=== PATIENT | male | born 1940 | race Caucasian/White ===

== ENCOUNTER 2020-05-15 09:30 | Outpatient (RCR) | payer SELFPAY | END 2020-05-15 23:59 | disposition home or self-care (01) | LOC: ANHAUDIO 09:30 | PROVIDERS: PCP Internal Medicine; Visit Provider Internal Medicine | DX: Z46.1 Encounter for fitting and adjustment of hearing aid (principal) | CPT/HCPCS: V5014 ==

== ENCOUNTER 2021-01-15 08:30 | Outpatient (RCR) | payer SELFPAY | END 2021-01-15 23:59 | disposition home or self-care (01) | LOC: ANHAUDIO 08:30 | PROVIDERS: Family Provider Internal Medicine; PCP Internal Medicine; Visit Provider Internal Medicine | DX: Z46.1 Encounter for fitting and adjustment of hearing aid (principal) | CPT/HCPCS: 99199 ==

== ENCOUNTER 2021-01-24 15:35 | Outpatient (CLI) | payer MEDICARE, OTHER, SELFPAY | END 2021-01-24 15:36 | disposition home or self-care (01) | LOC: ANHCOVIDVC 15:35 | PROVIDERS: PCP Internal Medicine | DX: Z23 Encounter for immunization (principal) | CPT/HCPCS: 0001A; 91300 ==

== ENCOUNTER 2021-02-14 15:44 | Outpatient (CLI) | payer MEDICARE, OTHER, SELFPAY | END 2021-02-14 15:45 | disposition home or self-care (01) | LOC: ANHCOVIDVC 15:44 | PROVIDERS: PCP Internal Medicine | DX: Z23 Encounter for immunization (principal) | CPT/HCPCS: 0002A; 91300 ==

== ENCOUNTER 2021-11-15 13:20 | Emergency (ER) | payer MEDICARE, OTHER, SELFPAY ==
--- NOTE | ~2021-11-15 | XR_ITS ---
EXAMINATION: XR knee LT min 4V DATE: 11/15/2021 13:53 INDICATION: Left knee pain and swelling. TECHNIQUE: 4 views of left knee were obtained. COMPARISON: Left knee radiographs 09/16/2010 FINDINGS: There is a total left knee arthroplasty with patellar resurfacing in near-anatomic alignmen t. No fracture. No periprosthetic lucency to suggest loosening or infection. No knee joint effusion. IMPRESSION: 1. Total left knee arthroplasty in near-anatomic alignment. Reviewed, dictated and finalized at location A. ER BLENDER
[2021-11-15 13:31] VITALS: BP 105/50; PULSE 68; RESP 16; TEMP 36.2; O2SAT 100
--- NOTE | 2021-11-15 14:15 | ED.LOWEXIN ---
HPI - Extremity Injury (Lower) General Chief Complaint: Extremity Injury, Lower Stated Complaint: LEFT KNEE PAIN Source: patient and RN notes reviewed Mode of arrival: ambulatory History of Present Illness HPI Narrative: This is a 80-year-old male that presented to urgent care with left knee swelling. According to patient he took his last hyperbaric treatment today for a left toe infection. Patient is currently on doxycycline for that infection and taking gabapentin for the pain. Patient able to move knee with pain. The patient denies SOB, CP, palpitation, extremity numbness, lightheadedness, dizziness, constipation, diarrhea, chills, or fever. Related Data Home Medications Medication Instructions Recorded Confirmed atorvastatin 40 mg PO DAILY 11/15/21 11/15/21 carvedilol 25 mg PO DAILY 11/15/21 11/15/21 clopidogrel 75 mg PO DAILY 11/15/21 11/15/21 dorzolamide 2 drp EACH EYE DAILY 11/15/21 11/15/21 doxycycline hyclate 100 mg PO DAILY 11/15/21 11/15/21 furosemide 20 mg PO DAILY 11/15/21 11/15/21 gabapentin 300 mg PO DAILY 11/15/21 11/15/21 isosorbide mononitrate 30 mg PO DAILY 11/15/21 11/15/21 latanoprost 0.005 drp EACH EYE DAILY 11/15/21 11/15/21 levocetirizine 5 mg PO DAILY 11/15/21 11/15/21 levothyroxine 175 mcg PO DAILY 11/15/21 11/15/21 lisinopril 10 mg PO DAILY 11/15/21 11/15/21 metformin 500 mg PO DAILY 11/15/21 11/15/21 Allergies Allergy/AdvReac Type Severity Reaction Status Date / Time pentazocine Allergy Mild Unknown Verified 11/15/21 14:04 iodine Allergy Unknown Unknown Verified 11/15/21 14:04 Contrast Media Allergy Unknown Unknown Uncoded 11/15/21 14:04 Review of Systems Review of Systems: A 14 organ system Review of Systems was performed and pertinent positives included in the HPI, otherwise remaining ROS is negative. PMFSH Family History Family History (Updated 11/15/21 @ 14:16 by PETR Alvarado) Other Family history non-contributory Exam Narrative: GENERAL: This is a well-nourished, well-developed patient, in no apparent distress. HEAD: normocephalic, atraumatic. EYES: PERRL. Sclera clear/white. Vision is grossly intact. EARS: External ears normal, auditory canals clear and without drainage, TMs normal without perforation. Hearing grossly intact. NOSE: External nose normal with no obvious nasal discharge, nares without redness, no rhinorrhea. THROAT: Mucous membranes moist, posterior pharynx clear. NECK: Neck supple, non-tender without lymphadenopathy, masses or thyromegaly. CARDIOVASCULAR: Regular rate and rhythm without murmurs, gallops, or rubs. RESPIRATORY: Clear to auscultation. Breath sounds equal bilaterally. No wheezes, rales, or rhonchi. GASTROINTESTINAL: Abdomen soft, non-tender, nondistended. Bowel sounds are active. No hepato-splenomegaly, or palpable masses. No guarding. SKIN: warm, intact with no suspicious lesions or rash, good texture and turgor. NEURO: awake, alert, and oriented to person, place and time. There were no obvious focal neurologic abnormalities. Steady gait EXTREMITIES: Limited range of motion to the left knee. Left knee with edema. No open area to the site. No calf tenderness. Negative Homans sign bilaterally. BACK: Nontender without deformity or crepitance. No flank tenderness. Course Course Emergency Course: Patient will discharge with prednisone. Currently taking doxycycline and gabapentin ibuprofen contraindicated with the use of Plavix Vital Signs Vital signs: Vital Signs Temperature 97.1 F L 11/15/21 13:31 Pulse Rate 68 11/15/21 13:31 Respiratory Rate 16 11/15/21 13:31 Blood Pressure 105/50 L 11/15/21 13:31 Pulse Oximetry 100 11/15/21 13:31 Temperature 97.1 F L 11/15/21 13:31 Pulse Rate 68 11/15/21 13:31 Respiratory Rate 16 11/15/21 13:31 Blood Pressure 105/50 L 11/15/21 13:31 Pulse Oximetry 100 11/15/21 13:31 MDM - Extremity Injury (Lower) Differential Diagnosis Differential diagnosis: Likely ankle sprain
== END 2021-11-15 14:15 | disposition home or self-care (01) ==
PROVIDERS: Emergency Provider Nurse Practitioner; PCP Internal Medicine
DX: R22.42 Localized swelling, mass and lump, left lower limb (principal)
CPT/HCPCS: 73564; 99213; G0463

== ENCOUNTER 2022-01-07 10:27 | Outpatient (RCR) | payer MEDICARE, OTHER, SELFPAY ==
[2021-12-31 11:28] LABS: Alanine Aminotransferase 47 U/L (4-50); Albumin Level 3.4 g/dL (3.5-5.1); Alkaline Phosphatase 111 U/L (38-126); Anion Gap 5 mmol/L (8-16); Aspartate Amino Transferase 42 U/L (17-59); Bilirubin,Total 0.6 mg/dL (0.2-1.3); Blood Urea Nitrogen 33 mg/dL (9-20); Calcium 9.5 mg/dL (8.4-10.2); Carbon Dioxide 25 mmol/L (22-30); Chloride 104 mmol/L (98-107); Estimated Glomerular Filt Rate 49; Glucose 165 mg/dL (65-110); Potassium 4.1 mmol/L (3.4-5.0); Sodium 134 mmol/L (137-145)
[2021-12-31 11:46] LABS: Vancomycin Trough 20.3 ug/mL (10.0-20.0)
[2021-12-31 12:22] LABS: Basophils Percent Auto 0.3 % (0.2-1.2); Eosinophils Absolute Auto 0.1 K/mm3 (0-0.3); Eosinophils Percent Auto 0.7 % (0-4.4); Hematocrit 33.2 % (42.0-52.0); Hemoglobin 10.5 g/dL (14.0-18.0); Immature Granulocyte Absolute 0.04 K/mm3 (0.00-0.031); Immature Granulocyte Percent A 0.6 % (0-0.5); Lymphocytes Absolute Auto 1.19 K/mm3 (0.9-3.2); Lymphocytes Percent Auto 17.4 % (18.3-44.2); Mean Corpuscular HGB Conc 31.6 g/dl (32-36); Mean Corpuscular Volume 101.2 fl (80-100); Mean Platelet Volume 10.5 fl (7.4-10.4); Monocytes Absolute Auto 0.7 K/mm3 (0.1-0.6); Neutrophils Absolute Auto 4.9 K/mm3 (1.3-6.7); Platelet Count Result 256 k/mm3 (150-375); Red Blood Count 3.28 M/mm3 (4.6-6.20); Red Cell Distribution Width 14.5 % (11.5-14.5); White Blood Count 6.8 K/mm3 (4.5-10.0)
[2022-01-03 12:34] LABS: Basophils Percent Auto 0.4 % (0.2-1.2); Eosinophils Absolute Auto 0.1 K/mm3 (0-0.3); Eosinophils Percent Auto 0.9 % (0-4.4); Hematocrit 34.2 % (42.0-52.0); Hemoglobin 10.6 g/dL (14.0-18.0); Immature Granulocyte Absolute 0.02 K/mm3 (0.00-0.031); Immature Granulocyte Percent A 0.4 % (0-0.5); Lymphocytes Absolute Auto 1.04 K/mm3 (0.9-3.2); Lymphocytes Percent Auto 18.9 % (18.3-44.2); Mean Corpuscular Hemoglobin 31.6 pg (26-34); Mean Corpuscular Volume 102.1 fl (80-100); Mean Platelet Volume 10.9 fl (7.4-10.4); Monocytes Absolute Auto 0.6 K/mm3 (0.1-0.6); Neutrophils Absolute Auto 3.8 K/mm3 (1.3-6.7); Neutrophils Percent Auto 69.4 % (45.5-73.1); Platelet Count Result 207 k/mm3 (150-375); Red Blood Count 3.35 M/mm3 (4.6-6.20); Red Cell Distribution Width 14.8 % (11.5-14.5); White Blood Count 5.5 K/mm3 (4.5-10.0)
[2022-01-03 12:40] LABS: Alanine Aminotransferase 28 U/L (4-50); Albumin Level 3.5 g/dL (3.5-5.1); Alkaline Phosphatase 122 U/L (38-126); Anion Gap 8 mmol/L (8-16); Aspartate Amino Transferase 33 U/L (17-59); Bilirubin,Total 0.4 mg/dL (0.2-1.3); Blood Urea Nitrogen 33 mg/dL (9-20); CRP < 0.5 mg/dL (<1.0); Calcium 9.5 mg/dL (8.4-10.2); Carbon Dioxide 24 mmol/L (22-30); Chloride 102 mmol/L (98-107); Estimated Glomerular Filt Rate 42; Glucose 155 mg/dL (65-110); Potassium 4.1 mmol/L (3.4-5.0); Sodium 134 mmol/L (137-145)
[2022-01-03 12:55] LABS: Vancomycin Trough 18.3 ug/mL (10.0-20.0)
[2022-01-03 13:07] LABS: Erythrocyte Sedimentation Rate 38 mm/hr (0-20)
[2022-01-07 11:12] LABS: Basophils Percent Auto 0.2 % (0.2-1.2); Eosinophils Absolute Auto 0.1 K/mm3 (0-0.3); Eosinophils Percent Auto 1.7 % (0-4.4); Hematocrit 32.9 % (42.0-52.0); Hemoglobin 10.4 g/dL (14.0-18.0); Immature Granulocyte Absolute 0.03 K/mm3 (0.00-0.031); Immature Granulocyte Percent A 0.6 % (0-0.5); Lymphocytes Absolute Auto 0.89 K/mm3 (0.9-3.2); Lymphocytes Percent Auto 18.7 % (18.3-44.2); Mean Corpuscular HGB Conc 31.6 g/dl (32-36); Mean Corpuscular Hemoglobin 32.4 pg (26-34); Mean Corpuscular Volume 102.5 fl (80-100); Mean Platelet Volume 11.1 fl (7.4-10.4); Monocytes Absolute Auto 0.5 K/mm3 (0.1-0.6); Monocytes Percent Auto 11.1 % (2.6-8.5); Neutrophils Absolute Auto 3.2 K/mm3 (1.3-6.7); Neutrophils Percent Auto 67.7 % (45.5-73.1); Platelet Count Result 157 k/mm3 (150-375); Red Blood Count 3.21 M/mm3 (4.6-6.20); Red Cell Distribution Width 15.1 % (11.5-14.5); White Blood Count 4.8 K/mm3 (4.5-10.0)
[2022-01-07 11:28] LABS: Alanine Aminotransferase 25 U/L (4-50); Albumin Level 3.3 g/dL (3.5-5.1); Alkaline Phosphatase 148 U/L (38-126); Anion Gap 7 mmol/L (8-16); Aspartate Amino Transferase 28 U/L (17-59); Bilirubin,Total 0.3 mg/dL (0.2-1.3); Blood Urea Nitrogen 35 mg/dL (9-20); Calcium 8.8 mg/dL (8.4-10.2); Carbon Dioxide 23 mmol/L (22-30); Chloride 106 mmol/L (98-107); Estimated Glomerular Filt Rate 42; Glucose 213 mg/dL (65-110); Potassium 4.3 mmol/L (3.4-5.0); Sodium 136 mmol/L (137-145)
[2022-01-07 11:38] LABS: Vancomycin Trough 21.7 ug/mL (10.0-20.0)
== END 2022-03-31 23:59 | disposition home or self-care (01) ==
LOC: HOME HLTH 10:27
PROVIDERS: PCP Internal Medicine; Visit Provider Internal Medicine
DX: T84.54XA Infection and inflammatory reaction due to internal left knee prosthesis, initial encounter (principal)
CPT/HCPCS: 80053; 80202; 85025; 85652; 86140

== ENCOUNTER 2022-01-12 12:25 | Outpatient (NON) | payer MEDICARE, OTHER, SELFPAY ==
[2022-01-12 12:39] LABS: Anion Gap 6 mmol/L (8-16); Blood Urea Nitrogen 41 mg/dL (9-20); Calcium 9.2 mg/dL (8.4-10.2); Carbon Dioxide 26 mmol/L (22-30); Chloride 104 mmol/L (98-107); Creatine Kinase 48 U/L (55-170); Estimated Glomerular Filt Rate 42; Glucose 178 mg/dL (65-110); Potassium 4.8 mmol/L (3.4-5.0); Sodium 136 mmol/L (137-145)
== END 2022-01-12 12:26 | disposition home or self-care (01) ==
PROVIDERS: PCP Internal Medicine
DX: T84.53XA Infection and inflammatory reaction due to internal right knee prosthesis, initial encounter (principal)
CPT/HCPCS: 80048; 82550

== ENCOUNTER 2022-01-17 11:22 | Outpatient (NON) | payer MEDICARE, OTHER, SELFPAY ==
[2022-01-17 12:11] LABS: Anion Gap 8 mmol/L (8-16); Blood Urea Nitrogen 42 mg/dL (9-20); Calcium 8.4 mg/dL (8.4-10.2); Carbon Dioxide 25 mmol/L (22-30); Chloride 105 mmol/L (98-107); Creatine Kinase 54 U/L (55-170); Estimated Glomerular Filt Rate 49; Glucose 154 mg/dL (65-110); Potassium 4.4 mmol/L (3.4-5.0); Sodium 138 mmol/L (137-145)
[2022-01-17 12:34] LABS: Vancomycin Trough 11.1 ug/mL (10.0-20.0)
== END 2022-01-17 11:23 | disposition home or self-care (01) ==
LOC: HOME HLTH 11:32
PROVIDERS: PCP Internal Medicine; Visit Provider Internal Medicine
DX: T84.54XA Infection and inflammatory reaction due to internal left knee prosthesis, initial encounter (principal); Z45.2 Encounter for adjustment and management of vascular access device; Z51.81 Encounter for therapeutic drug level monitoring; Z79.899 Other long term (current) drug therapy; Y83.8 Other surgical procedures as the cause of abnormal reaction of the patient, or of later complication, without mention of misadventure at the time of the procedure
CPT/HCPCS: 80048; 80202; 82550

== ENCOUNTER 2022-01-24 10:37 | Outpatient (RCR) | payer MEDICARE, OTHER, SELFPAY ==
[2022-01-09 17:43] LABS: Anion Gap 6 mmol/L (8-16); Blood Urea Nitrogen 40 mg/dL (9-20); Calcium 9.1 mg/dL (8.4-10.2); Carbon Dioxide 25 mmol/L (22-30); Chloride 107 mmol/L (98-107); Estimated Glomerular Filt Rate 39; Glucose 99 mg/dL (65-110); Potassium 4.6 mmol/L (3.4-5.0); Sodium 138 mmol/L (137-145)
[2022-01-09 17:48] LABS: Vancomycin Trough 18.8 ug/mL (10.0-20.0)
[2022-01-10 12:04] LABS: Anion Gap 7 mmol/L (8-16); Blood Urea Nitrogen 43 mg/dL (9-20); Carbon Dioxide 25 mmol/L (22-30); Chloride 106 mmol/L (98-107); Estimated Glomerular Filt Rate 39; Glucose 239 mg/dL (65-110); Sodium 138 mmol/L (137-145)
[2022-01-10 12:11] LABS: Vancomycin Random 15.3 ug/mL (10-20)
[2022-01-24 10:53] LABS: Basophils Percent Auto 0.4 % (0.2-1.2); Eosinophils Absolute Auto 0.1 K/mm3 (0-0.3); Eosinophils Percent Auto 1.5 % (0-4.4); Hemoglobin 10.5 g/dL (14.0-18.0); Immature Granulocyte Absolute 0.01 K/mm3 (0.00-0.031); Immature Granulocyte Percent A 0.2 % (0-0.5); Lymphocytes Absolute Auto 1.39 K/mm3 (0.9-3.2); Lymphocytes Percent Auto 25.5 % (18.3-44.2); Mean Corpuscular HGB Conc 31.8 g/dl (32-36); Mean Corpuscular Hemoglobin 31.8 pg (26-34); Mean Platelet Volume 10.2 fl (7.4-10.4); Monocytes Absolute Auto 0.6 K/mm3 (0.1-0.6); Monocytes Percent Auto 10.6 % (2.6-8.5); Neutrophils Absolute Auto 3.4 K/mm3 (1.3-6.7); Neutrophils Percent Auto 61.8 % (45.5-73.1); Platelet Count Result 194 k/mm3 (150-375); Red Cell Distribution Width 14.6 % (11.5-14.5); White Blood Count 5.5 K/mm3 (4.5-10.0)
[2022-01-24 11:06] LABS: Alanine Aminotransferase 17 U/L (4-50); Albumin Level 3.8 g/dL (3.5-5.1); Alkaline Phosphatase 135 U/L (38-126); Anion Gap 6 mmol/L (8-16); Aspartate Amino Transferase 26 U/L (17-59); Bilirubin,Total 0.4 mg/dL (0.2-1.3); Blood Urea Nitrogen 50 mg/dL (9-20); Calcium 8.7 mg/dL (8.4-10.2); Carbon Dioxide 27 mmol/L (22-30); Chloride 103 mmol/L (98-107); Creatine Kinase 57 U/L (55-170); Estimated Glomerular Filt Rate 34; Glucose 194 mg/dL (65-110); Potassium 4.8 mmol/L (3.4-5.0); Sodium 136 mmol/L (137-145)
== END 2022-04-09 23:59 | disposition home or self-care (01) ==
LOC: HOME HLTH 10:37
PROVIDERS: PCP Internal Medicine
DX: T84.53XD Infection and inflammatory reaction due to internal right knee prosthesis, subsequent encounter (principal)
CPT/HCPCS: 80048; 80053; 80202; 82550; 85025

== ENCOUNTER 2023-04-02 07:46 | Outpatient (CLI) | payer MEDICARE, OTHER, SELFPAY ==
[2023-04-02 09:30] LABS: LDL Cholesterol Direct 37 mg/dL
[2023-04-02 09:45] LABS: Basophils Percent Auto 0.4 % (0.2-1.2); Eosinophils Percent Auto 0.7 % (0-4.4); Hematocrit 43.6 % (42.0-52.0); Hemoglobin 13.3 g/dL (14.0-18.0); Immature Granulocyte Absolute 0.03 K/mm3 (0.00-0.031); Immature Granulocyte Percent A 0.5 % (0-0.5); Lymphocytes Absolute Auto 1.27 K/mm3 (0.9-3.2); Mean Corpuscular HGB Conc 30.5 g/dl (32-36); Mean Corpuscular Hemoglobin 30.2 pg (26-34); Mean Corpuscular Volume 99.1 fl (80-100); Mean Platelet Volume 11.1 fl (7.4-10.4); Monocytes Absolute Auto 0.7 K/mm3 (0.1-0.6); Monocytes Percent Auto 12.3 % (2.6-8.5); Neutrophils Absolute Auto 3.5 K/mm3 (1.3-6.7); Neutrophils Percent Auto 63.1 % (45.5-73.1); Platelet Count Result 167 k/mm3 (150-375); Red Cell Distribution Width 14.3 % (11.5-14.5); White Blood Count 5.5 K/mm3 (4.5-10.0)
[2023-04-02 09:49] LABS: Thyroid Stimulating Hormone 0.389 uIU/mL (0.465-4.680)
[2023-04-02 10:08] LABS: Alanine Aminotransferase 28 U/L (6-50); Albumin Level 4.1 g/dL (3.5-5.1); Alkaline Phosphatase 136 U/L (38-126); Anion Gap 4 mmol/L (8-16); Aspartate Amino Transferase 35 U/L (17-59); Bilirubin,Total 0.5 mg/dL (0.2-1.3); Blood Urea Nitrogen 39 mg/dL (9-20); Calcium 8.9 mg/dL (8.4-10.2); Carbon Dioxide 31 mmol/L (22-30); Chloride 104 mmol/L (98-107); Cholesterol 103 mg/dL (0-200); Estimated Glomerular Filt Rate 53; Glucose 108 mg/dL (65-110); HDL Direct 34 mg/dL; Potassium 5.2 mmol/L (3.4-5.0); Sodium 139 mmol/L (137-145); Triglycerides 120 mg/dL (<150)
[2023-04-02 10:52] LABS: Free T4 Free Thyroxine 1.63 ng/mL (0.78-2.19)
== END 2023-04-02 07:47 | disposition home or self-care (01) ==
LOC: ANHLAB 07:51
PROVIDERS: PCP Internal Medicine; Visit Provider Internal Medicine Interventional Cardiology
DX: E03.9 Hypothyroidism, unspecified (principal); E78.2 Mixed hyperlipidemia; R79.89 Other specified abnormal findings of blood chemistry
CPT/HCPCS: 36415; 80053; 80061; 82607; 84439; 84443; 85025

== ENCOUNTER 2023-05-15 11:30 | Outpatient (RCR) | payer MEDICARE, OTHER, SELFPAY | END 2023-05-15 23:59 | disposition home or self-care (01) | LOC: ANHAUDIO 11:30 | PROVIDERS: PCP Internal Medicine; Visit Provider Internal Medicine | DX: Z46.1 Encounter for fitting and adjustment of hearing aid (principal) | CPT/HCPCS: 99199; V5014 ==

== ENCOUNTER 2023-07-11 08:05 | Outpatient (CLI) | payer MEDICARE, OTHER, SELFPAY ==
[2023-07-11 10:23] LABS: Basophils Percent Auto 0.3 % (0.2-1.2); Eosinophils Absolute Auto 0.1 K/mm3 (0-0.3); Eosinophils Percent Auto 1.2 % (0-4.4); Hematocrit 46.7 % (42.0-52.0); Hemoglobin 14.5 g/dL (14.0-18.0); Immature Granulocyte Absolute 0.03 K/mm3 (0.00-0.031); Immature Granulocyte Percent A 0.5 % (0-0.5); Lymphocytes Absolute Auto 1.24 K/mm3 (0.9-3.2); Lymphocytes Percent Auto 21.4 % (18.3-44.2); Mean Corpuscular Hemoglobin 30.8 pg (26-34); Mean Corpuscular Volume 99.2 fl (80-100); Mean Platelet Volume 10.4 fl (7.4-10.4); Monocytes Absolute Auto 0.6 K/mm3 (0.1-0.6); Monocytes Percent Auto 9.8 % (2.6-8.5); Neutrophils Absolute Auto 3.9 K/mm3 (1.3-6.7); Neutrophils Percent Auto 66.8 % (45.5-73.1); Platelet Count Result 150 k/mm3 (150-375); Red Blood Count 4.71 M/mm3 (4.6-6.20); Red Cell Distribution Width 13.3 % (11.5-14.5); White Blood Count 5.8 K/mm3 (4.5-10.0)
[2023-07-11 10:30] LABS: Alanine Aminotransferase 27 U/L (6-50); Albumin Level 4.2 g/dL (3.5-5.1); Alkaline Phosphatase 90 U/L (38-126); Anion Gap 6 mmol/L (8-16); Aspartate Amino Transferase 35 U/L (17-59); Bilirubin,Total 0.8 mg/dL (0.2-1.3); Blood Urea Nitrogen 30 mg/dL (9-20); Calcium 9.2 mg/dL (8.4-10.2); Carbon Dioxide 29 mmol/L (22-30); Chloride 103 mmol/L (98-107); Cholesterol 101 mg/dL (0-200); Estimated Glomerular Filt Rate > 60; Glucose 95 mg/dL (65-110); HDL Direct 36 mg/dL; Phosphorus 3.7 mg/dL (2.5-4.5); Potassium 4.8 mmol/L (3.4-5.0); Sodium 138 mmol/L (137-145); Triglycerides 79 mg/dL (<150)
[2023-07-11 10:36] LABS: Hemoglobin A1C 6.4 % (<5.7)
[2023-07-11 10:54] LABS: Add Urine Microscopic? NO; Appearance Urine Clear (Clear); Bilirubin Urine Negative (Negative); Blood Urine Negative (Negative); Color Urine Yellow (Yellow); Glucose Urine UA 2+ mg/dL (Negative); Ketones Urine Negative (Negative); Leukocyte Esterase Ur Negative LEU/UL (NEGATIVE); Nitrate Urine Negative (Negative); Protein Urine Negative (Negative); Specific Grav Ur 1.012 (1.001-1.035); Urobilinogen Urine 0.2 mg/dL (<2.0)
[2023-07-11 10:54] LABS: LDL Cholesterol Direct 44 mg/dL; Vitamin D 25 Hydroxy 42.1 ng/mL
[2023-07-11 11:02] LABS: Total Protein Urine Random 10 mg/dL; Ur Ttl Prot Creatinine Ratio 0.24 mg/mg (0-0.20)
[2023-07-15 13:42] LABS: C-Peptide 0.88 ng/mL (0.80-3.85)
== END 2023-07-11 08:06 | disposition home or self-care (01) ==
PROVIDERS: PCP Internal Medicine; Referring Provider Internal Medicine Interventional Cardiology; Visit Provider Hospitalist
DX: E78.00 Pure hypercholesterolemia, unspecified (principal); Z79.01 Long term (current) use of anticoagulants; E11.69 Type 2 diabetes mellitus with other specified complication; E78.5 Hyperlipidemia, unspecified; E03.9 Hypothyroidism, unspecified; I12.9 Hypertensive chronic kidney disease with stage 1 through stage 4 chronic kidney disease, or unspecified chronic kidney disease; N18.2 Chronic kidney disease, stage 2 (mild); E55.9 Vitamin D deficiency, unspecified
CPT/HCPCS: 36415; 80053; 80061; 81003; 82306; 82570; 83036; 84100; 84156; 84443; 84681; 85025

== ENCOUNTER 2023-12-17 07:57 | Outpatient (CLI) | payer MEDICARE, OTHER, SELFPAY ==
[2023-12-17 08:51] LABS: Basophils Percent Auto 0.3 % (0.2-1.2); Eosinophils Absolute Auto 0.1 K/mm3 (0-0.3); Eosinophils Percent Auto 0.7 % (0-4.4); Hemoglobin 13.6 g/dL (14.0-18.0); Immature Granulocyte Absolute 0.04 K/mm3 (0.00-0.031); Immature Granulocyte Percent A 0.5 % (0-0.5); Lymphocytes Absolute Auto 1.35 K/mm3 (0.9-3.2); Lymphocytes Percent Auto 15.6 % (18.3-44.2); Mean Corpuscular HGB Conc 30.9 g/dl (32-36); Mean Corpuscular Hemoglobin 30.4 pg (26-34); Mean Corpuscular Volume 98.2 fl (80-100); Mean Platelet Volume 10.1 fl (7.4-10.4); Monocytes Absolute Auto 0.6 K/mm3 (0.1-0.6); Monocytes Percent Auto 7.3 % (2.6-8.5); Neutrophils Absolute Auto 6.6 K/mm3 (1.3-6.7); Neutrophils Percent Auto 75.6 % (45.5-73.1); Platelet Count Result 196 k/mm3 (150-375); Red Blood Count 4.48 M/mm3 (4.6-6.20); Red Cell Distribution Width 13.2 % (11.5-14.5); White Blood Count 8.7 K/mm3 (4.5-10.0)
[2023-12-17 08:54] LABS: Appearance Urine Clear (Clear); Bilirubin Urine Negative (Negative); Blood Urine Negative (Negative); Color Urine Yellow (Yellow); Glucose Urine UA 3+ mg/dL (Negative); Ketones Urine Negative (Negative); Leukocyte Esterase Ur Negative LEU/UL (NEGATIVE); Nitrate Urine Negative (Negative); Protein Urine Negative (Negative); Specific Grav Ur 1.021 (1.001-1.035); Urobilinogen Urine 0.2 mg/dL (<2.0)
[2023-12-17 08:56] LABS: Add Urine Microscopic? NO
[2023-12-17 09:04] LABS: Anion Gap 8 mmol/L (8-16); Blood Urea Nitrogen 41 mg/dL (9-20); Calcium 9.4 mg/dL (8.4-10.2); Carbon Dioxide 29 mmol/L (22-30); Chloride 101 mmol/L (98-107); Estimated Glomerular Filt Rate 53; Glucose 143 mg/dL (65-110); Phosphorus 4.3 mg/dL (2.5-4.5); Potassium 5.2 mmol/L (3.4-5.0); Sodium 138 mmol/L (137-145)
[2023-12-17 09:05] LABS: Total Protein Urine Random 8 mg/dL; Ur Ttl Prot Creatinine Ratio 0.08 mg/mg (0-0.20)
== END 2023-12-17 07:58 | disposition home or self-care (01) ==
PROVIDERS: PCP Internal Medicine; Visit Provider Hospitalist
DX: N18.2 Chronic kidney disease, stage 2 (mild) (principal); R80.9 Proteinuria, unspecified; I10 Essential (primary) hypertension
CPT/HCPCS: 36415; 80069; 81003; 82570; 84156; 85025

== ENCOUNTER 2024-03-03 08:26 | Outpatient (CLI) | payer MEDICARE, OTHER, SELFPAY ==
[2024-03-03 09:09] LABS: Basophils Percent Auto 0.2 % (0.2-1.2); Eosinophils Percent Auto 0.8 % (0-4.4); Hematocrit 43.4 % (42.0-52.0); Hemoglobin 13.5 g/dL (14.0-18.0); Immature Granulocyte Absolute 0.03 K/mm3 (0.00-0.031); Immature Granulocyte Percent A 0.6 % (0-0.5); Lymphocytes Absolute Auto 1.02 K/mm3 (0.9-3.2); Lymphocytes Percent Auto 20.6 % (18.3-44.2); Mean Corpuscular HGB Conc 31.1 g/dl (32-36); Mean Corpuscular Hemoglobin 30.5 pg (26-34); Mean Corpuscular Volume 98.2 fl (80-100); Mean Platelet Volume 10.5 fl (7.4-10.4); Monocytes Absolute Auto 0.5 K/mm3 (0.1-0.6); Monocytes Percent Auto 9.7 % (2.6-8.5); Neutrophils Absolute Auto 3.4 K/mm3 (1.3-6.7); Neutrophils Percent Auto 68.1 % (45.5-73.1); Platelet Count Result 167 k/mm3 (150-375); Red Blood Count 4.42 M/mm3 (4.6-6.20); Red Cell Distribution Width 13.6 % (11.5-14.5)
[2024-03-03 09:26] LABS: Alanine Aminotransferase 21 U/L (6-50); Alkaline Phosphatase 113 U/L (38-126); Anion Gap 5 mmol/L (4-12); Aspartate Amino Transferase 28 U/L (17-59); Bilirubin,Total 0.6 mg/dL (0.2-1.3); Blood Urea Nitrogen 29 mg/dL (9-20); Calcium 9.3 mg/dL (8.4-10.2); Carbon Dioxide 30 mmol/L (22-30); Chloride 106 mmol/L (98-107); Cholesterol 85 mg/dL (0-200); Estimated Glomerular Filt Rate > 60; Glucose 140 mg/dL (65-110); HDL Direct 32 mg/dL; Potassium 4.2 mmol/L (3.4-5.0); Sodium 141 mmol/L (137-145); Triglycerides 72 mg/dL (<150)
[2024-03-03 09:38] LABS: LDL Cholesterol Direct 43 mg/dL
== END 2024-03-03 08:27 | disposition home or self-care (01) ==
LOC: ANHLAB 08:29
PROVIDERS: PCP Internal Medicine; Visit Provider Internal Medicine
DX: I10 Essential (primary) hypertension (principal); E78.5 Hyperlipidemia, unspecified; R79.89 Other specified abnormal findings of blood chemistry
CPT/HCPCS: 36415; 80053; 80061; 82607; 85025

== ENCOUNTER 2024-03-13 14:16 | Outpatient (CLI) | payer MEDICARE, OTHER, SELFPAY ==
--- NOTE | ~2024-03-13 | MR_ITS ---
EXAMINATION: MR foot RT wo con DATE: 03/13/2024 15:20 INDICATION: Right second toe ulcer. TECHNIQUE: Magnetic resonance imaging (MRI) of the right foot was performed without intravenous contr ast. COMPARISON: None FINDINGS: There is a complete tear of the Lisfranc ligament with lateral subluxation of second metata rsal with respect to intermediate cuneiform. No fracture. There is an ulcer of the distal second toe. There is edema-like marrow signal intensity involving second distal phalanx, consistent with osteomy elitis. There is severe osteoarthritis of first-fifth tarsometatarsal joints and the naviculocuneifor m joints. There is moderate osteoarthritis of first metatarsophalangeal joint and mild to moderate os teoarthritis of the interphalangeal joints. IMPRESSION: 1. Osteomyelitis involving second distal phalanx. 2. Severe midfoot neuropathic osteoarthropathy. Reviewed, dictated and finalized at location E.
== END 2024-03-13 14:17 | disposition home or self-care (01) ==
LOC: ANHIMG 14:17
PROVIDERS: PCP Internal Medicine; Visit Provider Podiatrist Foot & Ankle Surgery
DX: M86.271 Subacute osteomyelitis, right ankle and foot (principal); L97.512 Non-pressure chronic ulcer of other part of right foot with fat layer exposed; M19.071 Primary osteoarthritis, right ankle and foot
CPT/HCPCS: 73718

== ENCOUNTER 2024-03-16 11:58 | Outpatient (CLI) | payer MEDICARE, OTHER, SELFPAY ==
[2024-03-16 13:16] LABS: Free T4 Free Thyroxine 1.79 ng/mL (0.78-2.19)
[2024-03-16 13:17] LABS: Thyroid Stimulating Hormone 0.598 uIU/mL (0.465-4.680)
[2024-03-16 19:37] LABS: Hemoglobin A1C 6.7 % (<5.7)
== END 2024-03-16 11:59 | disposition home or self-care (01) ==
LOC: ANHLAB 12:00
PROVIDERS: PCP Internal Medicine; Visit Provider Internal Medicine
DX: E03.9 Hypothyroidism, unspecified (principal); E11.69 Type 2 diabetes mellitus with other specified complication
CPT/HCPCS: 36415; 83036; 84439; 84443

== ENCOUNTER 2024-04-14 07:26 | Outpatient (CLI) | payer MEDICARE, OTHER, SELFPAY ==
[2024-04-14 08:48] LABS: Hemoglobin A1C 6.7 % (<5.7)
[2024-04-14 09:16] LABS: Free T4 Free Thyroxine 1.54 ng/mL (0.78-2.19)
== END 2024-04-14 07:27 | disposition home or self-care (01) ==
LOC: ANHLAB 07:31
PROVIDERS: PCP Internal Medicine; Visit Provider Internal Medicine
DX: E03.9 Hypothyroidism, unspecified (principal); E11.69 Type 2 diabetes mellitus with other specified complication
CPT/HCPCS: 36415; 83036; 84439; 84443

== ENCOUNTER 2024-06-11 08:17 | Outpatient (CLI) | payer MEDICARE, OTHER, SELFPAY ==
[2024-06-11 09:14] LABS: Basophils Percent Auto 0.2 % (0.2-1.2); Eosinophils Percent Auto 0.9 % (0-4.4); Hematocrit 42.6 % (42.0-52.0); Hemoglobin 13.5 g/dL (14.0-18.0); Immature Granulocyte Absolute 0.01 K/mm3 (0.00-0.031); Immature Granulocyte Percent A 0.2 % (0-0.5); Lymphocytes Absolute Auto 1.03 K/mm3 (0.9-3.2); Lymphocytes Percent Auto 22.2 % (18.3-44.2); Mean Corpuscular HGB Conc 31.7 g/dl (32-36); Mean Corpuscular Hemoglobin 30.6 pg (26-34); Mean Corpuscular Volume 96.6 fl (80-100); Mean Platelet Volume 10.9 fl (7.4-10.4); Monocytes Absolute Auto 0.5 K/mm3 (0.1-0.6); Monocytes Percent Auto 10.8 % (2.6-8.5); Neutrophils Absolute Auto 3.1 K/mm3 (1.3-6.7); Neutrophils Percent Auto 65.7 % (45.5-73.1); Platelet Count Result 141 k/mm3 (150-375); Red Blood Count 4.41 M/mm3 (4.6-6.20); Red Cell Distribution Width 13.6 % (11.5-14.5); White Blood Count 4.6 K/mm3 (4.5-10.0)
[2024-06-11 09:22] LABS: Alanine Aminotransferase 19 U/L (6-50); Albumin Level 3.9 g/dL (3.5-5.1); Alkaline Phosphatase 113 U/L (38-126); Anion Gap 11 mmol/L (4-12); Aspartate Amino Transferase 26 U/L (17-59); Bilirubin,Total 0.5 mg/dL (0.2-1.3); Blood Urea Nitrogen 36 mg/dL (9-20); Calcium 8.7 mg/dL (8.4-10.2); Carbon Dioxide 24 mmol/L (22-30); Chloride 102 mmol/L (98-107); Estimated Glomerular Filt Rate 58; Glucose 193 mg/dL (65-110); Potassium 4.3 mmol/L (3.4-5.0); Sodium 137 mmol/L (137-145)
[2024-06-11 10:12] LABS: Creatinine Urine 40.5 mg/dL
[2024-06-11 10:17] LABS: Microalbumin Urine Random < 6.0 mg/L (0-16.7)
[2024-06-11 10:18] LABS: MALB Creatinine Ratio < 14.8 mg/g (0-30)
[2024-06-11 10:26] LABS: Folic Acid 13.7 ng/mL (2.76->20)
== END 2024-06-11 08:18 | disposition home or self-care (01) ==
LOC: ANHLAB 08:20
PROVIDERS: PCP Internal Medicine; Visit Provider Internal Medicine
DX: I10 Essential (primary) hypertension (principal); E11.40 Type 2 diabetes mellitus with diabetic neuropathy, unspecified; E11.69 Type 2 diabetes mellitus with other specified complication
CPT/HCPCS: 36415; 80053; 82043; 82607; 82746; 85025

== ENCOUNTER 2024-09-03 07:46 | Outpatient (CLI) | payer MEDICARE, OTHER, SELFPAY ==
[2024-09-03 08:25] LABS: Add Urine Microscopic? NO; Appearance Urine Clear (Clear); Bilirubin Urine Negative (Negative); Blood Urine Negative (Negative); Color Urine Yellow (Yellow); Glucose Urine UA 3+ mg/dL (Negative); Ketones Urine Negative (Negative); Leukocyte Esterase Ur Negative LEU/UL (Negative); Nitrate Urine Negative (Negative); Protein Urine Negative (Negative); Specific Grav Ur 1.025 (1.001-1.035); Urobilinogen Urine 0.2 mg/dL (<2.0); pH Urine 5.5 (5.0-9.0)
[2024-09-03 08:26] LABS: Basophils Percent Auto 0.4 % (0.2-1.2); Eosinophils Absolute Auto 0.1 K/mm3 (0-0.3); Eosinophils Percent Auto 1.2 % (0-4.4); Hematocrit 45.8 % (42.0-52.0); Hemoglobin 14.4 g/dL (14.0-18.0); Immature Granulocyte Absolute 0.02 K/mm3 (0.00-0.031); Immature Granulocyte Percent A 0.4 % (0-0.5); Immature Platelet Fraction Pct 2.7 % (0.9-11.2); Lymphocytes Absolute Auto 1.13 K/mm3 (0.9-3.2); Lymphocytes Percent Auto 23.1 % (18.3-44.2); Mean Corpuscular HGB Conc 31.4 g/dl (32-36); Mean Corpuscular Hemoglobin 30.5 pg (26-34); Mean Platelet Volume 10.2 fl (7.4-10.4); Monocytes Absolute Auto 0.8 K/mm3 (0.1-0.6); Neutrophils Absolute Auto 2.9 K/mm3 (1.3-6.7); Neutrophils Percent Auto 58.9 % (45.5-73.1); Platelet Count Result 137 k/mm3 (150-375); Red Blood Count 4.72 M/mm3 (4.6-6.20); White Blood Count 4.9 K/mm3 (4.5-10.0)
[2024-09-03 08:34] LABS: Alanine Aminotransferase 22 U/L (6-50); Alkaline Phosphatase 135 U/L (38-126); Anion Gap 7 mmol/L (4-12); Aspartate Amino Transferase 32 U/L (17-59); Bilirubin,Total 0.4 mg/dL (0.2-1.3); Blood Urea Nitrogen 39 mg/dL (9-20); Carbon Dioxide 29 mmol/L (22-30); Chloride 103 mmol/L (98-107); Estimated Glomerular Filt Rate 49; Glucose 145 mg/dL (65-110); Phosphorus 3.9 mg/dL (2.5-4.5); Potassium 4.7 mmol/L (3.4-5.0); Sodium 139 mmol/L (137-145)
[2024-09-03 11:09] LABS: Creatinine Urine 85.8 mg/dL
[2024-09-03 11:44] LABS: Microalbumin Urine Random < 6.0 mg/L (0-16.7)
[2024-09-03 11:45] LABS: MALB Creatinine Ratio < 7.0 mg/g (0-30)
[2024-09-06 11:21] LABS: Cholesterol 103 mg/dL (0-200); HDL Direct 25 mg/dL; Triglycerides 122 mg/dL (<150)
[2024-09-06 11:31] LABS: LDL Cholesterol Direct 36 mg/dL
== END 2024-09-03 07:47 | disposition home or self-care (01) ==
LOC: ANHLAB 07:51
PROVIDERS: PCP Internal Medicine; Referring Provider Hospitalist; Visit Provider Internal Medicine Interventional Cardiology
DX: I12.9 Hypertensive chronic kidney disease with stage 1 through stage 4 chronic kidney disease, or unspecified chronic kidney disease (principal); N18.2 Chronic kidney disease, stage 2 (mild); E78.00 Pure hypercholesterolemia, unspecified; Z79.02 Long term (current) use of antithrombotics/antiplatelets
CPT/HCPCS: 36415; 80053; 80061; 80069; 81003; 82043; 85025; 85055

== ENCOUNTER 2024-12-15 11:32 | Outpatient (CLI) | payer MEDICARE, OTHER, SELFPAY ==
[2024-12-15 12:58] LABS: Basophils Percent Auto 0.4 % (0.2-1.2); Eosinophils Percent Auto 0.6 % (0-4.4); Hematocrit 44.1 % (42.0-52.0); Hemoglobin 14.1 g/dL (14.0-18.0); Immature Granulocyte Absolute 0.02 K/mm3 (0.00-0.031); Immature Granulocyte Percent A 0.4 % (0-0.5); Lymphocytes Absolute Auto 1.25 K/mm3 (0.9-3.2); Mean Corpuscular Volume 96.9 fl (80-100); Monocytes Absolute Auto 0.5 K/mm3 (0.1-0.6); Monocytes Percent Auto 10.8 % (2.6-8.5); Neutrophils Absolute Auto 3.1 K/mm3 (1.3-6.7); Neutrophils Percent Auto 62.8 % (45.5-73.1); Platelet Count Result 157 k/mm3 (150-375); Red Blood Count 4.55 M/mm3 (4.6-6.20); Red Cell Distribution Width 13.5 % (11.5-14.5)
[2024-12-15 12:59] LABS: Add Urine Microscopic? NO; Appearance Urine Clear (Clear); Bilirubin Urine Negative (Negative); Blood Urine Negative (Negative); Color Urine Yellow (Yellow); Glucose Urine UA 3+ mg/dL (Negative); Ketones Urine Negative (Negative); Leukocyte Esterase Ur Negative LEU/UL (Negative); Nitrate Urine Negative (Negative); Protein Urine Negative (Negative); Specific Grav Ur 1.009 (1.001-1.035); Urobilinogen Urine 0.2 mg/dL (<2.0)
[2024-12-15 13:05] LABS: Creatinine Urine 15.6 mg/dL; Total Protein Urine Random 11 mg/dL; Ur Ttl Prot Creatinine Ratio 0.71 mg/mg (0-0.20)
[2024-12-15 13:07] LABS: Albumin Level 4.1 g/dL (3.5-5.1); Anion Gap 7 mmol/L (4-12); Blood Urea Nitrogen 29 mg/dL (9-20); Calcium 9.3 mg/dL (8.4-10.2); Carbon Dioxide 30 mmol/L (22-30); Chloride 101 mmol/L (98-107); Cholesterol 85 mg/dL (0-200); Estimated Glomerular Filt Rate 58; Glucose 145 mg/dL (65-110); HDL Direct 32 mg/dL; Phosphorus 3.4 mg/dL (2.5-4.5); Potassium 4.9 mmol/L (3.4-5.0); Sodium 138 mmol/L (137-145); Triglycerides 89 mg/dL (<150)
[2024-12-15 13:09] LABS: Hemoglobin A1C 7.4 % (<5.7)
[2024-12-15 13:18] LABS: LDL Cholesterol Direct 32 mg/dL
[2024-12-15 13:37] LABS: Thyroid Stimulating Hormone 0.971 uIU/mL (0.465-4.680)
[2024-12-15 13:44] LABS: Free T4 Free Thyroxine 1.78 ng/dL (0.78-2.19); Vitamin D 25 Hydroxy 42.1 ng/mL
[2024-12-15 14:13] LABS: Folic Acid 15.2 ng/mL (2.76->20)
--- OUTSIDE RECORDS SUMMARY | 2024-12-16 23:58 | XMS_ITS | Data Portability ---
Author Organization [facility] MAYEGisele ValdezNew Braunfels H Address [address] [place] [address] Care Team Providers Care Hospital Administrative Assistant Name Role Phone JOSELYN, MOCHRISTINARIK Primary Care Provider Assessment Encounter Date Assessment Date Assessment LastModified by Organization Details LastModified Time 03/23/2024 03/23/2024 Labs completed o n 03/16/2024 TSH 0.598, HA1C 6.7, Sodium 141, Potassium 4.2, Chloride 106, Co2 30, BUN 29, Creatinine 1.00, Glucose 140, Calcium 9.3, Bilirubin 0.6, AST 28, ALT 21,Alk phos 113, Protein 7.0, Albumin 4.0, Trig 72, Cholesterol 85, LDL 43, HDL 32, WBC 5.0, Hgb 13.5, Platelets 167 EKG done on 03/23/2024 shows normal sinus rhythm with a rate of 69 bpm, an early repolarization pattern which is a normal variant is years he is going to be here 7, compared to the previous EKG which was last done on 10/20/2023, there is no significant change 10/20/2023 shows sinus rhythm with a rate of 60 beats minute, early repolarization pattern, compared to the previous EKG done on 10/03/2022, there is no significant change. ASSESSMENT Preoperative cardiac evaluation prior to amputation of his second toe on his right foot due to osteomyelitis. CAD (coronary artery disease) - I25.10 (Primary), Status post PCI with 2 Cypher stents to the are CVA in 11/28/2004 with repeat catheterization in December 302005 with Patent stents and high-grade disease in a small obtuse marginal which treated with PTCA as the stent was not deliverable with residual 50-70% and mild nonobstructive disease in other arteries on catheterization on 07/14/2012, repeat cardiac catheterization done on 01/25/2020 with PTCA and stent of a high-grade stenosis in the proximal to mid right coronary artery with a 3.5 x 18 mm quantum drug-eluting stent post dilated to 3.75 mm with patent stents in the mid and distal right coronary artery, 30% mid LAD stenosis and moderate 50% stenosis in the ostium of the left circumflex artery and ostium of the distal obtuse marginal branch with 40-50% stenosis in the proximal and ostial portion of the 1st diagonal branch and occlusion of the 1st obtuse marginal branch with mild disease elsewhere, now asymptomatic, stable. For future catheterizations only use the left femoral artery approach as right common iliac artery is occluded. Peripheral vascular disease with stent placement in the right common iliac artery and [employer] in the left lower extremity by [facility] July of 2021 status post amputation of the left toes, now following with Dr. Richardson of the vascular surgery service Pure hypercholesterolem ia- E78.0, LDL at goal on atorvastatin Hypertension - I10, Controlled. Left atrial enlargement - I51.7, Secondary to hypertension Tricuspid regurgitation - I07.1, Mild with moderate pulmonary hypertension. 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 Postural dizziness - R42, Likely due to lower blood pressure and/or Lasix causing volume depletion, and improved with reducing Lasix dose, now resolved Diabetes mellitus - E11.9, Management by [facility] endocrinology Hyperkalemia - E87.5, borderline on lisinopril tolerating the lisinopril at a dose of 10 mg daily along with Lokelma with a Lokelma being given by his primary care physician and Dr. 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 I asked him to try to stay active and exercise regularly and to continue to lose weight. His potassium is adequately controlled on Lokelma on low-dose lisinopril and Lokelma as managed by his medical office technology instructor, Dr. Arroyo. I asked him to continue his aspirin n 81 mg daily, atorvastatin 40 mg daily, carvedilol 25 mg p.o. b.i.d., Plavix 75 mg daily, furosemide 20 mg daily, Imdur 30 mg daily lisinopril 10 mg daily. I recommend a lexiscan myoview stress test to evaluate for myocardial ischemia. If without ischemia I will have him hold his Plavix for 5 days prior to his surgery and continue with aspirin uninterrupted. Long-term I would like him to remain on lifelong dual antiplatelet therapy in light of his multiple stents peripheral vascular disease and diabetes mellitus as well as his residual CAD. I recommend lifelong dual antiplatelet therapy in light of his multiple multiple stents and residual CAD which is being treated medically as well as PVD. If his stress is negative for ischemia then he can proceed with surgery without contraindication from cardiac standpoint. If his stress test is negative I will have him return in 6 months time will obtain a fasting lipid profile, complete metabolic profile and a CBC. I asked him to return sooner if he has any cardiac issues or problems. Cardiology Tests: ECHOCARDIOGRAM 01/26/2020 shows mildly dilated left atrium, mild LVH, normal left ventricular systolic function with an ejection fraction of 60-65%. His aortic valve is sclerotic but not stenotic with estimated right atrial pressure of 10-15 mm of mercury. Report: 06/28/2008. Concentric left ventricular hypertrophy. Normal left ventricular systolic function. Mild tricuspid valve regurgitation and mild mitral valve regurgitation. Relaxation abnormality of the left ventricle noted with early diastolic dysfunction. ECHOCARDIOGRAM Report: 02/26/2011. Normal LV systolic function. Diastolic dysfunction, grade 3. Mild tricuspid regurgitation with moderate pulmonary hypertension. ECHOCARDIOGRAM Report: 07/27/2013. Left ventricle systolic function is normal, AV sclerotic but not stenotic, grade 1 diastolic dysfunction STRESS TEST Report: LEXISCAN 10/11/2016 no Lexiscan induced ischemic EKG changes study well-tolerated no evidence of ischemia or infarction of left ventricle normal left ventricular cavity size wall motion and calculated LVEF of 62% STRESS TEST Report: Myoview 02/01/2013. Small area of mild ischemia in the apical portion of the inferior lateral wall. No evidence of infarction of the left ventricle. Normal left ventricular wall motion and normal left ventricular ejection fraction of 56%. STRESS TEST Report: Myoview 06/16/2012. Positive stress for inferior lateral ischemia, compared to previous study in feral lateral ischemia now seen, LVEF 55% CARDIAC CATHETERIZATION 01/25/2020 which showed a severe lesion in the proximal to mid right coronary artery which is treated successfully with a 3.5 x 16 mm synergy drug-eluting stent post dilated with a 3.75 x 12 mm synergy NC Quantum balloon at 20 atmospheres with minimal 10% residual stenosis but that area where there is 10% stenosis is as large as the proximal vessel as the area is a bit ectatic. Occlusion of a small 2nd diagonal branch, widely patent mid and distal right coronary artery stents, 30% proximal to mid LAD stenosis, moderate 40-50% diagonal 1 stenosis with 50% ostial left circumflex artery and 50% ostial distal OM stenosis . The remaining lesions are mild. Right coronary dominance , normal systemic arterial blood pressure aortic pressure 120/52 mm of mercury. A 3 mm being gradient upon pullback us aortic valve not of any clinical significance. Upper limits of normal left ventricular end-diastolic pressure 11 mm of mercury. Occlusion of the right common iliac artery noted on retrograde angiogram of the right common iliac artery. CARDIAC CATHETERIZATION 12/30/2005. Patent stents in RCA with 25% restenosis in the midportion. Non-obstructive coronary artery disease in the major epicardial vessels. High-grade disease in the 2 small branches. Normal left ventricular wall motion. 1+ mitral regurgitation. No aortic stenosis. Diastolic dysfunction of left ventricle. Normal blood pressure. CARDIAC CATHETERIZATION Report: 07/14/2012. High-grade disease in a small obtuse marginal branch, measuring 2.25 mm in luminal diameter. The 99% stenosis was reduced down to 50-70% stenosis with PTCA. I was unable to deliver a stent despite multiple attempts using extra S port wires, good guide support and multiple stents. There was a MITA-3 flow in the artery. Patent stents in the right coronary artery, with mild disease in the remaining coronary arteries. Right coronary dominance. Normal systemic arterial blood pressure, with the aortic pressure of 118/62 mmHg. 8 mm gradient upon pullback across the aortic valve. Left ventricle cineangiogram was not performed so left ventricular systolic function is well as mitral regurgitation and left ventricle systolic size could not be assessed. Diastolic dysfunction as evidenced by an elevated left ventricle end-diastolic pressure of 13 mmHg. [email or web address] Not available 03/23/2024 17:37:41 04/08/2024 04/08/2024 Labs completed o n 03/16/2024 TSH 0.598, HA1C 6.7, Sodium 141, Potassium 4.2, Chloride 106, Co2 30, BUN 29, Creatinine 1.00, Glucose 140, Calcium 9.3, Bilirubin 0.6, AST 28, ALT 21,Alk phos 113, Protein 7.0, Albumin 4.0, Trig 72, Cholesterol 85, LDL 43, HDL 32, WBC 5.0, Hgb 13.5, Platelets 167 EKG done on 03/23/2024 shows normal sinus rhythm with a rate of 69 bpm, an early repolarization pattern which is a normal variant is years he is going to be here 7, compared to the previous EKG which was last done on 10/20/2023, there is no significant change 10/20/2023 shows sinus rhythm with a rate of 60 beats minute, early repolarization pattern, compared to the previous EKG done on 10/03/2022, there is no significant change. ASSESSMENT Preoperative cardiac evaluation prior to amputation of his second toe on his right foot due to osteomyelitis. See plan for recommendations CAD (coronary artery disease) - I25.10 (Primary), Status post PCI with 2 Cypher stents to the Right coronary artery in 11/28/2004 with repeat catheterization in December 302005 with Patent stents and high-grade disease in a small obtuse marginal which treated with PTCA as the stent was not deliverable with residual 50-70% and mild nonobstructive disease in other arteries on catheterization on 07/14/2012, repeat cardiac catheterization done on 01/25/2020 with PTCA and stent of a high-grade stenosis in the proximal to mid right coronary artery with a 3.5 x 18 mm quantum drug-eluting stent post dilated to 3.75 mm with patent stents in the mid and distal right coronary artery, 30% mid LAD stenosis and moderate 50% stenosis in the ostium of the left circumflex artery and ostium of the distal obtuse marginal branch with 40-50% stenosis in the proximal and ostial portion of the 1st diagonal branch and occlusion of the 1st obtuse marginal branch with mild disease elsewhere, with a Lexiscan Myoview stress test performed on 04/06/2024 showing significant transient ischemic dilation at 1.46 which could represent multivessel CAD. For future catheterizations only use the left femoral artery approach as right common iliac artery is occluded. Peripheral vascular disease with stent placement in the right common iliac artery and [employer] in the left lower extremity by [facility] July of 2021 status post amputation of the left toes, now following with Dr. Richardson of the vascular surgery service Pure hypercholesterolem ia- E78.0, LDL at goal on atorvastatin Hypertension - I10, Controlled. Left atrial enlargement - I51.7, Secondary to hypertension Tricuspid regurgitation - I07.1, Mild with moderate pulmonary hypertension. 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 Postural dizziness - R42, Likely due to lower blood pressure and/or Lasix causing volume depletion, and improved with reducing Lasix dose, now resolved Diabetes mellitus - E11.9, Management by [facility] endocrinology Hyperkalemia - E87.5, borderline on lisinopril tolerating the lisinopril at a dose of 10 mg daily along with Lokelma with a Lokelma being given by his primary care physician and Dr. 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 since he has osteomyelitis delaying his surgery could be prohibitively high risk for progression or extension of the osteomyelitis. So I would recommend he proceed with surgery but avoid general anesthesia and do it with a block with some mildly increased risk and then once he has had that done then we will set him up for a cardiac catheterization and possible PCI. . If we do the catheterization first and he were to need PCI then we would have to delay his surgery which he could not delay with osteomyelitis so I think the best option would be to proceed with surgery first. If he has cardiac catheterization and will need to be either through the radial approach are through the left groin as his right iliac arteries occluded as he has known peripheral vascular disease. He will hold his Plavix 5 days prior to surgery but will continue on aspirin uninterrupted. He will resume his Plavix postop when okay with the surgeon. I asked him to continue his aspirin n 81 mg daily, atorvastatin 40 mg daily, carvedilol 25 mg p.o. b.i.d., Plavix 75 mg daily, furosemide 20 mg daily, Imdur 30 mg daily lisinopril 10 mg daily. I would like him to return once he is recovered from his toe amputation to set him up for a cardiac catheterization. I asked him to return sooner if he has any cardiac issues or problems. CARDIOLOGY TESTING ECHOCARDIOGRAM 01/26/2020 shows mildly dilated left atrium, mild LVH, normal left ventricular systolic function with an ejection fraction of 60-65%. His aortic valve is sclerotic but not stenotic with estimated right atrial pressure of 10-15 mm of mercury. ECHOCARDIOGRAM 06/28/2008. Concentric left ventricular hypertrophy. Normal left ventricular systolic function. Mild tricuspid valve regurgitation and mild mitral valve regurgitation. Relaxation abnormality of the left ventricle noted with early diastolic dysfunction. ECHOCARDIOGRAM 02/26/2011. Normal LV systolic function. Diastolic dysfunction, grade 3. Mild tricuspid regurgitation with moderate pulmonary hypertension. ECHOCARDIOGRAM 07/27/2013. Left ventricle systolic function is normal, AV sclerotic but not stenotic, grade 1 diastolic dysfunction LEXISCAN MYOVIEW STRESS TEST 04/06/2024 which showed no reversible or fixed perfusion defect indicate myocardial ischemia or infarct, diaphragmatic attenuation artifact noted. Elevated TID index of 1.46 which is nonspecific but also seen in multivessel coronary artery disease, further clinical correlation recommended. No EKG changes diagnostic for ischemia post Lexiscan infusion. STRESS TEST LEXISCAN 10/11/2016 no Lexiscan induced ischemic EKG changes study well-tolerated no evidence of ischemia or infarction of left ventricle normal left ventricular cavity size wall motion and calculated LVEF of 62% STRESS TEST Myoview 02/01/2013. Small area of mild ischemia in the apical portion of the inferior lateral wall. No evidence of infarction of the left ventricle. Normal left ventricular wall motion and normal left ventricular ejection fraction of 56%. STRESS TEST Myoview 06/16/2012. Positive stress for inferior lateral ischemia, compared to previous study in feral lateral ischemia now seen, LVEF 55% CARDIAC CATHETERIZATION 01/25/2020 which showed a severe lesion in the proximal to mid right coronary artery which is treated successfully with a 3.5 x 16 mm synergy drug-eluting stent post dilated with a 3.75 x 12 mm synergy NC Quantum balloon at 20 atmospheres with minimal 10% residual stenosis but that area where there is 10% stenosis is as large as the proximal vessel as the area is a bit ectatic. Occlusion of a small 2nd diagonal branch, widely patent mid and distal right coronary artery stents, 30% proximal to mid LAD stenosis, moderate 40-50% diagonal 1 stenosis with 50% ostial left circumflex artery and 50% ostial distal OM stenosis . The remaining lesions are mild. Right coronary dominance , normal systemic arterial blood pressure aortic pressure 120/52 mm of mercury. A 3 mm being gradient upon pullback us aortic valve not of any clinical significance. Upper limits of normal left ventricular end-diastolic pressure 11 mm of mercury. Occlusion of the right common iliac artery noted on retrograde angiogram of the right common iliac artery. CARDIAC CATHETERIZATION 12/30/2005. Patent stents in RCA with 25% restenosis in the midportion. Non-obstructive coronary artery disease in the major epicardial vessels. High-grade disease in the 2 small branches. Normal left ventricular wall motion. 1+ mitral regurgitation. No aortic stenosis. Diastolic dysfunction of left ventricle. Normal blood pressure. CARDIAC CATHETERIZATION 07/14/2012. High-grade disease in a small obtuse marginal branch, measuring 2.25 mm in luminal diameter. The 99% stenosis was reduced down to 50-70% stenosis with PTCA. I was unable to deliver a stent despite multiple attempts using extra S port wires, good guide support and multiple stents. There was a MITA-3 flow in the artery. Patent stents in the right coronary artery, with mild disease in the remaining coronary arteries. Right coronary dominance. Normal systemic arterial blood pressure, with the aortic pressure of 118/62 mmHg. 8 mm gradient upon pullback across the aortic valve. Left ventricle cineangiogram was not performed so left ventricular systolic function is well as mitral regurgitation and left ventricle systolic size could not be assessed. Diastolic dysfunction as evidenced by an elevated left ventricle end-diastolic pressure of 13 mmHg. Not available 04/08/2024 16:32:35 09/22/2024 09/22/2024 Labs completed o n 03/16/2024 TSH 0.598, HA1C 6.7, Sodium 141, Potassium 4.2, Chloride 106, Co2 30, BUN 29, Creatinine 1.00, Glucose 140, Calcium 9.3, Bilirubin 0.6, AST 28, ALT 21,Alk phos 113, Protein 7.0, Albumin 4.0, Trig 72, Cholesterol 85, LDL 43, HDL 32, WBC 5.0, Hgb 13.5, Platelets 167 EKG done on 03/23/2024 shows normal sinus rhythm with a rate of 69 bpm, an early repolarization pattern which is a normal variant is years he is going to be here 7, compared to the previous EKG which was last done on 10/20/2023, there is no significant change 10/20/2023 shows sinus rhythm with a rate of 60 beats minute, early repolarization pattern, compared to the previous EKG done on 10/03/2022, there is no significant change. ASSESSMENT CAD (coronary artery disease) - I25.10 (Primary), Status post PCI with 2 Cypher stents to the Right coronary artery in 11/28/2004 with repeat catheterization in December 302005 with Patent stents and high-grade disease in a small obtuse marginal which treated with PTCA as the stent was not deliverable with residual 50-70% and mild nonobstructive disease in other arteries on catheterization on 07/14/2012, repeat cardiac catheterization done on 01/25/2020 with PTCA and stent of a high-grade stenosis in the proximal to mid right coronary artery with a 3.5 x 18 mm quantum drug-eluting stent post dilated to 3.75 mm with patent stents in the mid and distal right coronary artery, 30% mid LAD stenosis and moderate 50% stenosis in the ostium of the left circumflex artery and ostium of the distal obtuse marginal branch with 40-50% stenosis in the proximal and ostial portion of the 1st diagonal branch and occlusion of the 1st obtuse marginal branch with mild disease elsewhere, with a Lexiscan Myoview stress test performed on 04/06/2024 showing significant transient ischemic dilation at 1.46 which could represent multivessel CAD. For future catheterizations only use the left femoral artery approach as right common iliac artery is occluded. Peripheral vascular disease with stent placement in the right common iliac artery and [employer] in the left lower extremity by [facility] July of 2021 status post amputation of the left toes, now following with Dr. Richardson of the vascular surgery service Pure hypercholesterolem ia- E78.0, LDL at goal on atorvastatin Hypertension - I10, Controlled. Left atrial enlargement - I51.7, Secondary to hypertension Tricuspid regurgitation - I07.1, Mild with moderate pulmonary hypertension. 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 Postural dizziness - R42, Likely due to lower blood pressure and/or Lasix causing volume depletion, and improved with reducing Lasix dose, now resolved Diabetes mellitus - E11.9, Management by [facility] endocrinology Hyperkalemia - E87.5, borderline on lisinopril tolerating the lisinopril at a dose of 10 mg daily along with Lokelma with a Lokelma being given by his primary care physician and Dr. 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 Since his osteomyelitis is now been treated he had the amputation of the second toe on the right and his incision is healed now we can address his positive stress test where he had significant transient ischemic dilation which may represent multivessel CAD I will set him up for a cardiac catheterization which will either have to be done through the left femoral approach or the right radial approach. I asked him to continue his aspirin 81 mg daily, atorvastatin 40 mg daily, carvedilol 25 mg p.o. b.i.d., Plavix 75 mg daily, furosemide 20 mg daily, Imdur 30 mg daily and lisinopril 10 mg daily. I would like him to return in 2 weeks' time I had at time of cardiac catheterization and possible PCI should have been performed. I asked him to hold his metformin 48 hours prior to the cardiac catheterization and ask him to take half his normal dose of Lantus the night before his cardiac catheterization. I will have him get a fasting lipid profile in addition to a complete metabolic profile with a CBC that he is going to get from pre testing for his cardiac catheterization. I asked him to return sooner if he has any cardiac issues or problems. CARDIOLOGY TESTING ECHOCARDIOGRAM 01/26/2020 shows mildly dilated left atrium, mild LVH, normal left ventricular systolic function with an ejection fraction of 60-65%. His aortic valve is sclerotic but not stenotic with estimated right atrial pressure of 10-15 mm of mercury. ECHOCARDIOGRAM 06/28/2008. Concentric left ventricular hypertrophy. Normal left ventricular systolic function. Mild tricuspid valve regurgitation and mild mitral valve regurgitation. Relaxation abnormality of the left ventricle noted with early diastolic dysfunction. ECHOCARDIOGRAM 02/26/2011. Normal LV systolic function. Diastolic dysfunction, grade 3. Mild tricuspid regurgitation with moderate pulmonary hypertension. LEXISCAN MYOVIEW STRESS TEST 04/06/2024 which showed no reversible or fixed perfusion defect indicate myocardial ischemia or infarct, diaphragmatic attenuation artifact noted. Elevated TID index of 1.46 which is nonspecific but also seen in multivessel coronary artery disease, further clinical correlation recommended. No EKG changes diagnostic for ischemia post Lexiscan infusion. STRESS TEST LEXISCAN 10/11/2016 no Lexiscan induced ischemic EKG changes study well-tolerated no evidence of ischemia or infarction of left ventricle normal left ventricular cavity size wall motion and calculated LVEF of 62% STRESS TEST Myoview 02/01/2013. Small area of mild ischemia in the apical portion of the inferior lateral wall. No evidence of infarction of the left ventricle. Normal left ventricular wall motion and normal left ventricular ejection fraction of 56%. CARDIAC CATHETERIZATION 01/25/2020 which showed a severe lesion in the proximal to mid right coronary artery which is treated successfully with a 3.5 x 16 mm synergy drug-eluting stent post dilated with a 3.75 x 12 mm synergy NC Quantum balloon at 20 atmospheres with minimal 10% residual stenosis but that area where there is 10% stenosis is as large as the proximal vessel as the area is a bit ectatic. Occlusion of a small 2nd diagonal branch, widely patent mid and distal right coronary artery stents, 30% proximal to mid LAD stenosis, moderate 40-50% diagonal 1 stenosis with 50% ostial left circumflex artery and 50% ostial distal OM stenosis . The remaining lesions are mild. Right coronary dominance , normal systemic arterial blood pressure aortic pressure 120/52 mm of mercury. A 3 mm being gradient upon pullback us aortic valve not of any clinical significance. Upper limits of normal left ventricular end-diastolic pressure 11 mm of mercury. Occlusion of the right common iliac artery noted on retrograde angiogram of the right common iliac artery. CARDIAC CATHETERIZATION 12/30/2005. Patent stents in RCA with 25% restenosis in the midportion. Non-obstructive coronary artery disease in the major epicardial vessels. High-grade disease in the 2 small branches. Normal left ventricular wall motion. 1+ mitral regurgitation. No aortic stenosis. Diastolic dysfunction of left ventricle. Normal blood pressure. CARDIAC CATHETERIZATION 07/14/2012. High-grade disease in a small obtuse marginal branch, measuring 2.25 mm in luminal diameter. The 99% stenosis was reduced down to 50-70% stenosis with PTCA. I was unable to deliver a stent despite multiple attempts using extra S port wires, good guide support and multiple stents. There was a MITA-3 flow in the artery. Patent stents in the right coronary artery, with mild disease in the remaining coronary arteries. Right coronary dominance. Normal systemic arterial blood pressure, with the aortic pressure of 118/62 mmHg. 8 mm gradient upon pullback across the aortic valve. Left ventricle cineangiogram was not performed so left ventricular systolic function is well as mitral regurgitation and left ventricle systolic size could not be assessed. Diastolic dysfunction as evidenced by an elevated left ventricle end-diastolic pressure of 13 mmHg. Not available 09/22/2024 16:30:56 10/19/2024 10/19/2024 Labs completed 09/03/24 Triglycerides 122, Cholesterol 103, LDL 36, HDL 25, Sodium 139, Potassium 4.7, Chloride 103, Co2 29, BUN 39, Creatinine 1.40, eGFR 49, Glucose 145, Calcium 9.0, Bilirubin 0.4, AST 32, ALT 22, Protein 7.0, Albumin 4.0, Alkaline phosphatase 135, WBC 4.9, Hgb 14.4, Hct 45.8, Plt 137 Labs completed on 03/16/2024 TSH 0.598, HA1C 6.7, Sodium 141, Potassium 4.2, Chloride 106, Co2 30, BUN 29, Creatinine 1.00, Glucose 140, Calcium 9.3, Bilirubin 0.6, AST 28, ALT 21,Alk phos 113, Protein 7.0, Albumin 4.0, Trig 72, Cholesterol 85, LDL 43, HDL 32, WBC 5.0, Hgb 13.5, Platelets 167 EKG done on 03/23/2024 shows normal sinus rhythm with a rate of 69 bpm, an early repolarization pattern which is a normal variant is years he is going to be here 7, compared to the previous EKG which was last done on 10/20/2023, there is no significant change 10/20/2023 shows sinus rhythm with a rate of 60 beats minute, early repolarization pattern, compared to the previous EKG done on 10/03/2022, there is no significant change. ASSESSMENT CAD (coronary artery disease) - I25.10 (Primary), Status post PCI with 2 Cypher stents to the Right coronary artery in 11/28/2004 with repeat catheterization in December 302005 with Patent stents and high-grade disease in a small obtuse marginal which treated with PTCA as the stent was not deliverable with residual 50-70% and mild nonobstructive disease in other arteries on catheterization on 07/14/2012, repeat cardiac catheterization done on 01/25/2020 with PTCA and stent of a high-grade stenosis in the proximal to mid right coronary artery with a 3.5 x 18 mm quantum drug-eluting stent post dilated to 3.75 mm with patent stents in the mid and distal right coronary artery, cardiac catheterization performed 09/30/2024 shows mild 30% plaque in the left main coronary artery, lad has mild diffuse disease, first diagonal branch has mild stenosis in the ostium in the second diagonal branch is small and has an 80% ostial stenosis left circumflex artery has 50% proximal stenosis otherwise mild luminal irregularities, right coronary artery is occluded at the level of the stent in the midvessel with [id number] collateral filling of the right coronary artery, for future catheterization avoid right femoral access as he has a known occluded right common, currently asymptomatic. Peripheral vascular disease with stent placement in the right common iliac artery and [employer] in the left lower extremity by [facility] July of 2021 status post amputation of the left toes, now following with Dr. Richardson of the vascular surgery service Pure hypercholesterolem ia- E78.0, LDL at goal on atorvastatin Hypertension - I10, Controlled. Left atrial enlargement - I51.7, Secondary to hypertension Tricuspid regurgitation - I07.1, Mild with moderate pulmonary hypertension. 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 Postural dizziness - R42, Likely due to lower blood pressure and/or Lasix causing volume depletion, and improved with reducing Lasix dose, now resolved Diabetes mellitus - E11.9, Management by [facility] endocrinology Hyperkalemia - E87.5, borderline on lisinopril tolerating the lisinopril at a dose of 10 mg daily along with Lokelma with a Lokelma being given by his primary care physician and Dr. 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 I asked her to try to stay as active as possible. I asked her to try to keep his hemoglobin A1c under 7. I asked him to continue his aspirin 81 mg daily, atorvastatin 40 mg daily, carvedilol 25 mg p.o. b.i.d., Plavix 75 mg daily, furosemide 20 mg daily, Imdur 30 mg daily and lisinopril 10 mg daily. I asked him to avoid all NSAIDs and use acetaminophen as necessary for pain or fever. I will do a BMP to recheck his renal function after the cardiac catheterization. If this is stable then I will have him return in 6 months' time and get a fasting lipid profile, complete metabolic profile and a CBC prior to his follow-up visit. I asked him to return sooner if he has any cardiac issues or problems. CARDIOLOGY TESTING ECHOCARDIOGRAM 01/26/2020 shows mildly dilated left atrium, mild LVH, normal left ventricular systolic function with an ejection fraction of 60-65%. His aortic valve is sclerotic but not stenotic with estimated right atrial pressure of 10-15 mm of mercury. ECHOCARDIOGRAM 06/28/2008. Concentric left ventricular hypertrophy. Normal left ventricular systolic function. Mild tricuspid valve regurgitation and mild mitral valve regurgitation. Relaxation abnormality of the left ventricle noted with early diastolic dysfunction. ECHOCARDIOGRAM 02/26/2011. Normal LV systolic function. Diastolic dysfunction, grade 3. Mild tricuspid regurgitation with moderate pulmonary hypertension. LEXISCAN MYOVIEW STRESS TEST 04/06/2024 which showed no reversible or fixed perfusion defect indicate myocardial ischemia or infarct, diaphragmatic attenuation artifact noted. Elevated TID index of 1.46 which is nonspecific but also seen in multivessel coronary artery disease, further clinical correlation recommended. No EKG changes diagnostic for ischemia post Lexiscan infusion. STRESS TEST LEXISCAN 10/11/2016 no Lexiscan induced ischemic EKG changes study well-tolerated no evidence of ischemia or infarction of left ventricle normal left ventricular cavity size wall motion and calculated LVEF of 62% STRESS TEST Myoview 02/01/2013. Small area of mild ischemia in the apical portion of the inferior lateral wall. No evidence of infarction of the left ventricle. Normal left ventricular wall motion and normal left ventricular ejection fraction of 56%. CARDIAC CATHETERIZATION 09/30/2024 showed 30% mid left main coronary artery stenosis the LAD has mild diffuse disease the first diagonal branch has mild narrowing at the ostium. The second diagonal branch is small and has an 80% ostial narrowing, left circumflex artery has a 50% proximal narrowing and otherwise mild luminal irregularities. The right coronary arteries is dominant it is occluded within the previously stented segment in the midvessel vessel is supplied by [id number] collaterals. The LVEDP was 16 and aortic pressure was 120/80. CARDIAC CATHETERIZATION 01/25/2020 which showed a severe lesion in the proximal to mid right coronary artery which is treated successfully with a 3.5 x 16 mm synergy drug-eluting stent post dilated with a 3.75 x 12 mm synergy NC Quantum balloon at 20 atmospheres with minimal 10% residual stenosis but that area where there is 10% stenosis is as large as the proximal vessel as the area is a bit ectatic. Occlusion of a small 2nd diagonal branch, widely patent mid and distal right coronary artery stents, 30% proximal to mid LAD stenosis, moderate 40-50% diagonal 1 stenosis with 50% ostial left circumflex artery and 50% ostial distal OM stenosis . The remaining lesions are mild. Right coronary dominance , normal systemic arterial blood pressure aortic pressure 120/52 mm of mercury. A 3 mm being gradient upon pullback us aortic valve not of any clinical significance. Upper limits of normal left ventricular end-diastolic pressure 11 mm of mercury. Occlusion of the right common iliac artery noted on retrograde angiogram of the right common iliac artery. CARDIAC CATHETERIZATION 12/30/2005. Patent stents in RCA with 25% restenosis in the midportion. Non-obstructive coronary artery disease in the major epicardial vessels. High-grade disease in the 2 small branches. Normal left ventricular wall motion. 1+ mitral regurgitation. No aortic stenosis. Diastolic dysfunction of left ventricle. Normal blood pressure. CARDIAC CATHETERIZATION 07/14/2012. High-grade disease in a small obtuse marginal branch, measuring 2.25 mm in luminal diameter. The 99% stenosis was reduced down to 50-70% stenosis with PTCA. I was unable to deliver a stent despite multiple attempts using extra S port wires, good guide support and multiple stents. There was a MITA-3 flow in the artery. Patent stents in the right coronary artery, with mild disease in the remaining coronary arteries. Right coronary dominance. Normal systemic arterial blood pressure, with the aortic pressure of 118/62 mmHg. 8 mm gradient upon pullback across the aortic valve. Left ventricle cineangiogram was not performed so left ventricular systolic function is well as mitral regurgitation and left ventricle systolic size could not be assessed. Diastolic dysfunction as evidenced by an elevated left ventricle end-diastolic pressure of 13 mmHg. Not available 10/19/2024 16:16:30 Plan of Treatment Reminders Order Date Submit Date Provider Last Modified By Organization Details Last Modified Time Details Appointments ANY 15 2024 01:00P Krupa Osborne MD Not available Not available Not available Lab lipid panel, serum 2023 [facility], [address] [place] [address], [id number], 09/27/2024 16:49:10 CMP, serum or plasma 2023 024 [facility], [address] [place] [address], [id number], 09/27/2024 16:49:11 CBC 2023 024 [facility], [address] [place] [address], [id number], 09/27/2024 16:49:11 lipid panel, serum 2023 [facility], [address] [place] [address], [id number], 09/29/2024 07:32:29 CMP, serum or plasma 2023 024 [facility], [address] [place], [address], 10/13/2024 07:40:34 CBC 2023 [facility], [address] [place], [address], 10/13/2024 07:40:34 lipid panel, serum [address], [address] [place] [address], [id number], 10/19/2024 16:14:47 BMP, serum or plasma 2023 [facility], [address] [place] [address], [id number], 10/19/2024 16:30:40 CBC [address], [address] [place] [address], [id number], 10/19/2024 16:14:47 CMP, serum or plasma [address], [address] [place] [address], [address], 10/19/2024 16:14:47 Referral None record ed. Procedures lexisc an cardio lite stress test (PROC) 2023 [facility], [address] , [place], [address], 04/07/2024 12:24:58 Surgeries cardia c cathet erizat ion (SURG) [facility], [address], [place], [address], 09/23/2024 09:46:50 Imaging electr ocardi ogram, routin e ECG, 12 leads min 2023 024 [email or web address] Not available 03/24/2024 12:13:07 Medication Orders nitrog lyceri n 0.4 mg sublin gual tablet 2023 024 [id number], [address], [place], [place], [id number], 10/19/2024 16:16:23 Patient TargetsNo targets recorded. Patient InstructionsNo instructions recorded. Reason for Referral None Reported. Results Created Date Observation Date Name Description Value Unit Range Abnormal Flag Note LastModifiedBy Organization Detail LastModifiedTime 04/07/20 24 04/06/2024 abbi can cardi olite stres s test (PROC ) No observ ation record ed. [facility] [address] [place], [address], 04/08/2024 08:16:40 Result Notes None recorded. Problems Name Problem SNOMED Code Status Onset Date Resolution Date Notes Provider Name and Address Organization Details Recorded Time Atheroscler osis of coronary artery without angina pectoris [id number] 03 Active 2023 Isidra Osborne MD Attn: Courtney melendez,[address] [place], [address], [place] - [facility] 4 17:10:03 Pure hypercholes terolemia 925149234 Active 2023 Isidra Osborne MD Attn: Courtney melendez,[address] [place], [address], [place] [facility] 4 17:10:05 Tricuspid valve regurgitati on 508303079 Active 2023 Isidra Osborne MD Attn: Courtney melendez,[address] [place], [address], [place] [facility] 4 17:10:06 Essential hypertensio n 35357103 Active 2023 Isidra Osborne MD Attn: Courtney melendez,[address] [place], [address], [place] [facility] 4 17:10:07 Long-term current use of anticoagula nt 017177556 Active 2023 Isidra Osborne MD Attn: Ciroin g,[address], [place], [address], [place] [facility] 4 17:10:08 Pulmonary hypertensio n 74240017 Active 2023 Isidra Osborne MD Attn: Accountlakisha g,[address] [facility], [place], [address], [place] [facility] 4 17:10:11 Diastolic dysfunction 4685093 Active 2023 Isidra Osborne MD Attn: Accountin g,[address] [facility] [facility], [place], [address], [place] [facility] 4 17:10:12 Preoperativ e cardiovascu lar examination Active 2023 Isidra Osborne MD Attn: Accountin g,[address] [facility], [place], [address], [place] [facility] 4 17:10:13 Coronary arterioscle rosis in kashia artery 9266410007827 Active 2023 Isidra Osborne MD Attn: Accountin g,[address] [facility], [place], [address], [place] [facility] 4 13:54:47 Peripheral vascular disease 371773880 Active 2023 Isidra Osborne MD Attn: Accountin g,[address] [facility], [place], [address], [place] [facility] 4 13:54:57 Bilateral lower limb edema 150544502 Active 2023 Isidra Osborne MD Attn: Accountin g,[address] [facility], [place], [address], [place] [facility] 4 13:55:05 Cardiovascu lar stress test abnormal 203266930 Active 2023 Isidra Osborne MD Attn: Accountin g,[address] [facility] [facility], [place], [address], [place] [facility] 4 16:25:34 Long-term current use of antiplatele t drug 8526425887964 01 Active 2023 Isidra Osborne MD Attn: Courtney melendez,[address] , [place], [address], [facility] - [facility] 16:28:58 Problem Notes None recorded. Procedures Surgical History None recorded. Imaging Results Imaging Date Name Status LastModified by Organiz ation Details LastModified Time 04/06/2024 lexiscan cardiolite stress test (PROC) completed [facility] [address] , [place], [address], 04/08/2024 08:16:40 Procedure Notes None recorded. Medical Equipment None Reported. Allergies Allergen ID Allergen Name Allergen Category Reaction Reaction Severity Criticality Documentation Date Start Date Code Code System Note Provider Name and Address Organization Details Recorded Time [id number] Iodinated contrast media (substanc e) medicatio n anaphylax is Not available Not available 03/23/2024 45049 2004 SNOMED Not Available Not Available Not Available Medications Name Sig Start Date Stop Date Status Note LastModified by Organization Details LastModified Time latanoprost 0.005 % eye drops INSTILL 1 DROP INTO BOTH EYES EVERY NIGHT AT BEDTIME active Not Available Not Available No t Available atorvastati n 40 mg tablet TAKE 1 TABLET BY MOUTH EVERY DAY active Not Available Not Available No t Available metformin 500 mg tablet TAKE 1 TABLET BY MOUTH TWICE DAILY active Not Available Not Available No t Available carvedilol 25 mg tablet TAKE 1 TABLET BY MOUTH TWICE DAILY active Not Available Not Available No t Available hydrocodone 5 mg-acetamin ophen 325 mg tablet TAKE 1 TO 2 TABLETS BY MOUTH EVERY 6 HOURS NEEDED FOR PAIN 09/22 completed Not Available Not Available Not Available isosorbide mononitrate ER 30 mg tablet,exte nded release 24 hr TAKE 1 TABLET BY MOUTH EVERY DAY active Not Available Not Available No t Available clopidogrel 75 mg tablet TAKE 1 TABLET BY MOUTH EVERY DAY active Not Available Not Available No t Available famotidine 20 mg tablet TAKE 1 TABLET BY MOUTH AT 6 PM THE NIGHT BEFORE AND AT 6 AM THE MORNING OF SURGERY WITH A SIP OF WATER active Not Available Not Available No t Available diphenhydra mine 25 mg capsule TAKE 2 CAPSULES BY MOUTH AT 6AM THE MORNING OF SURGERY WITH A SIP OF WATER active Not Available Not Available No t Available lisinopril 10 mg tablet TAKE 1 TABLET BY MOUTH EVERY DAY active Not Available Not Available No t Available prednisone 50 mg tablet 10/19 completed Not Available Not Available Not Available levothyroxi ne 150 mcg tablet TAKE 1 TABLET BY MOUTH EVERY MORNING active Not Available Not Available No t Available nitroglycer in 0.4 mg sublingual tablet One tablet sublingua lly q.5 minutes x3 p.r.n. chest pain 2023 active Not Available Not Available Not Avai lable furosemide 20 mg tablet TAKE 1 TABLET BY MOUTH EVERY DAY active Not Available Not Available No t Available ergocalcife rol (vitamin D2) 1,250 mcg (50,000 unit) capsule TAKE 1 CAPSULE BY MOUTH EVERY 4 WEEKS active Not Available Not Available No t Available amoxicillin 875 mg-potassiu m clavulanate 125 mg tablet TAKE 1 TABLET BY MOUTH EVERY 12 HOURS FOR 7 DAYS 09/22 completed Not Available Not Available Not Available dorzolamide 2 % eye drops INSTILL 1 DROP INTO AFFECTED EYE(S) BY OPHTHALMI C ROUTE 3 TIMES PER DAY active Not Available Not Available No t Available Adult Low Dose Aspirin 81 mg tablet,kunal yed release Take 1 tablet every day by oral route. active Not Available Not Available No t Available Lantus Solostar U-100 Insulin 100 unit/mL (3 mL) subcutaneou s pen INJECT 12 UNITS UNDER THE SKIN EVERY NIGHT AT BEDTIME active Not Available Not Available No t Available B12 1 tablet daily active Not Available Not Available No t Available Tradjenta 5 mg tablet TAKE 1 TABLET BY MOUTH DAILY active Not Available Not Available No t Available Jardiance 25 mg tablet Take 1 tablet every day by oral route. active Not Available Not Available No t Available Xiidra 5 % eye drops in a dropperette INSTILL 1 DROP INTO BOTH EYES TWICE DAILY active Not Available Not Available No t Available Fish Oil 1,000 mg (120 mg-180 mg) capsule Take 1 capsule twice a day by oral route. active Not Available Not Available No t Available Lokelma 5 gram oral powder packet MIX AND DRINK 1 PACKET BY MOUTH EVERY DAY active Not Available Not Available No t Available ICaps AREDS2 twice a day active Not Available Not Available No t Available Vitals Date Recorded Body weight Provider Name an d Address Organization Details Last Updated DateTime 03/23/2024 67883.78 g Sofy TISH Garcia [facility] 024 15:57:52 Date Recorded Body mass index (BMI) Body height Provider Name and Address Organization Details Last Updated DateTime 03/23/2024 29.8 kg/m2 177.8 cm Sofy Gracia [facility] 03/23/2024 15:59:07 Date Recorded Heart rate Provider Name an d Address Organization Details Last Updated DateTime 03/23/2024 72 /min Sofy Garcia [facility] 024 15:59:08 Date Recorded Oxygen saturation Oxygen saturation in Arterial blood by Pulse oximetry Provider Name and Address Organization Details Last Updated DateTime 03/23/2024 94 % 94 % Sofy Garcia [facility] 03/23/2024 15:59:10 Date Recorded Body height Provider Name an d Address Organization Details Last Updated DateTime 04/08/2024 177.8 cm Sofy Garcia [facility] 024 16:04:40 Date Recorded Body mass index (BMI) Body weight Provider Name and Address Organization Details Last Updated DateTime 04/08/2024 29.9 kg/m2 40560.65 g Sofy Garcia [facility] 04/08/2024 16:04:49 Date Recorded Heart rate Provider Name an d Address Organization Details Last Updated DateTime 04/08/2024 74 /min Sofy Garcia [facility] 024 16:06:06 Date Recorded Oxygen saturation Oxygen saturation in Arterial blood by Pulse oximetry Provider Name and Address Organization Details Last Updated DateTime 04/08/2024 94 % 94 % Sofy Garcia [facility] 04/08/2024 16:06:08 Date Recorded Body height Provider Name an d Address Organization Details Last Updated DateTime 09/22/2024 177.8 cm Radha Cochran [facility] 09/22 15:27:31 Date Recorded Body mass index (BMI) Body weight Provider Name and Address Organization Details Last Updated DateTime 09/22/2024 30.3 kg/m2 81902.63 g Sigridjames TISH Cochran [facility] 09/22/2024 15:51:23 Date Recorded Heart rate Provider Name an d Address Organization Details Last Updated DateTime 09/22/2024 68 /min Angelzacharyjames TISH Cochran [place] Curt [facility] 09/22 15:51:35 Date Recorded Oxygen saturation Oxygen saturation in Arterial blood by Pulse oximetry Provider Name and Address Organization Details Last Updated DateTime 09/22/2024 97 % 97 % Sigridjames TISH Cochran [facility] 09/22/2024 15:51:37 Date Recorded Body height Provider Name an d Address Organization Details Last Updated DateTime 10/19/2024 177.8 cm Trinity Lopez [place] [facility] 2023 15:16:38 Date Recorded Body mass index (BMI) Body weight Provider Name and Address Organization Details Last Updated DateTime 10/19/2024 30.7 kg/m2 74686.84 g Sofy Garcia [facility] 10/19/2024 15:23:33 Date Recorded Heart rate Provider Name an d Address Organization Details Last Updated DateTime 10/19/2024 70 /min Sofy Garcia MA [facility] 024 15:26:18 Date Recorded Oxygen saturation Oxygen saturation in Arterial blood by Pulse oximetry Provider Name and Address Organization Details Last Updated DateTime 10/19/2024 98 % 98 % Sofy Garcia MA [facility] 10/19/2024 15:26:21 Date Recorded Systolic blood pressure Diastolic blood pressure Provider Name and Address Organization Details Last Updated DateTime 03/23/2024 138 mm[Hg] 72 mm[Hg] Sofy Garcia MA [facility] 03/23/2024 15:59:14 Date Recorded Systolic blood pressure Diastolic blood pressure Provider Name and Address Organization Details Last Updated DateTime 04/08/2024 130 mm[Hg] 66 mm[Hg] Sofy Garcia MA [facility] 04/08/2024 16:06:04 Date Recorded Systolic blood pressure Diastolic blood pressure Provider Name and Address Organization Details Last Updated DateTime 09/22/2024 128 mm[Hg] 64 mm[Hg] Radha CochranTISH [facility] 09/22/2024 15:52:41 Date Recorded Systolic blood pressure Diastolic blood pressure Provider Name and Address Organization Details Last Updated DateTime 10/19/2024 118 mm[Hg] 64 mm[Hg] Sofy Garcia MA [facility] 10/19/2024 15:26:11 Social History Question Answer Notes LastModified by Organizat ion Details LastModified Time Tobacco Smoking Status Never Smoker Sofy GarciaTISH null, [facility] 03/23/2024 15:55:56 What Is Your Level Of Alcohol Consumption? None Information not available 03/23/2024 What Is Your Level Of Caffeine Consumption? None Information not available 03/23/2024 What Was The Date Of Your Most Recent Tobacco Screening? 10/19/2024 Information not available 10/19/2024 Do You Use Any Illicit Or Recreational Drugs? No Information not available 03/23/2024 Has Tobacco Cessation Counseling Been Provided? No Information not available 03/23/2024 Do You Or Have You Ever Used Any Other Forms Of Tobacco Or Nicotine? No Information not available 03/23/2024 Sex: Unknown Functional Status None recorded. Mental Status None recorded. Family History Nothing Reported. Medical History No medical history recorded. Past Encounters Encounter ID Performer Location Encounter Start Date Encounter Closed Date Diagnosis/Indication Diagnosis SNOMED-CT Code Diagnosis ICD10 Code Diagnosis Note [id number] Isidra Osborne MD [facility] [place] [facility] [address] [facility] [address] [place] [address] 03/23/2024 15:31:02 03/24/2024 12:13:07 Atherosclerosis of coronary artery without angina pectoris 9324339709 70442 I25.10 Pure hypercholesterolemia 561509231 E78.00 Tricuspid valve regurgitation 803685800 I07.1 Essential hypertension 77815086 I10 Diastolic dysfunction 35 67771 I51.9 Pulmonary hypertension 52904753 I27.20 Preoperati ve cardiovascular examination 254393769 Z01.810 Long-term current use of antiplatelet drug 2713619840 22421 Z79.02 [id number] Isidra Osborne MD [facility] [place] [facility] [facility] [address] [place] [address] 04/08/2024 15:52:06 04/09/2024 12:12:52 [id number] Isidra Osborne MD [facility] [place] [facility] [facility] [address] [place] [address] 09/22/2024 15:21:51 09/23/2024 08:53:35 Coronary arteriosclerosis in kashia artery 6506837484 107 I25.10 Atheroscle rosis of coronary artery without angina pectoris 3197519575 22935 I25.10 Peripheral vascular disease 721434516 I73.9 Essential hypertension 79383095 I10 Diastolic dysfunction 35 06517 I51.9 Pure hypercholesterolemia 259835553 E78.00 Tricuspid valve regurgitation 421816085 I07.1 Pulmonary hypertension 11788080 I27.20 Bilateral lower limb edema 260436593 R60.0 Cardiovasc ular stress test abnormal 214439584 R94.39 Long-term current use of antiplatelet drug 5211971680 78146 Z79.02 [id number] Isidra Osborne MD [facility] [place] [facility] [facility] [address] [place] [address] 10/19/2024 15:11:54 10/22/2024 10:22:46 Atherosclerosis of coronary artery without angina pectoris 0253434126 67278 I25.10 Cardiovasc ular stress test abnormal 490629169 R94.39 Diastolic dysfunction 35 47469 I51.9 Essential hypertension 13003359 I10 Long-term current use of antiplatelet drug 3275040400 29155 Z79.02 Long-term current use of anticoagulant 949935939 Z79.01 Tricuspid valve regurgitation 640940294 I07.1 Pure hypercholesterolemia 323686337 E78.00 Health Concerns Section Related Observation LastModified by Organization Detai ls LastModified Time None Recorded Concern Status LastModified by Organization Details LastModified Time None Recorded Advance Directives Directive None Recorded Payers Encounter Date Sequence Insurance Name Policy Number Policy Godfrey Covered Member ID Godfrey Member ID Guarantor Name 03/23/2024 1 MEDICARE B: [facility] MEDIC[facility] C W Hattan [id number] Steve Hattan 03/23/[address] [facility] [id number] Steve W Hattan [id number] Steve Hattan 04/08/2024 1 MEDICARE B: [facility] MEDICARE C W Hattan [id number] Steve Hattan 04/08/[address] [facility] [id number] Steve W Hattan [id number] Steve Hattan 09/22/2024 1 MEDICARE B: [facility] MEDICARE C W Hattan [id number] Steve Hattan 09/22/[address] [facility] [id number] Steve W Hattan [id number] Steve Hattan 10/19/2024 1 MEDICARE B: [facility] MEDIC[facility] C W Hattan [id number] Steve Hattan 10/19/[address] [facility] [id number] Steve W Hattan [id number] [facility] Notes Date Note Type Note Provider Name and Address Organization Details Recorded Time 03/23/2024 text/html Steve is a 82-year-old male here who returns for preop evaluation. Evidently has osteomyelitis in the second digit of his right foot and is going to need an amputation. He has previously lost to 5 toes on his left foot to similar issues. He walks for about 30 minutes each day without any chest pain or shortness of breath. He does walk with a cane and has not had any falls. He follows with an political researcher for his diabetes mellitus in his last hemoglobin A1c on 03/16/2024 was 6.7. He does follow a diabetic diet and tries to avoid carbs and bread tries to limit his portions his weight is down about 6 pounds since he last saw me about 6 months ago and he is down a total of 45 pounds over the past 36 months. He is compliant with his medications including his dual anti-platelet therapy without any significant bleeding on Plavix and aspirin but he does bruise easily. He still has some mild swelling in the left leg where he had his knee surgery this is fairly chronic and without significant change. He is compliant with medications. He denies any side effects from his medications. He denies any chest pain or pressure, dyspnea, paroxysmal nocturnal dyspnea, orthopnea, presyncope, syncope, or palpitation. Isidra Osborne MD Attn: Accounting,[address] [facility], [place], [address], [facility] 03/23/2024 17:38:10 04/08/2024 text/html Steve is a 82-year-old male here who returns for preop evaluation. he underwent a Lexiscan Myoview stress test performed on 04/06/2024 which showed no reversible or fixed perfusion defect indicate myocardial ischemia or infarct, diaphragmatic attenuation artifact noted. Elevated TID index of 1.46 which is nonspecific but also seen in multivessel coronary artery disease, further clinical correlation recommended. No EKG changes diagnostic for ischemia post Lexiscan infusion. He is not doing any exercise at this time and is currently wearing a boot on the right foot. he admits he has not been too strict with his diabetic diet but his glucose levels have been fairly good. His weight has not significantly changed since he was last here about 2 weeks ago. He remains down about 45 pounds over the last 36 months. His last hemoglobin A1c on 03/16/2024 was 6.7. He is compliant with his medications including his dual anti-platelet therapy without any significant bleeding on Plavix and aspirin but he does bruise easily. He still has some mild swelling in the left leg where he had his knee surgery this is fairly chronic and without significant change. He is compliant with medications. He denies any side effects from his medications. He denies any chest pain or pressure, dyspnea, paroxysmal nocturnal dyspnea, orthopnea, presyncope, syncope, or palpitation. Isidra Osborne MD Attn: Accounting,[address] [facility], [place], [address], [facility] 04/08/2024 16:33:28 09/22/2024 text/html Steve is a 83-year-old male here whoReturns for follow-up visit. he did have the amputation of the second toe on the right without any complications. He tells me his ulceration in the right foot is now healed. He has been much better with his diabetic diet and he tells me his glucose levels are improved. We will he admits he has not been too strict with his diabetic diet but his glucose levels have been fairly good. his hemoglobin A1c though is up from 6.7 on 03/16/2020 4 to 7.1 on 08/16/2024. his weight is up 2 lb since he was last here about 5 months ago however his weight remains down 43 lb over the past 41 months. He is compliant with his medications including his dual anti-platelet therapy without any significant bleeding on Plavix and aspirin but he does bruise easily. He still has some mild swelling Throughout the day which was unchanged in pattern. He is compliant with medications. He denies any side effects from his medications. He denies any chest pain or pressure, dyspnea, paroxysmal nocturnal dyspnea, orthopnea, presyncope, syncope, or palpitation. Isidra Osborne MD Attn: Accounting[address] [place], [address], [place] [facility] 09/22/2024 16:31:46 10/19/2024 text/html Steve is a 83-year-old male here who returns for follow-up visit. He underwent cardiac catheterization via radial approach 09/30/2024 showed 30% mid left main coronary artery stenosis the LAD has mild diffuse disease the first diagonal branch has mild narrowing at the ostium. The second diagonal branch is small and has an 80% ostial narrowing, left circumflex artery has a 50% proximal narrowing and otherwise mild luminal irregularities. The right coronary arteries is dominant it is occluded within the previously stented segment in the midvessel vessel is supplied by [id number]-op-[id number] collaterals. The LVEDP was 16 and aortic pressure was 120/80. He denies any right hand pain or right wrist pain returns for follow-up visit. all of his lower extremity ulcerations are healed. his last hemoglobin A1c was 7.1 on 08/16/2024. his weight is up 3 lb since he was last here about a month ago. However he still remains down 40 lb over the past 42 months. He is compliant with his medications including his dual anti-platelet therapy without any significant bleeding on Plavix and aspirin but he does bruise easily. He still has some mild swelling in his lower extremities which was unchanged in pattern. He is compliant with medications. He denies any side effects from his medications. He denies any chest pain or pressure, dyspnea, paroxysmal nocturnal dyspnea, orthopnea, presyncope, syncope, or palpitation. Isidra Osborne MD Attn: Accounting[address] [facility], [place], [address], [facility] 10/19/2024 16:16:53
== END 2024-12-15 11:33 | disposition home or self-care (01) ==
PROVIDERS: PCP Internal Medicine; Referring Provider Internal Medicine; Visit Provider Hospitalist
DX: E03.9 Hypothyroidism, unspecified (principal); E11.40 Type 2 diabetes mellitus with diabetic neuropathy, unspecified; E78.5 Hyperlipidemia, unspecified; E55.9 Vitamin D deficiency, unspecified
CPT/HCPCS: 36415; 80061; 80069; 81003; 82306; 82570; 82607; 82746; 83036; 84156; 84439; 84443; 85025

== ENCOUNTER 2025-02-01 13:11 | Outpatient (CLI) | payer MEDICARE, OTHER, SELFPAY ==
[2025-02-01 14:46] LABS: Basophils Percent Auto 0.4 % (0.2-1.2); Eosinophils Absolute Auto 0.1 K/mm3 (0-0.3); Eosinophils Percent Auto 1.1 % (0-4.4); Hematocrit 42.8 % (42.0-52.0); Hemoglobin 13.4 g/dL (14.0-18.0); Immature Granulocyte Absolute 0.02 K/mm3 (0.00-0.031); Immature Granulocyte Percent A 0.4 % (0-0.5); Lymphocytes Absolute Auto 1.66 K/mm3 (0.9-3.2); Lymphocytes Percent Auto 29.3 % (18.3-44.2); Mean Corpuscular HGB Conc 31.3 g/dl (32-36); Mean Corpuscular Hemoglobin 30.2 pg (26-34); Mean Corpuscular Volume 96.6 fl (80-100); Mean Platelet Volume 10.6 fl (7.4-10.4); Monocytes Absolute Auto 0.6 K/mm3 (0.1-0.6); Monocytes Percent Auto 11.1 % (2.6-8.5); Neutrophils Absolute Auto 3.3 K/mm3 (1.3-6.7); Neutrophils Percent Auto 57.7 % (45.5-73.1); Platelet Count Result 145 k/mm3 (150-375); Red Blood Count 4.43 M/mm3 (4.6-6.20); Red Cell Distribution Width 13.9 % (11.5-14.5); White Blood Count 5.7 K/mm3 (4.5-10.0)
[2025-02-01 14:57] LABS: Alanine Aminotransferase 29 U/L (6-50); Alkaline Phosphatase 121 U/L (38-126); Anion Gap 8 mmol/L (4-12); Aspartate Amino Transferase 29 U/L (17-59); Bilirubin,Total 0.7 mg/dL (0.2-1.3); Blood Urea Nitrogen 33 mg/dL (9-20); Calcium 9.1 mg/dL (8.4-10.2); Carbon Dioxide 27 mmol/L (22-30); Chloride 102 mmol/L (98-107); Cholesterol 86 mg/dL (0-200); Estimated Glomerular Filt Rate > 60; Glucose 155 mg/dL (65-110); HDL Direct 34 mg/dL; Phosphorus 3.5 mg/dL (2.5-4.5); Potassium 4.5 mmol/L (3.4-5.0); Sodium 137 mmol/L (137-145); Triglycerides 71 mg/dL (<150); Uric Acid 5.7 mg/dL (3.5-8.5)
[2025-02-01 14:59] LABS: Creatinine Urine 21.8 mg/dL
[2025-02-01 15:08] LABS: Parathyroid Intact 55.5 pg/mL (14.5-75.2)
[2025-02-01 15:26] LABS: Microalbumin Urine Random < 6.0 mg/L (0-16.7)
[2025-02-01 15:27] LABS: MALB Creatinine Ratio < 27.5 mg/g (0-30)
[2025-02-01 15:28] LABS: LDL Cholesterol Direct < 30 mg/dL; Thyroid Stimulating Hormone 0.109 uIU/mL (0.465-4.680)
[2025-02-01 15:38] LABS: Vitamin D 25 Hydroxy 39.1 ng/mL
[2025-02-01 16:04] LABS: Folic Acid 10.8 ng/mL (2.76->20)
[2025-02-02 14:54] LABS: C-Peptide 2.71 ng/mL (0.80-3.85)
== END 2025-02-01 13:12 | disposition home or self-care (01) ==
PROVIDERS: PCP Internal Medicine; Visit Provider Internal Medicine
DX: I12.9 Hypertensive chronic kidney disease with stage 1 through stage 4 chronic kidney disease, or unspecified chronic kidney disease (principal); E11.22 Type 2 diabetes mellitus with diabetic chronic kidney disease; N18.9 Chronic kidney disease, unspecified; E11.69 Type 2 diabetes mellitus with other specified complication; E11.40 Type 2 diabetes mellitus with diabetic neuropathy, unspecified; E78.5 Hyperlipidemia, unspecified; E55.9 Vitamin D deficiency, unspecified
CPT/HCPCS: 36415; 80053; 80061; 82043; 82306; 82607; 82746; 83036; 83970; 84100; 84443; 84550; 84681; 85025

== ENCOUNTER 2025-04-22 07:35 | Outpatient (CLI) | payer MEDICARE, OTHER, SELFPAY ==
--- OUTSIDE RECORDS SUMMARY | 2025-04-22 07:39 | XMS_ITS | Encounter Summary ---
Author Organization [facility] Facility Care Team Providers Care Lead Enterprise Architect Name Role Phone Faviola Pringle MD Primary Care Provider + [phone] Darren Alfredo MD Unavailable + [phone] Robin Liu DPM Unavailable [phone] Rickie Elizondo DPM Unavailable [phone] Encounter Details Date Type Department Care Team (Latest Contact Info) Description 11/27/2015 Orders Only [facility] Provider, MD Mary [address] [place], [place] [id number] Social History Tobacco Use Types Packs/Day Years Used Date Smoking Tobacco: Former Sex and Gender Information Value Date Recorded Sex Assigned at Not on file Legal Sex Male 3:12 AM LEARNING OFFICER Gender Identity Not on file Sexual Orientation Not on file documented as of this encounter Plan of Treatment Not on file documented as of this encounter Procedures Procedure Name Priority Date/Time Associated Diagnosis Comments PROCEDURE - RESULT 11/29/2015 12 :00 AM LEARNING OFFICER SCAN - LABS 11/28/2015 12:00 AM LEARNING OFFICER SCAN - LABS 11/28/2015 12:00 AM LEARNING OFFICER SCAN - LABS 11/28/2015 12:00 AM LEARNING OFFICER documented in this encounter Results * PROCEDURE - RESULT (11/29/2015 12:00 AM LEARNING OFFICER) Narrative 11/29/2015 12:00 AM LEARNING OFFICER Ordered by an unspecified provider. Historical Provider MD Final Res ult * SCAN - LABS (11/28/2015 12:00 AM LEARNING OFFICER) Narrative 11/28/2015 12:00 AM LEARNING OFFICER Ordered by an unspecified provider. [facility] Provider MD Final Res ult * SCAN - LABS (11/28/2015 12:00 AM LEARNING OFFICER) Narrative 11/28/2015 12:00 AM LEARNING OFFICER Ordered by an unspecified provider. [facility] Provider MD Final Res ult * SCAN - LABS (11/28/2015 12:00 AM LEARNING OFFICER) Narrative 11/28/2015 12:00 AM LEARNING OFFICER Ordered by an unspecified provider. [facility] Provider Final Res ult documented in this encounter Visit Diagnoses Not on filedocumented in this encounter Additional Health Concerns Infection Onset Date Last Indicated Resolved Time MRSA Comment:Hx 6yrs ago 11/28/2015 11/27/2015 07/11/2021 5:00 AM C DT COVID: Suspected 12/14/2021 12/14/2021 12/14/2021 7:17 PM LEARNING OFFICER documented as of this encounter Care Teams Lead Enterprise Architect Relationship Specialty Start Date End Date Faviola Pringle MD [address] [place] [address] PCP - General 03/06/17 Darren Alfredo MD [address] [place] [address] Consulting Physician Infectious Diseases 03/23/21 Robin Liu DPM [address] [place] [address] Consulting Physician Foot and Ankle Surg 08/31/22 Rickie Elizondo DPM [address] [address] Consulting Physician Orthopedic Surgery 12/27/22 documented as of this encounter
--- OUTSIDE RECORDS SUMMARY | 2025-04-22 07:39 | XMS_ITS | Encounter Summary ---
Author Organization [facility] Facility Care Team Providers Care Travel Registered Nurse Oncology Name Role Phone Faviola Pringle MD Primary Care Provider + [phone] Darren Alfredo MD Unavailable + [phone] Robin Liu DPM Unavailable [phone] Rickie Elizondo DPM Unavailable [phone] Encounter Details Date Type Department Care Team (Latest Contact Info) Description 01/26/2017 Orders Only [facility] CLINCONV Provider, MD Mary [address] [place] [address] Social History Tobacco Use Types Packs/Day Years Used Date Smoking Tobacco: Former Sex and Gender Information Value Date Recorded Sex Assigned at Not on file Legal Sex Male 3:12 AM MANAGER GOVERNMENT Gender Identity Not on file Sexual Orientation Not on file documented as of this encounter Plan of Treatment Not on file documented as of this encounter Procedures Procedure Name Priority Date/Time Associated Diagnosis Comments CARDIOLOGY REPORT 04/09/2017 12: 00 AM CDT documented in this encounter Results * CARDIOLOGY REPORT (04/09/2017 12:00 AM CDT) Anatomical Region Laterality Modality Other Narrative 04/09/2017 12:00 AM CDT Ordered by an unspecified provider. Historical Provider [facility] Final Result documented in this encounter Visit Diagnoses Not on filedocumented in this encounter Additional Health Concerns Infection Onset Date Last Indicated Resolved Time MRSA Comment:Hx 6yrs ago 11/28/2015 11/27/2015 07/11/2021 5:00 AM C DT COVID: Suspected 12/14/2021 12/14/2021 12/14/2021 7:17 PM MANAGER GOVERNMENT documented as of this encounter Care Teams Travel Registered Nurse Oncology Relationship Specialty Start Date End Date Faviola Pringle MD [address] [place] [address] PCP - General 03/06/17 Darren Alfredo MD [address] [place] [address] Consulting Physician Infectious Diseases 03/23/21 Robin Liu DPM [address] [place] [address] Consulting Physician Foot and Ankle Surg 08/31/22 Rickie Elizondo DPM [address] [address] Consulting Physician Orthopedic Surgery 12/27/22 documented as of this encounter
--- OUTSIDE RECORDS SUMMARY | 2025-04-22 07:39 | XMS_ITS | Encounter Summary ---
Author Organization [facility] Address [address] [place] [address] Phone Care Team Providers Care Fuel Cell Technician Name Role Phone Faviola Pringle MD Primary Care Provider +- [phone] Darren Alfredo MD Unavailable [phone] Robin Liu DPM Unavailable [phone] Rickie Elizondo DPM Unavailable [phone] Encounter Details Date Type Department Care Team (Latest Contact Info) Description 12/22/2018 Orders Only [facility] Scanning, Provider Social History Tobacco Use Types Packs/Day Years Used Date Smoking Tobacco: Former Sex and Gender Information Value Date Recorded Sex Assigned at Not on file Legal Sex Male 3:12 AM FINANCIAL REPORTING DIRECTOR Gender Identity Not on file Sexual Orientation Not on file documented as of this encounter Plan of Treatment Not on file documented as of this encounter Procedures Procedure Name Priority Date/Time Associated Diagnosis Comments SCAN - LABS 12/21/2018 documented in this encounter Results * SCAN - LABS (12/21/2018) us Provider Scanning Edited Result - Final documented in this encounter Visit Diagnoses Not on filedocumented in this encounter Additional Health Concerns Infection Onset Date Last Indicated Resolved Time MRSA Comment:Hx 6yrs ago 11/28/2015 11/27/2015 07/11/2021 5:00 AM C DT COVID: Suspected 12/14/2021 12/14/202112/1412/14/2021 7:17 PM FINANCIAL REPORTING DIRECTOR documented as of this encounter Care Teams Fuel Cell Technician Relationship Specialty Start Date End Date Faviola Pringle MD [address] [place] [address] PCP - General 03/06/17 Darren Alfredo MD [address] [place] [address] Consulting Physician Infectious Diseases 03/23/21 Robin Liu DPM [address] [place] [address] Consulting Physician Foot and Ankle Surg 08/31/22 Rickie Elizondo DPM [address] [address] Consulting Physician Orthopedic Surgery 12/27/22 documented as of this encounter
--- OUTSIDE RECORDS SUMMARY | 2025-04-22 07:39 | XMS_ITS | Encounter Summary ---
Author Organization [facility] Facility Care Team Providers Care Bit Tripoler Name Role Phone Faviola Pringle MD Primary Care Provider + [phone] Darren Alfredo MD Unavailable + [phone] Robin Liu DPM Unavailable [phone] Rickie Elizondo DPM Unavailable [phone] Encounter Details Date Type Department Care Team (Latest Contact Info) Description 11/29/2015 Orders Only [facility] CLINCONV Provider, MD Mary [address] [place], [place] [id number] Social History Tobacco Use Types Packs/Day Years Used Date Smoking Tobacco: Former Sex and Gender Information Value Date Recorded Sex Assigned at Not on file Legal Sex Male 3:12 AM EMERGENCY MANAGEMENT DIRECTOR Gender Identity Not on file Sexual Orientation Not on file documented as of this encounter Plan of Treatment Not on file documented as of this encounter Procedures Procedure Name Priority Date/Time Associated Diagnosis Comments SCAN - PATHOLOGY 11/30/2015 12:0 0 AM EMERGENCY MANAGEMENT DIRECTOR documented in this encounter Results * SCAN - PATHOLOGY (11/30/2015 12:00 AM EMERGENCY MANAGEMENT DIRECTOR) Narrative 11/30/2015 12:00 AM EMERGENCY MANAGEMENT DIRECTOR Ordered by an unspecified provider. us Historical Provider Final Res ult documented in this encounter Visit Diagnoses Not on filedocumented in this encounter Additional Health Concerns Infection Onset Date Last Indicated Resolved Time MRSA Comment:Hx 6yrs ago 11/28/2015 11/27/2015 07/11/2021 5:00 AM C DT COVID: Suspected 12/14/2021 12/14/2021 12/14/2021 7:17 PM EMERGENCY MANAGEMENT DIRECTOR documented as of this encounter Care Teams Bit Tripoler Relationship Specialty Start Date End Date Faviola Pringle MD [address] [place] [address] PCP - General 03/06/17 Darren Alfredo MD [address] [place] [address] Consulting Physician Infectious Diseases 03/23/21 Robin Liu DPM [address] [place] [address] Consulting Physician Foot and Ankle Surg 08/31/22 Rickie Elizondo DPM [address] [address] Consulting Physician Orthopedic Surgery 12/27/22 documented as of this encounter
--- OUTSIDE RECORDS SUMMARY | 2025-04-22 07:39 | XMS_ITS | Encounter Summary ---
Author Organization [facility] Facility Care Team Providers Care Transportation Services Representative Name Role Phone Faviola Pringle MD Primary Care Provider + [phone] Darren Alfredo MD Unavailable + [phone] Robin Liu DPM Unavailable [phone] Rickie Elizondo DPM Unavailable [phone] Encounter Details Date Type Department Care Team (Latest Contact Info) Description 10/11/2016 Orders Only [facility] CLINCONV Provider, MD Mary [address] [place] [address] Social History Tobacco Use Types Packs/Day Years Used Date Smoking Tobacco: Former Sex and Gender Information Value Date Recorded Sex Assigned at Not on file Legal Sex Male 3:12 AM PROVIDER CONTRACTING CONSULTANT Gender Identity Not on file Sexual Orientation Not on file documented as of this encounter Plan of Treatment Not on file documented as of this encounter Procedures Procedure Name Priority Date/Time Associated Diagnosis Comments CARDIOLOGY REPORT 10/14/2016 12: 00 AM PROVIDER CONTRACTING CONSULTANT documented in this encounter Results * CARDIOLOGY REPORT (10/14/2016 12:00 AM PROVIDER CONTRACTING CONSULTANT) Anatomical Region Laterality Modality Other Narrative 10/14/2016 12:00 AM PROVIDER CONTRACTING CONSULTANT Ordered by an unspecified provider. us Historical Provider [facility] Final Result documented in this encounter Visit Diagnoses Not on filedocumented in this encounter Additional Health Concerns Infection Onset Date Last Indicated Resolved Time MRSA Comment:Hx 6yrs ago 11/28/2015 11/27/2015 07/11/2021 5:00 AM C DT COVID: Suspected 12/14/2021 12/14/2021 12/14/2021 7:17 PM PROVIDER CONTRACTING CONSULTANT documented as of this encounter Care Teams Transportation Services Representative Relationship Specialty Start Date End Date Faviola Pringle MD [address] [place] [address] PCP - General 03/06/17 Darren Alfredo MD [address] [place] [address] Consulting Physician Infectious Diseases 03/23/21 Robin Liu DPM [address] [place] [address] Consulting Physician Foot and Ankle Surg 08/31/22 Rickie Elizondo DPM [address] [address] Consulting Physician Orthopedic Surgery 12/27/22 documented as of this encounter
--- OUTSIDE RECORDS SUMMARY | 2025-04-22 07:39 | XMS_ITS | Continuity of Care Document ---
Author Organization [facility] Address [address] [place] [address] [place] [address] Phone Care Team Providers Care Associate Relations Specialist Name Role Phone Cl Deleon MD Unavailable Unavailable Advance Directives Directive Yes / No Effective Date File Name No Information Encounters Encounter Description Practice Location Reason(s) For Visit Diagnoses Date Provider Providers Copied on Encounter [facility], [address], [place], [place], [id number], [place] tel:[phone] [facility] (formerly [facility])[3] No Information Pancho Smallwood. [address] [place] [address], [facility] [address], [place], [address], [place]. tel:[phone] Referring Provider: Navneet Luevano, [address] [place] [address], [place], [address]. tel:[phone] Family History Family Member Type Diagnosis Age At Onset No Information Payers Payer name Insurance type Covered green party ID Authoriza tion(s) No Information Social History [...]
--- OUTSIDE RECORDS SUMMARY | 2025-04-22 07:39 | XMS_ITS | Encounter Summary ---
Author Organization [facility] Care Team Providers Care Online Health And Fitness Coach Name Role Phone Faviola Pringle MD Primary Care Provider + [phone] Darren Alfredo MD Unavailable + [phone] Robin Liu DPM Unavailable [phone] Rickie Elizondo DPM Unavailable [phone] Encounter Details Date Type Department Care Team (Latest Contact Info) Description 07/22/2018 Orders Only [facility] Provider, MD Mary [address] [place] [address] Social History Tobacco Use Types Packs/Day Years Used Date Smoking Tobacco: Former Sex and Gender Information Value Date Recorded Sex Assigned at Not on file Legal Sex Male 3:12 AM ADMINISTRATIVE OFFICE MANAGER Gender Identity Not on file Sexual Orientation Not on file documented as of this encounter Plan of Treatment Not on file documented as of this encounter Procedures Procedure Name Priority Date/Time Associated Diagnosis Comments SCAN - LABS 07/22/2018 12:00 AM CDT CARDIOLOGY REPORT 07/22/2018 12: 00 AM CDT documented in this encounter Results * SCAN - LABS (07/22/2018 12:00 AM CDT) Narrative 07/22/2018 12:00 AM CDT Ordered by an unspecified provider. Historical Provider Final Res ult * CARDIOLOGY REPORT (07/22/2018 12:00 AM CDT) Anatomical Region Laterality Modality Other Narrative 07/22/2018 12:00 AM CDT Ordered by an unspecified provider. us Historical Provider [facility] [place] Final Result documented in this encounter Visit Diagnoses Not on filedocumented in this encounter Additional Health Concerns Infection Onset Date Last Indicated Resolved Time MRSA Comment:Hx 6yrs ago 11/28/2015 11/27/2015 07/11/2021 5:00 AM C DT COVID: Suspected 12/14/2021 12/14/2021 12/14/2021 7:17 PM ADMINISTRATIVE OFFICE MANAGER documented as of this encounter Care Teams Online Health And Fitness Coach Relationship Specialty Start Date End Date Faviola Pringle MD [address] [place] [address] PCP - General 03/06/17 Darren Alfredo MD [address] [place] [address] Consulting Physician Infectious Diseases 03/23/21 Robin Liu DPM [address] [place] [address] Consulting Physician Foot and Ankle Surg 08/31/22 Rickie Elizondo DPM [address] [facility] [address] [place] [address] Consulting Physician Orthopedic Surgery 12/27/22 documented as of this encounter
--- OUTSIDE RECORDS SUMMARY | 2025-04-22 07:39 | XMS_ITS | Encounter Summary ---
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 Gender Identity Not on file Sexual Orientation Not on file documented as of this encounter Plan of Treatment Not on file documented as of this encounter Procedures Procedure Name Priority Date/Time Associated Diagnosis Comments DERMATOPATHOLOGY Routine 02/12/2019 12:0 0 AM CDT documented in this encounter Results * DERMATOPATHOLOGY (02/12/2019 12:00 AM CDT) Case Report Dermatopathology Report Case: [id number] Authorizing Provider: Isac Ramires MD Collected: 02/12/2019 12:00 AM Pathologist: Danna Irby MD Received: 02/15/2019 01:00 PM Specimen: Skin, right yazdanism 9 2:06 PM CDT DERMATOPATHOLOGY LABORATORY Final Diagnosis Specimen A. 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 2:06 PM CDT DERMATOPATHOLOGY LABORATORY Gross Description Specimen A: Received is one formalin filled container labeled with the patient's name and designated right yazdanism. The specimen consists of a shave biopsy measuring [id number]. Jar 0. 2:06 PM CDT DERMATOPATHOLOGY LABORATORY Microscopic Description Specimen A. SKIN, right yazdanism: The epidermis is acanthotic and shows full thickness disorderly maturation of keratinocytes, mitoses at different levels, and dyskeratotic cells. There is overlying parakeratosis and hyperkeratosis. 2:06 PM CDT DERMATOPATHOLOGY LABORATORY Disclaimer An external and internal positive and negative controls are appropriate for the histochemical, immunohistochemical and immunofluorescence stain(s) in this case (if any), except where stated explicitly. The performance characteristics of the stain(s) cited in this report were developed and its performance characteristic determined by the Dermatopathology Laboratory at [facility], directed by Dr. Mo Santiago. These tests need not be, and therefore are not, approved by the [place] Food and Drug Administration. The tests are used for clinical purposes. Billing Codes Specimen Charges Stain Charges 51812 1 2:06 PM CDT DERMATOPATHOLOGY LABORATORY Embedded Images 2:06 PM CDT DERMATOPATHOLOGY LABORATORY Pathology/Cytolog y TISSUE SPECIMEN FROM SKIN / Unknown 02/12/2019 02/15/2019 1:00 PM CDT us Isac Ramires MD LAB - PATHOLOGY/CYTOLOGY ORD ERABLES Final Result DERMATOPATHOLOGY LABORATORY [facility] - Department of Dermatology [address] [facility], 5th [place] [address], [facility] [phone] documented in this encounter Visit Diagnoses Not on filedocumented in this encounter
--- OUTSIDE RECORDS SUMMARY | 2025-04-22 07:39 | XMS_ITS | Encounter Summary ---
Author Organization [facility] Address [address] [facility] [address] [place] [address] Care Team Providers Care Clinical Veterinarian Name Role Phone Faviola Pringle MD Primary Care Provider + [phone] Darren Alfredo MD Unavailable + [phone] Robin Liu DPM Unavailable [phone] Rickie Elizondo DPM Unavailable [phone] Encounter Details Date Type Department Care Team (Late st Contact Info) Description 07/27/2013 Orders Only [facility] Health Information Management [address] [place] [address] Scanning, Provider Social History Tobacco Use Types Packs/Day Years Used Date Smoking Tobacco: Never Assessed Sex and Gender Information Value Date Recorded Sex Assigned at Not on file 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 Gender Identity Not on file Sexual Orientation Not on file documented as of this encounter Plan of Treatment Not on file documented as of this encounter Procedures Procedure Name Priority Date/Time Associated Diagnosis Comments CARDIOLOGY DOCUMENT SCAN 07/27/2013 documented in this encounter Results * SCAN - CARDIOLOGY (07/27/2013) Anatomical Region Laterality Modality Other us Provider Scanning CV CARDIAC SERVICES PROCEDURES Final Result documented in this encounter Visit Diagnoses Not on filedocumented in this encounter Additional Health Concerns Infection Onset Date Last Indicated Resolved Time MRSA Comment:Hx 6yrs ago 11/28/2015 11/27/2015 07/11/2021 5:00 AM C DT COVID: Suspected 12/14/2021 12/14/2021 12/14/2021 7:17 PM ETIQUETTE COACH documented as of this encounter Care Teams Clinical Veterinarian Relationship Specialty Start Date End Date Faviola Pringle MD [address] [facility] [address] [place] [address] PCP - General 03/06/17 Darren Alfredo MD [address] [facility] [address] [place] [address] Consulting Physician Infectious Diseases 03/23/21 Robin Liu DPM [address] [place] [address] Consulting Physician Foot and Ankle Surg 08/31/22 Rickie Elizondo DPM [address] [address] Consulting Physician Orthopedic Surgery 12/27/22 documented as of this encounter
--- OUTSIDE RECORDS SUMMARY | 2025-04-22 07:39 | XMS_ITS | Encounter Summary ---
Author Organization [facility] Address [address] [facility] 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 Gender Identity Not on file Sexual Orientation Not on file documented as of this encounter Plan of Treatment Not on file documented as of this encounter Procedures Procedure Name Priority Date/Time Associated Diagnosis Comments DERMATOPATHOLOGY Routine 02/24/2019 12:0 0 AM CDT documented in this encounter Results * DERMATOPATHOLOGY (02/24/2019 12:00 AM CDT) Case Report Dermatopathology Report Case: [id number] Authorizing Provider: Isac Ramires MD Collected: 02/24/2019 12:00 AM Pathologist: Danna Irby MD Received: 02/25/2019 11:50 AM Specimen: Skin, right mu-ism 9 2:43 PM CDT DERMATOPATHOLOGY LABORATORY Final Diagnosis Specimen A. SKIN, right mu-ism: DERMAL SCAR; PRESENT AT MARGIN (L90.5) RESIDUAL SQUAMOUS CELL CARCINOMA NOT IDENTIFIED ACTINIC KERATOSIS; PRESENT AT MARGIN (L57.0) VERRUCA VULGARIS; PRESENT AT MARGIN (B07.8) 2:43 PM CDT DERMATOPATHOLOGY LABORATORY at 1443 CDT Clinical History R/O bx proven SCCIS, verrucous hypertrophic type. Previous Bx: [id number]. 2:43 PM CDT DERMATOPATHOLOGY LABORATORY Gross Description Specimen A: Received is one formalin filled container labeled with the patient's name and designated right mu-ism. The specimen consists of a curettage and desiccation biopsy (2 pieces) measuring [id number] & [id number]. Jar 0. 2:43 PM CDT DERMATOPATHOLOGY LABORATORY Microscopic Description Specimen A. SKIN, right mu-ism: There are fibroblasts and collagen bundles oriented parallel to the skin surface with elongated blood vessels, some of which are oriented perpendicular to the skin surface. The dermal scar extends to the base of the specimen and is also present at one lateral margin of the specimen. No residual squamous cell carcinoma is identified. There is focal parakeratosis. The lower half of the epidermis shows disorderly maturation of keratinocytes with nuclear pleomorphism. This lesion is present at the margin of the specimen. There is focal digitated epidermal hyperplasia, hypergranulosis, vacuolated granular layer cells, and compact hyperorthokeratosis . This lesion is present at the margin of the specimen. 2:43 PM CDT DERMATOPATHOLOGY LABORATORY Disclaimer An external and internal positive and negative controls are appropriate for the histochemical, immunohistochemical and immunofluorescence stain(s) in this case (if any), except where stated explicitly. The performance characteristics of the stain(s) cited in this report were developed and its performance characteristic determined by the Dermatopathology Laboratory at [facility], directed by Dr. Mo Santiago. These tests need not be, and therefore are not, approved by the [place] Food and Drug Administration. The tests are used for clinical purposes. Billing Codes Specimen Charges Stain Charges 63509 1 2:43 PM CDT DERMATOPATHOLOGY LABORATORY Embedded Images 2:43 PM CDT DERMATOPATHOLOGY LABORATORY Pathology/Cytolog y TISSUE SPECIMEN FROM SKIN / Unknown 02/24/2019 02/25/2019 11:50 AM CDT Isac Ramires MD LAB - PATHOLOGY/CYTOLOGY ORD ERABLES Final Result DERMATOPATHOLOGY LABORATORY [facility] - Department of Dermatology [address] [place] [address] 5th Floor Lab [address] [phone] documented in this encounter Visit Diagnoses Not on filedocumented in this encounter
--- OUTSIDE RECORDS SUMMARY | 2025-04-22 07:39 | XMS_ITS | Encounter Summary ---
Author Organization [facility] Address [address] [facility] [address] [place] [address] Care Team Providers Care Automatic Shirring Machine Operator Name Role Phone Faviola Pringle MD Primary Care Provider + [phone] Darren Alfredo MD Unavailable + [phone] Robin Liu DPM Unavailable [phone] Rickie Elizondo DPM Unavailable [phone] Encounter Details Date Type Department Care Team (Late st Contact Info) Description 07/14/2012 Orders Only [facility] Health Information Management [address] [place] [address] Scanning, Provider Social History Tobacco Use Types Packs/Day Years Used Date Smoking Tobacco: Never Assessed Sex and Gender Information Value Date Recorded Sex Assigned at Not on file 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 Gender Identity Not on file Sexual Orientation Not on file documented as of this encounter Plan of Treatment Not on file documented as of this encounter Procedures Procedure Name Priority Date/Time Associated Diagnosis Comments CARDIOLOGY DOCUMENT SCAN 07/14/2012 documented in this encounter Results * SCAN - CARDIOLOGY (07/14/2012) Anatomical Region Laterality Modality Other us Provider Scanning CV CARDIAC SERVICES PROCEDURES Final Result documented in this encounter Visit Diagnoses Not on filedocumented in this encounter Additional Health Concerns Infection Onset Date Last Indicated Resolved Time MRSA Comment:Hx 6yrs ago 11/28/2015 11/27/2015 07/11/2021 5:00 AM C DT COVID: Suspected 12/14/2021 12/14/2021 12/14/2021 7:17 PM REHABILITATION CASEWORKER documented as of this encounter Care Teams Automatic Shirring Machine Operator Relationship Specialty Start Date End Date Faviola Pringle MD [address] [place] [address] PCP - General 03/06/17 Darren Alfredo MD [address] [place] [address] Consulting Physician Infectious Diseases 03/23/21 Robin Liu DPM [address] [place] [address] Consulting Physician Foot and Ankle Surg 08/31/22 Rickie Elizondo DPM [address] [address] Consulting Physician Orthopedic Surgery 12/27/22 documented as of this encounter
--- OUTSIDE RECORDS SUMMARY | 2025-04-22 07:40 | XMS_ITS | Encounter Summary ---
Author Organization [facility] Address [address] [place] [address] Phone Care Team Providers Care Licensed Final Expense Agents Name Role Phone Faviola Pringle MD Primary Care Provider [phone] Darren Alfredo MD Unavailable [phone] Robin Liu DPM Unavailable [phone] Rickie Elizondo DPM Unavailable [phone] Encounter Details Date Type Department Care Team (Latest Contact Info) Description 06/09/2020 Orders Only [facility] Scanning, Provider Social History Tobacco Use Types Packs/Day Years Used Date Smoking Tobacco: Former Alcohol Use Standard Drinks/Week Comments Never 0 (1 standard drink = 0.6 oz pur e alcohol) AUDIT-C Answer Date Recorded Frequency of Alcohol Consumption Never 10/05/2019 Average Number of Drinks Not on file 019 Frequency of Binge Drinking Not on file 09/24 Sex and Gender Information Value Date Recorded Sex Assigned at Not on file 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 Gender Identity Not on file Sexual Orientation Not on file documented as of this encounter Plan of Treatment Not on file documented as of this encounter Procedures Procedure Name Priority Date/Time Associated Diagnosis Comments SCAN - LABS 06/09/2020 documented in this encounter Results * SCAN - LABS (06/09/2020) us Provider Scanning Final Result documented in this encounter Visit Diagnoses Not on filedocumented in this encounter Additional Health Concerns Infection Onset Date Last Indicated Resolved Time MRSA Comment:Hx 6yrs ago 11/28/2015 11/27/2015 07/11/2021 5:00 AM C DT COVID: Suspected 12/14/2021 12/14/2021 12/14/2021 7:17 PM BUDGET COORDINATOR documented as of this encounter Care Teams Licensed Final Expense Agents Relationship Specialty Start Date End Date Faviola Pringle MD [address] [facility] [address] [place] [address] PCP - General 03/06/17 Darren Alfredo MD [address] [facility] [address] [place] [address] Consulting Physician Infectious Diseases 03/23/21 Robin Liu DPM [address] [place] [address] Consulting Physician Foot and Ankle Surg 08/31/22 Rickie Elizondo DPM [address] [address] Consulting Physician Orthopedic Surgery 12/27/22 documented as of this encounter
--- OUTSIDE RECORDS SUMMARY | 2025-04-22 07:40 | XMS_ITS | Encounter Summary ---
Author Organization [facility] Address [address] [place] [address] Phone Care Team Providers Care Special Trackwork Blacksmith Name Role Phone Faviola Pringle MD Primary Care Provider +- [phone] Darren Alfredo MD Unavailable [phone] Robin Liu. DPM Unavailable [phone] Rickie Elizondo DPM Unavailable [phone] Encounter Details Date Type Department Care Team (Latest Contact Info) Description 02/01/2025 Orders Only [facility] Scanning, Provider Social History Tobacco Use Types Packs/Day Years Used Date Smoking Tobacco: Former Cigarettes Q uit: 12/15/1968 Smokeless Tobacco: Never Alcohol Use Standard Drinks/Week Comments Never 0 (1 standard drink = 0.6 oz pur e alcohol) AUDIT-C Answer Date Recorded Q1: How often do you have a drink containing alcohol? Never 09/30/2024 Q2: How many drinks containi ng alcohol do you have on a typical day when you are drinking? Patient does not drink Q3: How often do you have si x or more drinks on one occasion? Never 09/30/2024 PHQ-2 Answer Date Recorded PHQ-2 Total Score (If total score is 3 or more points, staff should administer the PHQ-9) 0 03/22/2021 Personal Safety Answer Date Recorded Have you ever been in or are you currently in a harmful physical or emotional relationship or is someone making you feel afraid or unsafe? 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 Gender Identity Not on file Sexual Orientation Not on file Occupation Industry Job Start Date Job End Date Retired Not on file Not on file Not on file documented as of this encounter Plan of Treatment Not on file documented as of this encounter Procedures Procedure Name Priority Date/Time Associated Diagnosis Comments SCAN - LABS 02/01/2025 documented in this encounter Results * SCAN - LABS (02/01/2025) us Provider Scanning Final Result documented in this encounter Visit Diagnoses Not on filedocumented in this encounter Care Teams Special Trackwork Blacksmith Relationship Specialty Start Date End Date Faviola Pringle MD [address] [facility] [address] [place] [address] PCP - General 03/06/17 Darren Alfredo MD [address] [facility] [address] [place] [address] Consulting Physician Infectious Diseases 03/23/21 Robin Liu DPM [address] [place] [address] Consulting Physician Foot and Ankle Surg 08/31/22 Rickie Elizondo DPM [address] [facility] [address] [place] [address] Consulting Physician Orthopedic Surgery 12/27/22 documented as of this encounter
--- OUTSIDE RECORDS SUMMARY | 2025-04-22 07:40 | XMS_ITS | Referral Summary ---
Author Organization [facility] Address [address] [place] [address] Care Team Providers Care Well Service Floorperson Name Role Phone Faviola Pringle MD Primary Care Provider + [phone] Darren Alfredo MD Unavailable + [phone] Robin Liu DPM Unavailable [phone] Rickie Elizondo DPM Unavailable [phone] Encounters Date Type Department Care Team Description 02/14/2025 1:00 PM CDT Office Visit [facility] Endocrinology Metabolism and Lipid [address] [facility] Advanced Medicine 5th [place] [address] [place] [address] Kristin Emery MD Type 2 diabetes mellitus with diabetic neuropathy, with long-term current use of insulin ([facility]) (Primary Dx); Diabetic ulcer of toe of left foot associated with type 2 diabetes mellitus, unspecified ulcer stage ([facility]); Stage 3a chronic kidney disease (HCC) 02/01/2025 Orders Only [facility] EML Scanning, Provider from Last 3 Months Allergies Active Allergy Reactions Criticality Noted Date Comments Iodinated Contrast Media Anaphylaxis High Reaction: kidneys shut down, had to go on dialysis Iodine Anaphylaxis High 02/18/2022 Just iv dye Pentazocine Unknown Low Talwin Medications aspirin 81 mg tablet daily. Active atorvastatin (LIPITOR) 40 mg tablet TAKE 1 TABLET BY MOUTH EVERY DAY 6 Active carvediloL (COREG) 25 mg tablet 2 times daily. Activ e lancets 28 gauge misc three times a day icd-9 code 250 4 Active blood glucose diagnostic strip by in vitro route. 4 Active clopidogreL (PLAVIX) 75 mg tablet daily. Active isosorbide mononitrate ER (IMDUR) 30 mg 24 hr tablet Take 1 tablet (30 mg total) by mouth daily Active latanoprost (XALATAN) 0.005 % ophthalmic solution Administer 1 drop into both eyes nightly. 2.5 mL 9 Active furosemide (LASIX) 20 mg tablet Take 1 tablet (20 mg total) by mouth daily Active nitroglycerin (NITROSTAT) 0.[address] 1 tablet (0.4 mg total) under the tongue every 5 (five) minutes as needed for chest pain May repeat dose q 5 min, up to 3 doses total 25 tablet 3 9 Active Additional Information Patient not taking.Reported on 02/14/2025 BD Ultra-Fine Short Pen Needle 31 gauge x 5/16 needle 4 (four) times a day 0 Active dorzolamide (TRUSOPT) 2 % ophthalmic solution INSTILL 1 DROP INTO BOTH EYES 3 TIMES A DAY DIRECTED 0 Active metFORMIN (GLUCOPHAGE) 500 mg tablet Take 1 tablet (500 mg total) by mouth 2 (two) times a day with meals for 7 days 14 tablet 1 Active lisinopriL (PRINIVIL,ZESTR IL) 10 mg tablet Take 1 tablet (10 mg total) by mouth daily 2 Active prednisoLONE acetate (PRED FORTE) 1 % ophthalmic suspension 2 Active ergocalciferol (VITAMIN D) 50,000 unit capsule Take 1 capsule (50,000 Units total) by mouth once a week 2 Active omega-3 fatty acids-fish oil 300-1,000 mg capsule Take 2 capsules (2 g total) by mouth daily Active vit C/E/Zn/coppr/duke tein/zeaxan (PRESERVISION AREDS-2 ORAL) Take by mouth Ac tive insulin glargine (LANTUS) 100 unit/mL (3 mL) pen for injection Inject 11 Units under the skin daily Active lifitegrast (Xiidra) 5 % dropperette Administer into affected eye(s) Active cyanocobalamin (Vitamin B-12) 1,000 mcg sublingual tablet daily Active Lokelma 5 gram packet 3 Active glucagon 1 mg injection as directed 3 Active predniSONE (DELTASONE) 50 mg tablet Take 1 tablet by mouth at 6:00 PM and 12:00 AM (midnight) the night before and 6:00 AM the morning of surgery with a sip of water. 3 tablet 4 Active Additional Information Patient not taking.Reported on 02/14/2025 famotidine (PEPCID) 20 mg tablet Take 1 tablet by mouth at 6:00 PM the night before and 6:00 AM the morning of surgery with a sip of water. 2 tablet 4 09/24/20 25 Active diphenhydrAMINE 25 mg capsule Take 2 capsules at 6:00 AM the morning of surgery with a sip of water. 2 capsule 4 Active linaGLIPtin (Tradjenta) 5 mg tablet TAKE 1 TABLET BY MOUTH DAILY 90 tablet 3 4 Active efinaconazole 10 % solution with applicatorIndic ations:Onychomy cosis of nail of digit of hand Apply to affected nail once daily for 48 weeks, ensure complete coverage of the nail, the nail folds, the nail bed and surrounding skin, and undersurface of the nail plate 4 mL 1 5 Active empagliflozin (Jardiance) 25 mg tablet TAKE 1 TABLET(25 MG) BY MOUTH DAILY 90 tablet 1 5 Active levothyroxine (SYNTHROID) 137 mcg tablet Take 1 tablet (137 mcg total) by mouth daily 90 tablet 3 5 02/15/20 26 Active insulin lispro (HumaLOG, ADMELOG) 100 unit/mL pen for injectionIndica tions:Type 2 diabetes mellitus with diabetic neuropathy, with long-term current use of insulin (HCC) Inject 2 units with lunch and 2 units with dinner 15 mL 3 5 Active Active Problems Problem Noted Date Diagnosed Date Abnormal cardiovascular stress test 09/24/2024 Stage 3a chronic kidney disease 08/16/2024 Acute osteomyelitis of left ankle or foot 2022 Overview (12/20/2022): Added automatically from request for surgery [id number] Carotid artery stenosis 11/20/2022 Lower extremity edema 10/03/2022 Pure hypercholesterolemia 10/03/2022 Assessment & Plan (12/13/2022 10:37 AM TECHNOLOGY EDUCATION INSTRUCTOR): Stable. Continue Lipitor 40 mg. Assessment & Plan (10/03/2022 12:53 PM TECHNOLOGY EDUCATION INSTRUCTOR): Lipitor On chronic clopidogrel therapy 10/03/2022 Cellulitis of left lower extremity 08/27/2022 Abnormal C-reactive protein 02/07/2022 Abrasion of forearm, infected 01/14/2022 Acute pneumonia 01/14/2022 Heart failure, NYHA class 2 01/14/2022 History of coronary angioplasty with insertion o f stent 01/14/2022 Periodic fever 01/14/2022 Puncture wound 01/14/2022 Soft tissue infection of foot 01/14/2022 Type II diabetes mellitus wi th neurological manifestations, uncontrolled 01/14/2022 Anemia 01/01/2022 Serum creatinine raised 01/01/2022 Infection of prosthetic knee joint 12/15/2021 Assessment & Plan (01/03/2022 9:11 AM TECHNOLOGY EDUCATION INSTRUCTOR): - Currently receiving Vancomycin 1.25 mg every 24 hours and Cefepime 1 gram every 12 hours x 6 weeks for 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 Culture on 12/14 from synovial fluid grew Staphylococcus pasteuri. Operative cultures from 12/15 remain NGTD. - Recommend empiric treatment with vanc and cefepime. Anticipate will need 6 weeks of IV antibiotics for 2 stage exchange. - Will reach out to Dr. Cohen regarding plans for surgery. - If patient is to undergo 2 stage exchange will plan for a firm stop on 01/26/22. - If no 2 stage exchange is planned for the future, then will plan to follow-up with patient in 3 weeks to switch to oral suppression. - Labs from 12/31/21 reviewed, planned for labs again with tomorrow. - Continue CBC twice a week, CMP twice a week, and Vancomycin trough twice a week with goal of 15- 20 , ESR/CRP 3 weeks after starting antibiotics (will have HH obtain tomorrow) and ESR/CRP 6 weeks after starting antibiotics. - Discussed with patient the rational for treatment, culture results, risk of recurrent infection, signs/symptoms of recurrent infection, and to contact ID clinic with any questions or concerns. Assessment & Plan (12/17/2021 1:57 PM TECHNOLOGY EDUCATION INSTRUCTOR): 81-year-old male with diabetes and multiple medical problems, including prior total knee arthroplasty prosthetic joint infection in the past, who presented with 6 weeks of pain and swelling of a prosthetic knee with purulent aspirate. Cell count unable to be performed. Intraoperative cultures remain NGTD. Interval History: his cx still NGTD (one cx with 1 colony on 1 piece of media- Likely contaminant). He is on vanc/cefe, VT due this afternoon prior to 3rd dose. Pt states he would like to follow up with Dr Murray after discharge. Recommendations: - continue vanc/cefe at current doses - vt ordered for 1500 today prior to 3rd dose - daily cbc, bmp for now - planning 6 weeks of broad spectrum IV abx for presumed cx neg PJI. Okay for picc line today. - we will communicate with Omid and help arrange OP fup with him - ID will formally sign off but continue to follow the pt peripherally while in house. - Please call with any questions , concerns, changes in the patients' cultures or clinical status. - See the most recent ID plan of care note for detailed recommendations. Thank you for allowing the ortho ID team to assist in the care of your patient. Please call with questions, concerns, changes in the patients cultures or clinical status. Pyogenic arthritis of left knee joint 12/14/2021 Overview (12/14/2021): Added automatically from request for surgery [id number] Dysfunction of right eustachian tube 10/01/2021 Retinal ischemia 10/01/2021 Chronic osteomyelitis of foot 03/25/2021 Left leg cellulitis 03/19/2021 Complex renal cyst 01/03/2021 Chronic renal failure 12/10/2020 Right iliac artery stenosis 04/27/2020 Assessment & Plan (05/20/2023 9:08 AM CDT): Right iliac artery stent [place] [address] Gilbert. Duplex today shows the stent is patent. Follow-up in 6 months for routine surveillance with a lower extremity arterial duplex. Pulmonary hypertension 10/05/2019 Severe nonproliferative diabetic retinopathy 10/2019 Charcot's arthropathy 01/18/2019 Coronary artery disease 01/18/2019 Diabetic peripheral neuropathy 01/18/2019 Family history of coronary arteriosclerosis 12/26 Family history of diabetes mellitus 01/18/2019 Family history of stroke 01/18/2019 Obesity 01/18/2019 Rosacea 01/18/2019 Chest pain 07/28/2018 Overview (02/07/2020): more than a month ago for a few days straight but no symptoms since with no change in his ecg with negative stress in September of 2016. Hyperkalemia 10/15/2016 Overview (02/07/2020): On lisinopril with potassium level now normalized Ulcer of foot due to diabetes mellitus 6 Assessment & Plan (12/13/2022 10:36 AM TECHNOLOGY EDUCATION INSTRUCTOR): Ulceration to the left 3rd toe, discussed at length with the patient and his spouse, given his palpable pulses and normal ABIs I suspect this is all inframalleolar occlusive disease and digit disease. Further management of the ulceration of the toe per his k 12 principal. We will plan for follow-up in 6 months. Nonrheumatic tricuspid valve regurgitation 04/08 Overview (05/06/2019): Mild with moderate pulmonary hypertension. 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 Continue ASA statin therapy. Follow up in 1 year with repeat noninvasives testing. Assessment & Plan (11/27/2023 1:36 PM TECHNOLOGY EDUCATION INSTRUCTOR): Stable PVD, no evidence of life-limiting claudication rest pain or wounds. Continue surveillance with repeat noninvasives in 1 year. Continue ASA Plavix and statin therapy. Assessment & Plan (10/30/2022 3:47 PM TECHNOLOGY EDUCATION INSTRUCTOR): Patient with a history of a right iliac stent placed by Dr. Gilbert in 2019. Currently has a superficial ulceration seeing Podiatry. Most recent lower extremity arterial Doppler reveals sufficient blood supply for wound healing. No surgical procedure intervention indicated this time. Plan follow-up in the office in 6 months with arterial duplex Assessment & Plan (10/03/2022 12:52 PM TECHNOLOGY EDUCATION INSTRUCTOR): ABIs from outside hospital with mild occlusive disease however clinically he has no palpable pulses and monophasic PT signals with wounds on both feet. With his history of stents and interventions, CTA aortoiliac with runoff ordered as well as repeat Dopplers. Continue risk factor modification with ASA, Plavix, statin therapy in good blood sugar control. Pending his CTA he is likely going to need an angiogram. Osteoarthritis 03/19/2016 Type 2 diabetes mellitus 12/28/2015 Wrist injury 11/27/2015 Wrist wound, open, with tend on injury, left, initial encounter 11/27/2015 Diabetic hypoglycemia 11/23/2014 Hypothyroidism 02/01/2014 Primary hypertension 02/01/2014 Assessment & Plan (12/03/2024 2:04 PM TECHNOLOGY EDUCATION INSTRUCTOR): Stable continue Coreg Assessment & Plan (11/27/2023 1:36 PM TECHNOLOGY EDUCATION INSTRUCTOR): Stable continue lisinopril 10 mg. Assessment & Plan (12/13/2022 10:37 AM TECHNOLOGY EDUCATION INSTRUCTOR): Stable continue Lasix 20 mg. Assessment & Plan (10/30/2022 3:46 PM TECHNOLOGY EDUCATION INSTRUCTOR): Carvedilol Assessment & Plan (10/03/2022 12:52 PM TECHNOLOGY EDUCATION INSTRUCTOR): Coreg Mixed hyperlipidemia 02/01/2014 Assessment & Plan (12/03/2024 2:03 PM TECHNOLOGY EDUCATION INSTRUCTOR): Stable continue Lipitor Assessment & Plan (11/27/2023 1:36 PM TECHNOLOGY EDUCATION INSTRUCTOR): Stable continue Lipitor 40 mg. Assessment & Plan (10/30/2022 3:46 PM TECHNOLOGY EDUCATION INSTRUCTOR): Lipitor Diabetic retinopathy of both eyes associated with type 2 diabetes mellitus 02/01/2014 Diabetes mellitus 02/01/2014 Assessment & Plan (01/18/2019 9:13 PM TECHNOLOGY EDUCATION INSTRUCTOR): Continue same reginen Cardiac disease 02/01/2014 History of myocardial infarction 02/01/2014 Actinic keratosis 11/12/2013 Pyogenic inflammation of bone Immunizations Immunization Administration Dates Next Due DTaP 10/18/2015 Influenza, Quadrivalent, Laureen l Culture-based MDCK, Preservative Free, Antibiotic Free, Intramuscular 09/02/2019 Influenza, Quadrivalent, Hig h Dose, Preservative Free, Intrr 08/31/2022,09/06/2020 Influenza, Quadrivalent, Spl it, Intramuscular 08/27/2022,10/07/2021,09/02/2019,10/24,08/22/2015 Influenza, Trivalent, High D ose, Split, Preservative Free, Intramuscular 09/29/2018,09/28/2018,09/01/2018,12/01 Influenza, Trivalent, Preser vative Free, Intramuscular 11/12/2016,09/25/2016 Influenza, Unspecified 10/07/2021 Pfizer SARS-CoV-2 Monovalent Vaccination (12+ Yrs) PURPLE 10/07/2021,02/14/2021,01/24/2021 Pneumococcal Conjugate PCV 13 06/04/2019 ,03/05/2019,12/02/2018,06/01,03/02/2018,06/13/2017,02/10/2017 ,11/12/2016 Pneumococcal Polysaccharide PPV23 08/26/2018,12/2017,08/13/2004 Td, Unspecified 12/25/2017 Tdap 10/18/2015,12/28/2007 ZOSTER LIVE 10/08/2015,07/27/2013 ZOSTER Recombinant 09/02/2019, 9,06/04/2019,03/05 Social History Tobacco Use Types Packs/Day Years Used Date Smoking Tobacco: Former Cigarettes Q uit: 12/15/1968 Smokeless Tobacco: Never Tobacco Cessation:Counseling Given: Not Answered Alcohol Use Standard Drinks/Week Comments Never 0 [...] on file Legal Sex Male 3:12 AM TECHNOLOGY EDUCATION INSTRUCTOR Gender Identity Not on file Sexual Orientation Not on file Occupation Industry Job Start Date Job End Date Retired Not on file Not on file Not on file Last Filed Vital Signs Vital Sign Reading Time Taken Comments Blood Pressure 98/60 02/14/2025 12:53 PM CDT Pulse 65 02/14/2025 12:53 PM CDT Temperature 36.6 C (97.8 F) 12/15/2024 1:57 PM TECHNOLOGY EDUCATION INSTRUCTOR Respiratory Rate 16 12/15/2024 1:57 PM TECHNOLOGY EDUCATION INSTRUCTOR Oxygen Saturation 97% 12/15/2024 1:57 PM TECHNOLOGY EDUCATION INSTRUCTOR Inhaled Oxygen Concentration - - Weight 93.3 kg (205 lb 9.6 oz) 02/14/2025 12:53 PM CDT Height 177.8 cm (5' 10) 02/14/2025 12:53 PM CDT Body Mass Index 29.5 02/14/2025 12:53 PM CDT Plan of Treatment Not on file Medical Devices Implanted Type Area Load Dispatcher Device Identifier Shelf Expiration Date Model / Serial / Lot [employer] [id number] [place] R High Viscosity Cement 40gm Bone Green - [id number] Implanted:Qty: 4 on 12/15/2021 by Rodolfo Nunez MD at [facility] Left: Knee [employer] 09/23/2024 [id number] / / [id number] [employer] [id number] Attune Cemented Posterior Stabilize Knee Left 8 Component Femoral - [id number] Implanted:Qty: 1 on 12/15/2021 by Rodolfo Nunez MD at [facility] Left: Knee [employer] [id number] 09/23/2031 [id number] / / [id number] [employer] [id number] Tibial Attune Ps Alpoly Sz 8 5mm - [id number] Implanted:Qty: 1 on 12/15/2021 by Rodolfo Nunez MD at [facility] Left: Knee [employer] [id number] 05/23/2026 [id number] / / [id number] Biocom[employer]ites 620-020 Stimulan Rapid Cure Kit Paste Barge Loader 20cc 50cc Bone Void - [id number] - [id number] Implanted:Qty: 1 on 12/15/2021 by Rodolfo Nunez MD at [facility] [employer] 07/24/2024 620-02 0 / [id number] / Procedures Procedure Name Priority Date/Time Associated Diagnosis Comments POCT HEMOGLOBIN A1C Routine 02/14/2025 1 :07 PM CDT Type 2 diabetes mellitus with diabetic neuropathy, with long-term current use of insulin (HCC) SCAN - LABS 02/01/2025 EGFR Routine 11/12/2024 8:22 AM TECHNOLOGY EDUCATION INSTRUCTOR LIPID PANEL Routine 11/12/2024 8:22 AM TECHNOLOGY EDUCATION INSTRUCTOR ALBUMIN CREATININE RATIO, URINE Routine 11/10/2023 2:36 PM TECHNOLOGY EDUCATION INSTRUCTOR Type 2 diabetes mellitus with diabetic neuropathy, with long-term current use of insulin (HCC) from Last 3 Months or Most Recently Relevant to Health Maintenance Results * POCT hemoglobin A1c (02/14/2025 1:07 PM CDT) Hemoglobin A1C, POC 6.8 4.0 - 5.6 % Capillary blood 02/14/2025 1 :07 PM CDT us Kristin Emery MD POINT OF CARE TEST ORDERABLES Final Result * SCAN - LABS (02/01/2025) us Provider Scanning Final Result * eGFR (11/12/2024 8:22 AM TECHNOLOGY EDUCATION INSTRUCTOR) eGFR 67 >=60 mL/min/1. 73 m2 Comment: Interpretive Data Reference Interval Normal >/= 90 mL/min/1.73m2 Mildly decreased* 60 - 89 mL/min/1.73m2 Mildly to moderately decreased 45 - 59 mL/min/1.73m2 Moderately to severely decreased 30 - 44 mL/min/1.73m2 Severely decreased 15 - 29 mL/min/1.73m2 Kidney Failure < 15 mL/min/1.73m2 *Relative to young adult level Estimated glomerular filtration rate is determined by the 2020 CKD-EPI equation recommended by the National Kidney Foundation (A Unifying Approach to GFR Estimation: Recommendations of the NKF-ASK Task Force on Reassessing the Inclusion of Race in Diagnosing Kidney Disease, JASN 2020). The CKD-EPI equation should not be used for patients with unstable renal function and has not been validated in children and those over 70. Current interpretive data was last reviewed 2021. Testing performed by: [address] [address] Blood 11/12/2024 8:22 AM TECHNOLOGY EDUCATION INSTRUCTOR 11/12/2024 9:27 AM TECHNOLOGY EDUCATION INSTRUCTOR us Isidra Osborne MD LAB BLOOD ORDERABLES Final R esult [facility] [address] [facility] Department [place] [address] * Lipid panel (11/12/2024 8:22 AM TECHNOLOGY EDUCATION INSTRUCTOR) Cholesterol 111 30 - 199 mg/dL Comment: Interpretive Data Ages < or = 19 years Acceptable: <170 mg/dL Borderline high: 170-199 mg/dL High: >or= 200 mg/dL Ages > or = 20 years Desirable: <200 mg/dL Borderline high: 200-239 mg/dL High: >or= 240 mg/dL Literature References: 1. Expert Panel on Integrated Guidelines for Cardiovascular Health and Risk Reduction in Children and Adolescents. Pediatrics 2011;128:S213 2. NCEP Expert Panel. Circulation 2004;110:227 Current Interpretive Data was last revised on 2018. Testing performed by: [address] [address] Triglycerides 87 <=149 mg/dL [facility]U Comment: Interpretive Data Ages < or = 9 years Acceptable: <75 mg/dL Borderline high: 75-99 mg/dL High: >or= 100 mg/dL Ages 10 to 20 years Acceptable: <90 mg/dL Borderline high: 90-129 mg/dL High: >or= 130 mg/dL Ages > or = 20 years Desirable: <150 mg/dL Borderline high: 150-199 mg/dL High: 200-499 mg/dL Very high: >or= 499 mg/dL Literature References: 1. Expert Panel on Integrated Guidelines for Cardiovascular Health and Risk Reduction in Children and Adolescents. Pediatrics 2011;128:S213 2. NCEP Expert Panel. Circulation 2004;110:227 Current Interpretive Data was last revised on 2018. Testing performed by: [address] [place]., [address] HDL 41 >=40 mg/dL [facility] Comment: Interpretive Data Ages < or = 19 years Acceptable: >45 mg/dL Borderline low: 40-45 mg/dL Low: <40 mg/dL Ages > or = 20 years Desirable: >or= 60 mg/dL Low: <40 mg/dL Literature References: 1. Expert Panel on Integrated Guidelines for Cardiovascular Health and Risk Reduction in Children and Adolescents. Pediatrics 2011;128:S213 2. NCEP Expert Panel. Circulation 2004;110:227 Current Interpretive Data was last revised on 2018. Testing performed by: [facility], [address] [place] [address]., [address] LDL, calculated 53 <=129 mg/dL [facility] Comment: Interpretive Data Ages < or = 19 years Acceptable: <110 mg/dL Borderline high: 110-129 mg/dL High: >or= 130 mg/dL Ages > or = 20 years Optimal: <100 mg/dL Near optimal: 100-129 mg/dL Borderline high: 130-159 mg/dL High: >160 mg/dL Calculated using the Jose LDL-C estimating equation. This equation was implemented on 2024. Prior to this date LDL-C was estimated using the Friedewald equation. Literature References: 1. Expert Panel on Integrated Guidelines for Cardiovascular Health and Risk Reduction in Children and Adolescents. Pediatrics 2011;128:S213 2. NCEP Expert Panel. Circulation 2004;110:227 3. Jose Gentile et al. BROOK Cardiol. 2019March 24;5(5):540-548. doi: 10.1001/jamacardio.2020.0013 Current Interpretive Data was last revised on 2024. Testing performed by: [facility], [address] [place] [address]., [address] Non-HDL Cholesterol 70 mg/dL [facility] BERNARD Comment: Interpretive Data Ages < or = 19 years Acceptable: <120 mg/dL Borderline high: 120-144 mg/dL High: >145 mg/dL Ages > or = 20 years When triglycerides are >200 mg/dL, Non-HDL cholesterol is a secondary target of therapy with treatment goals that are 30 mg/dL greater than the LDL cholesterol target. Literature References: 1. Expert Panel on Integrated Guidelines for Cardiovascular Health and Risk Reduction in Children and Adolescents. Pediatrics 2011;128:S213 2. NCEP Expert Panel. Circulation 2004;110:227 Current Interpretive Data was last revised on 2018. Testing performed by: [address] [address] Chol/HDL ratio 3 [facility]U Comment:Testing performed by : [address] [address] Blood 11/12/2024 8:22 AM TECHNOLOGY EDUCATION INSTRUCTOR 11/12/2024 9:27 AM TECHNOLOGY EDUCATION INSTRUCTOR us Isidra Osborne MD LAB BLOOD ORDERABLES Final R esult Performing Organization Address City/[facility] Co de Phone Number [facility] [address] [facility] Department [place] [address] * Albumin Creatinine Ratio, Urine (11/10/2023 2:36 PM TECHNOLOGY EDUCATION INSTRUCTOR) Microalb, Ur <7.0 0.0 - 22.9 mg/L [facility] Comment:Repeated and Verifie d Random Urine Creatinine 28.7 mg/dL [facility] Microalb/Creat Ratio <24.4 0.0 - 29.9 mg/g [facility] Urine 11/10/2023 2:36 PM TECHNOLOGY EDUCATION INSTRUCTOR 11/10/2023 3:17 PM TECHNOLOGY EDUCATION INSTRUCTOR us Kristin Emery MD LAB URINE ORDERABLES Final Re sult [facility] from Last 3 Months or Most Recently Relevant to Health Maintenance Insurance MEDICARE [employer] Member Subscriber Plan / Payer (Ef fective 2006-Present) Name:Steve Bradley Member ID:[id number] Relation to Subscriber:Self Name:Steve Bradley Subscriber ID:[id number] Payer ID:[id number] Group ID:Not on file Type:MEDICARE TRADITIONAL Address: [address] MEDICARE RAILROAD MEDICARE RAILROAD Advance Directives For more information, please contact: [phone] Documents on File Type Date Recorded 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 Expl anation ADVANCE DIRECTIVE 03/26/2021 11:15 AM POWER OF WALLPAPER HANGER HELPER-MEDICAL ADVANCE DIRECTIVE 04/03/2013 12:00 AM INEZ R OF WALLPAPER HANGER HELPER FINANCIAL/MEDICAL * Full Code (Latest Code Status on File) Date Activated Date Inactivated Comments 08/27/2022 6:50 PM 08/31/2022 6:45 PM * Full Code Date Activated Date Inactivated Comments 12/15/2021 12:30 PM 12/19/2021 6:51 PM * Full Code Date Activated Date Inactivated Comments 03/19/2021 5:34 PM 03/23/2021 11:36 PM Care Teams Well Service Floorperson Relationship Specialty Start Date End Date Faviola Pringle MD [address] [facility] [address] [place] [address] PCP - General 03/06/17 Darren Alfredo MD [address] [facility] [address] [place] [address] Consulting Physician Infectious Diseases 03/23/21 Robin Liu DPM [address] [place] [address] Consulting Physician Foot and Ankle Surg 08/31/22 Rickie Elizondo DPM [address] [address] Consulting Physician Orthopedic Surgery 12/27/22
--- OUTSIDE RECORDS SUMMARY | 2025-04-22 07:40 | XMS_ITS | Clinical Summary ---
Author Organization [facility] Address [address] [place] [address] Care Team Providers Care Workers Compensation Claims Specialist Name Role Phone Faviola Pringle MD Primary Care Provider [phone]- [phone] Darren Alfredo MD Unavailable + [phone] Robin Liu DPM Unavailable [phone] Rickie Elizondo DPM Unavailable [phone] Allergies Active Allergy Reactions Criticality Noted Date [...] (12/20/2022): Added automatically from request for surgery [id number] Carotid artery stenosis 11/20/2022 Lower extremity edema 10/03/2022 Pure hypercholesterolemia 10/03/2022 Assessment & Plan (12/13/2022 10:37 AM MODEL AND PATTERN SUPERVISOR): Stable. Continue Lipitor 40 mg. Assessment & Plan (10/03/2022 12:53 PM MODEL AND PATTERN SUPERVISOR): Lipitor On chronic clopidogrel therapy 10/03/2022 Cellulitis [...] 12/15/2021 Assessment & Plan (01/03/2022 9:11 AM MODEL AND PATTERN SUPERVISOR): - Currently receiving Vancomycin 1.25 mg every [...] 12/31/21 reviewed, planned for labs again with HH tomorrow. - Continue CBC twice a week, [...] concerns. Assessment & Plan (12/17/2021 1:57 PM MODEL AND PATTERN SUPERVISOR): 81-year-old male with diabetes and multiple medical [...] (12/14/2021): Added automatically from request for surgery [id number] Dysfunction of right eustachian tube 10/01/2021 Retinal [...] 6 Assessment & Plan (12/13/2022 10:36 AM MODEL AND PATTERN SUPERVISOR): Ulceration to the left 3rd toe, discussed at length with the patient and his spouse, given his palpable pulses and normal ABIs I suspect this is all inframalleolar occlusive disease and digit disease. Further management of the ulceration of the toe per his hotbed operator. We will plan for follow-up in 6 [...] 03/24/2016 Assessment & Plan (12/03/2024 2:03 PM MODEL AND PATTERN SUPERVISOR): Stable right lower extremity PVD. Continue ASA statin therapy. Follow up in 1 year with repeat noninvasives testing. Assessment & Plan (11/27/2023 1:36 PM MODEL AND PATTERN SUPERVISOR): Stable PVD, no evidence of life-limiting claudication rest pain or wounds. Continue surveillance with repeat noninvasives in 1 year. Continue ASA Plavix and statin therapy. Assessment & Plan (10/30/2022 3:47 PM MODEL AND PATTERN SUPERVISOR): Patient with a history of a right iliac stent placed by Dr. Gilbert in 2019. Currently has a superficial ulceration seeing Podiatry. Most recent lower extremity arterial Doppler reveals sufficient blood supply for wound healing. No surgical procedure intervention indicated this time. Plan follow-up in the office in 6 months with arterial duplex Assessment & Plan (10/03/2022 12:52 PM MODEL AND PATTERN SUPERVISOR): ABIs from outside hospital with mild occlusive [...] 02/01/2014 Assessment & Plan (12/03/2024 2:04 PM MODEL AND PATTERN SUPERVISOR): Stable continue Coreg Assessment & Plan (11/27/2023 1:36 PM MODEL AND PATTERN SUPERVISOR): Stable continue lisinopril 10 mg. Assessment & Plan (12/13/2022 10:37 AM MODEL AND PATTERN SUPERVISOR): Stable continue Lasix 20 mg. Assessment & Plan (10/30/2022 3:46 PM MODEL AND PATTERN SUPERVISOR): Carvedilol Assessment & Plan (10/03/2022 12:52 PM MODEL AND PATTERN SUPERVISOR): Coreg Mixed hyperlipidemia 02/01/2014 Assessment & Plan (12/03/2024 2:03 PM MODEL AND PATTERN SUPERVISOR): Stable continue Lipitor Assessment & Plan (11/27/2023 1:36 PM MODEL AND PATTERN SUPERVISOR): Stable continue Lipitor 40 mg. 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 02/01/2014 Diabetes mellitus 02/01/2014 Assessment & Plan (01/18/2019 9:13 PM MODEL AND PATTERN SUPERVISOR): Continue same reginen Cardiac disease 02/01/2014 History of myocardial infarction 02/01/2014 Actinic keratosis 11/12/2013 Pyogenic inflammation of bone Encounters Date Type Department Care Team Description 02/14/2025 1:00 PM CDT Office Visit [facility] Endocrinology Metabolism and Lipid [address] [facility] 5th [place] [address] [place] [address] Kristin Emery MD Type 2 diabetes mellitus with diabetic neuropathy, with long-term current use of insulin (HCC) (Primary Dx); Diabetic ulcer of toe of left foot associated with type 2 diabetes mellitus, unspecified ulcer stage (HCC); Stage 3a chronic kidney disease (HCC) 02/01/2025 Orders Only CONDON IM EML Scanning, Provider from Last 3 Months Immunizations Immunization Administration Dates Next Due DTaP [...] ZOSTER LIVE 10/08/2015,07/27/2013 ZOSTER Recombinant 09/02/2019, 9,06/04/2019,03/05 Surgical History Surgery Date Site/Laterality Comments TONSILLECTOMY/ADENOIDECTOMY Tonsillectomy With Adenoidectomy - 1948 (Added by TW Conv) HAND SURGERY Hand Surgery - finger tip in 1975 (Added by TW Conv) BACK SURGERY Back Surgery - cyst removed in 1980 (Added by TW Conv) CORONARY STENT PLACEMENT Previous Stent Placement - (Added by TW Conv) 3 total and 1 in the right groin KNEE SURGERY Knee Surgery Left - jun 2008 (Added by TW Conv) TOE SURGERY Left 2 toes removed, 2nd and pinky toes EYE SURGERY Bilateral cataract COLONOSCOPY 10/22/2022 Medical History Medical History Date Comments Type 2 diabetes mellitus wit h hypoglycemia without coma (HCC) Diabetic hypoglycemia - (Added by TW Conv) MCC current use of insulin (HCC) Insulin long-term use - (Added by TW Conv) Type 2 diabetes mellitus wit h hypoglycemia without coma (HCC) Diabetic hypoglycemia - (Added by TW Conv) Arthritis Cancer (HCC) skin CA Coronary artery disease Hypertension Thyroid disease Ear problems HL (hearing loss) Loss of smell Peripheral artery disease Heart failure (HCC) Family History Medical History Relation Name Comments Cancer Father Cancer - (Added by TW Conv) Stroke Father Stroke Syndrome - (Added by TW Conv) Diabetes type II Mother Type 2 Diab etes Mellitus - (Added by TW Conv) Heart disease Mother Heart Disease - (Added by TW Conv) Hypertension Mother Hypertension - (Added by TW Conv) Diabetes type I Sister Type 1 Diabe celso Mellitus - (Added by TW Conv) Diabetes Son Relation Name Status Comments Father Mother Sister Son Social History Tobacco Use Types Packs/Day Years [...] on file Legal Sex Male 3:12 AM MODEL AND PATTERN SUPERVISOR Gender Identity Not on file Sexual Orientation Not on file Occupation Industry Job Start Date Job End Date Retired Not on file Not on file Not on file Obstetrics History Last Filed Vital Signs Vital Sign Reading Time Taken Comments Blood Pressure 98/60 02/14/2025 12:53 PM CDT Pulse 65 02/14/2025 12:53 PM CDT Temperature 36.6 C (97.8 F) 12/15/2024 1:57 PM MODEL AND PATTERN SUPERVISOR Respiratory Rate 16 12/15/2024 1:57 PM MODEL AND PATTERN SUPERVISOR Oxygen Saturation 97% 12/15/2024 1:57 PM MODEL AND PATTERN SUPERVISOR Inhaled Oxygen Concentration - - Weight 93.3 kg (205 lb 9.6 oz) 02/14/2025 12:53 PM CDT Height 177.8 cm (5' 10) 02/14/2025 12:53 PM CDT Body Mass Index 29.5 02/14/2025 12:53 PM CDT Plan of Treatment Health Maintenance Due Date Last Done Comments Dilated Eye Exam 1941 Foot Exam 1941 Hepatitis B Screening 1959 Well Visit 65+ 2006 Depression Screening 03/19/2022 03/19/2021 Covid-19 Vaccine (4 2023-2 5 season) 2024 10/07/2021, 02/14/2021, 01/24/2021 Albumin Creatinine Ratio, Urine 11/10/2024 , 01/11/2021 Influenza Vaccine (Season Ended) 2025 08/31/2023, 08/31/2022, 08/27/2022, Additional history exists Hemoglobin A1C 08/17/2025 02/14/2025, 07/26, 11/10/2023, Additional history exists Fall Risk Assessment 09/30/2025 09/30/2024 Lipid Panel 11/12/2025 11/12/2024, 03/24, 09/25/2022, Additional history exists eGFR 11/12/2025 11/12/2024, 110 05/2024, 11/10/2023, Additional history exists DTaP/Tdap/Td Vaccine (5 - Td or Tdap) 12/25/2027 12/25/2017, 10/18/2015, 10/18/2015, Additional history exists Pneumococcal vaccine 65+ Completed 019, 03/05/2019, 12/02/2018, Additional history exists Zoster Vaccine Completed 09/02/2019, 05/25, 06/04/2019, Additional history exists Medical Devices Implanted Type Area Lockstitch Collar Setter Device Identifier Shelf Expiration Date Model / Serial / Lot [employer] [id number] Pal[place]os R High Viscosity Cement 40gm Bone Green - [id number] Implanted:Qty: 4 on 12/15/2021 by Rodolfo Nunez MD at [facility] Left: Knee [employer] 09/23/2024 [id number] / / [id number] [employer] [id number] Attune Cemented Posterior Stabilize Knee Left 8 Component Femoral - [id number] Implanted:Qty: 1 on 12/15/2021 by Rodolfo Nunez MD at [facility] Left: Knee [employer] [id number] 09/23/2031 [id number] / / [id number] [employer] [id number] Tibial Attune Ps Alpoly Sz 8 5mm - [id number] Implanted:Qty: 1 on 12/15/2021 by Rodolfo Nunez MD at [facility] Left: Knee [employer] [id number] 05/23/2026 [id number] / / [id number] Biocom[employer]ites 620-020 Stimulan Rapid Cure Kit Paste Java Android Developer 20cc 50cc Bone Void - [id number] - [id number] Implanted:Qty: 1 on 12/15/2021 by Rodolfo Nunez MD at [facility] [employer] 07/24/2024 620-02 0 / [id number] / Procedures Procedure Name Priority Date/Time Associated Diagnosis Comments POCT HEMOGLOBIN A1C Routine 02/14/2025 1 :07 PM CDT Type 2 diabetes mellitus with diabetic neuropathy, with long-term current use of insulin (HCC) SCAN - LABS 02/01/2025 EGFR Routine 11/12/2024 8:22 AM MODEL AND PATTERN SUPERVISOR LIPID PANEL Routine 11/12/2024 8:22 AM MODEL AND PATTERN SUPERVISOR ALBUMIN CREATININE RATIO, URINE Routine 11/10/2023 2:36 PM MODEL AND PATTERN SUPERVISOR Type 2 diabetes mellitus with diabetic neuropathy, with long-term current use of insulin (HCC) from Last 3 Months or Most Recently Relevant to Health Maintenance Results * POCT hemoglobin A1c (02/14/2025 1:07 PM CDT) Pathologist [facility] Hemoglobin A1C, POC 6.8 4.0 - 5.6 % Capillary blood 02/14/2025 1 :07 PM CDT us Kristin Emery MD POINT OF CARE TEST ORDERABLES Final Result * SCAN - LABS (02/01/2025) us Provider Scanning Final Result * eGFR (11/12/2024 8:22 AM MODEL AND PATTERN SUPERVISOR) Pathologist [facility] eGFR 67 >=60 mL/min/1. 73 m2 Comment: [...] was last reviewed 2021. Testing performed by: [address] [address] Blood 11/12/2024 8:22 AM MODEL AND PATTERN SUPERVISOR 11/12/2024 9:27 AM MODEL AND PATTERN SUPERVISOR us Isidra Osborne MD LAB BLOOD ORDERABLES Final R esult [facility] [address] [facility] [place] [address] * Lipid panel (11/12/2024 8:22 AM MODEL AND PATTERN SUPERVISOR) [facility] Signature Cholesterol 111 30 - 199 mg/dL Comment: [...] last revised on 2018. Testing performed by: [address] [address] Triglycerides 87 <=149 mg/dL [facility] Comment: Interpretive [...] last revised on 2018. Testing performed by: [address] [address] HDL 41 >=40 mg/dL [facility]U Comment: Interpretive [...] last revised on 2018. Testing performed by: [address] [address] LDL, calculated 53 <=129 mg/dL [facility] Comment: Interpretive Data Ages < or = 19 years Acceptable: <110 mg/dL Borderline high: 110-129 mg/dL High: >or= 130 mg/dL Ages > or = 20 years Optimal: <100 mg/dL Near optimal: 100-129 mg/dL Borderline high: 130-159 mg/dL High: >160 mg/dL Calculated using the Garcia LDL-C estimating equation. This equation was implemented on 2024. Prior to this date LDL-C was estimated using the Friedewald equation. Literature References: 1. Expert Panel on Integrated Guidelines for Cardiovascular Health and Risk Reduction in Children and Adolescents. Pediatrics 2011;128:S213 2. NCEP Expert Panel. Circulation 2004;110:227 3. Jose M et al. BROOK Cardiol. 2019March 24;5(5):540-548. doi: 10.1001/jamacardio.2020.0013 Current Interpretive Data was last revised on 2024. Testing performed by: [address] [address] Non-HDL Cholesterol 70 mg/dL [facility]U Comment: Interpretive Data Ages < [...] last revised on 2018. Testing performed by: [address] [address] Chol/HDL ratio 3 [facility] Comment:Testing performed by : [address] [address] Blood 11/12/2024 8:22 AM MODEL AND PATTERN SUPERVISOR 11/12/2024 9:27 AM MODEL AND PATTERN SUPERVISOR us Isidra Osborne MD LAB BLOOD ORDERABLES Final R esult [facility] [address] [facility] [place] [address] * Albumin Creatinine Ratio, Urine (11/10/2023 2:36 PM MODEL AND PATTERN SUPERVISOR) Microalb, Ur <7.0 0.0 - 22.9 mg/L [facility] Comment:Repeated and Verifie d Random Urine Creatinine 28.7 mg/dL [facility] Microalb/Creat Ratio <24.4 0.0 - 29.9 mg/g [facility] Urine 11/10/2023 2:36 PM MODEL AND PATTERN SUPERVISOR 11/10/2023 3:17 PM MODEL AND PATTERN SUPERVISOR us Kristin Emery MD LAB URINE ORDERABLES Final Re sult [facility] CORE LAB [facility] from Last 3 Months or Most Recently Relevant to Health Maintenance Insurance MEDICARE [employer] [address] [address] MEDICARE [employer] [facility] INDEMNITY DE MEDICARE RAILROAD Advance Directives For more information, please contact: [phone] Documents on File Type Date Recorded Patient Shell Sorter Expl anation ADVANCE DIRECTIVE 03/26/2021 11:15 AM POWER OF SOAKER HELPER-MEDICAL ADVANCE DIRECTIVE 04/03/2013 12:00 AM INEZ R OF SOAKER HELPER FINANCIAL/MEDICAL * Full Code (Latest Code Status on File) Date Activated Date Inactivated Comments 08/27/2022 6:50 PM 08/31/2022 6:45 PM * Full Code Date Activated Date Inactivated Comments 12/15/2021 12:30 PM 12/19/2021 6:51 PM * Full Code Date Activated Date Inactivated Comments 03/19/2021 5:34 PM 03/23/2021 11:36 PM Care Teams Workers Compensation Claims Specialist Relationship Specialty Start Date End Date Faviola Pringle MD [address] [facility] [address] [place] [address] PCP - General 03/06/17 Darren Alfredo MD [address] [facility] [address] [place] [address] Consulting Physician Infectious Diseases 03/23/21 Robin Liu DPM [address] [place] [address] Consulting Physician Foot and Ankle Surg 08/31/22 Rickie Elizondo DPM [address] [address] Consulting Physician Orthopedic Surgery 12/27/22
--- OUTSIDE RECORDS SUMMARY | 2025-04-22 07:40 | XMS_ITS | Data Portability ---
Author Organization [facility] MAYEGisele ValdezLongboat Key H Address [address] [place] [address] Care Team Providers Care Lay Out Helper Name Role Phone JOSELYN, MOCHRISTINARIK Primary Care [...] in the right common iliac artery and STACKER in the left lower extremity by [facility] July of 2021 status [...] resolved Diabetes mellitus - E11.9, Management by [facility] endocrinology Hyperkalemia - E87.5, borderline on [...] lisinopril and Lokelma as managed by his orchardist, Dr. Arroyo. I asked him to continue [...] left ventricle end-diastolic pressure of 13 mmHg. [email or web address] Not available 03/23/2024 17:37:41 04/08/2024 04/08/2024 Labs [...] in the right common iliac artery and STACKER in the left lower extremity by [facility] July of 2021 status [...] resolved Diabetes mellitus - E11.9, Management by [facility] endocrinology Hyperkalemia - E87.5, borderline on [...] in the right common iliac artery and STACKER in the left lower extremity by [facility] July of 2021 status [...] resolved Diabetes mellitus - E11.9, Management by [facility] endocrinology Hyperkalemia - E87.5, borderline on [...] of the stent in the midvessel with [id number] collateral filling of the right coronary artery, for future catheterization avoid right femoral access as he has a known occluded right common, currently asymptomatic. Peripheral vascular disease with stent placement in the right common iliac artery and STACKER in the left lower extremity by [facility] July of 2021 status [...] resolved Diabetes mellitus - E11.9, Management by [facility] endocrinology Hyperkalemia - E87.5, borderline on [...] in the midvessel vessel is supplied by [id number] collaterals. The LVEDP was 16 and aortic [...] Not available Lab lipid panel, serum [address] [facility], [address] [place] [address], [address], 04/20/2025 07:40:12 BMP, serum or plasma 2023 024 [facility], [address] [place] [address], [address], 10/19/2024 16:30:[address] [facility], [address] [place] [address], [address], 04/20/2025 07:40:12 CMP, serum or plasma [address] [facility], [address] [place] [address], [address], 04/20/2025 07:40:12 lipid panel, serum 2023 024 [facility], [address] [place] [address], [address], 09/29/2024 07:32:29 CMP, serum or plasma 2023 [facility], [address] [place], [address], 10/13/2024 07:40:[address] [facility], [address] [place], [address], 10/13/2024 07:40:34 lipid panel, serum 2023 [facility], [address] [facility] [address], [place], [address], 09/27/2024 16:49:10 CMP, serum or plasma 2023 [facility], [address] [facility] [address], [place], [address], 09/27/2024 16:49:11 CBC 2023 [facility], [address], [place], [address], 09/27/2024 16:49:11 Referral None record ed. Procedures lexisc an cardio lite stress test (PROC) 2023 [facility], [address] [place], [address], 04/07/2024 12:24:58 Surgeries cardia c cathet erizat ion (SURG) 2023 [facility], [address], [place], [address], 09/23/2024 09:46:50 Imaging electr ocardi ogram, routin e ECG, 12 leads min 2023 [email or web address] Not available 03/24/2024 12:13:07 Medication Orders nitrog lyceri n 0.4 mg sublin gual tablet 2023 024 [id number], [address] [facility], [place], [place], [id number], 10/19/2024 16:16:23 Patient TargetsNo targets recorded. Patient InstructionsNo instructions recorded. Reason for Referral None Reported. Results Created Date Observation Date Name Description Value Unit Range Abnormal Flag Note LastModifiedBy Organization Detail LastModifiedTime 04/07/20 24 04/06/2024 abbi can cardi olite stres s test (PROC ) No observ ation record ed. [facility] [address] [facility] [place], [address], 04/08/2024 08:16:40 Result Notes None recorded. Problems Name Problem SNOMED Code Status Onset Date Resolution Date Notes Provider Name and Address Organization Details Recorded Time Atheroscler osis of coronary artery without angina pectoris 1629862765325 03 Active 2023 Isidra Osborne MD Attn: Courtney melendez,[address] [place], [address], [place] - [facility] 4 17:10:03 Pure hypercholes terolemia 201531155 Active 2023 Isidra Osborne MD Attn: Courtney melendez,[address] [place], [address], [place] 4 17:10:05 Tricuspid valve regurgitati on 220917109 Active 2023 Isidra Osborne MD Attn: Courtney melendez,[address] [place], [address], [place] 4 17:10:06 Essential hypertensio n 27634363 Active 2023 Isidra Osborne MD Attn: Courtney melendez,[address] [place], [address], [place] 4 17:10:07 Long-term current use of anticoagula nt 823979795 Active 2023 Isidra Osborne MD Attn: Courtney melendez[address] [facility], [place], [address], [place] [facility] 4 17:10:08 Pulmonary hypertensio n 80008387 Active 2023 Isidra Osborne MD Attn: Accountlakisha g,[address] [facility], [place], [address], [place] [facility] 4 17:10:11 Diastolic dysfunction 7636285 Active 2023 Isidra Osborne MD Attn: Accountin g,[address] [facility], [place], [address], [place] [facility] 4 17:10:12 Preoperativ e cardiovascu lar examination Active 2023 Isidra Osborne MD Attn: Accountin g,[address] [facility], [place], [address], [place] [facility] 4 17:10:13 Coronary arterioscle rosis in table mountain artery 3128799434753 Active 2023 Isidra Osborne MD Attn: Accountlakisha g,[address] [facility], [place], [address], [place] [facility] 4 13:54:47 Peripheral vascular disease 941989466 Active 2023 Isidra Osborne MD Attn: Accountin g,[address] [facility], [place], [address], [place] [facility] 4 13:54:57 Bilateral lower limb edema 060028617 Active 2023 Isidra Osborne MD Attn: Accountin g,[address] [facility], [place], [address], [place] [facility] 4 13:55:05 Cardiovascu lar stress test abnormal 737301484 Active 2023 Isidra Osborne MD Attn: Accountin g,[address] [facility], [place], [address], [place] [facility] 4 16:25:34 Long-term current use of antiplatele t drug 5205924634555 01 Active 2023 Isidra Osborne MD Attn: Courtney melendez,[address] [facility], [place], [address], [facility] - SI 4 16:28:58 Problem Notes None recorded. Medical Equipment None Reported. Allergies Allergen ID Allergen Name Allergen Category Reaction Reaction Severity Criticality Documentation Date Start Date Code Code System Note Provider Name and Address Organization Details Recorded Time 572656 Iodinated contrast media (substanc e) medicatio n anaphylax is Not available Not available 03/23/2024 55904 2003 SNOMED Sofy Garcia MA [facility], [place] - SI 4 15:51:41 Medications Name Sig Start Date Stop Date [...] t Available Vitals Date Recorded Body weight Body mass index (BMI) Body height Heart rate Oxygen saturation Oxygen saturation in Arterial blood by Pulse oximetry Systolic blood pressure Diastolic blood pressure Provider Name and Address Organization Details Last Updated DateTime 4 20141.7 8 g 29.8 kg/m2 177.8 cm 72 /min 94 % 94 % 138 mm[Hg] 72 mm[Hg] Sofy Garcia, MA [facility] 4 15:59:14 Date Recorded Body height Body mass index (BMI) Body weight Heart rate Oxygen saturation Oxygen saturation in Arterial blood by Pulse oximetry Systolic blood pressure Diastolic blood pressure Provider Name and Address Organization Details Last Updated DateTime 4 177.8 cm 29.9 kg/m2 58606.6 5 g 74 /min 94 % 94 % 130 mm[Hg] 66 mm[Hg] Sofy Garcia MA [facility] 4 16:06:04 Date Recorded Body height Body mass index (BMI) Body weight Heart rate Oxygen saturation Oxygen saturation in Arterial blood by Pulse oximetry Systolic blood pressure Diastolic blood pressure Provider Name and Address Organization Details Last Updated DateTime 4 177.8 cm 30.3 kg/m2 58988.6 3 g 68 /min 97 % 97 % 128 mm[Hg] 64 mm[Hg] Radha Cochran MA [facility] 4 15:52:41 Date Recorded Body mass index (BMI) Body weight Heart rate Oxygen saturation Oxygen saturation in Arterial blood by Pulse oximetry Systolic blood pressure Diastolic blood pressure Provider Name and Address Organization Details Last Updated DateTime 4 30.7 kg/m2 31971.8 4 g 70 /min 98 % 98 % 118 mm[Hg] 64 mm[Hg] Sofy Garcia MA [facility] 4 15:26:11 Date Recorded Body height Provider Name an d Address Organization Details Last Updated DateTime 10/19/2024 177.8 cm Trinity Lopez MA [facility] 2023 15:16:38 Social History Question Answer Notes LastModified by Organizat ion Details LastModified Time Tobacco Smoking Status Never Smoker Sofy Garcia MA null, [facility] 03/23/2024 15:55:56 What Is Your Level Of Caffeine Consumption? None Information not available 03/23/2024 What Was The Date Of Your Most Recent Tobacco Screening? 10/19/2024 Information not available 10/19/2024 Has Tobacco Cessation Counseling Been Provided? No Information not available 03/23/2024 Sex: Unknown Functional Status Question Answer Note LastModified by Organizat ion Details LastModified Time Do you use any illicit or recreational drugs? No Information not available 03/23/2024 Do you or have you ever used any other forms of tobacco or nicotine? No Information not available 03/23/2024 What is your level of alcohol consumption? None Information not available 03/23/2024 Mental Status None recorded. Family History Nothing Reported. Medical History No medical history recorded. Past Encounters Encounter ID Performer Location Encounter Start Date Encounter Closed Date Diagnosis/Indication Diagnosis SNOMED-CT Code Diagnosis ICD10 Code Diagnosis Note [id number] Isidra Osborne MD [facility] [place] [facility] [address] [place] [address] 03/23/2024 15:31:02 03/24/2024 12:13:07 Atherosclerosis of coronary artery without angina pectoris 7276823231 38192 I25.10 Pure hypercholesterolemia 444465308 E78.00 Tricuspid valve regurgitation 823422040 I07.1 Essential hypertension 65241918 I10 Diastolic dysfunction 35 47548 I51.9 Pulmonary hypertension 58710005 I27.20 Preoperati ve cardiovascular examination 024982340 Z01.810 Long-term current use of antiplatelet drug 5472109759 02517 Z79.02 [id number] Isidra Osborne MD [facility] [place] [facility] [facility] [address] [place] [address] 04/08/2024 15:52:06 04/09/2024 12:12:52 [id number] Isidra Osborne MD [facility] [place] [facility] [facility] [address] [place] [address] 09/22/2024 15:21:51 09/23/2024 08:53:35 Coronary arteriosclerosis in table mountain artery 6789295257 107 I25.10 Atheroscle rosis of coronary artery without angina pectoris 1339737438 99859 I25.10 Peripheral vascular disease 557303434 I73.9 Essential hypertension 85495247 I10 Diastolic dysfunction 35 84405 I51.9 Pure hypercholesterolemia 130692588 E78.00 Tricuspid valve regurgitation 228534293 I07.1 Pulmonary hypertension 37045366 I27.20 Bilateral lower limb edema 309047440 R60.0 Cardiovasc ular stress test abnormal 788400234 R94.39 Long-term current use of antiplatelet drug 3155313951 82181 Z79.02 [id number] Isidra Osborne MD [facility] [place] [facility] [facility] [address] [place] [address] 10/19/2024 15:11:54 10/22/2024 10:22:46 Atherosclerosis of coronary artery without angina pectoris 2503115554 41294 I25.10 Cardiovasc ular stress test abnormal 548855353 R94.39 Diastolic dysfunction 35 70111 I51.9 Essential hypertension 64697340 I10 Long-term current use of antiplatelet drug 5656290553 18067 Z79.02 Long-term current use of anticoagulant 930928561 Z79.01 Tricuspid valve regurgitation 114666570 I07.1 Pure hypercholesterolemia 147372673 E78.00 Health Concerns Section Related Observation LastModified by Organization Detai ls LastModified Time None Recorded Concern Status LastModified by Organization Details LastModified Time None Recorded Advance Directives Directive None Recorded Payers Encounter Date Sequence Insurance Name Policy Number Policy Godfrey Covered Member ID Godfrey Member ID Guarantor Name 03/23/2024 1 [facility] [facility] (MEDICARE) C W Hattan [id number] Steve Hattan 03/23/[address] [facility] [id number] Steve W Hattan [id number] Steve Hattan 04/08/2024 1 [facility] - MEDICARE-[address] [facility] BOARD (MEDICARE) C W Hattan [id number] Steve Hattan 04/08/[address] [facility] [id number] Steve W Hattan [id number] Steve Hattan 09/22/2024 1 [facility] - MEDICARE-[address] [facility]ARD (MEDICARE) C W Hattan [id number] Steve Hattan 09/22/[address] [facility] [id number] Steve W Hattan [id number] Steve Hattan 10/19/2024 1 [facility] - [facility]ICARE-[address] [facility] (MEDICARE) Reena Bradley [id number] Steve Bradley 10/19/[address] [facility] [id number] Steve Bradley [id number] Steve Bradley Notes Date Note Type Note Provider Name [...] had any falls. 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 Isidra Osborne MD Attn: [address] [place], [address], [facility] - [facility] 03/23/2024 17:38:10 04/08/2024 text/html Steve is a [...] palpitation. Isidra Osborne MD Attn: [address] [place], [address], [facility] - [facility] 04/08/2024 16:33:28 09/22/2024 text/html Steve is a [...] palpitation. Isidra Osborne MD Attn: [address] [place], [address], [facility] 09/22/2024 16:31:46 10/19/2024 text/html Steve [...] in the midvessel vessel is supplied by [id number] collaterals. The LVEDP was 16 and aortic [...] Isidra Osborne MD Attn: [address]ing[address] [facility], [place], [address], [facility] - [facility] 10/19/2024 16:16:53
--- OUTSIDE RECORDS SUMMARY | 2025-04-22 07:40 | XMS_ITS | Clinical Summary ---
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 This disclosure is being madepursuant to the Care Everywhere program and may not contain all information available regarding this patient. 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 Gender Identity Not on file Sexual Orientation Not on file Plan of Treatment Health Maintenance Due Date Last Done Comments DTAP/TDAP/TD VACCINES (1 - Tdap) 1960 PNEUMOCOCCAL VACCINE 50+ (1 of 1 - PCV) 1991 ZOSTER VACCINE (1 of 2) 1991 Respiratory Syncytial Virus (RSV) Vaccine Pt: or over 60 yrs (1 - 1-dose 75+ series) 2016 COVID-19 VACCINE ( - 2023-2 5 season) 2024 DEPRESSION SCREENING 11/24/2024 INFLUENZA VACCINE (Season Ended) 2025 HEPATITIS B VACCINE Aged Out No longe r eligible based on patient's age to complete this topic HIB VACCINE Aged Out No longer eligi ble based on patient's age to complete this topic HPV VACCINE Aged Out No longer eligi ble based on patient's age to complete this topic MENINGOCOCCAL (Group B) VACC INE SHARED DECISION-MAKING Aged Out No longer eligibl e based on patient's age to complete this topic MENINGOCOCCAL GROUPS A/C/Y/W VACCINE Aged Out No longer eligible b ased on patient's age to complete this topic Insurance MEDICARE [facility]
--- OUTSIDE RECORDS SUMMARY | 2025-04-22 07:40 | XMS_ITS | CONTINUITY OF CARE DOCUMENT ---
Author Name glenis chantenatalia Address Unknown Organization [facility] Office Address [address] [place] [address] Phone [phone] Care Team Providers Care Vascular Physician Name Role Phone Joshua ARMSTRONG, Len Unavailable [phone] Ignacio ARMSTRONG, Josephine Unavailable JOSELYN ARMSTRONG, ELISE Unavailable [phone] PROBLEMS Condition Status Date Provider Notes Diabetes, Type 2 active Len Lewis MD Hyperlipidemia active Len Leiws MD Hypertension active Len Lewis MD Peripheral Vascular Disease active Len Lewis MD CAD active Len Lewis MD ENCOUNTERS Date Type Provider Location Encounter Diag nosis - In-person encounter Office Visit Len Rivera Office - In-person encounter Office Visit Len Rivera Office - In-person encounter Office Visit Len Rivera Office - In-person encounter Office Visit Len Rivera Office - In-person encounter Office Visit Len Rivera Office Diabetes, Type 2HyperlipidemiaHyper tensionPeripheral Vascular DiseaseCAD VITAL SIGNS Date Observation Value Provider Body Mass Index (Ratio) 29.70 kg/m2 Mackenzie Lewis MD blood pressure, cuff size large Charissa Tobin blood pressure, diastolic 68 mm[Hg] Charissa morris [place] blood pressure, systolic 140 mm[Hg] Maurice helle [place] oxygen saturation, oximetry 99 % Milagros Mahad respiratory rate E&M 18 /min Charmaine Tobin pulse rate 85 /min Milagros ashford weight E&M 213 [lb_av] Milagros ashford height E&M 71 [in_i] Milagros ashford Body Mass Index (Ratio) 29.84 kg/m2 Mackenzie Lewis MD blood pressure, diastolic 70 mm[Hg] Tere Cochran blood pressure, systolic 138 mm[Hg] Tamara edmund Cochran oxygen saturation, oximetry 99 % uSzie Cochran respiratory rate E&M 16 /min Maciel normanradha Dimas pulse rate 72 /min Suzie bustos weight E&M 214 [lb_av] Suzie bustos height E&M 71 [in_i] Suzie bustos Body Mass Index (Ratio) 31.24 kg/m2 Mackenzie Lewis MD blood pressure, cuff size large Charissa morris [place] blood pressure, diastolic 72 mm[Hg] Charissa morris [place] blood pressure, systolic 140 mm[Hg] Maurice tavo [place] oxygen saturation, oximetry 97 % Milagros Tobin respiratory rate E&M 16 /min Charmaine Tobin pulse rate 65 /min Milagros ashford weight E&M 224 [lb_av] Milagros ashford height E&M 71 [in_i] Milagros ashford Body Mass Index (Ratio) 31.80 kg/m2 Sund sonia Lewis MD blood pressure, cuff size large Ke rri Ruthnelorielder blood pressure, diastolic 80 mm[Hg] Harjinder rri Chiquitaelder blood pressure, systolic 146 mm[Hg] Tiffany Santaer oxygen saturation, oximetry 97 % Emma Colmenares respiratory rate E&M 16 /min Emma Whaley ruenenfelder pulse rate 66 /min Emma Gordillo lder weight E&M 228 [lb_av] Emma Gordillo er height E&M 71 [in_i] Emma Gordillo [facility] Body Mass Index (Ratio) 32.49 kg/m2 Sund eep Joshua ARMSTRONG blood pressure, diastolic 74 mm[Hg] Li nkLogic blood pressure, systolic 145 mm[Hg] Ivana kLogic blood pressure, diastolic 74 mm[Hg] Mi alexandra [place] blood pressure, systolic 145 mm[Hg] Maurice helle [place] oxygen saturation, oximetry 98 % Milagros Maria T respiratory rate E&M 18 /min Charmaine tamara [place] pulse rate 66 /min Milagros [place] weight E&M 233 [lb_av] Milagros Escalantey height E&M 71 [in_i] Milagros Escalantey ALLERGIES Allergy Name Onset Date Reaction Criticality Status PENTAZOCINE Low Criticality active CONTRAST DYE Low Criticality active RESULTS Date Observation Value Provider Reference Range Interpretation Location C-reactive protein, by highly sensitive test 5.6 mg/L [facility] [place] [facility] [address] [address] [facility] [place] [address] Joes Juan Comer D.O., MPH c-reactive protein, quantitative, serum 0.92 mg/L [facility] 0.00-3.00 prothrombin time (patient) 10.6 s [facility] 9.0-11.5 Normal international normalized ratio (INR) 1.0 [facility] Normal monocyte count, blood 2 % [facility] Normal lymphocyte count, blood 10 % [facility] Normal neutrophils, band form as percent of blood leukocytes 2 % [facility] Normal neutrophils as percent of blood leukocytes 86 % [facility] Normal monocytes, absolute, manual 102 cells/mcL [facility] 200-950 Low lymphocytes, absolute 510 CELLS/UL [facility] 850-3900 Low Absolute Band Neutrophil count 102 cells/mcL [facility] 0-750 Normal Absolute Neutrophil count 4386 cells/mcL [facility] 5593-0533 Normal mean platelet volume 10.5 fL [facility] 7.5-12.5 Normal platelet count 194 THOUSAND/U L [facility] 140-400 Normal red blood cell distribution width 12.4 % [facility] 11.0-15.0 Normal mean corpuscular hemoglobin concentration, RBC 31.8 G/DL [facility] 32.0-36.0 Low mean corpuscular hemoglobin, RBC 30.5 pg [facility] 27.0-33.0 Normal mean corpuscular volume, RBC 95.8 fL [facility] 80.0-100.0 Normal hematocrit, blood 48.4 % [facility] 38.5-50.0 Normal hemoglobin electrophoresis, blood 15.4 [facility] 13.2-17.1 Normal erythrocyte (RBC) count 5.05 MILLION/UL [facility] 4.20-5.80 Normal leukocyte (white blood cells) count, blood 5.1 THOUSAND/U L [facility] 3.8-10.8 Normal calcium, serum 9.6 mg/dL [facility] 8.6-10.3 Normal carbon dioxide, venous blood 28 mmol/L [facility] 20-32 Normal chloride, serum 101 mmol/L [facility] 98-110 Normal potassium, serum 4.5 mmol/L [facility] 3.5-5.3 Normal sodium, serum 137 mmol/L [facility] 135-146 Normal urea nitrogen/creatin ine ratio, serum 24 (calc) [facility] 6-22 High Estimated Glomerular Filtration Rate (calc) 68 mL/min/{1. 73_m2} [facility] > OR = 60 Normal creatinine, serum 1.17 mg/dL [facility] 0.70-1.18 Normal urea nitrogen, blood 28 mg/dL [facility] 7-25 High blood glucose, random 262 mg/dL [facility] 65-99 High cholesterol, non-HDL, total 69 MG/DL (CALC) [facility] <130 Normal cholesterol/HDL ratio, serum, percent 2.8 (calc) [facility] <5.0 Normal LDL cholesterol, serum 56 MG/DL (CALC) [facility] Normal triglyceride, serum, fasting 45 mg/dL [facility] <150 Normal HDL cholesterol, serum 38 mg/dL [facility] > OR = 40 Low cholesterol, serum 107 mg/dL [facility] <200 Normal prothrombin time (patient) * [facility] [place] [facility] [address] [place] [address] [facility] international normalized ratio (INR) * [facility] [place] [facility] [address] [place]OOK [address] [facility] basophils as percent of blood leukocytes PENDING % [facility] [place] [facility] [address] [place]OOK [address] [facility] eosinophils as percent of blood leukocytes PENDING % [facility] [place] [facility] [address] COOK [address] [facility] monocyte count, blood PENDING % [facility] [address] COOK [address] [facility] lymphocyte count, blood PENDING % [facility] [address] COOK [address] [facility] neutrophils as percent of blood leukocytes PENDING % [facility] [address] COOK [address] [facility] basophils, absolute, manual PENDING cells/uL [facility] 0-200 [facility] [address]olph COOK [address] [facility] eosinophils, absolute, manual PENDING cells/uL [facility] 15-500 [place] [address]olph COOK [address] [facility] monocytes, absolute, manual PENDING cells/uL [facility] 200-950 [facility] [address] COOK [address] [facility] lymphocytes, absolute PENDING cells/uL [facility] 850-3900 [facility] [address] COOK [address] [facility] Absolute Neutrophil count PENDING cells/uL [facility] 3079-3078 [facility] [address] COOK [address] [facility] mean platelet volume 10.5 fL [facility] 7.5-12.5 Normal [facility] [address] COOK [address] [facility] platelet count 194 THOUSAND/U L [facility] 140-400 Normal [facility] [address] COOK [address] [facility] red blood cell distribution width 12.4 % [facility] 11.0-15.0 Normal [facility] [address] COOK [address] [facility] mean corpuscular hemoglobin concentration, RBC 31.8 G/DL [facility] 32.0-36.0 Low [facility] [address] [place]OOK [address] [facility] mean corpuscular hemoglobin, RBC 30.5 pg [facility] 27.0-33.0 Normal [facility] [address] COOK [address] [facility] mean corpuscular volume, RBC 95.8 fL [facility] 80.0-100.0 Normal [place] [address] COOK [address] [facility] hematocrit, blood 48.4 % [facility] 38.5-50.0 Normal [facility] [address] COOK [address] [facility] hemoglobin electrophoresis, blood 15.4 [facility] 13.2-17.1 Normal [place] [address] [place]OOK [address] [facility] erythrocyte (RBC) count 5.05 MILLION/UL [facility] 4.20-5.80 Normal [facility] [address] COOK [address] [facility] leukocyte (white blood cells) count, blood 5.1 THOUSAND/U L [facility] 3.8-10.8 Normal [facility] [address] [place]OOK [address] [facility] calcium, serum 9.6 mg/dL [facility] 8.6-10.3 Normal [place] [address] COOK [address] [facility] carbon dioxide, venous blood 28 mmol/L [facility] 20-32 Normal [facility] [address] COOK [address] [facility] chloride, serum 101 mmol/L [facility] 98-110 Normal [place] [address] COOK [address] [facility] potassium, serum 4.5 mmol/L [facility] 3.5-5.3 Normal [place] [address] COOK [address] [facility] sodium, serum 137 mmol/L [facility] 135-146 Normal [place] [address] COOK [address] [facility] urea nitrogen/creatin ine ratio, serum 24 (calc) [facility] 6-22 [place] [address] COOK [address] [facility] Vo Estimated Glomerular Filtration Rate (calc) 68 mL/min/{1. 73_m2} [facility] > OR = 60 Normal [place] [address] [place]OOK [address] [facility] Vo creatinine, serum 1.17 mg/dL [facility] 0.70-1.18 Normal [place] [address] COOK [address] [facility] Vo urea nitrogen, blood 28 mg/dL [facility] 7-25 [place] [address] COOK [address] [facility] Vo blood glucose, random 262 mg/dL [facility] 65-99 [place] [address] [place]OOK [address] [facility] Thi Vo cholesterol, non-HDL, total 69 MG/DL (CALC) [facility] <130 Normal [place] [address] COOK [address] [facility] Vo cholesterol/HDL ratio, serum, percent 2.8 (calc) [facility] <5.0 Normal [place] [address] [place]OOK [address] [facility] Thi Vo LDL cholesterol, serum 56 MG/DL (CALC) [facility] Normal [place] [address] COOK [address] [facility] Vo triglyceride, serum, fasting 45 mg/dL [facility] <150 Normal [place] [address] COOK [address] [facility] Vo HDL cholesterol, serum 38 mg/dL [facility] > OR = 40 Low [place] [address] GaldamezNavarre JOEY [address] [facility] Vo cholesterol, serum 107 mg/dL [facility] <200 Normal [place] [address] [place] [address] [facility] HISTORY OF MEDICATION USE Medication Status Instructions Dates Provider Indications Com ments furosemide 20 mg tablet active TAKE 1 TABLET BY MOUTH EVERY DAY Milagros Live Jardiance 10 mg tablet active TAKE 1 TABLET BY MOUTH DAILY Milagros Live isosorbide mononitrate 30 mg tablet extended release 24 hr active TAKE 1 TABLET BY MOUTH EVERY DAY Milagros Live clopidogrel 75 mg tablet active TAKE 1 TABLET BY MOUTH EVERY MORNING Milagros Live dorzolamide 2% drops active INSTILL 1 DROP INTO BOTH EYES 3 TIMES A DAY DIRECTED Milagros Live doxycycline hyclate 100 mg capsule active Milagros Live lisinopril 10 mg tablet active TAKE 1 TABLET BY MOUTH EVERY DAY Milagros Live Lantus U-100 Insulin 100 unit/mL solution active ADMINISTER 20 UNITS UNDER THE SKIN EVERY NIGHT Milagros Live carvedilol 25 mg tablet active TAKE 1 TABLET BY MOUTH TWICE DAILY Milagros Live levothyroxine 175 mcg tablet active TAKE 1 TABLET BY MOUTH EVERY DAY IN THE MORNING Milagros Live metformin 500 mg tablet active TAKE 1 TABLET BY MOUTH TWICE DAILY Milagros Live atorvastatin 40 mg tablet active TAKE 1 TABLET BY MOUTH EVERY NIGHT AT BEDTIME Milagros Live latanoprost 0.005% drops active INSTILL 1 DROP INTO BOTH EYES AT BEDTIME DIRECTED Milagros Live SOCIAL HISTORY Date Observation Value Provider number of years as a smoker 10 a Milagros Tobin cigarette use yes Milargos Briggs nd smoking status Former smoker Milagros parker number of years as a smoker 10 a Milagros Barnettand cigarette use yes Milagros [address]gs [address] smoking status Former smoker Milagros Payal parker number of years as a smoker 10 a Emma Beauchampstacyer cigarette use yes Emma Porras elder smoking status Former smoker Emma sandovalelder social history E&M Patient is a former smoker. A lcohol Use - no Smoking History: Brian anderson is a former smoker. worked at [employer] Len Lewis MD number of years as a smoker 10 a Milagros Live cigarette use yes Milagros garcia smoking status Former smoker Milagros Char murdock FUNCTIONAL STATUS Date Observation Value Provider HRA, CV Assess/Plan, Angina (inactive) Management Plan continue current therapy Selma Mo NP HRA, CV Assess/Plan, Angina (inactive) Management Plan continue current therapy Len Lewis MD HRA, CV Assess/Plan, Angina (inactive) Management Plan continue current therapy Len Lewis MD HRA, CV Assess/Plan, Angina (inactive) Management Plan continue current therapy Len Lewis MD HRA, CV Assess/Plan, Angina (inactive) Management Plan continue current therapy Len Lewis MD FAMILY HISTORY Family Member Condition Father Family History of CV A or Stroke: Mother Family History of Di abetes: INSURANCE PROVIDERS Payer name Policy type / Coverage type Jeremiah red alliance party ID [employer] MEDICARE Medicare [id number] [facility] Other [id number] ADVANCE DIRECTIVES Name Date LIVING WILL ON FILE TREATMENT PLAN Date Name Performer [id number],C, D carlos, Type 2 - since age 28 Len Lewis MD [id number],C, C HOL: 107 (07/17/2021) LDL: 56 MG/DL (CALC) (07/17/2021) HDL: 38 (07/17/2021) T (07/17/2021) Selma Mo STREAMING MEDIA SPECIALIST [id number],C, B P today: 140/68 P rior BP: 138/70 (02/04/2022) Labs Reviewed: C reat: 1.17 (07/17/2021) C hol: 107 (07/17/2021) HDL: 38 (07/17/2021) LDL: 56 MG/DL (CALC) (07/17/2021) T (07/17/2021) Selma Mo STREAMING MEDIA SPECIALIST [id number],C, 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 H e has now had his toe healed and the infection in his knee has healed sensilase today Left toe was 40 His HsCRP was 5.6 - and the surgeon check CRP which was 27.8 Selma Mo STREAMING MEDIA SPECIALIST [id number],C, n o angina Selma Mo STREAMING MEDIA SPECIALIST [id number],C,C HOL: 107 (07/17/2021) LDL: 56 MG/DL (CALC) (07/17/2021) HDL: 38 (07/17/2021) T (07/17/2021) Selma Mo STREAMING MEDIA SPECIALIST [id number],C, B P today: 138/70 P rior BP: 140/72 (10/08/2021) Labs Reviewed: C reat: 1.17 (07/17/2021) C hol: 107 (07/17/2021) HDL: 38 (07/17/2021) LDL: 56 MG/DL (CALC) (07/17/2021) T (07/17/2021) Selma Mo STREAMING MEDIA SPECIALIST [id number],C, 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 Take 1 tablet by mouth every night at bedtime crp 0.92 e gfr 68 Len Joshua ARMSTRONG [id number],C, H is updated medication list for this problem includes: Furosemide 20 Mg Tablet (Furosemide) ..... Take 1 tablet by mouth every day Lisinopril 10 Mg Tablet (Lisinopril) ..... Take 1 tablet by mouth every day Carvedilol 25 Mg Tablet (Carvedilol) ..... Take 1 tablet by mouth twice daily Joshua ARMSTRONG [id number],C,no angina [facility] Joshua ARMSTRONG [id number],C,c hol 107, Trigs 45, HDL 38, LDL 56 (07/17/2021) Selma Mo NP [id number],C, B P today: 146/80 P rior BP: 145/74 (07/16/2021) Labs Reviewed: C reat: 1.17 (07/17/2021) C hol: 107 (07/17/2021) HDL: 38 (07/17/2021) LDL: 56 MG/DL (CALC) (07/17/2021) T (07/17/2021) Selma Mo NP [id number],C,N o chest pain s ilent [place] - diagnosed 2005. 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 w ound helaing much improved Selma Mo NP [id number],C,s ilent [place] - diagnosed 2005. c ad - stents x 3 - done 2005, 2011 and 2019p Joshua ARMSTRONG [id number],C,D iabetes, Type 2 - since age 28 H is updated medication list for this problem includes: Jardiance 10 Mg Tablet (Empagliflozin) ..... Take 1 tablet by mouth daily Lisinopril 10 Mg Tablet (Lisinopril) ..... Take 1 tablet by mouth every day Lantus U-100 Insulin 100 Unit/ml Solution (Insulin glargine) ..... Administer 20 units under the skin every night Metformin 500 Mg Tablet (Metformin) ..... Take 1 tablet by mouth twice daily Len Joshua ARMSTRONG [id number],C, H is updated medication list for this problem includes: Furosemide 20 Mg Tablet (Furosemide) ..... Take 1 tablet by mouth every day Lisinopril 10 Mg Tablet (Lisinopril) ..... Take 1 tablet by mouth every day Carvedilol 25 Mg Tablet (Carvedilol) ..... Take 1 tablet by mouth twice daily BP today: 145/74 Len Joshua ARMSTRONG [id number],C, H is updated medication list for this problem includes: Atorvastatin 40 Mg Tablet (Atorvastatin) ..... Take 1 tablet by mouth every night at bedtime Len Joshua ARMSTRONG [id number],C,a bi were ok b ut right inlayer occluded s uspect false negative h as very poor pulses and non healing wound w ill plan aif via radial Len Joshua ARMSTRONG Cardiology: D iasobeidates, Type 2 - since age 28 Len Joshua ARMSTRONG Cardiology: C HOL: 107 (07/17/2021) LDL: 56 MG/DL (CALC) (07/17/2021) HDL: 38 (07/17/2021) T (07/17/2021) Selma Mo STREAMING MEDIA SPECIALIST Cardiology: B P today: 140/68 P rior BP: 138/70 (02/04/2022) Labs Reviewed: C reat: 1.17 (07/17/2021) C hol: 107 (07/17/2021) HDL: 38 (07/17/2021) LDL: 56 MG/DL (CALC) (07/17/2021) T (07/17/2021) Selma Mo AMBER Cardiology: 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 H e has now had his toe healed and the infection in his knee has healed sensilase today Left toe was 40 His HsCRP was 5.6 - and the surgeon check CRP which was 27.8 Selma Mo AMBER Cardiology: n o angina Sel[place] Mo AMBER Cardiology:CHOL: 107 (07/17/2021) LDL: 56 MG/DL (CALC) (07/17/2021) HDL: 38 (07/17/2021) T (07/17/2021) Selmatamara Almanzartamara CLARK Cardiology: B P today: 138/70 P rior BP: 140/72 (10/08/2021) Labs Reviewed: C reat: 1.17 (07/17/2021) C hol: 107 (07/17/2021) HDL: 38 (07/17/2021) LDL: 56 MG/DL (CALC) (07/17/2021) T (07/17/2021) Selmatamara Almanzartamara CLARK Cardiology: 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 Take 1 tablet by mouth every night at bedtime crp 0.92 e gfr 68 Lenbrian Lewis MD Cardiology: H is updated medication list for this problem includes: Furosemide 20 Mg Tablet (Furosemide) ..... Take 1 tablet by mouth every day Lisinopril 10 Mg Tablet (Lisinopril) ..... Take 1 tablet by mouth every day Carvedilol 25 Mg Tablet (Carvedilol) ..... Take 1 tablet by mouth twice daily Lenbrian Lewis MD Cardiology:no angina Lenbrian Lewis MD Cardiology:chol 107, Trigs 45, HDL 38, LDL 56 (07/17/2021) Selma Mo NP Cardiology: B P today: 146/80 P rior BP: 145/74 (07/16/2021) Labs Reviewed: C reat: 1.17 (07/17/2021) C hol: 107 (07/17/2021) HDL: 38 (07/17/2021) LDL: 56 MG/DL (CALC) (07/17/2021) T (07/17/2021) Selma Mo NP Cardiology:No chest pain s [place]ent [place] - diagnosed 2005. 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 w ound helaing much improved Selma Mo NP Cardiology:silent [place] - diagnosed 2005. c ad - stents x 3 - done 2005, 2011 and 2019sonia Lewis MD Cardiology:Diabetes, Type 2 - since age 28 H is updated medication list for this problem includes: Jardiance 10 Mg Tablet (Empagliflozin) ..... Take 1 tablet by mouth daily Lisinopril 10 Mg Tablet (Lisinopril) ..... Take 1 tablet by mouth every day Lantus U-100 Insulin 100 Unit/ml Solution (Insulin glargine) ..... Administer 20 units under the skin every night Metformin 500 Mg Tablet (Metformin) ..... Take 1 tablet by mouth twice daily Len Lewis MD Cardiology: H is updated medication list for this problem includes: Furosemide 20 Mg Tablet (Furosemide) ..... Take 1 tablet by mouth every day Lisinopril 10 Mg Tablet (Lisinopril) ..... Take 1 tablet by mouth every day Carvedilol 25 Mg Tablet (Carvedilol) ..... Take 1 tablet by mouth twice daily BP today: 145/74 Len Lewis MD Cardiology: H is updated medication list for this problem includes: Atorvastatin 40 Mg Tablet (Atorvastatin) ..... Take 1 tablet by mouth every night at bedtime Len Lewis MD Cardiology:edwin were ok b ut right inlayer occluded s uspect false negative h as very poor pulses and non healing wound w ill plan aif via radial Lensonia Lewis MD Date Name CRP, high sensitivit y Arterial Duplex LLE C-REACTIVE PROTEIN LIPID PANEL CBC (INCLUDES DIFF/P LT) BASIC METABOLIC PANE L W/EGFR PROTHROMBIN TIME WIT H INR HISTORY OF PROCEDURES Procedure Date Procedure Name Provider Procedure Notes S tatus EKG Len Lewis MD completed
--- OUTSIDE RECORDS SUMMARY | 2025-04-22 07:40 | XMS_ITS | Clinical Summary ---
Author Organization [facility] Care Team Providers Care Sunglass Clip Attacher Name Role Phone Unavailable Primary Care Provider Unavailabl e Social History Tobacco Use Types Packs/Day Years Used Date Smoking Tobacco: Never Assessed Sex and Gender Information Value Date Recorded Sex Assigned at Not on file Legal Sex Male 9:33 PM CDT Gender Identity Not on file Sexual Orientation Not on file Plan of Treatment Health Maintenance Due Date Last Done Comments Hepatitis C Virus (HCV) Screening 1940 Respiratory Syncytial Virus (RSV) Immunization (Adult) (1 - 1-dose 75+ series) 2016 Zoster Immunization (3 of 3) 08/12/2019, 07/27/2013 Influenza Immunization (#1) 07/25/202408/24, 09/28/2018 SARS-COV-2 Immunization ( season) 2024 10/07/2021, 02/14/2021, 01/24/2021 DTaP/Tdap/Td Immunization Discontinued 10/18/2015 TdaP Immunization Completed 10/18/2015 Pneumococcal Immunization (50+ years) Completed 08/25/2018, 02/10/2017 Pneumococcal Immunization Combined Discontinued 08/25/2018, 02/10/2017 Hepatitis B Immunization Aged Out No longer eligible based on patient's age to complete this topic Meningococcal Immunization (ACWY) Aged Out No longer eligible based on patient's age to complete this topic Rotavirus Immunization Aged Out No lo nger eligible based on patient's age to complete this topic
[2025-04-22 08:02] LABS: Hematocrit 45.9 % (42.0-52.0); Hemoglobin 14.2 g/dL (14.0-18.0); Mean Corpuscular HGB Conc 30.9 g/dl (32-36); Mean Corpuscular Hemoglobin 30.3 pg (26-34); Mean Corpuscular Volume 97.9 fl (80-100); Mean Platelet Volume 10.3 fl (7.4-10.4); Platelet Count Result 144 k/mm3 (150-375); Red Blood Count 4.69 M/mm3 (4.6-6.20); Red Cell Distribution Width 13.5 % (11.5-14.5); White Blood Count 5.3 K/mm3 (4.5-10.0)
[2025-04-22 08:11] LABS: Alanine Aminotransferase 27 U/L (6-50); Albumin Level 4.2 g/dL (3.5-5.1); Alkaline Phosphatase 121 U/L (38-126); Anion Gap 7 mmol/L (4-12); Aspartate Amino Transferase 37 U/L (17-59); Bilirubin,Total 0.5 mg/dL (0.2-1.3); Blood Urea Nitrogen 40 mg/dL (9-20); Calcium 9.4 mg/dL (8.4-10.2); Carbon Dioxide 29 mmol/L (22-30); Chloride 105 mmol/L (98-107); Cholesterol 110 mg/dL (0-200); Estimated Glomerular Filt Rate 59; Glucose 116 mg/dL (65-110); HDL Direct 37 mg/dL; Potassium 4.7 mmol/L (3.4-5.0); Sodium 141 mmol/L (137-145); Triglycerides 118 mg/dL (<150)
[2025-04-22 08:22] LABS: LDL Cholesterol Direct 31 mg/dL
== END 2025-04-22 07:36 | disposition home or self-care (01) ==
LOC: ANHLAB 07:37
PROVIDERS: PCP Internal Medicine; Visit Provider Internal Medicine Interventional Cardiology
DX: I10 Essential (primary) hypertension (principal); E78.00 Pure hypercholesterolemia, unspecified; Z79.01 Long term (current) use of anticoagulants
CPT/HCPCS: 36415; 80053; 80061; 85027

== ENCOUNTER 2025-05-19 12:13 | Observation (INO) | payer MEDICARE, OTHER, SELFPAY ==
[2025-05-19] VITALS (13 sets, daily range): BP systolic 104–161; BP diastolic 58–77; PULSE 58–80; RESP 12–20; TEMP 36.3–36.6; O2SAT 94–100; BMI 30.5
--- NOTE | ~2025-05-19 | XR_ITS ---
XR chest 1V portable Ordering provider: Alex Altman History: 84 years Male with . chest heaviness . Comparison: None. FINDINGS: MEDIASTINUM: The cardiac silhouette is not enlarged. LUNGS: No effusions or pneumothorax. Prominent bronchovascular markings in the lower lobes. Early pneumonia cannot. Follow-up advised. 7 m m nodule is seen in the right lower lobe. 3 months follow-up advised. OTHER: No free air under the diaphragm. Degenerative changes of the spine. IMPRESSION: Prominent bronchovascular markings in the lower lobes. Early pneumonia cannot be excluded. Follow-up advised. 7 mm nodule in the right lower lobe. 3 months follow-up advised. Reviewed, dictated and finalized at location A. IMPRESSION: Prominent bronchovascular markings in the lower lobes. Early pneumonia cannot b e excluded. Follow-up advised. 7 mm nodule in the right lower lobe. 3 months follow-up advised.
--- NOTE | 2025-05-19 12:16 | ECG_ITS ---
Test Date: 2025-05-19 12:51:41 Measurements Intervals [place] Rate: 66 P: 61 GA: 158 QRS: 33 QRSD: 90 T: 41 QT: 388 QTc: 407 Interpretive Statements SINUS RHYTHM BASELINE ARTIFACT- I, II, AVR NORMAL ECG No previous ECG available for comparison Electronically Signed On 05-19-2025 12:54:17 CDT by Ric Arroyo D.O.
[2025-05-19 13:08] LABS: Basophils Percent Auto 0.2 % (0.2-1.2); Eosinophils Absolute Auto 0.1 K/mm3 (0-0.3); Eosinophils Percent Auto 1.2 % (0-4.4); Hematocrit 43.1 % (42.0-52.0); Hemoglobin 13.4 g/dL (14.0-18.0); Immature Granulocyte Absolute 0.03 K/mm3 (0.00-0.031); Immature Granulocyte Percent A 0.6 % (0-0.5); Lymphocytes Absolute Auto 1.43 K/mm3 (0.9-3.2); Lymphocytes Percent Auto 28.1 % (18.3-44.2); Mean Corpuscular HGB Conc 31.1 g/dl (32-36); Mean Corpuscular Hemoglobin 30.2 pg (26-34); Mean Corpuscular Volume 97.3 fl (80-100); Monocytes Absolute Auto 0.6 K/mm3 (0.1-0.6); Neutrophils Percent Auto 58.9 % (45.5-73.1); Platelet Count Result 165 k/mm3 (150-375); Red Blood Count 4.43 M/mm3 (4.6-6.20); Red Cell Distribution Width 13.6 % (11.5-14.5); White Blood Count 5.1 K/mm3 (4.5-10.0)
[2025-05-19 13:17] LABS: Alanine Aminotransferase 38 U/L (6-50); Albumin Level 3.8 g/dL (3.5-5.1); Alkaline Phosphatase 111 U/L (38-126); Anion Gap 8 mmol/L (4-12); Aspartate Amino Transferase 39 U/L (17-59); Bilirubin,Total 0.3 mg/dL (0.2-1.3); Blood Urea Nitrogen 30 mg/dL (9-20); Carbon Dioxide 26 mmol/L (22-30); Chloride 105 mmol/L (98-107); Estimated CRCL calculation 42 ml/min; Estimated Glomerular Filt Rate 53; Glucose 110 mg/dL (65-110); Lipase 166 U/L (23-300); Potassium 4.5 mmol/L (3.4-5.0); Sodium 139 mmol/L (137-145); Total Protein 6.7 g/dL (6.3-8.2)
[2025-05-19 13:19] LABS: Prothrombin Time 13.3 Seconds (11.1-14.7)
[2025-05-19 13:20] LABS: Partial Thromboplastin Time 26.5 Seconds (22.3-36.8)
[2025-05-19 13:29] LABS: Troponin I < 0.012 ng/mL (0.000-0.034)
--- NOTE | 2025-05-19 14:08 | ED_ITS ---
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 History of diabetes, hypertension, hyperlipidemia coronary stent x3. Patient currently on aspirin and Plavix. Related Data Home Medications ?Medication ?Instructions ?Recorded ?Confirmed ?Last Taken ?Type clopidogrel 75 mg tablet 75 mg PO DAILY 11/15/21 12/20/21 Unknown History isosorbide mononitrate 30 mg 30 mg PO DAILY 11/15/21 12/20/21 Unknown History tablet,extended release 24 hr latanoprost 0.005 % eye drops 1 drp EACH EYE HS 11/15/21 12/20/21 Unknown History metformin 500 mg tablet 500 mg PO BID 11/15/21 12/20/21 Unknown History empagliflozin 10 mg tablet 10 mg PO DAILY 12/20/21 12/20/21 Unknown History (Jardiance) aspirin 81 mg tablet,delayed 81 mg PO DAILY 12/24/21 12/24/21 Unknown History release atorvastatin 40 mg tablet 40 mg PO HS 12/24/21 12/24/21 Unknown History carvedilol 25 mg tablet 25 mg PO BID 12/24/21 12/24/21 Unknown History dorzolamide 2 % eye drops 1 drp EACH EYE TID 12/24/21 12/24/21 Unknown History furosemide 20 mg tablet 20 mg PO DAILY 12/24/21 12/24/21 Unknown History levothyroxine 175 mcg tablet 175 mcg PO DAILY 12/24/21 12/24/21 Unknown History lisinopril 10 mg tablet 10 mg PO DAILY 12/24/21 12/24/21 Unknown History vit C 250 mg-vit E 200 unit-zinc 1 cap PO BID 12/24/21 12/24/21 Unknown History ox 12.5 [id number] capsule (ICaps AREDS2) Allergies Allergy/AdvReac Type Severity Reaction Status Date / Time pentazocine Allergy Mild Unknown Verified 10/27/24 14:11 iodine Allergy Unknown Unknown Verified 10/27/24 14:11 Contrast Media Allergy Unknown Unknown Uncoded 10/27/24 14:11 Review of Systems 2 Review of Systems: All systems reviewed & are unremarkable except as noted in HPI and below PMFSH Past Medical History Medical History Diabetic neuropathy Hypercholesterolemia Skin cancer Hearing loss Type 2 diabetes mellitus Hypothyroidism Coronary artery disease Peripheral arterial disease Hypertension Family History Family History Other Cancer Cerebrovascular accident Diabetes mellitus Family history non-contributory Hypertension Social History Social History Social History: patient lives with his in a multilevel home with 3 steps to enter. Patient may live on the main level. 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 They have done IV antibiotics at the past at their home. Patient has a bed bathroom a tub shower combo and a shower chair Smoking status: Never smoker Second hand tobacco smoke exposure: No Gender identity (if verbalized by the patient): Male Sexual Orientation (if Verbalized by the Patient): Straight or Heterosexual Exam 2 Narrative: General appearance: Well-developed, well-nourished Skin: Normal color Head: Normocephalic, nontraumatic Eyes: Clear conjunctiva ENT: Oropharynx normal, ears normal, nose normal Neck: Supple, nontender Chest and respiratory: Airway patent, no respiratory distress, no accessory muscle use Heart: Regular rate/rhythm Abdomen: Soft, nontender, no organomegaly, quiet bowel sounds Vascular: Normal peripheral pulses, normal capillary refill. 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, no gross motor deficit Course Vital Signs Vital signs: Vital Signs Pulse Rate 64 05/19/25 12:38 Pulse Rate 64 05/19/25 13:45 Respiratory Rate 16 05/19/25 13:45 Blood Pressure 104/58 L 05/19/25 13:45 Pulse Oximetry 100 05/19/25 13:45 Oxygen Delivery Room Air 05/19/25 12:44 MDM - Chest Pain MDM Narrative Medical decision making narrative: Patient came with sudden onset of shortness of breath and chest pain Vital signs on arrival stable Physical examination unremarkable Differential diagnosis include coronary artery disease, pleural effusion, pneumothorax, anxiety like symptoms, heat exertion symptoms Blood workup today includes CBC, CMP, troponin, proBNP, coags showed insignificant abnormalities Chest x-ray showed any pneumonia cannot be excluded, 7 mm pulmonary nodule EKG on arrival showed normal sinus rhythm at 66 beats per minute, baseline artifact, normal EKG, no previous EKG available for comparison Diagnosis: Heat illness, chest pain Admit to hospitalist Differential Diagnosis Differential diagnosis: Likely other (As above) Medical Records Data Attestation: I reviewed the patient's medical records. Lab Data Attestation: I reviewed the patient's lab results. 05/19/25 13:03 05/19/25 13:03 Labs: Lab Results 05/19/25 Range/Units 13:03 WBC 5.1 (4.5-10.0) K/mm3 RBC 4.43 L (4.6-6.20) M/mm3 Hgb 13.4 L (14.0-18.0) g/dL Hct 43.1 (42.0-52.0) % MCV 97.3 (80-100) fl MCH 30.2 (26-34) pg MCHC 31.1 L (32-36) g/dl RDW 13.6 (11.5-14.5) % Plt Count 165 (150-375) k/mm3 MPV 10.0 (7.4-10.4) fl Immature Gran % (Auto) 0.6 H (0-0.5) % Neut % (Auto) 58.9 (45.5-73.1) % Lymph % (Auto) 28.1 (18.3-44.2) % [place] % (Auto) 11.0 H (2.6-8.5) % Eos % (Auto) 1.2 (0-4.4) % Baso % (Auto) 0.2 (0.2-1.2) % Lymph # (Auto) 1.43 (0.9-3.2) K/mm3 [place] # (Auto) 0.6 (0.1-0.6) K/mm3 Eos # (Auto) 0.1 (0-0.3) K/mm3 Baso # (Auto) 0.0 (0.0-0.1) K/mm3 Abs Immat Gran (auto) 0.03 (0.00-0.031) K/mm3 Absolute Neuts (auto) 3.0 (1.3-6.7) K/mm3 Absolute Nucleated RBC 0.000 (0.0-0.012) K/mm3 Nucleated RBC % 0.0 (0.0-0.2) % PT 13.3 (11.1-14.7) Seconds INR 1.0 APTT 26.5 (22.3-36.8) Seconds Sodium 139 (137-145) mmol/L Potassium 4.5 (3.4-5.0) mmol/L Chloride 105 (98-107) mmol/L Carbon Dioxide 26 (22-30) mmol/L Anion Gap 8 (4-12) mmol/L BUN 30 H D (9-20) mg/dL Creatinine 1.30 (0.7-1.3) mg/dL Estim Creat Clear Calc 42 ml/min Estimated GFR 53 L (59 - ) Glucose 110 (65-110) mg/dL Calcium 9.0 (8.4-10.2) mg/dL Total Bilirubin 0.3 (0.2-1.3) mg/dL AST 39 (17-59) U/L ALT 38 (6-50) U/L Alkaline Phosphatase 111 (38-126) U/L Troponin I < 0.012 (0.000-0.034) ng/mL Total Protein 6.7 (6.3-8.2) g/dL Albumin 3.8 (3.5-5.1) g/dL Lipase 166 (23-300) U/L Imaging Data Radiologist's impression: Impressions Chest X-Ray 05/19/25 13:55 IMPRESSION: Prominent bronchovascular markings in the lower lobes. Early pneumonia cannot be excluded. Follow-up advised. 7 mm nodule in the right lower lobe. 3 months follow-up advised. ECG Data EKG #1: Attestation: I personally reviewed and interpreted this ECG as follows: ECG completion date: 05/19/25 Prior ECG tracings: not available for review Interpretation: Normal sinus rhythm at 66 beats per minute, baseline artifact, normal EKG Critical Care Time Critical Care Time Critical Care Time: No Discharge Plan Discharge Clinical Impression: Chest pain Patient Disposition: Still a Patient Condition: Improved Patient Language: Croatian Prescriptions: No Action latanoprost 0.005 % drops 1 drp EACH EYE HS metformin 500 mg tablet 500 mg PO BID isosorbide mononitrate 30 mg tablet extended release 24 hr 30 mg PO DAILY clopidogrel 75 mg tablet 75 mg PO DAILY Jardiance 10 mg Tablet 10 mg PO DAILY atorvastatin 40 mg Tablet 40 mg PO HS levothyroxine 175 mcg Tablet 175 mcg PO DAILY carvedilol 25 mg Tablet 25 mg PO BID aspirin 81 mg Tablet,Delayed Release (Dr/Ec) 81 mg PO DAILY lisinopril 10 mg Tablet 10 mg PO DAILY furosemide 20 mg Tablet 20 mg PO DAILY ICaps AREDS2 250 mg-200 unit -12.5 mg-1 mg Capsule 1 cap PO BID dorzolamide 2 % Drops 1 drp EACH EYE TID cefepime in dextrose 5 % 2 gram/50 mL piggyback 2 g IV Q12H Qty: 24 0RF Rx Instructions: Take till 01/26/22 All questionsthru Wash U ID dep famotidine 20 mg Tablet 20 mg PO Q12HR Qty: 60 0RF gabapentin [Neurontin] 300 mg Capsule 300 mg PO TID Qty: 90 0RF heparin, porcine (PF) 100 unit/mL Syringe 50 units IV PUSH TID@0800,0930,2130 Qty: 0 0RF polyethylene glycol 3350 [Miralax] 17 gram Powder In Packet 17 g PO BID Qty: 0 0RF vancomycin-diluent combo no.1 1.5 gram/300 mL Piggyback 1,500 mg IV DAILY@0600 Qty: 1800 0RF Rx Instructions: Till 01/27/22 All questions thru ID Wash U Nonformulary Drug 1 ea BYMOUTH DAILY Qty: 0 0RF Follow-up/Referrals: Pino,MD Faviola [Primary Care Provider] - Quality HEART score for chest pain patients History: slightly suspicious ECG: normal Age: > or = to 65 years Risk factors: > or = to 3 risk factors of atherosclerotic disease Troponin: < or = to 1x normal limit Heart score: 4
--- NOTE | 2025-05-19 15:14 | ECG_ITS ---
Test Date: 2025-05-19 15:18:22 Measurements Intervals [place] Rate: 62 P: 46 [place]: 163 QRS: 18 QRSD: 86 T: 28 QT: 398 QTc: 406 Interpretive Statements SINUS RHYTHM ST ELEVATION IN DIFFUSE LEADS- PROBABLY EARLY REPOLARIZATION ABNORMALITY BASELINE ARTIFACT- I, III, AVR, AVL, AVF, V4-V6 BORDERLINE ECG Compared to ECG 05/19/2025 12:51:41 No significant changes Electronically Signed On 05-19-2025 15:33:53 CDT by Ric Arroyo D.O.
[2025-05-19] MEDS: SODIUM CHLORIDE 0.9% IV 1,000 ML 500 ML IV CONT (15:23)
--- NOTE | 2025-05-19 16:23 | PM.IMHP ---
H&P: HPI History of Present Illness Date/Time: 05/19/25 16:23 Chief Complaint: Chest Pain Narrative: This is a very pleasant 84-year-old male patient with history of coronary artery disease status post stent placement on Plavix, diabetic neuropathy, type 2 diabetes mellitus, hyperlipidemia, hypothyroidism, peripheral arterial disease and hypertension comes to the emergency room after working outside in the heat and developing chest pain. 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 Patient did feel some with slightly dyspneic at the same time. He went inside, hold off and took a dose of nitro without any relief. He denies any later resolved home. He denies any dizziness or lightheadedness. He denies any acute nausea/vomiting/diarrhea or cessation of sweating. He presented to the emergency room for evaluation of chest pain that is now gone. In the emergency room workups performed with labs unremarkable with metabolic panel, CBC and normal troponin. Lipase 166. Vital signs negative, however it is noted no temperature was obtained in ER. EKG showing normal sinus rhythm 66 beats per minute. Chest x-ray performed showing a prominent on the vascular pattern moreno in the bilateral lower lobes. There is also a 7 mm nodule in the right lower lobe that will require further surveillance. Patient received 2 L of IV bolus of normal saline and is now feeling overall improved. Patient being admitted observation overnight for a complete trend of troponins. He is asymptomatic at this time. Review of Systems Review of Systems: All systems reviewed & are unremarkable except as noted in HPI and below [facility] Past Medical History Medical History Diabetic neuropathy Hypercholesterolemia Skin cancer Hearing loss Type 2 diabetes mellitus Hypothyroidism Coronary artery disease Peripheral arterial disease Hypertension Family History Family History Other Cancer Cerebrovascular accident Diabetes mellitus Family history non-contributory Hypertension Social History Social History Social History: patient lives with his in a multilevel home with 3 steps to enter. Patient may live on the main level. 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 They have done IV antibiotics at the past at their home. Patient has a bed bathroom a tub shower combo and a shower chair Smoking status: Never smoker Second hand tobacco smoke exposure: No Gender identity (if verbalized by the patient): Male Sexual Orientation (if Verbalized by the Patient): Straight or Heterosexual Meds Home Medications and Allergies Home Medications ?Medication ?Instructions ?Recorded ?Confirmed ?Type clopidogrel 75 mg tablet 75 mg PO DAILY 11/15/21 12/20/21 History isosorbide mononitrate 30 mg 30 mg PO DAILY 11/15/21 12/20/21 History tablet,extended release 24 hr latanoprost 0.005 % eye drops 1 drp EACH EYE HS 11/15/21 12/20/21 History metformin 500 mg tablet 500 mg PO BID 11/15/21 12/20/21 History empagliflozin 10 mg tablet 10 mg PO DAILY 12/20/21 12/20/21 History (Jardiance) aspirin 81 mg tablet,delayed 81 mg PO DAILY 12/24/21 12/24/21 History release atorvastatin 40 mg tablet 40 mg PO HS 12/24/21 12/24/21 History carvedilol 25 mg tablet 25 mg PO BID 12/24/21 12/24/21 History dorzolamide 2 % eye drops 1 drp EACH EYE TID 12/24/21 12/24/21 History furosemide 20 mg tablet 20 mg PO DAILY 12/24/21 12/24/21 History levothyroxine 175 mcg tablet 175 mcg PO DAILY 12/24/21 12/24/21 History lisinopril 10 mg tablet 10 mg PO DAILY 12/24/21 12/24/21 History vit C 250 mg-vit E 200 unit-zinc 1 cap PO BID 12/24/21 12/24/21 History ox 12.5 [id number]-[id number]-zeax capsule (ICaps AREDS2) Nonformulary Drug 1 ea BYMOUTH DAILY ##0 12/27/21 Rx cefepime 2 gram/50 mL in dextrose 2 g IV Q12H #24 ea 12/27/21 Rx 5 % intravenous piggyback famotidine 20 mg tablet 20 mg PO Q12HR #60 tabs 12/27/21 Rx gabapentin 300 mg capsule 300 mg PO TID #90 caps 12/27/21 Rx (Neurontin) heparin, porcine (PF) 100 unit/mL 50 units (0.5 mL) IV PUSH 12/27/21 Rx intravenous syringe TID@0800,0930,2130 #0 mL polyethylene glycol 3350 17 gram 17 g PO BID #0 ea 12/27/21 Rx oral powder packet (Miralax) vancomycin 1.5 gram/300 mL in 1,500 mg (300 mL) IV DAILY@0600 12/27/21 Rx diluent combination IV piggyback #1,800 mL Allergies Allergy/AdvReac Type Severity Reaction Status Date / Time pentazocine Allergy Mild Unknown Verified 10/27/24 14:11 iodine Allergy Unknown Unknown Verified 10/27/24 14:11 Contrast Media Allergy Unknown Unknown Uncoded 10/27/24 14:11 Vital Signs Vital Signs - 24 hr 05/19/25 12:38 05/19/25 12:44 05/19/25 13:45 Pulse Rate 64 64 64 Respiratory Rate 12 16 Blood Pressure 123/61 104/58 L Pulse Oximetry 100 100 Oxygen Delivery Room Air 05/19/25 14:30 Pulse Rate 59 L Respiratory Rate 18 Blood Pressure 124/62 Pulse Oximetry 94 Oxygen Delivery Exam Const: General: comfortable and no acute distress Other: Elderly male patient sitting on stretcher at this time in no acute distress. HENMT: Face/Nose/Sinus: Normal nares present Mouth: Yes moist mucous membranes Eyes: General: appearance normal, both eyes and all related structures Sclera: sclerae normal Neck: Neck: supple and no JVD Lymphatic: lymphadenopathy not noted Resp: Effort & Inspection: normal respiratory effort Auscultation: clear to auscultation bilaterally Cardio: Rate: regular rate Rhythm: regular rhythm Heart sounds: no gallops, no murmurs and no rubs GI: Inspection: non-distended GI Palp: Yes Soft to palpation and No Tenderness to palpation present (GI) Auscultation: normal bowel sounds Skin: General skin exam: normal color, no rashes or lesions noted and no erythema Lesions: no lesions noted Wounds: no wounds Neuro: General: gait normal Speech: normal speech Motor exam (neuro): 5/5 motor strength present throughout and Normal motor muscle tone present throughout Sensory Exam: normal sensation Extrem: Other: FROM of all extremities without any acute edema or deficits. Psych: Mental Status: mental status grossly normal Affect: normal affect H&P: Results Labs Labs: Short CBC 05/19/25 Range/Units 13:03 WBC 5.1 (4.5-10.0) K/mm3 Hgb 13.4 L (14.0-18.0) g/dL Hct 43.1 (42.0-52.0) % Plt Count 165 (150-375) k/mm3 BMP 05/19/25 13:03 Sodium 139 Potassium 4.5 Chloride 105 Carbon Dioxide 26 BUN 30 H D Creatinine 1.30 Glucose 110 Calcium 9.0 Cardiac Enzymes 05/19/25 Range/Units 13:03 Troponin I < 0.012 (0.000-0.034) ng/mL Liver Function 05/19/25 Range/Units 13:03 Total Bilirubin 0.3 (0.2-1.3) mg/dL AST 39 (17-59) U/L ALT 38 (6-50) U/L Alkaline Phosphatase 111 (38-126) U/L Albumin 3.8 (3.5-5.1) g/dL Assessment and Plan Assessment and plan (1) Heat exhaustion: Code(s): T67.5XXA - Heat exhaustion, unspecified, initial encounter Status: Acute Assessment and Plan: Pt received 2L IVF in ER. Resolution of symptoms. Monitor on telemetry overnight Continue IV hydration at NS at 100 ml/hr (2) Coronary artery disease: Code(s): I25.10 - Atherosclerotic heart disease of [place] coronary artery without angina pectoris Status: Chronic Assessment and Plan: Continue to trend trops x3 Continue Plavix and ASA once verified. Telemetry (3) Hypercholesterolemia: Code(s): E78.00 - Pure hypercholesterolemia, unspecified Status: Chronic Assessment and Plan: Heart healthy diet Continue statin once verified. (4) Hypertension: Code(s): I10 - Essential (primary) hypertension Status: Chronic Assessment and Plan: Monitor VS and trend. Continue home meds of Carvedilol, Furosemide, Isosorbide, Lisinopril once verified. (5) Chest pain: Code(s): R07.9 - Chest pain, unspecified Status: Resolved Assessment and Plan: Resolved at time of admission. Continue to monitor on tele and trend trops x3. Continue Telemetry. EKG showing NSR 66 bpm without any ectopy or ischemia. (6) Type 2 diabetes mellitus: Code(s): E11.9 - Type 2 diabetes mellitus without complications Status: Chronic Assessment and Plan: Hold Metformin. SSI Hypoglycemic protocol Glucose checks AC and HS. Check A1C. (7) Hypothyroidism: Code(s): E03.9 - Hypothyroidism, unspecified Status: Chronic Assessment and Plan: Continue thyroid supplementation once verified. Quality VTE Prophylaxis VTE prophylaxis: pharmacologic ordered Hospitalist [facility] Advance Care Plan I have confirmed that the patient's Advanced Care Plan is present, code status is documented, or surrogate decision maker is listed in patient medical record.: Yes Medication Reconciliation I have utilized all available resources to obtain, update and review the patients current medications (includes all prescriptions, OTC, herbals, cannabis, and nutritional supplements).: Yes
[2025-05-19 16:36] LABS: Troponin I < 0.012 ng/mL (0.000-0.034)
[2025-05-19 17:24] LABS: Hemoglobin A1C 7.2 % (<5.7)
[2025-05-19] MEDS: ENOXAPARIN 40 MG/0.4 ML SYRINGE SUB-Q (18:46)
[2025-05-19] MEDS: SODIUM CHLORIDE 0.9% IV 1,000 ML 125 ML IV CONT (18:46)
[2025-05-19 20:06] LABS: Troponin I < 0.012 ng/mL (0.000-0.034)
[2025-05-19 20:57] LABS: Glucose Point of Care 98 mg/dl (65-105)
[2025-05-19] MEDS: ATORVASTATIN 40 MG TABLET PO (23:25)
[2025-05-19] MEDS: carvediloL 25 MG TABLET PO (23:25)
[2025-05-20] VITALS (9 sets, daily range): BP systolic 105–152; BP diastolic 65–76; PULSE 64–79; RESP 18–20; TEMP 36.5–36.7; O2SAT 96–99
[2025-05-20] MEDS: SODIUM CHLORIDE 0.9% IV 1,000 ML 125 ML IV CONT (03:07)
[2025-05-20] MEDS: LEVOTHYROXINE SODIUM 150 MCG TABLET PO (05:34)
[2025-05-20 08:17] LABS: Glucose Point of Care 129 mg/dl (65-105)
[2025-05-20] MEDS: carvediloL 25 MG TABLET PO (09:44)
[2025-05-20] MEDS: SITagliptin PHOSPHATE 100 MG TABLET PO (09:44)
[2025-05-20] MEDS: ISOSORBIDE MONONITRATE 30 MG TAB.ER.24H PO (09:44)
[2025-05-20] MEDS: CLOPIDOGREL BISULFATE 75 MG TABLET PO (09:45)
[2025-05-20] MEDS: FUROSEMIDE 20 MG TABLET PO (09:45)
[2025-05-20] MEDS: EMPAGLIFLOZIN 10 MG TABLET PO (09:45)
[2025-05-20] MEDS: lisinopriL 10 MG TABLET PO (09:45)
[2025-05-20] MEDS: OPTI-GEN TAB 1 TABLET PO (09:45)
[2025-05-20] MEDS: OMEGA 3 POLYUNSAT FATTY ACIDS 1 GM CAP PO (09:45)
[2025-05-20] MEDS: ASPIRIN 81 MG ENTERIC TABLET PO (09:46)
[2025-05-20 11:34] LABS: Glucose Point of Care 156 mg/dl (65-105)
--- NOTE | 2025-05-20 12:21 | P.CONCA_ITS ---
Assessment and Plan Assessment and plan (1) Chest pain: Code(s): R07.9 - Chest pain, unspecified Status: Resolved Assessment and Plan: One occurrence of chest heaviness which occurred while patient was exerting himself in extreme heat. Chest discomfort was not responsive to nitroglycerin, spontaneously subsided with rest. This is the only episode of chest discomfort he has had since his last coronary intervention in 2011. Serial troponin levels were negative and EKG showed sinus rhythm with early repolarization, no acute ischemic changes. No recurrence of chest pain. 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 Osborne, can consider stress test as outpatient (last stress test 2017 according to patient's personal records). No further inpatient workup warranted. OK to discharge from my perspective. (2) Hypertension: Code(s): I10 - Essential (primary) hypertension Status: Chronic Assessment and Plan: Some elevated readings but generally at goal. (3) Coronary artery disease: Code(s): I25.10 - Atherosclerotic heart disease of [place] coronary artery without angina pectoris Status: Chronic Assessment and Plan: This is stable. Continue ASA, plavix, statin. Follow up with Dr. Osborne. History of Present Illness History of Present Illness Consult date/time: 05/20/25 12:21 Requesting physician: Mono Gilliland MD Consult reason: chest pain Reason For Visit: Chest Pain/Heat Illness Narrative: Steve Bradley is an 84-year-old male with coronary artery disease (PCI in 2005, reportedly had 3 stents placed, POBA 2011), peripheral arterial disease, hypertension. This is a patient who comes to the hospital with a chief complaint of chest heaviness. Cardiology is consulted for chest pain. 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 He went inside to cool down when he developed chest heaviness. He also had some shortness of breath and anxiety associated. He denies any nausea, radiation of pain, syncope, or presyncope. He did take a nitroglycerin which did not yield much improvement. Therefore, he proceeded to the emergency department. By the time he arrived at the hospital he was not experiencing any pain. He was admitted for Cardiology evaluation of his chest pain. Currently, he is resting comfortably in bed and does not have any complaints, no recurrence of chest pain. Review of Systems 2 Review of Systems: All systems reviewed & are unremarkable except as noted in HPI and below [facility] Past Medical History Medical History Diabetic neuropathy Hypercholesterolemia Skin cancer Hearing loss Type 2 diabetes mellitus Hypothyroidism Coronary artery disease Peripheral arterial disease Hypertension Family History Family History Other Cancer Cerebrovascular accident Diabetes mellitus Family history non-contributory Hypertension Social History Social History Social History: patient lives with his in a multilevel home with 3 steps to enter. Patient may live on the main level. 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 They have done IV antibiotics at the past at their home. Patient has a bed bathroom a tub shower combo and a shower chair Smoking status: Never smoker Second hand tobacco smoke exposure: No Alcohol intake: never Substance use: never Do You Feel Safe in your Home?: Yes Lack of Transportation: No Lack of Food: Never True Current Housing: I Have Housing Concerned About Future Housing: No Difficulty Paying Gas/Electric Bills: No Difficulty Paying for Meds: No Currently Unemployed: No Education: High School Diploma/GED Difficulty w/ Childcare or Family Care: No Gender identity (if verbalized by the patient): Male Sexual Orientation (if Verbalized by the Patient): Straight or Heterosexual Spiritual care concerns: No Meds Home Medications and Allergies Home Medications ?Medication ?Instructions ?Recorded ?Confirmed ?Type clopidogrel 75 mg tablet 75 mg PO DAILY 11/15/21 05/19/25 History isosorbide mononitrate 30 mg 30 mg PO DAILY 11/15/21 05/19/25 History tablet,extended release 24 hr latanoprost 0.005 % eye drops 1 drp EACH EYE HS 11/15/21 05/19/25 History metformin 500 mg tablet 500 mg PO BID 11/15/21 05/19/25 History empagliflozin 10 mg tablet 10 mg PO DAILY 12/20/21 05/19/25 History (Jardiance) aspirin 81 mg tablet,delayed 81 mg PO DAILY 12/24/21 05/19/25 History release atorvastatin 40 mg tablet 40 mg PO HS 12/24/21 05/19/25 History carvedilol 25 mg tablet 25 mg PO BID 12/24/21 05/19/25 History dorzolamide 2 % eye drops 1 drp EACH EYE TID 12/24/21 05/19/25 History furosemide 20 mg tablet 20 mg PO DAILY 12/24/21 05/19/25 History levothyroxine 175 mcg tablet 150 mcg PO DAILY 12/24/21 05/19/25 History lisinopril 10 mg tablet 10 mg PO DAILY 12/24/21 05/19/25 History vit C 250 mg-vit E 200 unit-zinc 1 cap PO BID 12/24/21 05/19/25 History ox 12.5 cq-mwvhrc-fcxlpe-zeax capsule (ICaps AREDS2) Nonformulary Drug 1 ea BYMOUTH DAILY ##0 12/27/21 05/19/25 Rx insulin glargine 100 unit/mL (3 11 unit subcut QPM 05/19/25 05/19/25 History mL) subcutaneous pen (Lantus Solostar U-100 Insulin) lifitegrast 5 % eye drops in a 1 drp EACH EYE DAILY 05/19/25 05/19/25 History dropperette (Xiidra) linagliptin 5 mg tablet (Tradjenta) 5 mg PO DAILY 05/19/25 05/19/25 History omega 1-xhd-tlc-fish oil 1,000 mg 1 cap PO DAILY 05/19/25 05/19/25 History (120 mg-180 mg) capsule (Fish Oil) sodium zirconium cyclosilicate 5 5 g PO EVERY OTHER DAY 05/19/25 05/19/25 History gram oral powder packet (Lokelma) Allergies Allergy/AdvReac Type Severity Reaction Status Date / Time pentazocine Allergy Mild Unknown Verified 10/27/24 14:11 iodine Allergy Unknown Unknown Verified 10/27/24 14:11 Contrast Media Allergy Unknown Unknown Uncoded 10/27/24 14:11 Vital Signs Vital Signs - 24 hr 05/19/25 12:38 05/19/25 12:44 05/19/25 13:45 Temperature Pulse Rate 64 64 64 Respiratory Rate 12 16 Blood Pressure 123/61 104/58 L Pulse Oximetry 100 100 Oxygen Delivery Room Air 05/19/25 14:30 05/19/25 15:15 05/19/25 16:00 Temperature Pulse Rate 59 L 58 L 60 Respiratory Rate 18 19 19 Blood Pressure 124/62 112/59 L 120/61 Pulse Oximetry 94 99 98 Oxygen Delivery 05/19/25 17:16 05/19/25 18:35 05/19/25 19:13 Temperature 36.3 C L 36.5 C Pulse Rate 69 77 77 Respiratory Rate 18 20 20 Blood Pressure 153/73 H 161/77 H Pulse Oximetry 100 98 98 Oxygen Delivery Room Air 05/19/25 20:00 05/19/25 20:00 05/19/25 20:00 Temperature 36.6 C Pulse Rate 73 80 70 Respiratory Rate 18 20 Blood Pressure 153/72 H Pulse Oximetry 99 98 Oxygen Delivery Room Air 05/19/25 22:00 05/19/25 23:25 05/19/25 23:41 Temperature Pulse Rate 73 77 66 Respiratory Rate 20 Blood Pressure Pulse Oximetry 98 Oxygen Delivery Room Air 05/20/25 00:00 05/20/25 00:00 05/20/25 02:00 Temperature 36.6 C Pulse Rate 70 67 64 Respiratory Rate 18 Blood Pressure 121/65 Pulse Oximetry 98 Oxygen Delivery 05/20/25 03:30 05/20/25 04:00 05/20/25 04:00 Temperature 36.5 C Pulse Rate 65 75 69 Respiratory Rate 20 18 Blood Pressure 105/76 Pulse Oximetry 98 96 Oxygen Delivery Room Air 05/20/25 05:54 05/20/25 07:46 05/20/25 08:00 Temperature 36.5 C Pulse Rate 79 67 67 Respiratory Rate 20 20 Blood Pressure 143/72 H Pulse Oximetry 99 99 Oxygen Delivery Room Air Exam 2 Const: General: comfortable, no acute distress, alert and awake O rientation/consciousness: patient oriented x3 HENMT: Head: normal to inspection Eyes: General: appearance normal, both eyes and all related structures P upils: Equal, round and reactive pupils present Neck: Neck: normal visual inspection, supple and no JVD Carotids: normal carotid upstroke Resp: Effort & Inspection: normal respiratory effort Auscultation: clear to auscultation bilaterally Cardio: Rate: regular rate Rhythm: regular rhythm Heart sounds: S1 normal heart sound present, S2 normal heart sound present and no murmurs GI: Auscultation: normal bowel sounds Skin: General skin exam: normal color Neuro: General: patient oriented x3 Cranial nerves: Yes Equal, round and reactive pupils present Extrem: General: normal to inspection Psych: Appearance: grossly normal Mental Status: mental status grossly normal Results Labs and Meds 05/19/25 13:03 05/19/25 13:03 Lab results: Cardiac Enzymes 05/19/25 05/19/25 05/19/25 Range/Units 13:03 15:19 19:21 AST 39 (17-59) U/L Troponin I < 0.012 < 0.012 < 0.012 (0.000-0.034) ng/mL Coagulation 05/19/25 Range/Units 13:03 PT 13.3 (11.1-14.7) Seconds APTT 26.5 (22.3-36.8) Seconds CBC 05/19/25 Range/Units 13:03 WBC 5.1 (4.5-10.0) K/mm3 RBC 4.43 L (4.6-6.20) M/mm3 Hgb 13.4 L (14.0-18.0) g/dL Hct 43.1 (42.0-52.0) % Plt Count 165 (150-375) k/mm3 Lymph # (Auto) 1.43 (0.9-3.2) K/mm3 [place] # (Auto) 0.6 (0.1-0.6) K/mm3 Eos # (Auto) 0.1 (0-0.3) K/mm3 Baso # (Auto) 0.0 (0.0-0.1) K/mm3 Comprehensive Metabolic Panel 05/19/25 Range/Units 13:03 Sodium 139 (137-145) mmol/L Potassium 4.5 (3.4-5.0) mmol/L Chloride 105 (98-107) mmol/L Carbon Dioxide 26 (22-30) mmol/L BUN 30 H D (9-20) mg/dL Creatinine 1.30 (0.7-1.3) mg/dL Glucose 110 (65-110) mg/dL Calcium 9.0 (8.4-10.2) mg/dL AST 39 (17-59) U/L ALT 38 (6-50) U/L Alkaline Phosphatase 111 (38-126) U/L Total Protein 6.7 (6.3-8.2) g/dL Albumin 3.8 (3.5-5.1) g/dL Intake and Output 05/19/25 05/20/25 05/20/25 23:59 07:59 15:59 Intake Total 1000 1240 360 Balance 1000 1240 360 Intake: IV 1000 1000 Sodium Chloride 0.9% IV 1,000 1000 1000 ml @ 125 mls/hr IV CONT .Q8H [facility] Rx#:[id number] Oral 240 360 Other: # Unmeasured Voids 2 Patient Weight 05/20/25 23:59 Weight 96.3 kg
--- NOTE | 2025-05-20 13:10 | PM.DS ---
DS: Admitting Diagnosis Discharge Date 05/20/2025 Admitting Diagnosis Chest pain DS: Discharge Diagnosis Discharge Diagnosis (1) Heat exhaustion: Code(s): T67.5XXA - Heat exhaustion, unspecified, initial encounter Status: Acute (2) Coronary artery disease: Code(s): I25.10 - Atherosclerotic heart disease of [place] coronary artery without angina pectoris Status: Chronic (3) Hypercholesterolemia: Code(s): E78.00 - Pure hypercholesterolemia, unspecified Status: Chronic (4) Hypertension: Code(s): I10 - Essential (primary) hypertension Status: Chronic (5) Chest pain: Code(s): R07.9 - Chest pain, unspecified Status: Resolved (6) Type 2 diabetes mellitus: Code(s): E11.9 - Type 2 diabetes mellitus without complications Status: Chronic (7) Hypothyroidism: Code(s): E03.9 - Hypothyroidism, unspecified Status: Chronic DS: Summary Hospital Course Hospital Course: This is a very pleasant 84-year-old male patient with history of coronary artery disease status post stent placement on Plavix, diabetic neuropathy, type 2 diabetes mellitus, hyperlipidemia, hypothyroidism, peripheral arterial disease and hypertension comes to the emergency room after working outside in the heat and developing chest pain. 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 Patient did feel some with slightly dyspneic at the same time. He went inside, hold off and took a dose of nitro without any relief. He denies any later resolved home. He denies any dizziness or lightheadedness. He denies any acute nausea/vomiting/diarrhea or cessation of sweating. He presented to the emergency room for evaluation of chest pain that is now gone. In the emergency room workups performed with labs unremarkable with metabolic panel, CBC and normal troponin. Lipase 166. Vital signs negative, however it is noted no temperature was obtained in ER. EKG showing normal sinus rhythm 66 beats per minute. Chest x-ray performed showing a prominent on the vascular pattern moreno in the bilateral lower lobes. There is also a 7 mm nodule in the right lower lobe that will require further surveillance. Patient received 2 L of IV bolus of normal saline and is now feeling overall improved. Patient being admitted observation overnight for a complete trend of troponins. His serial troponin came back negative out acute coronary syndrome. The chest pain did appear cardiac in etiology. Hence Cardiology consultation was obtained. He will need consideration of outpatient cardiac stress test. 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 Time Spent with Patient Time attestation: Total time spent providing and/or coordinating discharge services: 40 minutes Exam Narrative: General appearance: Well-developed, well-nourished Skin: Normal color Head: Normocephalic, nontraumatic Eyes: Clear conjunctiva ENT: Oropharynx normal, ears normal, nose normal Neck: Supple, nontender Chest and respiratory: Airway patent, no respiratory distress, no accessory muscle use Heart: Regular rate/rhythm Abdomen: Soft, nontender, no organomegaly, quiet bowel sounds Vascular: Normal peripheral pulses, normal capillary refill. 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 is normal as tested, no gross motor deficit DS: Data Data Completed and Pending Labs on day of discharge: Labs from last 24 hours 05/20/25 05/20/25 05/19/25 11:29 07:37 20:55 WBC RBC Hgb Hct MCV MCH MCHC RDW Plt Count MPV Immature Gran % (Auto) Neut % (Auto) Lymph % (Auto) [place] % (Auto) Eos % (Auto) Baso % (Auto) Lymph # (Auto) [place] # (Auto) Eos # (Auto) Baso # (Auto) Abs Immat Gran (auto) Absolute Neuts (auto) Absolute Nucleated RBC Nucleated RBC % PT INR APTT Sodium Potassium Chloride Carbon Dioxide Anion Gap BUN Creatinine Estim Creat Clear Calc Estimated GFR Glucose POC Capillary Glucose 156 H 129 H 98 Hemoglobin A1c Calcium Total Bilirubin AST ALT Alkaline Phosphatase Troponin I Total Protein Albumin Lipase 05/19/25 05/19/25 05/19/25 19:21 15:19 13:03 WBC 5.1 RBC 4.43 L Hgb 13.4 L Hct 43.1 MCV 97.3 MCH 30.2 MCHC 31.1 L RDW 13.6 Plt Count 165 MPV 10.0 Immature Gran % (Auto) 0.6 H Neut % (Auto) 58.9 Lymph % (Auto) 28.1 [place] % (Auto) 11.0 H Eos % (Auto) 1.2 Baso % (Auto) 0.2 Lymph # (Auto) 1.43 [place] # (Auto) 0.6 Eos # (Auto) 0.1 Baso # (Auto) 0.0 Abs Immat Gran (auto) 0.03 Absolute Neuts (auto) 3.0 Absolute Nucleated RBC 0.000 Nucleated RBC % 0.0 PT 13.3 INR 1.0 APTT 26.5 Sodium 139 Potassium 4.5 Chloride 105 Carbon Dioxide 26 Anion Gap 8 BUN 30 H D Creatinine 1.30 Estim Creat Clear Calc 42 Estimated GFR 53 L Glucose 110 POC Capillary Glucose Hemoglobin A1c 7.2 H Calcium 9.0 Total Bilirubin 0.3 AST 39 ALT 38 Alkaline Phosphatase 111 Troponin I < 0.012 < 0.012 < 0.012 Total Protein 6.7 Albumin 3.8 Lipase 166 Imaging Radiologist's impression: ITS Impressions Chest X-Ray 05/19/25 13:55 IMPRESSION: Prominent bronchovascular markings in the lower lobes. Early pneumonia cannot be excluded. Follow-up advised. 7 mm nodule in the right lower lobe. 3 months follow-up advised. Discharge Plan Discharge Attending physician on discharge: Mono Gilliland Consulting providers: Taurus Prater Discharging Clinician: Mono Gilliland Anticipated Discharge Date/Time: 05/20/25 13:12 Patient Disposition: Home Activity: as tolerated Diet: heart healthy and diabetic Patient Instructions: Antibiotic Form Patient Language: [place] Islander Stand Alone Forms: General Discharge Information Follow-up/Referrals: Pino,MD Faviola [Primary Care Provider] - 1 Week Discharge Medications: Continued latanoprost 0.005 % drops 1 drp EACH EYE HS metformin 500 mg tablet 500 mg PO BID isosorbide mononitrate 30 mg tablet extended release 24 hr 30 mg PO DAILY clopidogrel 75 mg tablet 75 mg PO DAILY insulin glargine [Lantus Solostar U-100 Insulin] 100 unit/mL (3 mL) insulin pen 11 unit SUBCUT QPM Tradjenta 5 mg tablet 5 mg PO DAILY Lokelma 5 gram powder in packet 5 g PO EVERY OTHER DAY omega 7-owe-geb-fish oil [Fish Oil] 1,000 (120-180) mg capsule 1 cap PO DAILY Xiidra 5 % dropperette 1 drp EACH EYE DAILY Jardiance 10 mg Tablet 10 mg PO DAILY atorvastatin 40 mg Tablet 40 mg PO HS levothyroxine 175 mcg Tablet 150 mcg PO DAILY carvedilol 25 mg Tablet 25 mg PO BID aspirin 81 mg Tablet,Delayed Release (Dr/Ec) 81 mg PO DAILY lisinopril 10 mg Tablet 10 mg PO DAILY furosemide 20 mg Tablet 20 mg PO DAILY ICaps AREDS2 250 mg-200 unit -12.5 mg-1 mg Capsule 1 cap PO BID dorzolamide 2 % Drops 1 drp EACH EYE TID Nonformulary Drug 1 ea BYMOUTH DAILY Qty: 0 0RF Date of admission: 05/19/25 14:38 Primary Care Provider: Pino,Faviola Admitting Provider: Crescencio Gold Attending physician on admission: Crescencio Gold Condition: Improved
== END 2025-05-20 13:34 | disposition home or self-care (01) ==
LOC: ANHED 14:34 → ANHIMU 05-20 13:13
PROVIDERS: Nurse Practitioner Adult Health; Admitting Provider Internal Medicine; Emergency Provider Emergency Medicine; PCP Internal Medicine; Visit Provider Internal Medicine
DX: T67.5XXA Heat exhaustion, unspecified, initial encounter (principal); R07.89 Other chest pain; R91.1 Solitary pulmonary nodule; I25.10 Atherosclerotic heart disease of native coronary artery without angina pectoris; I10 Essential (primary) hypertension; E78.00 Pure hypercholesterolemia, unspecified; E11.40 Type 2 diabetes mellitus with diabetic neuropathy, unspecified; E11.51 Type 2 diabetes mellitus with diabetic peripheral angiopathy without gangrene; E03.9 Hypothyroidism, unspecified; H91.90 Unspecified hearing loss, unspecified ear; Z85.828 Personal history of other malignant neoplasm of skin; Z95.5 Presence of coronary angioplasty implant and graft; Z79.02 Long term (current) use of antithrombotics/antiplatelets; Z79.82 Long term (current) use of aspirin; Z79.84 Long term (current) use of oral hypoglycemic drugs; Z79.899 Other long term (current) drug therapy
CPT/HCPCS: 36415; 71045; 80053; 82948; 83036; 83690; 84484; 85025; 85610; 85730; 93005; 96360; 96361; 99285; A9270; G0378; J1650; J7030

== ENCOUNTER 2025-05-26 12:47 | Outpatient (RCR) | payer SELFPAY | END 2025-05-26 23:59 | disposition home or self-care (01) | LOC: ANHAUDIO 12:47 | PROVIDERS: PCP Internal Medicine; Visit Provider Internal Medicine | DX: Z46.1 Encounter for fitting and adjustment of hearing aid (principal) | CPT/HCPCS: V5014 ==

== ENCOUNTER 2025-08-17 07:49 | Outpatient (CLI) | payer MEDICARE, OTHER, SELFPAY ==
[2025-08-17 09:15] LABS: Free T4 Free Thyroxine 1.15 ng/dL (0.78-2.19)
[2025-08-17 09:28] LABS: Thyroid Stimulating Hormone 1.980 uIU/mL (0.465-4.680)
[2025-08-17 09:48] LABS: Hemoglobin A1C 6.9 % (<5.7)
== END 2025-08-17 07:50 | disposition home or self-care (01) ==
LOC: ANHLAB 07:55
PROVIDERS: PCP Internal Medicine; Visit Provider Internal Medicine
DX: E11.69 Type 2 diabetes mellitus with other specified complication (principal); E03.9 Hypothyroidism, unspecified
CPT/HCPCS: 36415; 83036; 84439; 84443

== ENCOUNTER 2025-09-28 07:15 | Outpatient (CLI) | payer MEDICARE, OTHER, SELFPAY ==
--- OUTSIDE RECORDS SUMMARY | 2001-12-21 05:00 | XMS_ITS | Continuity of Care Document ---
Author Organization [facility] Address [id number] [place] [address] [place] [address] Phone Care Team Providers Care Meteorologist In Charge Name Role Phone Cl Deleon MD Unavailable Unavailable Advance Directives Directive Yes / No Effective Date File Name No Information Encounters Encounter Description Practice Location Reason(s) For Visit Diagnoses Date Provider Providers Copied on Encounter [facility], [address], [place], [place], [id number], [place] tel:[phone] [facility] No Information Pancho Smallwood. [address] [place] [address], [facility] [address], [place], [address], [place]. tel:[phone] Referring Provider: Navneet Luevano, [address] [place] [address], [place], [address]. tel:[phone] Family History Family Member Type Diagnosis Age At Onset No Information Payers Payer name Insurance type Covered republican ID Authoriza tion(s) No Information Social History Type Description Quantity Date Captured Comments Sex Male Smoking Status No Information Chief Complaint And Reason For Visit No Information Reason For Referral Reason For Referral No Information History Of Present Illness Encounter Date Complaint History Of Prese nt Illness No Information Functional Status Date Functional Assessmen t No Information Instructions Date Instruction Additional Infor mation No Information Assessments Type Assessment Date No Information Patient Care Teams Name Effective Dates (start - stop) Status Members No Information
--- OUTSIDE RECORDS SUMMARY | 2025-09-28 07:20 | XMS_ITS | Encounter Summary ---
Author Organization [facility] Address [address] [place] [address] Care Team Providers Care Plaster Caster Name Role Phone Faviola Pringle MD Primary Care Provider + [phone] Darren Alfredo MD Unavailable + [phone] Robin Liu DPM Unavailable [phone] Rickie Elizondo DPM Unavailable [phone] Encounter Details Date Type Department Care Team (Late st Contact Info) Description 07/14/2012 Orders Only [facility] [place] [facility] Information Management [address] [place] [address] Scanning, Provider Social History Tobacco Use Types Packs/Day Years Used Date Smoking Tobacco: Never Assessed Sex and Gender Information Value Date Recorded Sex Assigned at Not on file 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 Gender Identity Not on file Sexual [...] COVID: Suspected 12/14/2021 12/14/2021 12/14/2021 7:17 PM EMPLOYMENT SECURITY OFFICER documented as of this encounter Care Teams Plaster Caster Relationship Specialty Start Date End Date Faviola Pringle MD [address] [facility] [address] [place] [address] PCP - General 03/06/17 Darren Alfredo MD [address] [facility] [address] [place] [address] Consulting Physician Infectious Diseases 03/23/21 Robin Liu DPM [address] [place] [address] Consulting Physician Foot and Ankle Surg 08/31/22 Rickie Elizondo DPM [address] [address] Consulting Physician Orthopedic Surgery 12/27/22 documented as of this encounter
--- OUTSIDE RECORDS SUMMARY | 2025-09-28 07:21 | XMS_ITS | Encounter Summary ---
Author Organization [facility] Care Team Providers Care Translational Specialist Name Role Phone Faviola Pringle MD Primary Care Provider + [phone] Darren Alfredo MD Unavailable + [phone] Robin Liu DPM Unavailable [phone] Rickie Elizondo DPM Unavailable [phone] Encounter Details Date Type Department Care Team (Latest Contact Info) Description 10/11/2016 Orders Only [facility] Provider, MD Mary [address] [place] [id number] Social History Tobacco Use Types Packs/Day Years Used Date Smoking Tobacco: Former Sex and Gender Information Value Date Recorded Sex Assigned at Not on file 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 us Historical Provider [facility] [place] Final Result documented in this encounter Visit Diagnoses Not on filedocumented in this encounter Additional Health Concerns Infection Onset Date Last Indicated Resolved Time MRSA Comment:Hx 6yrs ago 11/28/2015 11/27/2015 07/11/2021 5:00 AM C DT COVID: Suspected 12/14/2021 12/14/2021 12/14/2021 7:17 PM CURING MACHINE OPERATOR documented as of this encounter Care Teams Translational Specialist Relationship Specialty Start Date End Date Faviola Pringle MD [address] [facility] [address] [place] [address] PCP - General 03/06/17 Darren Alfredo MD [address] [facility] [address] [place] [address] Consulting Physician Infectious Diseases 03/23/21 Robin Liu DPM [address] [place] [address] Consulting Physician Foot and Ankle Surg 08/31/22 Rickie Elizondo DPM [address] [address] Consulting Physician Orthopedic Surgery 12/27/22 documented as of this encounter
--- OUTSIDE RECORDS SUMMARY | 2025-09-28 07:21 | XMS_ITS | Encounter Summary ---
Author Organization [facility] Address [address] [place] [address] Phone Care Team Providers Care Real Estate Closing Coordinator Name Role Phone Faviola Pringle MD Primary Care Provider +- [phone] Darren Alfredo MD Unavailable [phone] Robin Liu DPM Unavailable [phone] Rickie Elizondo DPM Unavailable [phone] Encounter Details Date Type Department Care Team (Latest Contact Info) Description 12/22/2018 Orders Only [facility] Scanning, Provider Social History Tobacco Use Types Packs/Day Years Used Date Smoking Tobacco: Former Sex and Gender Information Value Date Recorded Sex Assigned at Not on file 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 Gender Identity Not on file Sexual Orientation [...] DT COVID: Suspected 12/14/2021 12/14/202112/1412/14/2021 7:17 PM WOOD BORER documented as of this encounter Care Teams Real Estate Closing Coordinator Relationship Specialty Start Date End Date Faviola Pringle MD [address] [place] [address] [place] [address] PCP - General 03/06/17 Darren Alfredo MD [address] [place] [address] [place] [address] Consulting Physician Infectious Diseases 03/23/21 Robin Liu DPM [address] [place] [address] Consulting Physician Foot and Ankle Surg 08/31/22 Rickie Elizondo DPM [address] [address] Consulting Physician Orthopedic Surgery 12/27/22 documented as of this encounter
--- OUTSIDE RECORDS SUMMARY | 2025-09-28 07:21 | XMS_ITS | Encounter Summary ---
Author Organization [facility] Medical [facility] Address [address] [place] [address] Care Team Providers Care Chess Instructor Name Role Phone Faviola Pringle MD Primary Care Provider + [phone] Darren Alfredo MD Unavailable + [phone] Robin Liu DPM Unavailable [phone] Rickie Elizondo DPM Unavailable [phone] Encounter Details Date Type Department Care Team (Late st Contact Info) Description 07/27/[address] 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 Gender Identity Not on file Sexual Orientation [...] COVID: Suspected 12/14/2021 12/14/2021 12/14/2021 7:17 PM STOCK PULLER documented as of this encounter Care Teams Chess Instructor Relationship Specialty Start Date End Date Faviola Pringle MD [address] [facility] [address] [place] [address] PCP - General 03/06/17 Darren Alfredo MD [address] [facility] [address] [place] [address] Consulting Physician Infectious Diseases 03/23/21 Robin Liu DPM [address] [place] [address] Consulting Physician Foot and Ankle Surg 08/31/22 Rickie Elizondo DPM [address] [address] Consulting Physician Orthopedic Surgery 12/27/22 documented as of this encounter
--- OUTSIDE RECORDS SUMMARY | 2025-09-28 07:21 | XMS_ITS | Clinical Summary ---
Author Organization [facility] Address [address] [place] [address] Care Team Providers Care Window Glazier Helper Name Role Phone Faviola Pringle MD Primary Care Provider Josephine Pierre MD Unavailable [phone] Social History Tobacco Use Types Packs/Day Years Used Date Smoking Tobacco: Never Assessed Sex and Gender Information Value Date Recorded Sex Assigned at Not on file Legal Sex Male 6:22 PM CDT Gender Identity Not on file Sexual Orientation Not on file Plan of Treatment Health Maintenance Due Date Last Done Comments Annual Medicare Wellness Visit 2006 RSV Immunization or 60+ Years (1 - 1-dose 75+ series) 2016 COVID-19 Vaccine ( season) 2025 02/14/2021, 02/14/2021, 01/24/2021, Additional history exists Influenza Adult (#1) 2025 09/06/2020, 09/02/2019, 10/24/2018, Additional history exists DTaP, Tdap and Td Vaccines (6 - Td or Tdap) 12/25/2027 12/25/2017, 12/25/2017, 10/18/2015, Additional history exists Pneumococcal Vaccine: 50+ Years Completed 08/25/2018, 06/13/2017, 02/10/2017, Additional history exists Zoster Vaccines Completed 09/02/2019, 05/25, 10/08/2015, Additional history exists Hepatitis A Vaccines Aged Out No long er eligible based on patient's age to complete this topic Meningococcal B Vaccine Aged Out No l onger eligible based on patient's age to complete this topic Meningococcal Vaccine Aged Out No rafi sophy eligible based on patient's age to complete this topic RSV Immunizations Under 20 Months Aged Out No longer eligible based on patient's age to complete this topic Insurance [facility] [facility] Care Teams Window Glazier Helper Relationship Specialty Start Date End Date Faviola Pringle MD PCP - General 08/02/13 Josephine Pierre MD [address] [facility] [place] [address] WOUND CARE 09/13/21
--- OUTSIDE RECORDS SUMMARY | 2025-09-28 07:21 | XMS_ITS | Encounter Summary ---
Author Organization [facility] Address [address] [place] [address] Care Team Providers Care Provider Relations Specialist Name Role Phone Unavailable Primary Care Provider Unavailabl e Encounter Details Date Type Department Care Team (Late st Contact Info) Description 02/25/[address] 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 Gender Identity Not on file Sexual Orientation Not on file documented as of this encounter Plan of Treatment Not on file documented as of this encounter Procedures Procedure Name Priority Date/Time Associated Diagnosis Comments DERMATOPATHOLOGY Routine 02/24/2019 12:0 0 AM CDT documented in this encounter Results * DERMATOPATHOLOGY (02/24/2019 12:00 AM CDT) Case Report Dermatopathology Report Case: [id number] Authorizing Provider: Isac Ramires MD Collected: 02/24/2019 12:00 AM Pathologist: Danna Irby MD Received: 02/25/2019 11:50 AM Specimen: Skin, right congregation 9 2:43 PM CDT DERMATOPATHOLOGY LABORATORY Final Diagnosis Specimen A. SKIN, right congregation: DERMAL SCAR; PRESENT AT MARGIN (L90.5) RESIDUAL SQUAMOUS CELL CARCINOMA NOT IDENTIFIED ACTINIC KERATOSIS; PRESENT AT MARGIN (L57.0) VERRUCA VULGARIS; PRESENT AT MARGIN (B07.8) 2:43 PM CDT DERMATOPATHOLOGY LABORATORY at 1443 CDT Clinical History R/O bx proven SCCIS, verrucous hypertrophic type. Previous Bx: [id number]. 2:43 PM CDT DERMATOPATHOLOGY LABORATORY Gross Description Specimen A: Received is one formalin filled container labeled with the patient's name and designated right congregation. The specimen consists of a curettage and desiccation biopsy (2 pieces) measuring [id number] & [id number]. Jar 0. 2:43 PM CDT DERMATOPATHOLOGY LABORATORY Microscopic Description Specimen A. SKIN, right congregation: There are fibroblasts and collagen bundles oriented [...] characteristic determined by the Dermatopathology Laboratory at [facility], directed by Dr. Mo Santiago. These tests need not be, and therefore are not, approved by the [place] Food and Drug Administration. The tests are used for clinical purposes. Billing Codes Specimen Charges Stain Charges 30311 1 2:43 PM CDT DERMATOPATHOLOGY LABORATORY Embedded Images 2:43 PM CDT DERMATOPATHOLOGY LABORATORY Pathology/Cytolog y TISSUE SPECIMEN FROM SKIN / Unknown 02/24/2019 02/25/2019 11:50 AM CDT Isac Ramires MD LAB - PATHOLOGY/CYTOLOGY ORD ERABLES Final Result DERMATOPATHOLOGY LABORATORY [facility] - Department of Dermatology [address] [place] [address] 5th Floor Lab [address] [phone] documented in this encounter Visit Diagnoses Not on filedocumented in this encounter
--- OUTSIDE RECORDS SUMMARY | 2025-09-28 07:21 | XMS_ITS | Encounter Summary ---
Author Organization [facility] Facility Care Team Providers Care Help Desk Associate Name Role Phone Faviola Pringle MD Primary Care Provider + [phone] Darren Alfredo MD Unavailable + [phone] Robin Liu DPM Unavailable [phone] Rickie Elizondo DPM Unavailable [phone] Encounter Details Date Type Department Care Team (Latest Contact Info) Description 11/29/2015 Orders Only [facility] CLINCONV Provider, MD Mary [address] [place], [place] [id number] Social History Tobacco Use Types Packs/Day Years Used Date Smoking Tobacco: Former Sex and Gender Information Value Date Recorded Sex Assigned at Not on file 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 us Historical Provider Final Res ult documented in this encounter Visit Diagnoses Not on filedocumented in this encounter Additional Health Concerns Infection Onset Date Last Indicated Resolved Time MRSA Comment:Hx 6yrs ago 11/28/2015 11/27/2015 07/11/2021 5:00 AM C DT COVID: Suspected 12/14/2021 12/14/2021 12/14/2021 7:17 PM TECHNICIAN TERMINAL AND REPEATER documented as of this encounter Care Teams Help Desk Associate Relationship Specialty Start Date End Date Faviola Pringle MD [address] [place] [address] PCP - General 03/06/17 Darren Alfredo MD [address] [place] [address] Consulting Physician Infectious Diseases 03/23/21 Robin Liu DPM [address] [place] [address] Consulting Physician Foot and Ankle Surg 08/31/22 Rickie Elizondo DPM [address] [address] Consulting Physician Orthopedic Surgery 12/27/22 documented as of this encounter
--- OUTSIDE RECORDS SUMMARY | 2025-09-28 07:21 | XMS_ITS | Encounter Summary ---
Author Organization [facility] Facility Care Team Providers Care Shot Dropper Name Role Phone Faviola Pringle MD Primary Care Provider + [phone] Darren Alfredo MD Unavailable + [phone] Robin Liu DPM Unavailable [phone] Rickie Elizondo DPM Unavailable [phone] Encounter Details Date Type Department Care Team (Latest Contact Info) Description 07/22/2018 Orders Only [facility] CLINCONV Provider, MD Mary [address] [place] [address] Social History Tobacco Use Types Packs/Day Years Used Date Smoking Tobacco: Former Sex and Gender Information Value Date Recorded Sex Assigned at Not on file Legal Sex Male 3:12 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 Gender Identity Not on file Sexual Orientation [...] COVID: Suspected 12/14/2021 12/14/2021 12/14/2021 7:17 PM SAFE AND 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 documented as of this encounter Care Teams Shot Dropper Relationship Specialty Start Date End Date Faviola Pringle MD [address] [place] [address] PCP - General 03/06/17 Darren Alfredo MD [address] [place] [address] Consulting Physician Infectious Diseases 03/23/21 Robin Liu DPM [address] [place] [address] Consulting Physician Foot and Ankle Surg 08/31/22 Rickie Elizondo DPM [address] [facility] [address] [place] [address] Consulting Physician Orthopedic Surgery 12/27/22 documented as of this encounter
--- OUTSIDE RECORDS SUMMARY | 2025-09-28 07:21 | XMS_ITS | Encounter Summary ---
Author Organization [facility] Facility Care Team Providers Care Wireless Retail Manager Name Role Phone Faviola Pringle MD Primary Care Provider + [phone] Darren Alfredo MD Unavailable + [phone] Robin Liu DPM Unavailable [phone] Rickie Elizondo DPM Unavailable [phone] Encounter Details Date Type Department Care Team (Latest Contact Info) Description 11/27/2015 Orders Only [facility] CLINCONV Provider, MD Mary [address] [place], [place] [id number] Social History Tobacco Use Types Packs/Day Years Used Date Smoking Tobacco: Former Sex and Gender Information Value Date Recorded Sex Assigned at Not on file Legal Sex Male 3:12 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 Gender Identity Not on file Sexual Orientation Not on file documented as of this encounter Plan of Treatment Not on file documented as of this encounter Procedures Procedure Name Priority Date/Time Associated Diagnosis Comments PROCEDURE - RESULT 11/29/2015 12 :00 AM CLOTH 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 SCAN - LABS 11/28/2015 12:00 AM CLOTH 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 SCAN - LABS 11/28/2015 12:00 AM CLOTH 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 SCAN - LABS 11/28/2015 12:00 AM CLOTH 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 documented in this encounter Results * PROCEDURE - RESULT (11/29/2015 12:00 AM CLOTH 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) Narrative 11/29/2015 12:00 AM CLOTH 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 Ordered by an unspecified provider. Historical Provider MD Final Res ult * SCAN - LABS (11/28/2015 12:00 AM CLOTH 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) Narrative 11/28/2015 12:00 AM CLOTH 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 Ordered by an unspecified provider. [facility] Provider MD Final Res ult * SCAN - LABS (11/28/2015 12:00 AM CLOTH 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) Narrative 11/28/2015 12:00 AM CLOTH 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 Ordered by an unspecified provider. [facility] Provider MD Final Res ult * SCAN - LABS (11/28/2015 12:00 AM CLOTH 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) Narrative 11/28/2015 12:00 AM CLOTH 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 Ordered by an unspecified provider. [facility] Provider Final Res ult documented in this encounter Visit Diagnoses Not on filedocumented in this encounter Additional Health Concerns Infection Onset Date Last Indicated Resolved Time MRSA Comment:Hx 6yrs ago 11/28/2015 11/27/2015 07/11/2021 5:00 AM C DT COVID: Suspected 12/14/2021 12/14/2021 12/14/2021 7:17 PM CLOTH 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 documented as of this encounter Care Teams Wireless Retail Manager Relationship Specialty Start Date End Date Faviola Pringle MD [address] [place] [address] PCP - General 03/06/17 Darren Alfredo MD [address] [place] [address] Consulting Physician Infectious Diseases 03/23/21 Robin Liu DPM [address] [place] [address] Consulting Physician Foot and Ankle Surg 08/31/22 Rickie Elizondo DPM [address] [address] Consulting Physician Orthopedic Surgery 12/27/22 documented as of this encounter
--- OUTSIDE RECORDS SUMMARY | 2025-09-28 07:21 | XMS_ITS | Encounter Summary ---
Author Organization [facility] Facility Care Team Providers Care Forger Helper Name Role Phone Faviola Pringle MD Primary Care Provider + [phone] Darren Alfredo MD Unavailable + [phone] Robin Liu DPM Unavailable [phone] Rickie Elizondo DPM Unavailable [phone] Encounter Details Date Type Department Care Team (Latest Contact Info) Description 01/26/2017 Orders Only [facility] CLINCONV Provider, MD Mary [address] [place] [address] Social History Tobacco Use Types Packs/Day Years Used Date Smoking Tobacco: Former Sex and Gender Information Value Date Recorded Sex Assigned at Not on file Legal Sex Male 3:12 AM BODY CORPORATE MANAGER Gender Identity Not on file Sexual [...] COVID: Suspected 12/14/2021 12/14/2021 12/14/2021 7:17 PM BODY CORPORATE MANAGER documented as of this encounter Care Teams Forger Helper Relationship Specialty Start Date End Date Faviola Pringle MD [address] [place] [address] PCP - General 03/06/17 Darren Alfredo MD [address] [place] [address] Consulting Physician Infectious Diseases 03/23/21 Robin Liu DPM [address] [place] [address] Consulting Physician Foot and Ankle Surg 08/31/22 Rickie Elizondo DPM [address] [address] Consulting Physician Orthopedic Surgery 12/27/22 documented as of this encounter
--- OUTSIDE RECORDS SUMMARY | 2025-09-28 07:21 | XMS_ITS | Encounter Summary ---
Author Organization [facility] Address [address] [facility] [address] Care Team Providers Care Mill Controller Name Role Phone Unavailable Primary Care Provider Unavailabl e Encounter Details Date Type Department Care Team (Late st Contact Info) Description 02/15/2019 Lab Requisition [facility] Care DermPath Lab [address] [place] [address] [place] [address] Social History Tobacco Use Types Packs/Day Years Used Date Smoking Tobacco: Never Assessed Sex and Gender Information Value Date Recorded Sex Assigned at Not on file Legal Sex Male 6: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 Gender Identity Not on file Sexual Orientation Not on file documented as of this encounter Plan of Treatment Not on file documented as of this encounter Procedures Procedure Name Priority Date/Time Associated Diagnosis Comments DERMATOPATHOLOGY Routine 02/12/2019 12:0 0 AM CDT documented in this encounter Results * DERMATOPATHOLOGY (02/12/2019 12:00 AM CDT) Case Report Dermatopathology Report Case: [id number] Authorizing Provider: Isac Ramires MD Collected: 02/12/2019 12:00 AM Pathologist: Danna Irby MD Received: 02/15/2019 01:00 PM Specimen: Skin, right sikh 9 2:06 PM CDT DERMATOPATHOLOGY LABORATORY Final Diagnosis Specimen A. SKIN, right sikh: SQUAMOUS CELL CARCINOMA IN SITU, VERRUCOUS-HYPERTROP HIC TYPE (D04.39) 2:06 PM CDT DERMATOPATHOLOGY LABORATORY at 1406 CDT Clinical History R/O SCC, HAK. 2:06 PM CDT DERMATOPATHOLOGY LABORATORY Gross Description Specimen A: Received is one formalin filled container labeled with the patient's name and designated right sikh. The specimen consists of a shave biopsy measuring [id number]. Jar 0. 2:06 PM CDT DERMATOPATHOLOGY LABORATORY Microscopic Description Specimen A. SKIN, right sikh: The epidermis is acanthotic and shows full [...] determined by the Dermatopathology Laboratory at [facility], directed by Dr. Mo Santiago. These tests need not be, and therefore are not, approved by the [place] Food and Drug Administration. The tests are used for clinical purposes. Billing Codes Specimen Charges Stain Charges 79643 1 2:06 PM CDT DERMATOPATHOLOGY LABORATORY Embedded Images 2:06 PM CDT DERMATOPATHOLOGY LABORATORY Pathology/Cytolog y TISSUE SPECIMEN FROM SKIN / Unknown 02/12/2019 02/15/2019 1:00 PM CDT us Isac Ramires MD LAB - PATHOLOGY/CYTOLOGY ORD ERABLES Final Result DERMATOPATHOLOGY LABORATORY [facility] - Department of Dermatology [address] [facility] [address] [place] [address], [facility] [phone] documented in this encounter Visit Diagnoses Not on filedocumented in this encounter
--- OUTSIDE RECORDS SUMMARY | 2025-09-28 07:22 | XMS_ITS | Clinical Summary ---
Author Organization [facility] Care Team Providers Care Warehouse Man Name Role Phone Unavailable Primary Care Provider [...] of 3) 08/12/2019, 07/27/2013 Influenza Immunization (#1) 07/25/202508/24, 09/28/2018 SARS-COV-2 Immunization ( season) 2025 10/07/2021, 02/14/2021, 01/24/2021 DTaP/Tdap/Td Immunization Discontinued 10/18/2015 TdaP Immunization Completed 10/18/2015 Pneumococcal Immunization (5 0+ years) Completed 08/25/2018, 02/10/2017 Pneumococcal Immunization Combined Discontinued 08/25/2018, 02/10/2017 Hepatitis B Immunization Aged Out No longer eligible based on patient's age to complete this topic Human Papillomavirus (HPV) Immunization Aged Out No longer eligible based on patient's age to complete this topic Meningococcal Immunization (ACWY) Aged Out No longer eligible based on patient's age to complete this topic Rotavirus Immunization Aged Out No lo nger eligible based on patient's age to complete this topic
--- OUTSIDE RECORDS SUMMARY | 2025-09-28 07:22 | XMS_ITS | Data Portability ---
Author Organization [facility] [employer] Address [address] [address] Care Team Providers Care Engraver Letter Name Role Phone FAVIOLA ALVES Primary Care Provider [phone] JARETH VAZ Staffing Consultant ELPIDIO BORGES Optical Glass Sawyer HERMILO FORBES Dry Lumber Grader Assessment Encounter Date Assessment Date Assessment LastModified by Organization Details LastModified Time 09/09/2024 09/09/2024 Patient presented for follow up. Studies ordered as below. Discussed plan with patient/careg iver, who expressed understanding . Follow up as noted below. Not available 09/09/2024 12:23:25 12/16/2024 12/16/2024 Patient presented for follow up. Studies ordered as below. Discussed plan with patient/careg iver, who expressed understanding . Follow up as noted below. Not available 12/16/2024 12:14:28 05/26/2025 05/26/2025 Patient presented for follow up. Studies ordered as below. Discussed plan with patient/careg iver, who expressed understanding . Follow up as noted below. Not available 05/26/2025 12:25:09 08/25/2025 08/25/2025 Patient presented for follow up. Studies ordered as below. Discussed plan with patient/careg iver, who expressed understanding . Follow up as noted below. Not available 08/25/2025 12:30:01 Plan of Treatment Reminders Order Date Submit Date Provider Last Modified By Organization Details Last Modified Time Details Appointments ESTABLISH ED PATIENT 15 2025 11:15A M Faviola Alves MD Not available Not available Not available Lab CMP, serum or plasma 2024 [facility] (Lab), [address] [place] [address], [place], [address], 09/01/2025 04:05:43 CBC w/ auto diff [address] [facility] (Lab), [address] [place] [address], [place], [address], 09/01/2025 04:05:43 lipid panel w/ direct LDL, serum 2024 [facility] (Lab), [address] [place] [address], [place], [address], 09/01/2025 04:05:42 vitamin D, 25-hydrox y, total, serum 2024 025 [facility] (Lab), [address] [place] [address], [place], [address], 08/25/2025 17:40:53 vitamin B12, serum [address] [place] [address] (Lab), [address] [place] [address], [place], [address], 09/01/2025 04:05:43 PTH (parathyr oid hormone), intact, serum or plasma [address] [place] [address] (Lab), [address] [place] [address], [place], [address], 08/25/2025 18:31:05 phosphoru s, serum or plasma [address] [place] [address] (Lab), [address] [place] [address], [address], 08/25/2025 18:15:45 uric acid, serum or plasma [address] [place] [address] (Lab), [address] [place] [address] [address], [place], [address], 08/25/2025 18:45:38 hemoglobi n A1c, QN, blood [address] [facility] (Lab), [address] [place] [address] [address], [place], [address], 08/18/2025 13:09:30 TSH + free T4, serum [address] [facility] (Lab), [address] [place] [address] [address], [place], [address], 08/18/2025 21:19:57 vitamin B12 + folate, serum or blood [address] [facility] (Lab), [address] [place] [address] [address], [place], [address], 12/08/2024 04:07:08 lipid panel w/ direct LDL, serum [address] [facility] (Lab), [address] [place] [address] [address], [place], [address], 09/16/2024 04:07:14 vitamin D, 25-hydrox y, total, serum 2023 024 [facility] (Lab), [address] [place] [address] [address], [place], [address], 09/09/2024 13:11:54 TSH + free T4, serum [address] [facility] (Lab), [address] [place] [address] [address], [place], [address], 09/16/2024 04:07:14 vitamin B12 + folate, serum or blood [address] [facility] (Lab), [address] [place] [address] [address], [place], [address], 06/13/2024 20:07:53 CMP, serum or plasma [address] [facility] (Lab), [address], [place], [address], 06/13/2024 20:07:53 CBC w/ auto diff [address] [facility] (Lab), [address] [place] [address] [address], [place], [address], 06/13/2024 20:07:53 microalbu min/creat inine, mass ratio, urine [address] [facility] (Lab), [address] [place] [address] [address], [place], [address], 06/13/2024 20:07:53 Referral vascular surgeon referral 2023 024 SALVATOREBRAN Richardson MD, [address] [place] [address] , [address], [place], [address], 07/07/2024 04:03:47 Procedures None recorded. Surgeries None recorded. Imaging US, duplex, carotid artery 2024 025 [facility], [address] [facility] , [address], [place], [address], 12/16/2024 17:45:27 Medication Orders ergocalci ferol (vitamin D2) 1,250 mcg (50,000 unit) capsule 2024 025 [facility], [address] [facility] [address], [place], [place], [id number], 05/26/2025 12:58:35 furosemid e 20 mg tablet 2023 024 [facility] #11184, [address] [address], [place], [place], [id number], 09/09/2024 13:06:04 ergocalci ferol (vitamin D2) 1,250 mcg (50,000 unit) capsule 2023 024 [facility] #26597, [address], [place], [id number], 09/09/2024 13:05:59 levothyro xine 150 mcg tablet 2023 024 [facility] #75603, [address], [place], [place], [id number], 02/08/2025 10:50:09 furosemid e 20 mg tablet 2023 024 [facility] #55915, [address], [place], [place], [id number], 06/09/2024 14:51:42 levothyro xine 150 mcg tablet 2023 024 [facility] [employer] [facility] #92997, [address], [place], [place], [id number], 02/08/2025 10:50:09 Patient TargetsNo targets recorded. Patient Instructions Encounter Date Encounter Id Patient Instructions Last Modified By Organization Details Last Modified Time 06/09/2024 [id number] Peripheral Arterial Disease (PAD): Care Instructions mshenouda Not available 06/09/2024 14:51:34 carotid stenosis : care instructions mshenouda Not available 06/09/2024 14:51:34 09/09/2024 [id number] Peripheral Arterial Disease (PAD): Care Instructions mshenouda Not available 09/09/2024 13:05:53 arthritis: care instructions mshenouda Not available 09/09/2024 13:05:53 anemia: care instructions mshenouda Not available 09/09/2024 13:05:53 high cholesterol : care instructions mshenouda Not available 09/09/2024 13:05:53 carotid stenosis : care instructions mshenouda Not available 09/09/2024 13:05:53 charcot foot: care instructions mshenouda Not available 09/09/2024 13:05:53 learning about healthy weight mshenouda Not available 09/09/2024 13:05:52 chronic kidney disease: care instructions mshenouda Not available 09/09/2024 13:05:52 learning about chronic kidney disease mshenouda Not available 09/09/2024 13:05:52 12/16/2024 [id number] Peripheral Arterial Disease (PAD): Care Instructions mshenouda Not available 12/16/2024 12:58:18 high cholesterol : care instructions mshenouda Not available 12/16/2024 12:58:18 carotid stenosis : care instructions mshenouda Not available 12/16/2024 12:58:19 learning about healthy weight mshenouda Not available 12/16/2024 12:58:18 hypothyroidism: care instructions mshenouda Not available 12/16/2024 12:58:18 chronic kidney disease: care instructions mshenouda Not available 12/16/2024 12:58:18 learning about chronic kidney disease mshenouda Not available 12/16/2024 12:58:18 05/26/2025 [id number] Peripheral Arterial Disease (PAD): Care Instructions mshenouda Not available 05/26/2025 12:58:30 high cholesterol : care instructions mshenouda Not available 05/26/2025 12:58:30 charcot foot: care instructions mshenouda Not available 05/26/2025 12:58:30 carotid stenosis : care instructions mshenouda Not available 05/26/2025 12:58:29 learning about healthy weight mshenouda Not available 05/26/2025 12:58:30 hypothyroidism: care instructions mshenouda Not available 05/26/2025 12:58:30 chronic kidney disease: care instructions mshenouda Not available 05/26/2025 12:58:29 learning about chronic kidney disease mshenouda Not available 05/26/2025 12:58:30 08/25/2025 [id number] Peripheral Arterial Disease (PAD): Care Instructions mshenouda Not available 08/25/2025 13:07:26 high cholesterol : care instructions mshenouda Not available 08/25/2025 13:07:26 carotid stenosis : care instructions mshenouda Not available 08/25/2025 13:07:26 learning about healthy weight mshenouda Not available 08/25/2025 13:07:26 hypothyroidism: care instructions mshenouda Not available 08/25/2025 13:07:26 chronic kidney disease: care instructions mshenouda Not available 08/25/2025 13:07:26 learning about chronic kidney disease mshenouda Not available 08/25/2025 13:07:26 Reason for Referral Vascular Surgeon Referral fo r Peripheral vascular disease Referring Physician: Faviola Alves, Internal Medicine, Encounter Date: 06/09/2024 Results Created Date Observation Date Name Description Value Unit Range Abnormal Flag Note LastModifiedBy Organization Detail LastModifiedTime 02/15/20 25 02/14/2025 Hemog lobin A1c/H emogl obin. total in Blood hemoglobin A1C, POC 6.8 % low: 4%high : 5.6% Not Available Not Available 05/26/2025 11:34:40 02/15/20 25 02/14/2025 Hemog lobin A1c/H emogl obin. total in Blood hemoglobin A1C, POC text: low: 4%high : 5.6% Not Available Not Available 05/26/2025 11:44:34 08/15/20 25 08/15/2025 HbA1c (hemo globi n A1c), blood hemoglobin A1C, POC 7 % low: 4%high : 5.6% abnormal Not Available Not Available 08/25/2025 03:40:27 08/15/20 25 08/15/2025 HbA1c (hemo globi n A1c), blood lab interpretati on ABNORM AL Not Available Not Available 03:40:27 06/14/20 24 04/06/2024 cardi ac stres s test No observ ation record ed. [facility] Not Available 2023 12:47:26 12/16/19 25 12/16/2024 US, ofelia de la cruz carot id arter y No observ ation record ed. [facility], [address], [place], [address], 05/26/2025 12:41:45 02/26/20 25 02/03/2025 US, yogi pollock id arter y No observ ation record ed. [facility], [address], [place], [address], 05/26/2025 12:41:45 05/19/20 25 05/19/2025 XR, chest No observ ation record ed. [facility] [address], [place], [address], 05/26/2025 12:41:45 Result Notes None recorded. Problems Name Problem SNOMED Code Status Onset Date Resolution Date Notes Provider Name and Address Organization Details Recorded Time Family history of stroke 113943933 Active Not Available [employer] 0 15:26:41 Family history of diabetes mellitus 830901058 Active Not Available [employer] 0 15:26:41 Family history of coronary arterioscl erosis 595645089 Active Not Available [employer] 0 15:26:41 Charcot's arthropath y 363582927 Active Not Available [employer] 0 15:26:41 Coronary arterioscl erosis 31702187 Active Not Available [employer] 0 15:26:41 Diabetic peripheral neuropathy 938045126 Active Not Available [employer] 0 15:26:41 Diabetes mellitus 04659293 Active Not Available [facility] 0 15:26:41 Benign hypertensi on 55812258 Active Not Available [facility] 0 15:26:41 Hyperlipid emia 65704163 Active Not Available [facility] 0 15:26:41 Hypothyroi dism 04763010 Active Not Available [facility] 0 15:26:42 Lymphedema 570930010 Active Not Available [facility] 0 15:26:41 Obesity 867885208 Completed 06/06/2020 Faviola Alves MD [address], [place], [address] , [facility] 0 11:29:38 Rosacea 060049246 Active Not Available [employer] 0 15:26:41 Osteoarthr itis 790536664 Active 2015 Not Available [facility] 0 15:26:41 Peripheral vascular disease 607263233 Active 2015 Not Available [facility] 0 15:26:42 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 264692238 Active 2018 Not Available [facility] 0 15:26:41 Ex-smoker 7472500 Active 2019 Not Available [facility] 0 15:26:41 Chronic renal failure 90915955 Active 2020 Faviola Alves MD [address], [place], [address] , [facility] 1 15:41:27 Complex renal cyst 730550575 Active 2020 Faviola Alves MD [address], [place], [address] , [facility] 1 19:58:16 Chronic osteomyeli tis of foot 800477993 Active 2020 Faviola Alves MD [address], [place], [address] , [facility] 1 15:48:52 Retinal ischemia 43168107 Active 2020 MD Verna Cleveland[address], [place], [address] , [facility] 1 10:03:34 Anemia 027757191 Active 2021 MD Verna Cleveland[address], [place], [address] , [facility] 2 19:18:58 Serum creatinine above reference range 487045826 Active 2021 MD Verna Cleveland[address], [place], [address] , [facility] 2 19:19:04 Knee pyogenic arthritis 887555029 Active 2021 MD Verna Cleveland[address] [place], [place], [address] , [facility] 2 12:06:48 C-reactive protein outside reference range 660620050 Active 2021 MD Verna Cleveland[address], [place], [address] , [facility] 2 23:07:09 Body mass index 25-29 - overweight 644657449 Active 2021 MD Tati Cleveland [address], [place], [address] , [facility] 2 11:16:17 Carotid artery stenosis 31021155 Active 2021 MD Tati Cleveland [address], [place], [address] , [facility] 2 23:40:21 Serum vitamin B12 borderline low 828979820 Active 2022 MD Tati Cleveland [address], [place], [address] , [facility] 3 16:04:53 Serum vitamin B12 below reference range 576594794 Active 2022 MD Tati Cleveland [address], [place], [address] , [facility] 3 15:13:46 Amputated toe 453629948 Active 2023 all of lt foot MD Tati Cleveland [address], [place], [address] , [facility] 4 14:51:21 Vitamin D deficiency 85054731 Active 2023 MD Tati Cleveland [address] [place], [place], [address] , [facility] 4 12:56:02 Generalize d osteoarthr itis 097923373 Active 2024 MD Tati Cleveland [address], [place], [address] , [facility] 5 12:44:45 Problem Notes None recorded. Procedures Surgical History Date Name Laterality Status Provider Name and Address Organization Details Recorded Time 08/25/20 25 Diabetic Foot Exam completed MD Tati Cleveland [address], [place], [address], [facility] 08/25/2025 13:05:47 05/26/20 25 Diabetic Foot Exam completed MD Tati Cleveland [address], [place], [address], [facility] 05/26/2025 12:50:43 12/16/19 25 Diabetic Foot Exam completed MD Tati Cleveland [address], [place], [address], [facility] 12/16/2024 12:58:03 09/09/20 24 Diabetic Foot Exam completed MD Tati Cleveland [address], [place], [address], [facility] 09/09/2024 13:03:05 06/09/20 24 Diabetic Foot Exam completed MD Tati Cleveland [address], [place], [address], [facility] 06/09/2024 14:50:35 03/10/20 24 Diabetic Foot Exam completed MD Tati Cleveland [address], [place], [address], [facility] 03/10/2024 14:40:33 12/10/19 24 Diabetic Foot Exam completed MD Tati Cleveland [address], [place], [address], [facility] 12/10/2023 14:37:44 09/04/20 23 Diabetic Foot Exam completed MD Tati Cleveland [address], [place], [address], [facility] 09/04/2023 14:33:36 06/23/20 23 Diabetic Foot Exam completed MD Tati Cleveland [address], [place], [address], [facility] 06/23/2023 15:20:15 02/11/20 23 Diabetic Foot Exam completed MD Tati Cleveland [address], [place], [address], [facility] 02/10/2023 16:07:37 11/11/20 22 Diabetic Foot Exam completed MD Tati Cleveland [address], [place], [address], [facility] 11/11/2022 15:50:52 10/22/20 22 Colonoscopy completed MD Tati Cleveland [address], [place], [address], [facility] 10/23/2022 22:26:57 08/13/20 22 Diabetic Foot Exam completed MD Tati Cleveland [address], [place], [address], [facility] 08/13/2022 11:48:05 05/09/20 22 Diabetic Foot Exam completed MD Tati Cleveland [address], [place], [address], [facility] 05/09/2022 11:15:30 01/31/20 22 Diabetic Foot Exam completed MD Tati Cleveland [address], [place], [address], [facility] 01/30/2022 12:04:44 06/28/20 21 Diabetic Foot Exam completed MD Tati Cleveland [address], [place], [address], [facility] 06/28/2021 15:36:57 03/23/20 21 amputation of toe completed [facility] 06/28/2021 15:04:07 03/07/20 21 Diabetic Foot Exam completed MD Tati Cleveland [address], [place], [address], [facility] 03/07/2021 15:16:44 12/06/19 21 Diabetic Foot Exam completed MD Tati Cleveland [address], [place], [address], [facility] 12/06/2020 15:33:57 09/05/20 20 Diabetic Foot Exam completed MD Tati Cleveland [address], [place], [address], [facility] 09/05/2020 16:19:17 06/06/20 20 Diabetic Foot Exam completed MD Tati Cleveland [address], [place], [address], [facility] 06/06/2020 11:33:53 12/07/19 20 Diabetic Foot Exam completed MD Tati Cleveland [address], [place], [address], [facility] 12/07/2019 11:48:36 09/06/20 19 Diabetic Foot Exam completed MD Tati Cleveland [address], [place], [address], [facility] 09/06/2019 13:00:30 06/04/20 19 Diabetic Foot Exam completed MD Tati Cleveland [address], [place], [address], [facility] 06/04/2019 12:52:36 03/05/20 19 Diabetic Foot Exam completed MD Tati Cleveland [address], [place], [address], [facility] 03/05/2019 13:23:18 12/02/19 19 Diabetic Foot Exam completed MD Tati Cleveland [address], [place], [address], [facility] 12/02/2018 15:16:05 09/01/20 18 Diabetic Foot Exam completed MD Tati Cleveland [address], [place], [address], [facility] 09/01/2018 14:59:25 11/26/19 17 Colonoscopy completed MD Tati Cleveland [address], [place], [address], [facility] 11/26/2016 13:18:37 09/03/20 11 Colonoscopy completed Cecilia Ramirez [facility] 03/19/2016 22:33:09 Tonsillectomy completed Cecilia Ramirez [facility] 03/19/2016 22:33:19 Orthopedic Surgery completed Cecilia Ramirez [facility] 03/19/2016 22:33:34 Imaging Results None recorded. Procedure Notes None recorded. Medical Equipment None Reported. Allergies Allergen ID Allergen Name Allergen Category Reaction Reaction Severity Criticality Documentation Date Start Date Code Code System Note Provider Name and Address Organization Details Recorded Time 00703 iodine medicatio n anaphylax is Not available high 05/26/20252021 5933 RxNorm Just iv dye Not Available [employer] - External [employer] - prod 5 11:34:41 03645 pentazoci ne Not available Not available Not available low 05/26/2025 8001 RxNorm Talwi n unrec ogniz ed react ion (text : Unkno wn, code: 92418 [id number]) (from exter nal sourc e) Not Available [employer] - External Data Service - prod 5 11:34:41 570 Talwin medicatio n Not available Not available Not available 03/19/2016 8002 RxNorm Cecilia ames [facility] 6 22:31:10 7985 Iodinated contrast media (substanc e) medicatio n Not available Not available Not available 03/05/2019 90675 2004 SNOMED Gwendolyn New ames [facility] 9 12:54:24 Medications Name Sig Start Date Stop Date Status Note LastModified by Organization Details LastModified Time latanoprost 0.005 % eye drops INSTILL 1 DROP IN BOTH EYES AT BEDTIME active Not Available Not Available No t Available atorvastati n 40 mg tablet TAKE 1 TABLET BY MOUTH EVERY DAY active Not Available Not Available No t Available metformin 500 mg tablet TAKE 1 TABLET BY MOUTH TWICE DAILY active Not Available Not Available No t Available levothyroxi ne 175 mcg tablet TAKE 1 TABLET BY MOUTH EVERY DAY IN THE MORNING 04/02 completed Not Available Not Available Not Available levothyroxi ne 137 mcg tablet TAKE 1 TABLET BY MOUTH EVERY DAY IN THE MORNING active Not Available Not Available No t Available carvedilol 25 mg tablet TAKE 1 TABLET BY MOUTH TWICE DAILY active Not Available Not Available No t Available doxycycline hyclate 100 mg capsule TAKE 1 CAPSULE BY MOUTH TWICE DAILY 04/20 completed Not Available Not Available Not Available clindamycin HCl 300 mg capsule Take 1 capsule every 8 hours by oral route. 02/20 completed Not Available Not Available Not Available Glucagon Emergency Kit 1 mg solution for injection USE DIRECTED active Not Available Not Available No t Available FreeStyle Test strips TEST THREE TIMES DAILY active Not Available Not Available No t Available hydrocodone 5 mg-acetamin ophen 325 mg tablet TAKE 1 TO 2 TABLETS BY MOUTH EVERY 6 HOURS NEEDED FOR PAIN 09/09 completed Not Available Not Available Not Available prednisone 20 mg tablet TAKE 1 TABLET BY MOUTH DAILY FOR 10 DAYS 08/17 completed Not Available Not Available Not Available isosorbide mononitrate ER 30 mg tablet,exte nded release 24 hr TAKE 1 TABLET BY MOUTH EVERY DAY active Not Available Not Available No t Available doxycycline hyclate 50 mg capsule Take 1 capsule every 12 hours by oral route. 12/02 completed Not Available Not Available Not Available prednisone 5 mg tablet 03/05 completed Not Available Not Available Not Available Lantus U-100 Insulin 100 unit/mL subcutaneou s solution ADMINISTE R 20 UNITS UNDER THE SKIN EVERY NIGHT 08/02 completed Not Available Not Available Not Available meclizine 12.5 mg tablet Take 1 tablet 3 times a day by oral route as needed. 09/06 completed Not Available Not Available Not Available metronidazo le 500 mg tablet TAKE 1 TABLET BY MOUTH THREE TIMES DAILY FOR 14 DAYS 08/17 completed Not Available Not Available Not Available clopidogrel 75 mg tablet TAKE 1 TABLET BY MOUTH EVERY DAY active Not Available Not Available No t Available ciprofloxac in 500 mg tablet TAKE 1 TABLET BY MOUTH EVERY 12 HOURS 06/28 completed Not Available Not Available Not Available sulfamethox azole 800 mg-trimetho prim 160 mg tablet TAKE 1 TABLET BY MOUTH TWICE DAILY 03/07 completed Not Available Not Available Not Available oxycodone-a cetaminophe n 5 mg-325 mg tablet TAKE 1 TABLET BY MOUTH EVERY NIGHT AT BEDTIME NEEDED FOR PAIN 08/17 completed Not Available Not Available Not Available famotidine 20 mg tablet TAKE 1 TABLET BY MOUTH AT 6 PM THE NIGHT BEFORE AND AT 6 AM THE MORNING OF SURGERY WITH A SIP OF WATER 05/26 completed Not Available Not Available Not Available prednisolon e acetate 1 % eye drops,suspe nsion SHAKE LIQUID AND INSTILL 1 DROP IN BOTH EYES TWICE DAILY FOR 2 TO 3 WEEKS 12/10 completed Not Available Not Available Not Available doxycycline monohydrate 100 mg capsule 11/11 completed Not Available Not Available Not Available cephalexin 500 mg capsule TAKE 1 CAPSULE BY MOUTH TWICE DAILY 01/12 completed Not Available Not Available Not Available diphenhydra mine 25 mg capsule TAKE 2 CAPSULES BY MOUTH AT 6AM THE MORNING OF SURGERY WITH A SIP OF WATER active Not Available Not Available No t Available triamcinolo ne acetonide 0.1 % topical ointment APPLY TWICE DAILY TO HANDS FOR 2-3 WEEKS active Not Available Not Available No t Available clotrimazol e-betametha sone 1 %-0.05 % topical cream APPLY TO THE AFFECTED AND SURROUNDI NG AREAS OF SKIN BY TOPICAL ROUTE 2 TIMES PER DAY IN THE MORNING AND EVENING FOR 2 WEEKS 03/07 completed Not Available Not Available Not Available lisinopril 10 mg tablet TAKE 1 TABLET BY MOUTH EVERY DAY active Not Available Not Available No t Available prednisone 50 mg tablet TAKE 1 TABLET BY MOUTH WITH DINNER AND AT BEDTIME A DAY BEFORE PROCEDURE AND 1 TABLET MORNING OF PROCEDURE 05/26 completed Not Available Not Available Not Available levothyroxi ne 150 mcg tablet TAKE 1 TABLET BY MOUTH EVERY MORNING 02/08 completed Not Available Not Available Not Available nitroglycer in 0.[address] 1 TABLET UNDER THE TONGUE EVERY 5 MINUTES NEEDED FOR CHEST PAIN FOR 3 DOSES active Not Available Not Available No t Available gabapentin 300 mg capsule TAKE 1 CAPSULE BY MOUTH THREE TIMES DAILY 09/09 completed Not Available Not Available Not Available hydrocortis one 2.5 % topical cream 03/05 completed Not Available Not Available Not Available cyanocobala min (vit B-12) 1,[address] 1 tablet every day by sublingua l route. 2022 active Not Available Not Available Not Avai lable mupirocin 2 % topical ointment APPLY A SMALL AMOUNT TO THE AFFECTED AREA BY TOPICAL ROUTE 3 TIMES PER DAY 05/26 completed Not Available Not Available Not Available furosemide 20 mg tablet TAKE 1 TABLET BY MOUTH EVERY DAY 2024 active Not Available Not Available Not Avai lable ergocalcife rol (vitamin D2) 1,250 mcg (50,000 unit) capsule TAKE 1 CAPSULE BY MOUTH EVERY 4 WEEKS 2024 active Not Available Not Available Not Avai lable Aspir-81 mg tablet,kunal yed release Take 1 tablet every day by oral route. 2015 active Not Available Not Available Not Avai lable cefuroxime axetil 500 mg tablet TAKE 1 TABLET BY MOUTH TWICE DAILY 10/22 completed Not Available Not Available Not Available metronidazo le 0.75 % topical gel APPLY A THIN LAYER TO THE AFFECTED AREA(S) BY TOPICAL ROUTE 2 TIMES PER DAY IN THE MORNING AND EVENING 03/07 completed Not Available Not Available Not Available doxycycline hyclate 100 mg tablet TAKE 1 TABLET BY MOUTH TWICE DAILY 10/01 completed Not Available Not Available Not Available amoxicillin 875 mg-potassiu m clavulanate 125 mg tablet TAKE 1 TABLET BY MOUTH EVERY 12 HOURS FOR 7 DAYS 06/09 completed Not Available Not Available Not Available dorzolamide 2 % eye drops INSTILL 1 DROP IN BOTH EYES THREE TIMES DAILY active Not Available Not Available No t Available Tylenol Extra Strength 500 mg tablet Take 1 tablet every 8 hours by oral route. 2018 active Not Available Not Available Not Avai lable oxycodone 5 mg tablet TAKE 1 TABLET BY MOUTH EVERY 6 HOURS NEEDED FOR PAIN 08/17 completed Not Available Not Available Not Available hydroxyzine pamoate 25 mg capsule 03/05 completed Not Available Not Available Not Available cholestyram ine (with sugar) 4 gram powder for susp in a packet MIX AND DRINK 1 PACKET BY MOUTH TWICE DAILY NEEDED 12/10 completed Not Available Not Available Not Available Folbic 2.5 mg-25 mg-2 mg tablet Take 1 tablet every day by oral route. 05/30 completed Not Available Not Available Not Available BD Ultra-Fine Short Pen Needle 31 gauge x 5/16 USE FOUR TIMES DAILY DIRECTED active Not Available Not Available No t Available Lantus Solostar U-100 Insulin 100 unit/mL (3 mL) subcutaneou s pen INJECT 12 UNITS UNDER THE SKIN EVERY NIGHT AT BEDTIME active Not Available Not Available No t Available levocetiriz ine 5 mg tablet 09/10 completed Not Available Not Available Not Available Humalog KwikPen (U-100) Insulin 100 unit/mL subcutaneou s INJECT 2 UNITS UNDER THE SKIN WITH LUNCH AND 2 UNITS WITH DINNER active Not Available Not Available No t Available Fish Oil 100 mg-160 mg-1,000 mg capsule Take by oral route. active Not Available Not Available No t Available Tradjenta 5 mg tablet TAKE 1 TABLET BY MOUTH DAILY active Not Available Not Available No t Available Lotemax 0.5 % eye gel drops INSTILL 1 - 2 DROPS INTO THE LOWER CONJUNCTI MILAD SAC OF THE AFFECTED EYE(S) BY OPHTHALMI C ROUTE 4 TIMES PER DAY BEGINNING 24 HOURS AFTER SURGERY AND CONTINUIN G THROUGHOU T THE FIRST 2 WEEKS OF THE POST OPERATIVE PERIOD. 05/13 completed Not Available Not Available Not Available Jardiance 10 mg tablet TAKE 1 TABLET BY MOUTH DAILY 12/10 completed Not Available Not Available Not Available Jardiance 25 mg tablet 1 tab PO QAM active Not Available Not Available No t Available Xiidra 5 % eye drops in a dropperette INSTILL 1 DROP INTO BOTH EYES TWICE DAILY active Not Available Not Available No t Available Shingrix (PF) 50 mcg/0.5 mL intramuscul ar suspension, kit ADM 0.5ML IM UTD 09/06 completed Not Available Not Available Not Available Lokelma 5 gram oral powder packet MIX AND DRINK 1 PACKET BY MOUTH EVERY DAY active Not Available Not Available No t Available Flucelvax Quad (PF) 60 mcg (15 mcg x 4)/0.5 mL IM syringe ADM 0.5ML IM UTD 06/06 completed Not Available Not Available Not Available Fluzone High-Dose Quad (PF) 240 mcg/0.7 mL IM syringe ADM 0.7ML IM UTD 09/26 completed Not Available Not Available Not Available Vitals Date Recorded Body height Body mass index (BMI) Body weight Body temperature Heart rate Respiratory rate Systolic And Diastolic Provider Name and Address Organization Details Last Updated DateTime 5 180.34 cm 29.3 kg/m2 34005.4 g 96.7 [degF] 67 /min 18 /min 125/65 mm[Hg] Liat Wallacealy [facility] 5 12:22:06 Date Recorded Body height Body mass index (BMI) Body weight Body temperature Heart rate Respiratory rate Systolic And Diastolic Provider Name and Address Organization Details Last Updated DateTime 5 180.34 cm 29.6 kg/m2 40842.5 8 g 97.7 [degF] 69 /min 18 /min 119/61 mm[Hg] Liat Wallacealy [facility] 5 12:28:03 Date Recorded Body mass index (BMI) Body height Provider Name and Address Organization Details Last Updated DateTime 06/09/2024 29.6 kg/m2 180.34 cm Faviola Alves MD [id number], [place], [address], [facility] 06/09/2024 14:35:48 Date Recorded Heart rate Respiratory rate Body temperature Body weight Systolic And Diastolic Provider Name and Address Organization Details Last Updated DateTime 4 71 /min 18 /min 97.7 [degF] 88653.5 8 g 104/56 mm[Hg] Alvertojames PantojaHoracio [facility] 4 14:26:21 Date Recorded Body height Body mass index (BMI) Body weight Body temperature Respiratory rate Heart rate Systolic And Diastolic Provider Name and Address Organization Details Last Updated DateTime 5 180.34 cm 29.7 kg/m2 90687.1 7 g 97.6 [degF] 18 /min 73 /min 124/61 mm[Hg] Liat Wallacealy [facility] 5 12:35:14 Date Recorded Body height Body mass index (BMI) Body weight Body temperature Respiratory rate Heart rate Systolic And Diastolic Provider Name and Address Organization Details Last Updated DateTime 4 180.34 cm 29.7 kg/m2 59891.1 7 g 97.5 [degF] 18 /min 68 /min 117/60 mm[Hg] Liat Michele [facility] 4 12:24:00 Social History Question Answer Notes LastModified by Organizat ion Details LastModified Time Tobacco Smoking Status Former Smoker quit Not Available [facility] 09/08/2020 03:12:14 Do You Have An Advance Directive? Yes [id number] Information not available 09/08/2020 What Is Your Level Of Caffeine Consumption? 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 No [id number] Information not available 09/08/2020 In The 14 Days Before Symptom Onset, Have You Had Close Contact With A Person Who Is Under Investigation For COVID-19 While That Person Was Ill? No [id number] Information not available 09/08/2020 Have You Been To An Area Known To Be High Risk For COVID-19? No [id number] Information not available 09/08/2020 Have You Directly Handled Bats, Rodents, Or Primates From Ebola Endemic Areas? No [id number] Information not available 09/08/2020 Have You Processed Blood Or Body Fluids From An Ebola Virus Disease Patient Without Appropriate PPE? No [id number] Information not available 09/08/2020 Have You Had Household Contact With An Ebola Virus Disease Patient? No [id number] Information not available 09/08/2020 Have You Had Direct Contact With A Body In An Ebola-affected Area Without Appropriate PPE? No [id number] Information not available 09/08/2020 Have You Had Percutaneous (e.g. Needle Stick) Or Mucous Membrane Exposure To Blood Or Body Fluids From An Ebola Virus Disease Patient? No [id number] Information not available 09/08/2020 Have You Had Other Close Contact With An Ebola Virus Disease Patient In Health Care Facilities Or Community Settings? No [id number] Information not available 09/08/2020 Do You Reside In Or Have You Traveled To An Area Where Ebola Virus Transmission Is Active? No [id number] Information not available 09/08/2020 Are There Any Guns Present In Your Home? No [id number] Information not available 09/08/2020 Hard Of Hearing Or Deaf In One Or Both Ears? Yes Information not available 02/02/2020 High Number Of Sexual Partners No Information not available 02/02/2020 History Of Inconsistent/no Condom Use No Information not available 02/02/2020 Legally Blind In One Or Both Eyes? No Information no t available 02/02/2020 Live Alone Or With Others? With Others Information not available 02/02/2020 Marital Status Informatio n not available 02/02/2020 What Was The Date Of Your Most Recent Tobacco Screening? 01/30/2022 Information not available 01/30/2022 Mother With HIV? No Informat ion not available 02/02/2020 Performs Monthly Self-breast Exam? No Information no t available 02/02/2020 Seat Belts Used Routinely Yes Information not available 02/02/2020 Sexual Partner Has HIV? No Information not available 02/02/2020 Sexual Partner Uses IV Drugs? No Information not available 02/02/2020 Smoke Alarm In Home Yes Information not available 02/02/2020 How Much Tobacco Do You Smoke? 1 PPD [id number] Information not available 09/08/2020 Do You Use Sunscreen Routinely? No [id number] Information not available 09/08/2020 How Many Years Have You Smoked Tobacco? 10 [id number] Information not available 09/08/2020 Have You Used IV Drugs? No [id number] Information not available 09/08/2020 Sex: Unknown Functional Status Question Answer Note LastModified by Organization D etails LastModified Time What is your level of alcohol consumption? None Information not available 12/06/2020 Are you currently employed? No [id number] Information not available 09/08/2020 Are you able to care for yourself independently? Yes [id number] Information not available 09/08/2020 Mental Status None recorded. Family History Relationship Description Onset Age of this Age Resolved Age Notes LastModified by Organization Details LastModified Time Father Cerebrovascu lar accident 81 [email or web address] Not available 22:32:20 Mother Diabetes mellitus [email or web address] Not available 2015 22:32:32 Brother Coronary arterioscler osis [email or web address] Not available 2015 22:32:47 Medical History Condition Response Coronary Artery Disease N Other N Gout N Kidney Stones N Blood Diseases N Hyperthyroidism N Breast Cancer N Blood Transfusion N Hypothyroidism N Depression N COPD N Lung Disease N Defects or Inherited Disease N Developmental or Behavioral Disorders N Breast Problem N Difficulty Swallowing N Anesthesia Complications N Meniere's disease N Anxiety Disorder N Muscle, Joint, or Bone Problems N Obesity N Vision or Eye Problems N Arthritis N Polyps N Infertility N Mental Disorder N Cancer N Varicosities N Stroke N Endometriosis N Bladder or Kidney Problems N High Cholesterol N Liver Disease N Headaches N Fibromyalgia N Kidney Disease N Allergies/Hayfever N Heart Problems N Ear or Hearing Problems N Hospitalizations N Thyroid Problems N GI Problems N ADD/ADHD N Skin Problems N Eating Disorder N Anemia N MRSA exposure N Constipation N Mental Illness N Ovarian Cancer N Diabetes N Bedwetting N Seizures/Epilepsy N Tuberculosis N AIDS/HIV N Congestive Heart Failure (CHF) N Eczema N Diverticulitis N Abuse/Domestic Violence N Asthma N Reflux/GERD N Hepatitis N Heart Disease N Pulmonary Embolism N Chronic Ear Infections N Pre-Eclampsia N Hypertension N Chicken Pox N Autism Spectrum Disorder (ASD) N Osteoporosis N Thrombophilias N Immunizations Vaccine Type Date Status Note Provider Nam e and Address Organization Details Recorded Time Td(adult) unspecified formulation 8 completed Not Available [facility] 12/23/2023 16:33:29 Influenza, split virus, quadrivalent, preservative 8 completed Not Available [facility] 12/23/2023 16:33:29 zoster recombinant 9 completed Not Available [facility] 12/23/2023 16:33:29 zoster recombinant 9 completed Not Available [facility] 12/23/2023 16:33:29 Influenza, split virus, quadrivalent, preservative 9 completed Not Available [facility] 12/23/2023 16:33:29 pneumococcal polysaccharide PPV23 8 completed Not Available [facility] 12/23/2023 16:33:29 Pneumococcal conjugate PCV 13 7 completed Not Available [facility] 12/23/2023 16:33:29 Influenza, high-dose, quadrivalent, PF 0 completed [facility] 12/23/2023 16:33:29 SARS-COV-2 (COVID-19) vaccine, UNSPECIFIED 1 completed Not Available [facility] 12/23/2023 16:33:29 SARS-COV-2 (COVID-19) vaccine, UNSPECIFIED 1 completed Not Available [facility] 12/23/2023 16:33:29 COVID-19, mRNA, LNP-S, PF, 30 mcg/0.3 mL dose 1 completed Not Available [facility] 12/23/2023 16:33:29 Influenza, split virus, quadrivalent, preservative 1 completed Not Available [facility] 12/23/2023 16:33:29 Influenza, split virus, quadrivalent, preservative 2 completed Not Available [facility] 12/23/2023 16:33:29 COVID-19, mRNA, LNP-S, PF, 30 mcg/0.3 mL dose, rola-sucrose 2 completed Not Available [facility] 12/23/2023 16:33:29 Influenza, split virus, quadrivalent, preservative 5 completed Not Available [facility] 12/23/2023 16:33:29 pneumococcal polysaccharide PPV23 4 completed Not Available [facility] 12/23/2023 16:33:29 zoster live 5 completed Not Available [facility] 12/23/2023 16:33:29 Tdap 8 completed Not Available [facility] 12/23/2023 16:33:29 influenza, unspecified formulation 3 completed Not Available [facility] 12/23/2023 16:33:29 Respiratory syncytial virus (RSV) MAB, unspecified 4 completed MD Tati Cleveland [address], [place], [address], [facility] 09/09/2024 13:00:27 influenza, unspecified formulation 4 completed MD Tati Cleveland [address], [place], [address], [facility] 12/16/2024 12:52:13 Past Encounters Encounter ID Performer Location Encounter Start Date Encounter Closed Date Diagnosis/Indication Diagnosis SNOMED-CT Code Diagnosis ICD10 Code Diagnosis IMO Codes Diagnosis Note [id number] Faviola Alves MD [employer] [employer], [place] [address] [facility] [address] [place] [address] 03/20/2016 12:46:31 03/20/2016 14:07:42 Benign hypertension 99899478 I10 Osteoarthritis 298050777 M19.90 Diabetes mellitus 713473 09 E11.42 Hyperlipidemia 88674581 E78.5 Peripheral vascular disease 468882308 I73.9 abnormal EDWIN //vascular surg eval Diabetic p eripheral neuropathy 544003649 E11.40 [id number] Faviola Alves MD [employer], [address] [place] [address] 05/13/2016 11:32:50 05/13/2016 12:10:12 Peripheral vascular disease 963697889 I73.9 Osteoarthritis 655397589 M19.90 Hypothyroidism 16564315 E03.9 Diabetic p eripheral neuropathy 933771003 E11.40 Coronary arteriosclerosis 12780969 I25.10 Hyperlipidemia 72970626 E78.5 Diabetes mellitus 657156 09 E11.42 Benign hypertension 1072 5009 I10 Rosacea 789605659 L71.9 Viral screening 97494389 4 Z11.59 [id number] Faviola Alves MD [facility], [address] [place] [address] 08/13/2016 09:05:28 08/13/2016 09:42:36 Benign hypertension 75591496 I10 Hyperlipidemia 38036458 E78.5 Diabetes mellitus 084229 09 E11.42 Peripheral vascular disease 478353591 I73.9 last EDWIN 01/2016 Active or passive immunization 679053713 Z23 Diabetic foot ulcer 3710 15797 E11.40 Hypothyroidism 68112695 E03.9 [id number] Faviola Alves MD [facility], [place] [address] [facility] [address] [place] [address] 11/12/2016 09:10:01 11/12/2016 09:52:59 Diabetes mellitus 52404780 E11.42 Hypothyroidism 46702186 E03.9 Coronary arteriosclerosis 38847167 I25.10 Hyperlipidemia 58562472 E78.5 Benign hypertension 1072 5009 I10 Peripheral vascular disease 283273166 I73.9 last EDWIN 01/2016 Active or passive immunization 013604656 Z23 Rosacea 140052586 L71.9 [id number] Faviola Alves MD [employer] [employer], [place] [address] [address] [place] [address] 02/10/2017 10:53:04 02/10/2017 11:52:30 Benign hypertension 62638588 I10 Diabetes mellitus 067336 09 E11.42 Coronary arteriosclerosis 32344701 I25.10 Hypothyroidism 19690571 E03.9 Peripheral vascular disease 760211321 I73.9 last EDWIN 01/2016 Rosacea 533572115 L71.9 Active or passive immunization 784805758 Z23 Charcot's arthropathy 35 1072452 M14.679 sees pod every 3 months [id number] Faviola Alves MD [employer], [place] [address] [facility] [address] [place] [address] 05/30/2017 11:57:07 05/30/2017 12:44:53 Preoperative cardiovascular examination 380644680 Z01.810 need to get cardiology clearnce from his cardiology Peripheral vascular disease 176125581 I73.9 mild on the new EDWIN @ [facility] 05/22/17 Bronchitis 69698875 J40 Benign hypertension 1072 5009 I10 Rosacea 708627283 L71.9 Diabetes mellitus 783538 09 E11.42 per pt had A1c @ [facility] 04/09/17 and it was 6.5 Hypothyroidism 96838241 E03.9 Hyperlipidemia 79904397 E78.5 [id number] Faviola Alves MD [employer] [facility], [place] [address] [facility] [address] [place] [address] 08/29/2017 12:25:01 08/29/2017 13:05:14 Infection of foot 113938472 L08.9 Lt big toe , seen pod , will change to doxy , RTC 1 week if not better Benign hypertension 1072 5009 I10 Diabetes mellitus 227250 09 E11.69 per pt had A1c with endo 07/16/17 and was 6.3 Hypothyroidism 49465478 E03.9 Peripheral vascular disease 140126353 I73.9 mild on the new EDWIN @ [facility] 05/22/17 [id number] Faviola Alves MD [employer] [facility], [place] [address] [facility] [address] [place] [address] 12/01/2017 15:46:31 12/01/2017 16:30:34 Diabetes mellitus 36202054 E11.69 per pt had A1c with endo 10/20/17 and was 6.7 Hyperlipidemia 15890732 E78.5 Coronary arteriosclerosis 09218730 I25.10 Diabetic p eripheral neuropathy 938592941 E11.40 Charcot's arthropathy 35 4956034 M14.679 sees pod every 3 months Benign hypertension 1072 5009 I10 Active or passive immunization 504838136 Z23 Poor balance 574518087 R 27.8 2ry to diabetic neuropathy Hypothyroidism 92912760 E03.9 Peripheral vascular disease 987683212 I73.9 mild on the new EDWIN @ [facility] 05/22/17 Decreased hearing 397951 001 H91.93 [id number] Faviola Alves MD [employer] [facility], [address] [place] [address] 03/02/2018 12:19:13 03/02/2018 13:35:33 Adult health examination 887921496 Z00.00 Benign hypertension 1072 5009 I10 good control Hypothyroidism 97702842 E03.9 last TSH 12/10/17 Diabetes mellitus 719092 09 E11.69 per pt had A1c with endo 10/20/17 and was 6.7 Hyperlipidemia 24893317 E78.5 last LDL 12/10/16 Coronary arteriosclerosis 11398405 I25.10 sees cardiology on reg basis Osteoarthritis 098496389 M19.90 Rosacea 228259103 L71.9 good control with doxy Charcot's arthropathy 35 2789259 M14.679 sees pod every 3 months Peripheral vascular disease 623134939 I73.9 mild on the new EDWIN @ [facility] 05/22/17 Diabetic p eripheral neuropathy 640527489 E11.40 will try tylenol Screening for malignant neoplasm of colon 712391295 Z12.11 last C scope 11/26/16 , good till 2021 Active or passive immunization 422246573 Z23 [id number] Faviola Alves MD [employer], [place] [address] [facility] [address] [place] [address] 06/01/2018 14:09:06 06/01/2018 14:47:05 Benign hypertension 37455842 I10 good control Peripheral vascular disease 489577006 I73.9 mild on the new EDWIN @ [facility] 05/22/17 Charcot's arthropathy 35 0849215 M14.679 sees pod every 3 months Hypothyroidism 12338469 E03.9 last TSH 12/10/17 Diabetic p eripheral neuropathy 997142126 E11.40 will try tylenol Coronary arteriosclerosis 32327582 I25.10 sees cardiology on reg basis Hyperlipidemia 88428061 E78.5 last LDL 12/10/17 @ goal Diabetes mellitus 941951 09 E11.69 per pt had A1c with endo 03/02/18 was 7.1 Active or passive immunization 660519955 Z23 Rosacea 020525131 L71.9 good control with doxy Osteoarthritis 664850336 M19.90 Screening for malignant neoplasm of colon 018537558 Z12.11 last C scope 11/26/16 , good till 2021 [id number] Faviola Alves MD [employer] [facility], [place] [address] [facility] [address] [place] [address] 09/01/2018 14:21:20 09/01/2018 15:03:03 Cellulitis of lower limb 897873391 L03.119 last TD 12/2017 Pain in left knee 109695 8494 76803 M25.562 Benign hypertension 1072 5009 I10 good control Diabetes mellitus 680749 09 E11.69 last A1c 06/09/18 Screening for malignant neoplasm of colon 457999126 Z12.11 last C scope 11/26/16 , good till 2021 Active or passive immunization 002082199 Z23 [id number] Faviola Alves MD [employer] [facility], [place] [address] [address] [place] [address] 12/02/2018 14:39:39 12/02/2018 15:30:45 Benign hypertension 51024589 I10 good control Hypothyroidism 47253783 E03.9 last TSH 06/09/18 Coronary arteriosclerosis 28815999 I25.10 sees cardiology on reg basis Hyperlipidemia 64675348 E78.5 last LDL 12/10/17 @ goal Diabetes mellitus 356580 09 E11.69 last A1c 06/09/18 Screening for malignant neoplasm of colon 068609200 Z12.11 last C scope 11/26/16 , good till 2021 Active or passive immunization 548918679 Z23 [id number] Faviola Alves MD [employer], [place] [address] [facility] [address] [place] [address] 03/05/2019 12:40:57 03/05/2019 13:29:31 Adult health examination 422473228 Z00.01 Diabetes mellitus 346684 09 E11.69 last A1c 12/21/18las t eye ex 01/2019 Hyperlipidemia 10345246 E78.5 last LDL 12/21/18 @ goal Hypothyroidism 46867493 E03.9 last TSH 12/21/18 Diabetic p eripheral neuropathy 147758067 E11.40 will try tylenol Coronary arteriosclerosis 18041371 I25.10 sees cardiology on reg basis Osteoarthritis 037202047 M19.90 Rosacea 067153199 L71.9 good control with doxy Charcot's arthropathy 35 1945046 M14.679 sees pod every 3 months Benign hypertension 1072 5009 I10 good control Peripheral vascular disease 908516913 I73.9 mild on the new EDWIN @ [facility] 05/22/17 Body mass index 30+ - obesity 366085972 Z68.36 Screening for malignant neoplasm of colon 345628767 Z12.11 last C scope 11/26/16 , good till 2021 Active or passive immunization 248587348 Z23 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 254245074 E11.3499 seen ophth 02/23/19 [id number] Faviola Alves MD [employer], [facility] [place] [address] 06/04/2019 12:29:49 06/04/2019 12:59:17 Benign hypertension 38217820 I10 good control 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 035691561 E11.3499 seen ophth 02/23/19 Hypothyroidism 64133145 E03.9 last TSH 12/21/18 Diabetes mellitus 245945 09 E11.69 last A1c 6.7 @ endo 04/21/19las t eye ex 02/23/2019 Peripheral vascular disease 483382335 I73.9 mild on EDWIN 09/09/18 Benign par oxysmal positional vertigo 431283821 H81.10 Screening for malignant neoplasm of colon 455449734 Z12.11 last C scope 11/26/16 , good till 2021 Active or passive immunization 302331843 Z23 [id number] Faviola Alves MD [employer], [place] [address] [address] [place] [address] 09/06/2019 12:16:45 09/06/2019 13:12:20 Benign hypertension 62342587 I10 good control Peripheral vascular disease 575883479 I73.9 mild on EDWIN 09/09/18 Charcot's arthropathy 35 1085397 M14.679 sees pod every 3 months Hypothyroidism 00845850 E03.9 last TSH 12/21/18 Coronary arteriosclerosis 05387232 I25.10 sees cardiology on reg basis Hyperlipidemia 73872079 E78.5 last LDL 12/21/18 @ goal Diabetes mellitus 367625 09 E11.69 last A1c 6.7 @ endo 04/21/19las t eye ex 02/23/2019 Body mass index 30+ - obesity 763799635 Z68.36 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 988118611 E11.3499 seen ophth 07/02/19 Eruption 411354699 R21 Osteoarthritis 543908974 M19.90 Screening for malignant neoplasm of colon 787909994 Z12.11 last C scope 11/26/16 , good till 2021 Impacted c erumen in left ear 3379179187 796901 H61.22 389651 Faviola Alves MD [employer], [place] [address] [address] [place] [address] 12/07/2019 10:51:15 12/07/2019 11:59:40 Benign hypertension 39755949 I10 good control Body mass index 30+ - obesity 423622289 Z68.36 Coronary arteriosclerosis 62670884 I25.10 sees cardiology on reg basis Diabetes mellitus 107388 09 E11.69 last A1c 7.1last eye ex 10/29/19 Hyperlipidemia 17010475 E78.5 last LDL 12/21/18 @ goal Hypothyroidism 89573330 E03.9 last TSH 09/24/19 Screening for malignant neoplasm of colon 873284704 Z12.11 last C scope 11/26/16 , good till 2021 Active or passive immunization 902622531 Z23 up to date [id number] Faviola Alves MD [employer], [place] [address] [place] [address] 02/02/2020 15:32:56 02/02/2020 16:08:21 Coronary arteriosclerosis 62607704 I25.10 seen , cardiology , had stent RCArecheck BMPhas plavix , no other meds change Chest pain 16856560 R07. 9 just had stent on RCA Mixed hyperlipidemia 267 223164 E78.2 last LDL 01/24/20 @ goal Benign hypertension 1072 5009 I10 good control Ulcer of toe 827748667 L 97.509 Diabetes mellitus 795293 09 E11.69 last A1c 7.1last eye ex 10/29/19 [id number] Faviola Alves MD [employer], [place] [address] [place] [address] 03/07/2020 10:50:05 03/07/2020 11:38:19 Benign hypertension 70606990 I10 good control Coronary arteriosclerosis 24558052 I25.10 seen , cardiology , had stent RCArecheck BMPhas plavix , no other meds change Diabetes mellitus 376938 09 E11.69 last A1c 12/20/19las t eye ex 10/29/19 Hyperlipidemia 06059749 E78.5 last LDL 01/24/20 @ goal Hypothyroidism 21957480 E03.9 last TSH 12/20/19 Peripheral vascular disease 886298111 I73.9 mild on EDWIN 09/15/19 , arterial doppler 02/21/20 Screening for malignant neoplasm of colon 110745637 Z12.11 last C scope 11/26/16 , good till 2021 [id number] Faviola Alves MD [facility], [facility] [address] [place] [address] 06/06/2020 10:27:55 06/06/2020 11:48:48 Adult health examination 333092777 Z00.01 Benign hypertension 1072 5009 I10 good control Coronary arteriosclerosis 61904182 I25.10 seen , cardiology , had stent RCArecheck BMPhas plavix , no other meds change Diabetes mellitus 546540 09 E11.69 last A1c 12/20/19las t eye ex 10/29/19 Body mass index 30+ - obesity 572145152 Z68.36 education Charcot's arthropathy 35 7785885 M14.679 sees pod every 3 months Diabetic p eripheral neuropathy 465354458 E11.40 on tylenol Ex-smoker 0631325 Z87.89 1 education Hyperlipidemia 43031993 E78.5 last LDL 01/24/20 @ goal Hypothyroidism 12343354 E03.9 last TSH 12/20/19 Lymphedema 685526058 I89 .0 education Osteoarthritis 914377993 M19.90 Peripheral vascular disease 418604837 I73.9 mild on EDWIN 09/15/19 , arterial doppler 02/21/20 Rosacea 771545791 L71.9 good control with doxy 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 242253946 E11.3499 seen ophth 02/2020 Viral screening 36491054 4 Z11.59 Screening for malignant neoplasm of colon 687760355 Z12.11 last C scope 11/26/16 , good till 2021 Active or passive immunization 606856516 Z23 up to date [id number] Faviola Alves MD [facility], [facility] [address] [place] [address] 09/05/2020 15:30:44 09/05/2020 16:33:11 Benign hypertension 41360418 I10 good control Diabetes mellitus 423191 09 E11.69 last A1c 06/09/20las t eye ex 07/07/20las t MELVIN 06/09/20 Hyperlipidemia 93263214 E78.5 last LDL 01/24/20 @ goal Hypothyroidism 20331035 E03.9 last TSH 06/09/20 Osteoarthritis 980596442 M19.90 Screening for malignant neoplasm of colon 134483449 Z12.11 last C scope 11/26/16 , good till 2021 Active or passive immunization 586869564 Z23 up to date [id number] Faviola Alves MD [employer] [facility] [address] [place] [address] 12/06/2020 15:10:16 12/06/2020 15:41:15 Diabetes mellitus 89344809 E11.69 last A1c 06/09/20las t eye ex 07/07/20las t MELVIN 06/09/20 Diabetic p eripheral neuropathy 679677393 E11.40 on tylenol Hyperlipidemia 17707434 E78.5 last LDL 01/24/20 @ goal Hypothyroidism 25166456 E03.9 last TSH 06/09/20 Benign hypertension 1072 5009 I10 good control Cellulitis of foot 49924 6007 L03.119 Rt 5th toe , septra , had NL EDWIN 09/15/19ed ucationpod following Screening for malignant neoplasm of colon 216729016 Z12.11 last C scope 11/26/16 , good till 2021 Active or passive immunization 455832846 Z23 up to date Coronary arteriosclerosis 44917300 I25.10 seen , cardiology , had stent RCArecheck BMPhas plavix , no other meds change [id number] Faviola Alves MD [employer] [address] [facility] [address] [place] [address] 03/07/2021 14:42:02 03/07/2021 15:25:14 Benign hypertension 40984781 I10 good control Body mass index 30+ - obesity 927759488 Z68.36 education Coronary arteriosclerosis 55011152 I25.10 seen , cardiology , had stent RCA has plavix , no other meds change Diabetes mellitus 451467 09 E11.69 last A1c 06/09/20las t eye ex 07/07/20las t MELVIN 06/09/20 Diabetic p eripheral neuropathy 809344842 E11.40 on tylenol Hyperlipidemia 94123840 E78.5 last LDL 03/05/21 @ goal Hypothyroidism 70427341 E03.9 last TSH 12/07/20 Osteoarthritis 182689912 M19.90 Peripheral vascular disease 929650546 I73.9 mild on EDWIN 09/15/19 , arterial doppler 02/21/20 Screening for malignant neoplasm of colon 904248001 Z12.11 last C scope 11/26/16 , good till 2021 Active or passive immunization 798266101 Z23 up to date Screening for malignant neoplasm of prostate 267103429 Z12.5 Ulcer of foot 49332372 L 97.929 toe , seen pod , seeing wound clinic 079104 Faviola Alves MD [employer], [facility] [address] [facility] [address] [place] [address] 06/28/2021 14:31:27 06/28/2021 15:52:25 Adult health examination 536038853 Z00.01 Benign hypertension 1072 5009 I10 good controllas t EKG 03/08/21 Body mass index 30+ - obesity 359648582 Z68.36 education Charcot's arthropathy 35 7356376 M14.679 sees pod every 3 months Chronic renal failure 90 963446 N18.9 last US 12/2020 Complex renal cyst 51880 1001 N28.1 last US 12/2020 Coronary arteriosclerosis 99461004 I25.10 seen , cardiology , had stent RCA has plavix , no other meds changelast EKG 03/08/21 Diabetes mellitus 805972 09 E11.69 last A1c 03/09/21las t eye ex 04/13/21las t MELVIN 06/09/20 Diabetic p eripheral neuropathy 900128396 E11.40 on tylenol Ex-smoker 4767853 Z87.89 1 education Hyperlipidemia 87274650 E78.5 last LDL 03/05/21 @ goal Hypothyroidism 64980950 E03.9 last TSH 12/07/20 Osteoarthritis 928203711 M19.90 Peripheral vascular disease 117826447 I73.9 mild on EDWIN 03/08/21 Rosacea 342028054 L71.9 good control with doxy 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 583850337 E11.3499 seen ophth 04/13/21 Acute oste omyelitis of phalanx of toe 434604274 M86.179 Lt 5th toe , S/P amputation , done with Abx Screening for malignant neoplasm of colon 212956574 Z12.11 last C scope 11/26/16 , good till 2021 Active or passive immunization 836629229 Z23 up to date [id number] Faviola Alves MD [facility], [address] [place] [address] 10/01/2021 09:09:45 10/01/2021 10:07:48 Benign hypertension 46902653 I10 good controllas t EKG 03/08/21 Body mass index 30+ - obesity 599581009 Z68.36 educationd own 7 LBs Diabetes mellitus 161667 09 E11.69 last A1c las t eye ex 04/13/21las t MELVIN 06/09/20 Coronary arteriosclerosis 55384302 I25.10 seen , cardiology , had stent RCA has plavix , no other meds changelast EKG 03/08/21 Diabetic p eripheral neuropathy 090093108 E11.40 on tylenollas t B12 07/04/21 Hyperlipidemia 07115341 E78.5 last LDL 07/17/21 @ goal Hypothyroidism 33087266 E03.9 last TSH 07/04/21 Peripheral vascular disease 795831714 I73.9 mild on EDWIN 08/06/21 Osteomyeli tis of left foot 1082445097 545772 M86.9 3rd toe , seen vascular , ID and pod Screening for malignant neoplasm of colon 672341800 Z12.11 last C scope 11/26/16 , good till 2021 Active or passive immunization 102916094 Z23 up to date Retinal ischemia 7638341 4 H35.82 per ophth note 04/13/2120110725 Faviola Alves MD [facility], [place] [address] [address] [place] [address] 11/28/2021 17:08:34 11/28/2021 18:22:38 Effusion of joint of left knee 9082024116 79284 M25.462 Benign hypertension 1072 5009 I10 good controllas t EKG 03/08/21 Body mass index 30+ - obesity 215305837 Z68.36 educationl ost 6 Lbs on diet Chronic os teomyelitis of foot 293609987 M86.679 gone , stopped Abx Diabetes mellitus 528871 09 E11.69 last A1c 10/09/21la st eye ex as t MELVIN 07/04/21he is going to talk to endo for restarting jardiance Coronary arteriosclerosis 99571092 I25.10 seen , cardiology , had stint RCA has plavix , no other meds changelast EKG 03/08/21 Diabetic p eripheral neuropathy 499800935 E11.40 on tylenollas t B12 07/04/21 Hyperlipidemia 23317570 E78.5 last LDL 07/17/21 @ goal Hypothyroidism 70018411 E03.9 last TSH 07/04/21 Peripheral vascular disease 394140469 I73.9 mild on EDWIN 08/06/21 [id number] Faviola Alves MD [employer], [place] [address] [facility] [address] [place] [address] 01/01/2022 15:20:45 01/01/2022 16:22:01 Knee pyogenic arthritis 534006191 M00.9 Lt knee , on ABx , had prothesis out and have spacer Diarrhea 91260097 R19.7 Benign hypertension 1072 5009 I10 good controllas t EKG 03/08/21 Diabetes mellitus 267319 09 E11.69 last A1c 10/09/21la st eye ex as t MELVIN 07/04/[id number] Faviola Alves MD [employer], [place] [address] [facility] ,[address] [place] [address] 01/30/2022 11:35:28 01/30/2022 12:18:24 Benign hypertension 48993866 I10 good controllas t EKG 03/08/21 Body mass index 30+ - obesity 575522091 Z68.36 educationl ost 6 Lbs on diet Diabetes mellitus 861715 09 E11.69 last A1c 10/09/21la st eye ex as t MELVIN 07/04/21 Diabetic p eripheral neuropathy 370756781 E11.40 on tylenollas t B12 07/04/21 Knee pyoge tristan arthritis 694448014 M00.9 Lt knee , done ABx , had prosthesis out and have spacer Diarrhea 56225842 R19.7 resolved Mixed hyperlipidemia 267 623314 E78.2 last LDL 07/17/21 @ goal Screening for malignant neoplasm of colon 469983019 Z12.11 last C scope 11/26/16 , good till 2021 Active or passive immunization 964002416 Z23 up to date Coronary arteriosclerosis 20284967 I25.10 seen , cardiology , had stint RCA has plavix , no other meds changelast EKG 03/08/21 Hypothyroidism 91853474 E03.9 last TSH 10/09/21 100324 Faviola Alves MD [employer] [address] [place] [address] 05/09/2022 10:00:36 05/09/2022 11:29:01 Benign hypertension 93867615 I10 good controllas t EKG 03/08/21 Anemia 268571092 D64.9 Type 2 marina betes mellitus without complication 827350109 E11.9 last ophth 01/2022last A1c 01/2022 Diabetic p eripheral neuropathy 161898059 E11.40 on tylenollas t B12 02/05/22 Hypothyroidism 66786255 E03.9 last TSH 02/05/22 Chronic renal failure 90 483813 N18.9 last US 12/2020 Screening for malignant neoplasm of colon 555080399 Z12.11 last C scope 11/26/16 , good till 2021 Active or passive immunization 730867580 Z23 up to date Body mass index 25-29 - overweight 531624170 Z68.28 educationl ost 11 Lbs on diet Effusion o f joint of left knee 5545408078 53370 M25.462 310112 Faviola Alves MD [employer] [address] [place] [address] 08/13/2022 10:51:39 08/13/2022 12:12:55 Adult health examination 847489061 Z00.01 Benign hypertension 1072 5009 I10 good controllas t EKG 03/08/21 Body mass index 25-29 - overweight 796781418 Z68.28 educationo n diet Diabetes mellitus 798089 09 E11.69 last A1c 05/15/22las t eye ex 05/31/22last MELVIN 07/04/21 Diabetic p eripheral neuropathy 992728714 E11.40 on tylenollas t B12 05/15/22 Hyperlipidemia 03554950 E78.5 last LDL 02/05/22 @ goal Hypothyroidism 44008990 E03.9 last TSH 02/05/22 Knee pyoge trisatn arthritis 490743384 M00.9 Lt knee , done ABx , had prosthesis out and have spacer Osteoarthritis 418250465 M19.90 Peripheral vascular disease 445561295 I73.9 mild on EDWIN 02/04/22 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 709906448 E11.3499 seen ophth 05/31/22 Rosacea 558955744 L71.9 good control with doxy Ex-smoker 3622127 Z87.89 1 education Coronary arteriosclerosis 50384005 I25.10 seen , cardiology , had stint RCA has plavix , no other meds changelast EKG 03/08/21 Chronic renal failure 90 367151 N18.9 last US 12/2020 Complex renal cyst 56834 1001 N28.1 last US 02/13/22 Chronic os teomyelitis of foot 168045772 M86.679 gone , stopped Abx Charcot's arthropathy 35 4986644 M14.679 sees pod every 3 months Screening for malignant neoplasm of colon 540449781 Z12.11 last C scope 11/26/16 , good till 2021have one schedules 08/2022 Active or passive immunization 317742931 Z23 up to dateflu and COVID booster Advance di rective discussed with patient 024103162 Z71.89 education Visual disturbance 78066 001 H53.9 difficulty focusing in AM 561370 Faviola Alves MD [facility], [place] [address] [facility] [address] [place] [address] 09/04/2022 09:29:46 09/04/2022 10:32:17 Acute osteomyelitis of phalanx of toe 257896274 M86.179 Lt 4th toe and distal 3rd toe , S/P amputation , still on Abx Cellulitis of foot 42618 6007 L03.119 Rt 4th toe ,education pod following Peripheral vascular disease 112589940 I73.9 last arterial duplex 08/26/22 Hyperkalemia 36427623 E8 7.5 860900 Faviola Alves MD [employer], [facility] [address] [facility] [address] [place] [address] 11/11/2022 15:06:43 11/11/2022 16:18:16 Benign hypertension 80792279 I10 good controllas t EKG 08/16/22 Body mass index 25-29 - overweight 103496116 Z68.28 educationo n diet Diabetes mellitus 468459 09 E11.69 last A1c 09/26/22las t eye ex 05/31/22last MELVIN 09/26/22 Hyperlipidemia 11043797 E78.5 last LDL 08/16/22 @ goal Ulcer of toe 539196045 L 97.509 Screening for malignant neoplasm of colon 000824379 Z12.11 last C scope 09/2022 , good for 5 years Active or passive immunization 081306960 Z23 up to dateflu and COVID booster 779950 Faviola Alves MD [employer] [address] [place] [address] 02/10/2023 14:47:12 02/10/2023 16:20:01 Benign hypertension 20784549 I10 good controllas t EKG 08/16/22 Body mass index 25-29 - overweight 872016007 Z68.28 educationo n diet Carotid ar rafal stenosis 09118241 I65.29 10/10/22 Chronic os teomyelitis of foot 070298901 M86.679 S/P ambulation all toes Lt foot Diabetes mellitus 612169 09 E11.69 last A1c 01/31/23las t eye ex 12/20/2022 per ptlast MELVIN 01/31/22 Hypothyroidism 55491031 E03.9 last TSH 01/31/23 Mixed hyperlipidemia 267 739946 E78.2 last LDL 08/16/22 @ goal Screening for malignant neoplasm of colon 952553976 Z12.11 last C scope 09/2022 , good for 5 years Active or passive immunization 859885276 Z23 up to dateflu and COVID booster Serum karo min B12 borderline low 363765500 R79.89 258392 Faviola Alves MD [employer] [address] [place] [address] 03/21/2023 12:37:51 03/21/2023 13:35:10 Diabetic peripheral neuropathy 584334902 E11.40 on tylenollas t B12 05/15/22had foot deformity Charcot arthropath y , PVD , H/O ulcer ,need diabetic shoes and inserts Peripheral vascular disease 279001039 I73.9 last arterial duplex 08/26/22 Charcot's arthropathy 35 9718827 M14.679 sees pod every 3 months Diabetes mellitus 778419 09 E11.69 last A1c 01/31/23las t eye ex 12/20/2022 per ptlast MELVIN 01/31/23 Screening for malignant neoplasm of colon 795589436 Z12.11 last C scope 09/2022 , good for 5 years Active or passive immunization 629742352 Z23 up to dateflu and COVID booster Hypothyroidism 93978009 E03.9 last TSH 01/31/23 Benign hypertension 1072 5009 I10 good controllas t EKG 08/16/22 606813 Faviola Alves MD [facility], [place] [address] [place] [address] 06/23/2023 14:20:39 06/23/2023 15:39:03 Benign hypertension 97553397 I10 good controllas t EKG 08/16/22 Body mass index 25-29 - overweight 687694650 Z68.28 educationo n diet Carotid ar rafal stenosis 57805716 I65.29 10/10/22 Diabetes mellitus 172756 09 E11.69 last A1c 01/31/23las t eye ex 04/18/2023 per ptlast MELVIN 01/31/23 Hyperlipidemia 09271566 E78.5 last LDL 08/16/22 @ goal Hypothyroidism 51596616 E03.9 last TSH 04/02/23 Peripheral vascular disease 698367370 I73.9 last arterial duplex 05/17/23 Serum karo min B12 below reference range 598342516 R79.89 last level 04/02/23 Screening for malignant neoplasm of colon 602017551 Z12.11 last C scope 09/2022 , good for 5 years Active or passive immunization 250275679 Z23 up to dateflu and COVID booster 935502 Faviola Alves MD [employer], [place] [address] [place] [address] 09/04/2023 13:42:15 09/04/2023 14:43:41 Adult health examination 640009239 Z00.01 Benign hypertension 1072 5009 I10 good controllas t EKG 08/16/22 Body mass index 25-29 - overweight 752811178 Z68.28 educationo n diet Carotid ar rafal stenosis 81722490 I65.29 10/10/22 Charcot's arthropathy 35 5755931 M14.679 sees pod every 3 months Chronic os teomyelitis of foot 100923137 M86.679 S/P ambulation all toes Lt foot Chronic renal failure 90 775736 N18.9 last US 12/2020 Complex renal cyst 72176 1001 N28.1 last US 02/13/22 Coronary arteriosclerosis 33559003 I25.10 seen , cardiology , had stint RCA has plavix , no other meds changelast EKG 03/08/21 Anemia 917962542 D64.9 last CBC Diabetes mellitus 040272 09 E11.69 last A1c 07/11/23las t eye ex 08/15/2023 per ptlast MELVIN 01/31/23 Diabetic p eripheral neuropathy 829496277 E11.40 on tylenollas t B12 04/02/23had foot deformity Charcot arthropath y , PVD , H/O ulcer ,need diabetic shoes and inserts Ex-smoker 6239283 Z87.89 1 education Hyperlipidemia 82200046 E78.5 last LDL 07/11/23 @ goal Hypothyroidism 98673597 E03.9 last TSH 07/11/23 @ goal Lymphedema 827232869 I89 .0 education Osteoarthritis 829802191 M19.90 Peripheral vascular disease 022345394 I73.9 last arterial duplex 05/17/23 Serum karo min B12 below reference range 703750707 R79.89 last level 04/02/23 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 568439753 E11.3499 seen ophth 05/31/22 Screening for malignant neoplasm of colon 209018623 Z12.11 last C scope 09/2022 , good for 5 years Active or passive immunization 721390625 Z23 up to dateflu , RSV and COVID booster Pain of ri ght shoulder joint 6361126013 3748931 M25.511 510857 Faviola Alves MD [employer], [facility] [address] [place] [address] 12/10/2023 13:40:58 12/10/2023 15:04:23 Benign hypertension 11055030 I10 good controllas t EKG 08/16/22 Body mass index 25-29 - overweight 763138837 Z68.28 educationo n diet Carotid ar rafal stenosis 95493470 I65.29 10/10/22 Chronic renal failure 90 926234 N18.9 last US 12/2020 Diabetes mellitus 077066 09 E11.69 last A1c 11/10/23 with endo was 6.9last eye ex 08/15/2023 per ptlast MELVIN 01/31/23 Diabetic p eripheral neuropathy 789039470 E11.40 on tylenollas t B12 04/02/23had foot deformity Charcot arthropath y , PVD , H/O ulcer ,need diabetic shoes and inserts Hyperlipidemia 14826537 E78.5 last LDL 07/11/23 @ goal Hypothyroidism 34783930 E03.9 last TSH 10/2023 @ goal with endo Peripheral vascular disease 124609003 I73.9 last arterial duplex 05/17/23 , 11/27/23 Serum karo min B12 below reference range 812939656 R79.89 last level 04/02/23 Screening for malignant neoplasm of colon 133281060 Z12.11 last C scope 09/2022 , good for 5 years Active or passive immunization 865034777 Z23 up to dateflu , RSV and COVID booster 381237 Faviola Alves MD [employer] [facility], [place] [address] [place] [address] 03/10/2024 14:00:34 03/10/2024 14:49:19 Infection of toe 744607890 L08.9 Rt 2nd toe Benign hypertension 1072 5009 I10 good controllas t EKG 12/10/23 Hypothyroidism 87926203 E03.9 last TSH 10/2023 @ goal with endo Diabetes mellitus 329272 09 E11.69 last A1c 11/10/23 with endo was 6.9last eye ex 1/26/24 per ptlast MELVIN 01/31/23 Carotid ar rafal stenosis 99005109 I65.29 12/25/23 Hyperlipidemia 24350219 E78.5 last LDL 03/03/24 @ goal Peripheral vascular disease 566788227 I73.9 last arterial duplex 05/17/23 , 11/27/23 Screening for malignant neoplasm of colon 812498681 Z12.11 last C scope 09/2022 , good for 5 years Active or passive immunization 129158672 Z23 up to dateRSV 956608 Faviola Alves MD [employer] [facility] [address] [place] [address] 06/09/2024 14:02:44 06/09/2024 14:55:48 Benign hypertension 33041412 I10 good controllas t EKG 12/10/23 Hypothyroidism 21711521 E03.9 last TSH 03/16/24 @ goal with endo Carotid ar rafal stenosis 66585102 I65.29 12/25/23 Coronary arteriosclerosis 19727619 I25.10 seen , cardiology , had stint RCA has plavix , no other meds changelast EKG 04/06/24str ess test 03/2024 Diabetes mellitus 339112 09 E11.69 last A1c 04/14/24 was 6.7last eye ex 12/19/23 per ptlast MELVIN 01/31/23 Diabetic p eripheral neuropathy 999525831 E11.40 on tylenollas t B12 04/02/23had foot deformity Charcot arthropath y , PVD , H/O ulcer ,need diabetic shoes and inserts Screening for malignant neoplasm of colon 665024315 Z12.11 last C scope 09/2022 , good for 5 years Active or passive immunization 029783116 Z23 up to dateRSV Peripheral vascular disease 823985185 I73.9 last arterial duplex 05/17/23 , 11/27/23 [id number] Faviola Alves MD [facility] [address] [place] [address] [place] [address] 09/09/2024 12:10:40 09/09/2024 13:11:06 Adult health examination 961735560 Z00.01 Benign hypertension 1072 5009 I10 good controllas t EKG 12/10/23 Carotid ar rafal stenosis 53251630 I65.29 12/25/23 Chronic renal failure 90 640238 N18.9 last US 12/2020 Coronary arteriosclerosis 40830371 I25.10 seen , cardiology , had stint RCA has plavix , no other meds changelast EKG 04/06/24str ess test 04/06/2024 Diabetes mellitus 955782 09 E11.69 last A1c 08/2024 @ endo was 7.1last eye ex 06/14/24 per ptlast MELVIN 06/14/24 Hypothyroidism 11668734 E03.9 last TSH 03/16/24 @ goal with endo Diabetic p eripheral neuropathy 445940497 E11.40 on tylenollas t B12 04/02/23had foot deformity Charcot arthropath y , PVD , H/O ulcer ,need diabetic shoes and inserts Ex-smoker 0487400 Z87.89 1 education Hyperlipidemia 43785712 E78.5 last LDL 03/03/24 @ goal Osteoarthritis 429545034 M19.90 stable Peripheral vascular disease 921026105 I73.9 last arterial duplex 05/17/23 , 11/27/23 Serum karo min B12 below reference range 074307178 R79.89 last level 04/02/23 Chronic os teomyelitis of foot 354994251 M86.679 S/P ambulation all toes Lt foot Charcot's arthropathy 35 9532028 M14.679 sees pod every 3 months Body mass index 25-29 - overweight 619706035 Z68.28 educationo n diet Anemia 312675217 D64.9 stable Screening for malignant neoplasm of colon 645418480 Z12.11 last C scope 09/2022 , good for 5 years Vitamin D deficiency 347 64479 E55.9 Active or passive immunization 289431940 Z23 up to dateRSV [id number] Faviola Alves MD [place], [facility] [address] [facility] [place] ,[address] [address] 12/16/2024 12:10:28 12/16/2024 13:02:08 Benign hypertension 42530585 I10 good controllas t EKG 04/06/24 Body mass index 25-29 - overweight 282561923 Z68.28 educationo n diet Carotid ar rafal stenosis 67247596 I65.29 12/25/23 Chronic renal failure 90 502041 N18.9 last US 12/2020 Coronary arteriosclerosis 36066535 I25.10 seen , cardiology , had stint RCA has plavix , no other meds changelast EKG 04/06/24str ess test 04/06/2024 Diabetes mellitus 507150 09 E11.69 last A1c 12/15/24 @ endo was 7.3last eye ex 09/17/24 per ptlast MELVIN 06/14/24 Diabetic p eripheral neuropathy 812371281 E11.40 on tylenollas t B12 12/15/24had foot deformity Charcot arthropath y , PVD , H/O ulcer ,need diabetic shoes and inserts Hypothyroidism 25715447 E03.9 last TSH 12/15/24 @ goal with endo Peripheral vascular disease 305300114 I73.9 last arterial duplex 05/17/23 , 11/27/23 , 11/2024sees vascular on reg basis Vitamin D deficiency 347 19845 E55.9 12/15/24 Hyperlipidemia 30249920 E78.5 last LDL 12/15/24 @ goal Screening for malignant neoplasm of colon 199919944 Z12.11 last C scope 09/2022 , good for 5 years Active or passive immunization 736998489 Z23 up to date [id number] Faviola Alves MD [employer], [place] [id number] [facility] [place] ,[address] [address] 05/26/2025 11:33:56 05/26/2025 13:01:58 Benign hypertension 94533196 I10 good controllas t EKG 05/20/25 @ Yasmany Coronary arteriosclerosis 04117778 I25.10 seen , cardiology , had stint RCA has plavix , no other meds changelast EKG 04/06/24str ess test 04/06/2024, -ve ER workup 05/20/25 Carotid ar rafal stenosis 98712452 I65.29 02/03/25 Peripheral vascular disease 619903118 I73.9 last arterial duplex 05/17/23 , 11/27/23 , 11/2024sees vascular on reg basis Hyperlipidemia 40791565 E78.5 last LDL 02/08/25 @ goal Diabetes mellitus 331995 09 E11.69 last A1c 12/15/24 @ endo was 7.3last eye ex 01/21/25 per ptlast MELVIN 06/14/24 Hypothyroidism 47453754 E03.9 last TSH 02/08/25 below goal with endo Body mass index 25-29 - overweight 665655389 Z68.28 educationo n diet Vitamin D deficiency 347 76377 E55.9 02/08/25 Serum karo min B12 below reference range 258507461 R79.89 last level 02/08/25 Chronic renal failure 90 828696 N18.9 last US 12/2020 Generalize d osteoarthritis 380255650 M15.9 1453 tylenol 500 TID Charcot's arthropathy 35 9938567 M14.679 sees pod every 3 months Diabetic p eripheral neuropathy 300280480 E11.40 on tylenollas t B12 02/08/25had foot deformity Charcot arthropath y , PVD , H/O ulcer ,need diabetic shoes and inserts Ex-smoker 3180086 Z87.89 1 education Screening for malignant neoplasm of colon 547722400 Z12.11 541233 last C scope 09/2022 , good for 5 years Immunization due 0295097 08 Z23 4017762 up to date [id number] Faviola Alves MD [facility], [place] [address] [facility] [place] ,[address] [address] 08/25/2025 12:19:41 08/25/2025 13:16:06 Benign hypertension 50289296 I10 good controllas t EKG 05/20/25 @ Yasmany Coronary arteriosclerosis 61089266 I25.10 seen , cardiology , had stint RCA has plavix , no other meds changelast EKG 04/06/24str ess test 04/06/2024, -ve ER workup 05/20/25 Carotid ar rafal stenosis 34237967 I65.29 02/03/25 Peripheral vascular disease 306476459 I73.9 last arterial duplex 05/17/23 , 11/27/23 , 11/2024sees vascular on reg basis Hyperlipidemia 20519266 E78.5 last LDL 02/08/25 @ goal Diabetes mellitus 566014 09 E11.69 - last A1c 08/17/25 @ endo- last eye ex 06/24/25 per pt- last MELVIN 02/08/25 Hypothyroidism 24935018 E03.9 last TSH 08/17/25 Body mass index 25-29 - overweight 914864251 Z68.28 educationo n diet Serum karo min B12 below reference range 488831163 R79.89 last level 02/08/25 Vitamin D deficiency 347 35470 E55.9 02/08/25 Chronic renal failure 90 179049 N18.9 last US 12/2020 Chronic os teomyelitis of foot 647920574 M86.679 S/P ambulation all toes Lt foot Diabetic p eripheral neuropathy 779152112 E11.40 on tylenollas t B12 02/08/25had foot deformity Charcot arthropath y , PVD , H/O ulcer ,need diabetic shoes and inserts Screening for malignant neoplasm of colon 182322272 Z12.11 340450 last C scope 09/2022 , good for 5 years Immunization due 7377585 08 Z23 3712091 up to date Health Concerns Section Related Observation LastModified by Organization Detai ls LastModified Time None Recorded Concern Status LastModified by Organization Details LastModified Time None Recorded Advance Directives Directive Y: Payers Insurance Date Sequence Insurance Name Policy Number Policy Godfrey Covered Member ID Godfrey Member ID Guarantor Name 08/25/2025 2 [facility] (MEDICARE SUPPLEMENT) [id number] Steve Bradley [id number] Steve Bradley 08/25/2025 1 [employer] - MEDICARE-[address] [employer] (MEDICARE) Reena Bradley [id number] Steve Bradley Notes Date Note Type Note Provider Name and Address Organization Details Recorded Time 06/09/2024 text/html Hypertension F/UReported by PatientHPIFor medications, patient reportstaking medications as directedandno side effects from medication. For lifestyle, patient reportsregular exercise,limiting/kristy iding salt, andcompliant with low salt diet. For associated symptoms, patient reportsno dizziness,no lightheadedness,no chest pain,no shortness of breath,no palpitations,no edema,no calf pain with exertion, andno headache. had Rt 2nd toe partial amputation ,ahd stress test 03/2024 Faviola Alves MD [address] [facility] [address] [place], [address], [facility] 06/09/2024 14:52:34 09/09/2024 text/html Medicare Annual Wellness VisitReported by PatientSocial/Behavio ral HistoryFor diet and nutrition, patient reportshealthy diet. For fracture risk, patient reportsno history of fractures,no recent explained fracture,no sudden unexplained fractures, andno previous musculoskeletal injuries. For physical activity, patient reportsrecent increase in physical activity,good physical condition, anddiscussed exercise habits.Mental Status:For depression risk, patient reportsnever feels sad, empty, or tearful,no loss of interest in activities,no significant changes in weight,no sleep disturbances or insomnia,no agitation,no loss of energy,no feelings of worthlessness or guilt,no thoughts of suicide,no history of depression, andno history of mood disorders. For orientation, patient reportsno disorientation to time,no disorientation to date, andno disorientation to place. For concentration and memory, patient reportsno decreased concentrating ability,no memory lapses or loss, anddoes not forget words. For speech/motor difficulties, patient reportsno speech difficulties,no difficulty expressing formulated concepts,no difficulty with fine manipulative tasks,no difficulty writing/copying,no slowed reaction time, anddoes not knock things over when trying to pick them up.Functional AbilityFor hearing, patient reportsno loss of hearing. For vision, patient reportsno vision problems. For activities of daily living, patient reportsable to bathe with limited or no assistance,able to contol urination and bowels,able to dress with limited or no assistance,able to feed self with limited or no assistance,able to get out of chair or bed with limited or no assistance,able to groom with limited or no assistance, andable to toilet with limited or no assistance. For instrumental activities of daily living, patient reportsable to do house work with limited or no assistance,able to grocery shop with limited or no assistance,able to manage medications with limited or no assistance,able to manage money with limited or no assistance,able to prepare meals with limited or no assistance, andable to use the phone with limited or no assistance. For falls risk assessment, patient reportsno frequent falls while walking,no fall in the past year,no fall since last visit, andno dizziness/vertigo. For home safety, patient reportsuse of seatbeltsandno vision or hearing loss while driving. Hypertension F/UReported by PatientHPIFor medications, patient reportstaking medications as directedandno side effects from medication. For lifestyle, patient reportsregular exercise,limiting/kristy iding salt, andcompliant with low salt diet. For associated symptoms, patient reportsno dizziness,no lightheadedness,no chest pain,no shortness of breath,no palpitations,no edema,no calf pain with exertion, andno headache. MD Tati Cleveland [facility] [address] [place], [address], [facility] 09/09/2024 13:06:11 12/16/2024 text/html Hypertension F/UReported by PatientHPIFor medications, patient reportstaking medications as directedandno side effects from medication. For lifestyle, patient reportsregular exercise,limiting/kristy iding salt, andcompliant with low salt diet. For associated symptoms, patient reportsno dizziness,no lightheadedness,no chest pain,no shortness of breath,no palpitations,no edema,no calf pain with exertion, andno headache. MD Tati Cleveland [facility] [address] [place], [address], [facility] 12/16/2024 12:58:43 05/26/2025 text/html Hypertension F/UReported by PatientHPIFor medications, patient reportstaking medications as directedandno side effects from medication. For lifestyle, patient reportsregular exercise,limiting/kristy iding salt, andcompliant with low salt diet. For associated symptoms, patient reportsno dizziness,no lightheadedness,no chest pain,no shortness of breath,no palpitations,no edema,no calf pain with exertion, andno headache. MD Tati Cleveland [facility] [address] [place], [address], [facility] 05/26/2025 12:58:54 08/25/2025 text/html Hypertension F/UReported by PatientHPIFor medications, patient reportstaking medications as directedandno side effects from medication. For lifestyle, patient reportsregular exercise,limiting/kristy iding salt, andcompliant with low salt diet. For associated symptoms, patient reportsno dizziness,no lightheadedness,no chest pain,no shortness of breath,no palpitations,no edema,no calf pain with exertion, andno headache. Faviola Alves MD [address] [facility] [address], [place], [address], [facility] 08/25/2025 13:10:31
--- OUTSIDE RECORDS SUMMARY | 2025-09-28 07:22 | XMS_ITS | Encounter Summary ---
Author Organization [facility] Address [address] [place] [address] Phone Care Team Providers Care Rn Wound Name Role Phone Faviola Pringle MD Primary Care Provider [phone] Reason for Visit * Reason Onset Date Comments Med Refill 02/28/2023 Encounter Details Date Type Department Care Team (Late st Contact Info) Description 02/28/2023 Refill [facility] [address] [facility] 1 [place] [address] Jazzmine Pinon MA Social History Tobacco Use Types Packs/Day Years Used Date Smoking Tobacco: Former Smokeless Tobacco: Never Sex and Gender Information Value Date Recorded Sex Assigned at Not on file Legal Sex Male 8:34 AM [facility] Gender Identity Not on file Sexual Orientation Not on file documented as of this encounter Plan of Treatment Upcoming Encounters Date Type Department Care Team (Late st Contact Info) Description 10/06/2025 4:20 PM 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
--- OUTSIDE RECORDS SUMMARY | 2025-09-28 07:22 | XMS_ITS | Encounter Summary ---
Author Organization [facility] Address [address] [place] [address] Phone Care Team Providers Care Night Custodian Name Role Phone Faviola Pringle MD Primary Care Provider [phone] Darren Alfredo MD Unavailable [phone] Robin Liu. 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 Gender Identity Not on file Sexual Orientation [...] on filedocumented in this encounter Care Teams Night Custodian Relationship Specialty Start Date End Date Faviola Pringle MD [address] [facility] 100 [place] [address] PCP - General 03/06/17 Darren Alfredo MD [address] [facility] 100 [place] [address] Consulting Physician Infectious Diseases 03/23/21 Robin Liu DPM [address] [place] [address] Consulting Physician Foot and Ankle Surg 08/31/22 Rcikie Elizondo DPM [address] [facility] [address] [place] [address] Consulting Physician Orthopedic Surgery 12/27/22 documented as of this encounter
--- OUTSIDE RECORDS SUMMARY | 2025-09-28 07:22 | XMS_ITS | Clinical Summary ---
Author Organization [facility] Address [address] [place] [address] Phone Care Team Providers Care Shank Skinner Name Role Phone Faviola Pringle MD Primary Care Provider [phone] Allergies Active Allergy Reactions Criticality Noted Date Comments Iodine 02/18/2022 Pentazocine 02/18/2022 Medications atorvastatin (LIPITOR) 40 MG tablet Take 40 mg by mouth 1 (one) time each day Active metFORMIN (GLUCOPHAGE) 500 MG tablet Take 500 mg by mouth in the morning and 500 mg in the evening. Take with meals. Active carvedilol (COREG) 25 MG tablet Take 25 mg by mouth in the morning and 25 mg in the evening. Take with meals. Active isosorbide mononitrate (IMDUR) 30 MG 24 hr tablet Take 30 mg by mouth 1 (one) time each day Do not crush or chew. Active clopidogrel (PLAVIX) 75 MG tablet Take 75 mg by mouth 1 (one) time each day Active lisinopril (PRINIVIL) 10 MG tablet Take 10 mg by mouth 1 (one) time each day Active omega-3 (FISH OIL) 1000 MG capsule Take 1,000 mg by mouth in the morning and 1,000 mg in the evening. Active aspirin (ST NOLA) 81 MG EC tablet Take 81 mg by mouth 1 (one) time each day Active Multiple Vitamins-Minerals (PRESERVISION AREDS 2 PO) Take by mouth in the morning and in the evening. Active insulin glargine (LANTUS) 100 UNIT/ML injection Inject 11 Units under the skin every night Active latanoprost (XALATAN) 0.005 % ophthalmic solution Administer 1 drop into both eyes every night Active dorzolamide (TRUSOPT) 2 % ophthalmic solution 1 drop in the morning and 1 drop in the evening and 1 drop before bedtime. Active furosemide (LASIX) 20 MG tablet Take 20 mg by mouth 1 (one) time each day Active linaGLIPtin (Tradjenta) 5 MG tablet Take 5 mg by mouth in the morning. Active levothyroxine (SYNTHROID) 150 MCG tablet Take 150 mcg by mouth 1 (one) time each day Active cyanocobalamin (VITAMIN B-12) 100 MCG tablet Take 100 mcg by mouth 1 (one) time each day Active Empagliflozin (Jardiance) 25 MG tablet Take 25 mg by mouth 1 (one) time each day Active Sodium Zirconium Cyclosilicate (Lokelma) 10 g pack Take 10 g by mouth every other day Active Lifitegrast (XIIDRA OP) Administer into affected eye(s) Active Active Problems Problem Noted Date Diagnosed Date Chronic kidney disease stage 2 02/04/2023 Anemia in chronic kidney disease 02/04/2023 Proteinuria 02/04/2023 Vitamin D deficiency 02/04/2023 Essential hypertension Diabetes mellitus without me ntion of complication, type II or unspecified type, not stated as uncontrolled Resolved Problems Problem Noted Date Diagnosed Date Resolved Date Disorder of kidney due to diabetes mellitus 02/04/2023 07/14/2023 Fluid retention 02/04/2023 07/14/2023 Complex renal cyst Family History Medical History Relation Comments Diabetes Mother Stroke Mother Relation Status Comments Mother Social History Tobacco Use Types Packs/Day Years Used Date Smoking Tobacco: Former Smokeless Tobacco: Never Tobacco Cessation:Counseling Given: Not Answered Sex and Gender Information Value Date Recorded Sex Assigned at Not on file Legal Sex Male 8:34 AM [facility] Gender Identity Not on file Sexual Orientation Not on file Last Filed Vital Signs Vital Sign Reading Time Taken Comments Blood Pressure 108/53 03/15/2025 3:34 PM CDT Pulse 73 03/15/2025 3:34 PM CDT Temperature 36.5 C (97.7 F) 02/21/2022 3:44 PM CDT Respiratory Rate - - Oxygen Saturation 95% 07/15/2023 2:21 PM CDT Inhaled Oxygen Concentration - - Weight 96.6 kg (213 lb) 03/15/2025 3:34 PM CDT Height 180.3 cm (5' 11) 03/15/2025 3:34 PM CDT Body Mass Index 29.71 03/15/2025 3:34 PM CDT Plan of Treatment Upcoming Encounters Date Type Department Care Team (Late st Contact Info) Description 10/06/2025 4:20 PM ROLLED HAM LACER Office Visit [facility] [address] [facility] 1 [place] [address] Bob Arroyo MD [address] [facility] [address] [place], [place] [id number] Health Maintenance Due Date Last Done Comments Diabetic Foot Exam 1950 Ophthalmology Exam 1950 Pneumococcal PPSV23/PCV13 65 + Years / High and Highest Risk (2 of 4 - PPSV23, PCV20, or PCV21) 07/30/2019 06/04/2019, 03/05/2019 , 12/02/2018, Additional history exists COVID-19 Vaccine ( - 2024-2 6 season) 2025 10/07/2021, 02/14/2021, 01/24/2021 Influenza Vaccine (#1) 2025 4, 08/31/2023, 10/07/2021, Additional history exists Insurance MEDICARE RAILROAD [facility] MEDICARE [place] [id number] [facility] Care Teams Shank Skinner Relationship Specialty Start Date End Date Faviola Pringle MD [address] [facility] [address] [place] [address] PCP - General 01/29/22
--- OUTSIDE RECORDS SUMMARY | 2025-09-28 07:22 | XMS_ITS | Encounter Summary ---
Author Organization [facility] Address [address] [place] [address] Phone Care Team Providers Care B And B Gang Worker Name Role Phone Faviola Pringle MD Primary Care Provider [phone] Darren Alfredo MD Unavailable [phone] Robin Liu. 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 Gender Identity Not on file Sexual Orientation Not on file Occupation Industry Job Start Date Job End Date Retired Not on file Not on file Not on file documented as of this encounter Plan of Treatment Not on file documented as of this encounter Procedures Procedure Name Priority Date/Time Associated Diagnosis Comments SCAN - LABS 05/20/2025 documented in this encounter Results * SCAN - LABS (05/20/2025) us Provider Scanning Final Result documented in this encounter Visit Diagnoses Not on filedocumented in this encounter Care Teams B And B Gang Worker Relationship Specialty Start Date End Date Faviola Pringle MD [address] [facility] 100 [place] [address] PCP - General 03/06/17 Darren Alfredo MD [address] [facility] 100 [place] [address] Consulting Physician Infectious Diseases 03/23/21 Robin Liu DPM [address] [place] [address] Consulting Physician Foot and Ankle Surg 08/31/22 Rickie Elizondo DPM [address] [facility] 102 [place] [address] Consulting Physician Orthopedic Surgery 12/27/22 documented as of this encounter
--- OUTSIDE RECORDS SUMMARY | 2025-09-28 07:22 | XMS_ITS | Clinical Summary ---
Author Organization [facility] Address [address] [place] [address] Care Team Providers Care Environmental Advisor Name Role Phone Unavailable Primary Care Provider Unavailabl e Source Comments [facility],non-owned Affiliates and Associated Physician Practices is amultiple site organization consisting of ambulatory clinics and hospital sitesin [place], [place], [place] and [place]. This disclosure is being madepursuant to the Care Everywhere program and may not contain all information available regarding this patient. 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
--- OUTSIDE RECORDS SUMMARY | 2025-09-28 07:22 | XMS_ITS | Encounter Summary ---
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 Gender Identity Not on file Sexual Orientation [...] COVID: Suspected 12/14/2021 12/14/2021 12/14/2021 7:17 PM AIR VALVE 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
--- OUTSIDE RECORDS SUMMARY | 2025-09-28 07:22 | XMS_ITS | Clinical Summary ---
Author Organization [facility] Address [address] [place] [address] Care Team Providers Care Automotive Artist Name Role Phone Faviola Pringle MD Primary Care Provider [phone]- [phone] Darren Alfredo MD Unavailable [phone]- [phone] Robin Liu DPM Unavailable [phone] Rickie Elizondo DPM Unavailable [phone] Allergies Active Allergy Reactions Criticality Noted Date [...] Active Additional Information Patient not taking.Reported on 08/15/2025 BD Ultra-Fine Short Pen Needle 31 gauge x 5/16 needle 4 (four) times a day 0 Active dorzolamide (TRUSOPT) 2 % ophthalmic solution INSTILL 1 DROP INTO BOTH EYES 3 TIMES A DAY DIRECTED 0 Active lisinopriL (PRINIVIL,ZESTR IL) 10 mg tablet Take 1 tablet (10 mg total) by mouth daily 2 Active ergocalciferol (VITAMIN D) 50,000 unit [...] Active Additional Information Patient not taking.Reported on 08/15/2025 famotidine (PEPCID) 20 mg tablet Take 1 tablet by mouth at 6:00 PM the night before and 6:00 AM the morning of surgery with a sip of water. 2 tablet 4 Active Additional Information Patient not taking.Reported on 08/15/2025 diphenhydrAMINE 25 mg capsule Take 2 capsules at 6:00 AM the morning of surgery with a sip of water. 2 capsule 4 Active Additional Information Patient not taking.Reported on 08/15/2025 linaGLIPtin (Tradjenta) 5 mg tablet TAKE 1 [...] nail plate 4 mL 1 5 Active levothyroxine (SYNTHROID) 137 mcg tablet Take 1 tablet (137 mcg total) by mouth daily 90 tablet 3 5 02/15/20 26 Active insulin lispro (HumaLOG, ADMELOG) 100 unit/mL pen for injectionIndica tions:Type 2 diabetes mellitus with diabetic neuropathy, with long-term current use of insulin (HCC) Inject 2 units with lunch and 2 units with dinner 15 mL 3 5 Active empagliflozin (Jardiance) 25 mg tabletIndicatio ns:type 2 diabetes mellitus Take 1 tablet (25 mg total) by mouth daily 90 tablet 1 5 Active metFORMIN (GLUCOPHAGE) 500 mg tablet Take 2 tablets (1,000 mg total) by mouth daily with breakfast AND 1 tablet (500 mg total) daily with dinner. 270 tablet 3 5 08/15/20 26 Active Active Problems Problem Noted Date Diagnosed Date Abnormal cardiovascular stress test 09/24/2024 Stage 3a chronic kidney disease 08/16/2024 Acute osteomyelitis of left ankle or foot 2022 Overview (12/20/2022): Added automatically from request for surgery [id number] Carotid artery stenosis 11/20/2022 Lower extremity edema 10/03/2022 Pure hypercholesterolemia 10/03/2022 Assessment & Plan (12/13/2022 10:37 AM ACDS BLOCK 1 OPERATOR): Stable. Continue Lipitor 40 mg. Assessment & Plan (10/03/2022 12:53 PM ACDS BLOCK 1 OPERATOR): Lipitor On chronic clopidogrel therapy 10/03/2022 Cellulitis [...] 12/15/2021 Assessment & Plan (01/03/2022 9:11 AM ACDS BLOCK 1 OPERATOR): - Currently receiving Vancomycin 1.25 mg every [...] concerns. Assessment & Plan (12/17/2021 1:57 PM ACDS BLOCK 1 OPERATOR): 81-year-old male with diabetes and multiple medical [...] (12/14/2021): Added automatically from request for surgery [id number] Dysfunction of right eustachian tube 10/01/2021 Retinal [...] 6 Assessment & Plan (12/13/2022 10:36 AM ACDS BLOCK 1 OPERATOR): Ulceration to the left 3rd toe, discussed at length with the patient and his spouse, given his palpable pulses and normal ABIs I suspect this is all inframalleolar occlusive disease and digit disease. Further management of the ulceration of the toe per his church organist. We will plan for follow-up in 6 [...] 03/24/2016 Assessment & Plan (12/03/2024 2:03 PM ACDS BLOCK 1 OPERATOR): Stable right lower extremity PVD. Continue ASA statin therapy. Follow up in 1 year with repeat noninvasives testing. Assessment & Plan (11/27/2023 1:36 PM ACDS BLOCK 1 OPERATOR): Stable PVD, no evidence of life-limiting claudication rest pain or wounds. Continue surveillance with repeat noninvasives in 1 year. Continue ASA Plavix and statin therapy. Assessment & Plan (10/30/2022 3:47 PM ACDS BLOCK 1 OPERATOR): Patient with a history of a right iliac stent placed by Dr. Gilbert in 2019. Currently has a superficial ulceration seeing Podiatry. Most recent lower extremity arterial Doppler reveals sufficient blood supply for wound healing. No surgical procedure intervention indicated this time. Plan follow-up in the office in 6 months with arterial duplex Assessment & Plan (10/03/2022 12:52 PM ACDS BLOCK 1 OPERATOR): ABIs from outside hospital with mild occlusive [...] 02/01/2014 Assessment & Plan (12/03/2024 2:04 PM ACDS BLOCK 1 OPERATOR): Stable continue Coreg Assessment & Plan (11/27/2023 1:36 PM ACDS BLOCK 1 OPERATOR): Stable continue lisinopril 10 mg. Assessment & Plan (12/13/2022 10:37 AM ACDS BLOCK 1 OPERATOR): Stable continue Lasix 20 mg. Assessment & Plan (10/30/2022 3:46 PM ACDS BLOCK 1 OPERATOR): Carvedilol Assessment & Plan (10/03/2022 12:52 PM ACDS BLOCK 1 OPERATOR): Coreg Mixed hyperlipidemia 02/01/2014 Assessment & Plan (12/03/2024 2:03 PM ACDS BLOCK 1 OPERATOR): Stable continue Lipitor Assessment & Plan (11/27/2023 1:36 PM ACDS BLOCK 1 OPERATOR): Stable continue Lipitor 40 mg. 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 02/01/2014 Diabetes mellitus 02/01/2014 Assessment & Plan (01/18/2019 9:13 PM ACDS BLOCK 1 OPERATOR): Continue same reginen Cardiac disease 02/01/2014 History of myocardial infarction 02/01/2014 Actinic keratosis 11/12/2013 Pyogenic inflammation of bone Encounters Date Type Department Care Team Description 08/26/2025 Documentation [facility] Endocrinology Metabolism and Lipid [address] [facility] [address], [address] [place] [address] Niharika Lopez RN Hypoglycemia 08/15/2025 1:40 PM CDT Office Visit [facility] Endocrinology Metabolism and Lipid [address] [facility] 13 [place] [address] [place] [address] Kristin Emery MD Type 2 diabetes mellitus with other specified complication, with long-term current use of insulin (Primary Dx) 07/01/2025 11:30 AM CDT Office Visit [facility] Medicine Orthopaedic Surgery [address] [facility] [address] [place] [address] Chilo Figueroa MD History of total knee arthroplasty, left (Primary Dx); Orthopedic aftercare 07/01/2025 10:29 AM CDT - 07/01/2025 11:59 PM CDT Hospital Encounter [facility]iology [address] [facility] [address] [place] [id number] History of total knee arthroplasty, left; Orthopedic aftercare Discharge Disposition: Discharge to home or self care from Last 3 Months Immunizations Immunization Administration [...] diabetes mellitus wit h hypoglycemia without coma Diabetic hypoglycemia - (Add ed by TW Conv) prison current use of insulin (HCC) Insulin long-term use - (Added by TW Conv) Type 2 diabetes mellitus wit h hypoglycemia without coma Diabetic hypoglycemia - (Add ed by TW Conv) Arthritis Cancer (HCC) skin CA Coronary artery disease Hypertension Thyroid disease Ear problems HL (hearing loss) Loss of smell Peripheral artery disease Heart failure Family History Medical History Relation Name Comments [...] drink = 0.6 oz pur e alcohol) PHQ-2 Answer Date Recorded PHQ-2 Total Score (If total score is 3 or more points, staff should administer the PHQ-9) 0 03/22/2021 AUDIT-C Answer Date Recorded Q1: How often do you have a drink containing alcohol? Never 08/15/2025 Q2: How many drinks containi ng alcohol do you have on a typical day when you are drinking? Patient does not drink Q3: How often do you have si x or more drinks on one occasion? Never 08/15/2025 Personal Safety Answer Date Recorded Have you ever been in or are you currently in a harmful physical or emotional relationship or is someone making you feel afraid or unsafe? Denies 09/30/2024 Sex and Gender Information Value Date Recorded Sex Assigned at Not on file Legal Sex Male 3:12 AM ACDS BLOCK 1 OPERATOR Gender Identity Not on file Sexual Orientation Not on file Occupation Industry Job Start Date Job End Date Retired Not on file Not on file Not on file Last Filed Vital Signs Vital Sign Reading Time Taken Comments Blood Pressure 102/56 08/15/2025 1:45 PM CDT Pulse 74 08/15/2025 1:45 PM CDT Temperature 36.6 C (97.8 F) 12/15/2024 1:57 PM ACDS BLOCK 1 OPERATOR Respiratory Rate 16 12/15/2024 1:57 PM ACDS BLOCK 1 OPERATOR Oxygen Saturation 97% 12/15/2024 1:57 PM ACDS BLOCK 1 OPERATOR Inhaled Oxygen Concentration - - Weight 96.7 kg (213 lb 3.2 oz) 08/15/2025 1:45 P M CDT Height 177.8 cm (5' 10) 08/15/2025 1:45 PM CDT Body Mass Index 30.59 08/15/2025 1:45 PM CDT Plan of Treatment Health Maintenance Due Date Last Done Comments Dilated Eye Exam 1941 Foot Exam 1941 Hepatitis B Screening 1959 Well Visit 65+ 2006 Depression Screening 03/19/2022 03/19/2021 Albumin Creatinine Ratio, Urine 11/10/2024 , 01/11/2021 Covid-19 Vaccine (2024-12 6 season) 2025 10/07/2021, 02/14/2021, 01/24/2021 Influenza Vaccine (#1) 2025 3, 08/31/2022, 08/27/2022, Additional history exists Fall Risk Assessment 09/30/2025 09/30/2024 Lipid Panel 11/12/2025 11/12/2024, 05, 09/25/2022, Additional history exists eGFR 11/12/2025 11/12/2024, 1105/2024, 11/10/2023, Additional history exists Hemoglobin A1C 02/12/2026 08/15/2025, 01/23, 08/16/2024, Additional history exists DTaP/Tdap/Td Vaccine (5 - Td or Tdap) 12/25/2027 12/25/2017, 10/18/2015, 10/18/2015, Additional history exists Pneumococcal vaccine 65+ Completed 019, 03/05/2019, 12/02/2018, Additional history exists Zoster Vaccine Completed 09/02/2019, 05/25, 06/04/2019, Additional history exists Medical Devices Implanted Type Area Credit Underwriter Device Identifier Shelf Expiration Date Model / Serial / Lot [employer] [id number] [place] R High Viscosity Cement 40gm Bone Green - [id number] Implanted:Qty: 4 on 12/15/2021 by Rodolfo Nunez MD at [facility] Left: Knee [employer] 09/23/2024 [id number] / / [id number] [employer] [id number] Attune Cemented Posterior Stabilize Knee Left 8 Component Femoral - [id number] Implanted:Qty: 1 on 12/15/2021 by Rodolfo Nunez MD at [facility] Left: Knee [employer] [id number] 09/23/2031 [id number] / / [id number] [employer] [id number] Tibial Attune Ps Alpoly Sz 8 5mm - [id number] Implanted:Qty: 1 on 12/15/2021 by Rodolfo Nunez MD at [facility] Left: Knee [employer] [id number] 05/23/2026 [id number] / / [id number] [employer] 620-020 Stimulan Rapid Cure Kit Paste Fur Mixer 20cc 50cc Bone Void - [id number] - [id number] Implanted:Qty: 1 on 12/15/2021 by Rodolfo Nunez MD at [facility] [employer] 07/24/2024 620-02 0 / [id number] / Procedures Procedure Name Priority Date/Time Associated Diagnosis Comments POCT HEMOGLOBIN A1C Routine 08/15/2025 1:59 PM CDT Type 2 diabetes mellitus with other specified complication, with long-term current use of insulin XR KNEE LEFT 3 VIEWS Schedule Routine, Read Routine (OP Routine) 07/01/2025 10:45 AM CDT History of total knee arthroplasty, left Orthopedic aftercare EGFR Routine 11/12/2024 8:22 AM ACDS BLOCK 1 OPERATOR LIPID PANEL Routine 11/12/2024 8:22 AM ACDS BLOCK 1 OPERATOR ALBUMIN CREATININE RATIO, URINE Routine 11/10/2023 2:36 PM ACDS BLOCK 1 OPERATOR Type 2 diabetes mellitus with diabetic neuropathy, with long-term current use of insulin (HCC) from Last 3 Months or Most Recently Relevant to Health Maintenance Results * (ABNORMAL) POCT hemoglobin A1c (08/15/2025 1:59 PM CDT) Hemoglobin A1C, POC 7.0(A) 4.0 - 5.6 % Blood 08/15/2025 1:59 PM CDT us Kristin Emery MD POINT OF CARE TEST ORDERABLES Final Result * XR Knee Left 3 Views (07/01/2025 10:45 AM CDT) Anatomical Region Laterality Modality Lower Extremities, Knee Left Computed Radiography 07/01/2025 12:5 6 PM CDT Impressions 07/01/2025 12:56 PM CDT Unchanged 2 component left knee arthroplasty with remodeling of the patella and mild lateral subluxation. Electronically signed by: Adolfo Verduzco MD Narrative 07/01/2025 12:56 PM CDT EXAMINATION: XR KNEE LEFT 3 VIEWS HISTORY: Left knee osteoarthritis FINDINGS: Comparison dated 06/07/2022. Unchanged 2 component left knee arthroplasty with remodeling of the patella and mild lateral subluxation. This has increased as compared to the previous examination. No periprosthetic fracture. Extensive heterotopic ossification about the left knee. Varus angulation of the tibial component is again noted. Small left knee joint effusion. Vascular calcifications. Procedure Note Adolfo Verduzco MD - 07/01/2025 EXAMINATION: XR KNEE LEFT 3 VIEWS HISTORY: Left knee osteoarthritis FINDINGS: Comparison dated 06/07/2022. Unchanged 2 component left knee arthroplasty with remodeling of the patella and mild lateral subluxation. This has increased as compared to the previous examination. No periprosthetic fracture. Extensive heterotopic ossification about the left knee. Varus angulation of the tibial component is again noted. Small left knee joint effusion. Vascular calcifications. IMPRESSION: Unchanged 2 component left knee arthroplasty with remodeling of the patella and mild lateral subluxation. Electronically signed by: Adolfo Verduzco MD us Chilo Figueroa MD IMG XR PROCEDURES Final Result * eGFR (11/12/2024 8:22 AM ACDS BLOCK 1 OPERATOR) eGFR 67 >=60 mL/min/1. 73 m2 Comment: [...] was last reviewed 2021. Testing performed by: [facility], [address] [place] [address], [place]., [address] Blood 11/12/2024 8:22 AM ACDS BLOCK 1 OPERATOR 11/12/2024 9:27 AM ACDS BLOCK 1 OPERATOR us Isidra Osborne MD LAB BLOOD ORDERABLES Final R esult [facility] [address] [facility] Department [place] [address] * Lipid panel (11/12/2024 8:22 AM ACDS BLOCK 1 OPERATOR) Cholesterol 111 30 - 199 mg/dL Comment: [...] last revised on 2018. Testing performed by: [address] [address] Triglycerides 87 <=149 mg/dL THU Comment: Interpretive [...] last revised on 2018. Testing performed by: [address] [address] HDL 41 >=40 mg/dL THU Comment: Interpretive [...] last revised on 2018. Testing performed by: [address] [address] LDL, calculated 53 <=129 mg/dL THU Comment: [...] NCEP Expert Panel. Circulation 2004;110:227 3. Jose Amaro al. BROOK Cardiol. 2019March 24;5(5):540-548. doi: 10.1001/jamacardio.2020.0013 Current Interpretive Data was last revised on 2024. Testing performed by: [address] [address] Non-HDL Cholesterol 70 mg/dL [facility]ARD Comment: [...] last revised on 2018. Testing performed by: [address] [address] Chol/HDL ratio 3 [facility]U [facility]ERNARD Comment:Testing performed by : [address] [address] Blood 11/12/2024 8:22 AM ACDS BLOCK 1 OPERATOR 11/12/2024 9:27 AM ACDS BLOCK 1 OPERATOR us Isidra Osborne MD LAB BLOOD ORDERABLES Final R esult [facility]ERNARD [address] [facility] Department [place] [address] * Albumin Creatinine Ratio, Urine (11/10/2023 2:36 PM ACDS BLOCK 1 OPERATOR) Microalb, Ur <7.0 0.0 - 22.9 mg/L [facility] Comment:Repeated and Verifie d Random Urine Creatinine 28.7 mg/dL [facility] Microalb/Creat Ratio <24.4 0.0 - 29.9 mg/g [facility] Urine 11/10/2023 2:36 PM ACDS BLOCK 1 OPERATOR 11/10/2023 3:17 PM ACDS BLOCK 1 OPERATOR Kristin Emery MD LAB URINE ORDERABLES Final Re sult [facility] from Last 3 Months or Most Recently Relevant to Health Maintenance Insurance MEDICARE [employer] [facility] INDEMNITY [place] MEDICARE RAILROAD Advance Directives For more information, please contact: [phone] Documents on File Type Date Recorded Patient Counter Checker Expl anation ADVANCE DIRECTIVE 03/26/2021 11:15 AM POWER OF PRINCIPAL BIOINFORMATICS SPECIALIST-MEDICAL ADVANCE DIRECTIVE 04/03/2013 12:00 AM INEZ R OF PRINCIPAL BIOINFORMATICS SPECIALIST FINANCIAL/MEDICAL * Full Code (Latest Code Status on File) Date Activated Date Inactivated Comments 08/27/2022 6:50 PM 08/31/2022 6:45 PM * Full Code Date Activated Date Inactivated Comments 12/15/2021 12:30 PM 12/19/2021 6:51 PM * Full Code Date Activated Date Inactivated Comments 03/19/2021 5:34 PM 03/23/2021 11:36 PM Care Teams Automotive Artist Relationship Specialty Start Date End Date Faviola Pringle MD [address] [place] [address] PCP - General 03/06/17 Darren Alfredo MD [address] [place] [address] Consulting Physician Infectious Diseases 03/23/21 Robin Liu DPM [address] [place] [address] Consulting Physician Foot and Ankle Surg 08/31/22 Rickie Elizondo DPM [address] [address] Consulting Physician Orthopedic Surgery 12/27/22
[2025-09-28 08:29] LABS: Hematocrit 44.2 % (42.0-52.0); Hemoglobin 13.8 g/dL (14.0-18.0); Immature Granulocyte Percent A 0.4 % (0-0.5); Lymphocytes Absolute Auto 1.76 K/mm3 (0.9-3.2); Mean Corpuscular HGB Conc 31.2 g/dl (32-36); Mean Corpuscular Hemoglobin 30.5 pg (26-34); Mean Corpuscular Volume 97.8 fl (80-100); Nucleated Red Blood Cells Absolute Auto 0.000 K/mm3 (0.0-0.012); Nucleated Red Blood Cells Perc 0.0 % (0.0-0.2); Platelet Count Result 146 k/mm3 (150-375); Red Blood Count 4.52 M/mm3 (4.6-6.20); White Blood Count 5.6 K/mm3 (4.5-10.0)
[2025-09-28 08:34] LABS: Add Urine Microscopic? NO; Appearance Urine Clear (Clear); Glucose Urine UA 2+ mg/dL (Negative); Leukocyte Esterase Ur Negative LEU/UL (Negative); Nitrate Urine Negative (Negative); Specific Grav Ur 1.024 (1.001-1.035)
[2025-09-28 08:54] LABS: Albumin Level 4.1 g/dL (3.5-5.1); Anion Gap 7 mmol/L (4-12); Blood Urea Nitrogen 43 mg/dL (9-20); Calcium 9.2 mg/dL (8.4-10.2); Carbon Dioxide 27 mmol/L (22-30); Chloride 104 mmol/L (98-107); Estimated Glomerular Filt Rate 51; Glucose 100 mg/dL (65-110); Potassium 4.6 mmol/L (3.4-5.0); Sodium 138 mmol/L (137-145)
[2025-09-28 09:00] LABS: Total Protein Urine Random 7 mg/dL; Ur Ttl Prot Creatinine Ratio 0.05 mg/mg (0-0.20)
== END 2025-09-28 07:16 | disposition home or self-care (01) ==
PROVIDERS: PCP Internal Medicine; Visit Provider Hospitalist
DX: I12.9 Hypertensive chronic kidney disease with stage 1 through stage 4 chronic kidney disease, or unspecified chronic kidney disease (principal); N18.2 Chronic kidney disease, stage 2 (mild)
CPT/HCPCS: 36415; 80069; 81003; 82570; 84156; 85025

== ENCOUNTER 2025-10-14 07:36 | Outpatient (CLI) | payer MEDICARE, OTHER, SELFPAY ==
--- OUTSIDE RECORDS SUMMARY | 2025-10-14 07:42 | XMS_ITS | Encounter Summary ---
Author Organization [facility] Address [address] [facility] [address] [place] [address] Care Team Providers Care Transport Truck Driver Name Role Phone Faviola Pringle MD Primary Care Provider + [phone] Darren Alfredo MD Unavailable [phone] Robin Liu DPM Unavailable [phone] Rickie Elizondo DPM Unavailable [phone] Encounter Details Date Type Department Care Team (Late st Contact Info) Description 07/27/[address] [facility] Health Information Management [address] [place] [address] Scanning, Provider Social History Tobacco Use Types Packs/Day Years Used Date Smoking Tobacco: Never Assessed Sex and Gender Information Value Date Recorded Sex Assigned at Not on file Legal Sex Male 3:12 AM POWER TRANSFORMER REPAIR SUPERVISOR Gender Identity Not on file Sexual [...] COVID: Suspected 12/14/2021 12/14/2021 12/14/2021 7:17 PM POWER TRANSFORMER REPAIR SUPERVISOR documented as of this encounter Care Teams Transport Truck Driver Relationship Specialty Start Date End Date Faviola Pringle MD [address] [facility] [address] [place] [address] PCP - General 03/06/17 Darren Alfredo MD [address] [facility] [address] [place] [address] Consulting Physician Infectious Diseases 03/23/21 Robin Liu DPM [address] [place] [address] Consulting Physician Foot and Ankle Surg 08/31/22 Rickie Elizondo DPM [address] [address] Consulting Physician Orthopedic Surgery 12/27/22 documented as of this encounter
--- OUTSIDE RECORDS SUMMARY | 2025-10-14 07:42 | XMS_ITS | Encounter Summary ---
Author Organization [facility] Address [address] [facility] [place] [address] Care Team Providers Care Yarn Bleaching Machine Operator Name Role Phone Unavailable Primary Care Provider Unavailabl e Encounter Details Date Type Department Care Team (Late st Contact Info) Description 02/25/2019 Lab Requisition [facility] Care [facility] Lab [address] [place] [address] Isac Ramires MD [address] [place] [address] Social History Tobacco Use Types Packs/Day Years Used Date Smoking Tobacco: Never Assessed Sex and Gender Information Value Date Recorded Sex Assigned at Not on file Legal Sex Male 6:02 PM RAG ROOM SUPERVISOR Gender Identity Not on file Sexual Orientation Not on file documented as of this encounter Plan of Treatment Not on file documented as of this encounter Procedures Procedure Name Priority Date/Time Associated Diagnosis Comments DERMATOPATHOLOGY Routine 02/24/2019 12:0 0 AM CDT documented in this encounter Results * DERMATOPATHOLOGY (02/24/2019 12:00 AM CDT) Case Report Dermatopathology Report Case: [id number] Authorizing Provider: Isac Ramires MD Collected: 02/24/2019 12:00 AM Pathologist: Danna Irby MD Received: 02/25/2019 11:50 AM Specimen: Skin, right christianity 9 2:43 PM CDT DERMATOPATHOLOGY LABORATORY Final Diagnosis Specimen A. 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 Previous Bx: [id number]. 2:43 PM CDT DERMATOPATHOLOGY LABORATORY Gross Description Specimen A: Received is one formalin filled container labeled with the patient's name and designated right christianity. The specimen consists of a curettage and desiccation biopsy (2 pieces) measuring 28w0o8ag & 84w1u0qt. Jar 0. 2:43 PM CDT DERMATOPATHOLOGY LABORATORY Microscopic Description Specimen A. SKIN, right christianity: There are fibroblasts and collagen bundles oriented [...] by the Dermatopathology Laboratory at [facility], directed by Dr. Mo Santiago. These tests need not be, and therefore are not, approved by the [place] Food and Drug Administration. The tests are used for clinical purposes. Billing Codes Specimen Charges Stain Charges 88030 1 2:43 PM CDT DERMATOPATHOLOGY LABORATORY Embedded Images 2:43 PM CDT DERMATOPATHOLOGY LABORATORY Pathology/Cytolog y TISSUE SPECIMEN FROM SKIN / Unknown 02/24/2019 02/25/2019 11:50 AM CDT Isac Ramires MD LAB - PATHOLOGY/CYTOLOGY ORD ERABLES Final Result DERMATOPATHOLOGY LABORATORY [facility] - Department of Dermatology [address] [place] [address] [address]th Floor Lab [address] [phone] documented in this encounter Visit Diagnoses Not on filedocumented in this encounter
--- OUTSIDE RECORDS SUMMARY | 2025-10-14 07:42 | XMS_ITS | Encounter Summary ---
Author Organization [facility] Facility Care Team Providers Care Analysis Engineer Name Role Phone Faviola Pringle MD Primary Care Provider + [phone] Darren Alfredo MD Unavailable + [phone] Robin Liu DPM Unavailable [phone] Rickie Elizondo DPM Unavailable [phone] Encounter Details Date Type Department Care Team (Latest Contact Info) Description 11/27/2015 Orders Only [facility] CLINCONV Provider, MD Mary [address] [place], [place] [id number] Social History Tobacco Use Types Packs/Day Years Used Date Smoking Tobacco: Former Sex and Gender Information Value Date Recorded Sex Assigned at Not on file Legal Sex Male 3:12 AM MARKET BASKET MAKER Gender Identity Not on file Sexual Orientation Not on file documented as of this encounter Functional Status documented as of this encounter Plan of Treatment Not on file documented as of this encounter Procedures Procedure Name Priority Date/Time Associated Diagnosis Comments PROCEDURE - RESULT 11/29/2015 12 :00 AM MARKET BASKET MAKER SCAN - LABS 11/28/2015 12:00 AM MARKET BASKET MAKER SCAN - LABS 11/28/2015 12:00 AM MARKET BASKET MAKER SCAN - LABS 11/28/2015 12:00 AM MARKET BASKET MAKER documented in this encounter Results * PROCEDURE - RESULT (11/29/2015 12:00 AM MARKET BASKET MAKER) Narrative 11/29/2015 12:00 AM MARKET BASKET MAKER Ordered by an unspecified provider. Historical Provider MD Final Res ult * SCAN - LABS (11/28/2015 12:00 AM MARKET BASKET MAKER) Narrative 11/28/2015 12:00 AM MARKET BASKET MAKER Ordered by an unspecified provider. Historical Provider Final Res ult * SCAN - LABS (11/28/2015 12:00 AM MARKET BASKET MAKER) Narrative 11/28/2015 12:00 AM MARKET BASKET MAKER Ordered by an unspecified provider. Historical Provider Final Res ult * SCAN - LABS (11/28/2015 12:00 AM MARKET BASKET MAKER) Narrative 11/28/2015 12:00 AM MARKET BASKET MAKER Ordered by an unspecified provider. [facility] Provider Final Res ult documented in this encounter Visit Diagnoses Not on filedocumented in this encounter Additional Health Concerns Infection Onset Date Last Indicated Resolved Time MRSA Comment:Hx 6yrs ago 11/28/2015 11/27/2015 07/11/2021 5:00 AM C DT COVID: Suspected 12/14/2021 12/14/2021 12/14/2021 7:17 PM MARKET BASKET MAKER documented as of this encounter Care Teams Analysis Engineer Relationship Specialty Start Date End Date Faviola Pringle MD [address] [place] [address] PCP - General 03/06/17 Darren Alfredo MD [address] [place] [address] Consulting Physician Infectious Diseases 03/23/21 Robin Liu DPM [address] [place] [address] Consulting Physician Foot and Ankle Surg 08/31/22 Rickie Elizondo DPM [address] [address] Consulting Physician Orthopedic Surgery 12/27/22 documented as of this encounter
--- OUTSIDE RECORDS SUMMARY | 2025-10-14 07:42 | XMS_ITS | Clinical Summary ---
Author Organization [facility] Address [address] [facility] [place] [address] Care Team Providers Care Candy Supervisor Name Role Phone Unavailable Primary Care Provider Unavailabl e Source Comments [facility],non-owned Affiliates and Associated Physician Practices is amultiple site organization consisting of ambulatory clinics and hospital sitesin [place], [place], [place] and [place]. This disclosure is being madepursuant to the Care Everywhere program and may not contain all information available regarding this patient. 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
--- OUTSIDE RECORDS SUMMARY | 2025-10-14 07:42 | XMS_ITS | Clinical Summary ---
Author Organization [facility] Care Team Providers Care Physical Therapy Teacher Name Role Phone Unavailable Primary Care Provider [...]
--- OUTSIDE RECORDS SUMMARY | 2025-10-14 07:42 | XMS_ITS | Encounter Summary ---
Author Organization [facility] Facility Care Team Providers Care Second Ride Fare Collector Name Role Phone Faviola Pringle MD Primary Care Provider + [phone] Darren Alfredo MD Unavailable + [phone] Robin Liu DPM Unavailable [phone] Rickie Elizondo DPM Unavailable [phone] Encounter Details Date Type Department Care Team (Latest Contact Info) Description 01/26/2017 Orders Only [facility] CLINCONV Provider, MD Mary [address] [place] [address] Social History Tobacco Use Types Packs/Day Years Used Date Smoking Tobacco: Former Sex and Gender Information Value Date Recorded Sex Assigned at Not on file 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 Gender Identity Not on file Sexual Orientation [...] COVID: Suspected 12/14/2021 12/14/2021 12/14/2021 7:17 PM SECURITIES DEALER documented as of this encounter Care Teams Second Ride Fare Collector Relationship Specialty Start Date End Date Faviola Pringle MD [address] [place] [address] PCP - General 03/06/17 Darren Alfredo MD [address] [place] [address] Consulting Physician Infectious Diseases 03/23/21 Robin Liu DPM [address] [place] [address] Consulting Physician Foot and Ankle Surg 08/31/22 Rickie Elizondo DPM [address] [address] Consulting Physician Orthopedic Surgery 12/27/22 documented as of this encounter
--- OUTSIDE RECORDS SUMMARY | 2025-10-14 07:42 | XMS_ITS | Clinical Summary ---
Author Organization [facility] Address [address] [place] [address] Care Team Providers Care Shredder/Granulator Operator Name Role Phone Faviola Pringle MD Primary Care Provider [phone] Josephine Pierre MD Unavailable [phone] Social History Tobacco Use Types Packs/Day [...] to complete this topic Insurance [employer] MEDICARE [facility] Care Teams Shredder/Granulator Operator Relationship Specialty Start Date End Date Faviola Pringle MD PCP - General 08/02/13 Josephine Pierre MD [address] [facility] [place] [address] WOUND CARE 09/13/21
--- OUTSIDE RECORDS SUMMARY | 2025-10-14 07:42 | XMS_ITS | Encounter Summary ---
Author Organization [facility] Address [address] [place] [address] Care Team Providers Care Form Maker Name Role Phone Unavailable Primary Care Provider Unavailabl e Encounter Details Date Type Department Care Team (Late st Contact Info) Description 02/15/2019 Lab Requisition 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 Gender Identity Not on file Sexual Orientation Not on file documented as of this encounter Plan of Treatment Not on file documented as of this encounter Procedures Procedure Name Priority Date/Time Associated Diagnosis Comments DERMATOPATHOLOGY Routine 02/12/2019 12:0 0 AM CDT documented in this encounter Results * DERMATOPATHOLOGY (02/12/2019 12:00 AM CDT) Case Report Dermatopathology Report Case: [id number] Authorizing Provider: Isac Ramires MD Collected: 02/12/2019 12:00 AM Pathologist: Danna Irby MD Received: 02/15/2019 01:00 PM Specimen: Skin, right adventism 9 2:06 PM CDT DERMATOPATHOLOGY LABORATORY Final Diagnosis Specimen A. 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 2:06 PM CDT DERMATOPATHOLOGY LABORATORY Gross Description Specimen A: Received is one formalin filled container labeled with the patient's name and designated right adventism. The specimen consists of a shave biopsy measuring [id number]. Jar 0. 2:06 PM CDT DERMATOPATHOLOGY LABORATORY Microscopic Description Specimen A. SKIN, right adventism: The epidermis is acanthotic and shows full [...] characteristic determined by the Dermatopathology Laboratory at [facility], directed by Dr. Mo Santiago. These tests need not be, and therefore are not, approved by the [place] Food and Drug Administration. The tests are used for clinical purposes. Billing Codes Specimen Charges Stain Charges 99261 1 2:06 PM CDT DERMATOPATHOLOGY LABORATORY Embedded Images 2:06 PM CDT DERMATOPATHOLOGY LABORATORY Pathology/Cytolog y TISSUE SPECIMEN FROM SKIN / Unknown 02/12/2019 02/15/2019 1:00 PM CDT us Isac Ramires MD LAB - PATHOLOGY/CYTOLOGY ORD ERABLES Final Result DERMATOPATHOLOGY LABORATORY [facility] - Department of Dermatology [address] [facility], [address] [place] [address], [facility] [phone] documented in this encounter Visit Diagnoses Not on filedocumented in this encounter
--- OUTSIDE RECORDS SUMMARY | 2025-10-14 07:42 | XMS_ITS | Encounter Summary ---
Author Organization [facility] Address [address] [place] [address] Phone Care Team Providers Care Outside Rigger Name Role Phone Faviola Pringle MD Primary Care Provider +- [phone] Darren Alfredo MD Unavailable [phone] Robin Liu. DPM Unavailable [phone] Rickie Elizondo DPM Unavailable [phone] Encounter Details Date Type Department Care Team [...] on file Legal Sex Male 3:12 AM SHIFT MGR Gender Identity Not on file Sexual Orientation [...] on filedocumented in this encounter Care Teams Outside Rigger Relationship Specialty Start Date End Date Faviola Pringle MD [address] [facility] [address] [place] [address] PCP - General 03/06/17 Darren Alfredo MD [address] [facility] [address] [place] [address] Consulting Physician Infectious Diseases 03/23/21 Robin Liu DPM [address] [place] [address] Consulting Physician Foot and Ankle Surg 08/31/22 Rickie Elizondo DPM [address] [facility] [address] [place] [address] Consulting Physician Orthopedic Surgery 12/27/22 documented as of this encounter
--- OUTSIDE RECORDS SUMMARY | 2025-10-14 07:42 | XMS_ITS | Encounter Summary ---
Author Organization [facility] Address [address] [place] [address] Phone Care Team Providers Care Garage Worker Name Role Phone Faviola Pringle MD Primary Care Provider +- [phone] Darren Alfredo MD Unavailable [phone] Robin Liu DPM Unavailable [phone] Rickie Elizondo DPM Unavailable [phone] Encounter Details Date Type Department Care Team (Latest Contact Info) Description 12/22/2018 Orders Only [facility] Scanning, Provider Social History Tobacco Use Types Packs/Day Years Used Date Smoking Tobacco: Former Sex and Gender Information Value Date Recorded Sex Assigned at Not on file 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 Sex Male 3:12 AM PROP WORKER Gender Identity Not on file Sexual Orientation [...] DT COVID: Suspected 12/14/2021 12/14/202112/1412/14/2021 7:17 PM PROP WORKER documented as of this encounter Care Teams Garage Worker Relationship Specialty Start Date End Date Faviola Pringle MD [address] [place] [address] PCP - General 03/06/17 Darren Alfredo MD [address] [place] [address] Consulting Physician Infectious Diseases 03/23/21 Robin Liu DPM [address] [place] [address] Consulting Physician Foot and Ankle Surg 08/31/22 Rickie Elizondo DPM [address] [address] Consulting Physician Orthopedic Surgery 12/27/22 documented as of this encounter
--- OUTSIDE RECORDS SUMMARY | 2025-10-14 07:42 | XMS_ITS | Encounter Summary ---
Author Organization [facility] Address [address] [facility] [address] [place] [address] Care Team Providers Care Senior Research Fellow Name Role Phone Faviola Pringle MD Primary Care Provider + [phone] Darren Alfredo MD Unavailable + [phone] Robin Liu DPM Unavailable [phone] Rickie Elizondo DPM Unavailable [phone] Encounter Details Date Type Department Care Team (Late st Contact Info) Description 07/14/2012 Orders Only [facility] [address] [place] [address] Scanning, Provider Social History Tobacco Use Types Packs/Day Years Used Date Smoking Tobacco: Never Assessed Sex and Gender Information Value Date Recorded Sex Assigned at Not on file 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 Sex Male 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 BILLPOSTING Gender Identity Not on file Sexual Orientation [...] COVID: Suspected 12/14/2021 12/14/2021 12/14/2021 7:17 PM SUPERVISOR BILLPOSTING documented as of this encounter Care Teams Senior Research Fellow Relationship Specialty Start Date End Date Faviola Pringle MD [address] [facility] [address] [place] [address] PCP - General 03/06/17 Darren Alfredo MD [address] [facility] [address] [place] [address] Consulting Physician Infectious Diseases 03/23/21 Robin Liu DPM [address] [place] [address] Consulting Physician Foot and Ankle Surg 08/31/22 Rickie Elizondo DPM [address] [address] Consulting Physician Orthopedic Surgery 12/27/22 documented as of this encounter
--- OUTSIDE RECORDS SUMMARY | 2025-10-14 07:42 | XMS_ITS | Encounter Summary ---
Author Organization [facility] Facility Care Team Providers Care Folder Machine Adjuster Name Role Phone Faviola Pringle MD Primary Care Provider + [phone] Darren Alfredo MD Unavailable + [phone] Robin Liu DPM Unavailable [phone] Rickie Elizondo DPM Unavailable [phone] Encounter Details Date Type Department Care Team (Latest Contact Info) Description 11/29/2015 Orders Only [facility] CLINCONV Provider, MD Mary [address] [place] [address] Social History Tobacco Use Types Packs/Day Years Used Date Smoking Tobacco: Former Sex and Gender Information Value Date Recorded Sex Assigned at Not on file Legal Sex Male 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 LIME Gender Identity Not on file Sexual Orientation Not on file documented as of this encounter Functional Status documented as of this encounter Plan of Treatment Not on file documented as of this encounter Procedures Procedure Name Priority Date/Time Associated Diagnosis Comments SCAN - PATHOLOGY 11/30/2015 12:0 0 AM SUPERVISOR LIME documented in this encounter Results * SCAN - PATHOLOGY (11/30/2015 12:00 AM SUPERVISOR LIME) Narrative 11/30/2015 12:00 AM SUPERVISOR LIME Ordered by an unspecified provider. us Historical Provider Final Res ult documented in this encounter Visit Diagnoses Not on filedocumented in this encounter Additional Health Concerns Infection Onset Date Last Indicated Resolved Time MRSA Comment:Hx 6yrs ago 11/28/2015 11/27/2015 07/11/2021 5:00 AM C DT COVID: Suspected 12/14/2021 12/14/2021 12/14/2021 7:17 PM SUPERVISOR LIME documented as of this encounter Care Teams Folder Machine Adjuster Relationship Specialty Start Date End Date Faviola Pringle MD [address] [place] [address] PCP - General 03/06/17 Darren Alfredo MD [address] [place] [address] Consulting Physician Infectious Diseases 03/23/21 Robin Liu DPM [address] [place] [address] Consulting Physician Foot and Ankle Surg 08/31/22 Rickie Elizondo DPM [address] [address] Consulting Physician Orthopedic Surgery 12/27/22 documented as of this encounter
--- OUTSIDE RECORDS SUMMARY | 2025-10-14 07:42 | XMS_ITS | Encounter Summary ---
Author Organization [facility] Facility Care Team Providers Care Director Community Organization Name Role Phone Faviola Pringle MD Primary Care Provider + [phone] Darren Alfredo MD Unavailable + [phone] Robin Liu DPM Unavailable [phone] Rickie Elizondo DPM Unavailable [phone] Encounter Details Date Type Department Care Team (Latest Contact Info) Description 10/11/2016 Orders Only [facility] CLINCONV Provider, MD Mary [address] [place] [address] Social History Tobacco Use Types Packs/Day Years Used Date Smoking Tobacco: Former Sex and Gender Information Value Date Recorded Sex Assigned at Not on file Legal Sex Male 3:12 AM SEPARATING MACHINE OPERATOR Gender Identity Not on file Sexual Orientation Not on file documented as of this encounter Plan of Treatment Not on file documented as of this encounter Procedures Procedure Name Priority Date/Time Associated Diagnosis Comments CARDIOLOGY REPORT 10/14/2016 12: 00 AM SEPARATING MACHINE OPERATOR documented in this encounter Results * CARDIOLOGY REPORT (10/14/2016 12:00 AM SEPARATING MACHINE OPERATOR) Anatomical Region Laterality Modality Other Narrative 10/14/2016 12:00 AM SEPARATING MACHINE OPERATOR Ordered by an unspecified provider. us Historical Provider [facility] Final Result documented in this encounter Visit Diagnoses Not on filedocumented in this encounter Additional Health Concerns Infection Onset Date Last Indicated Resolved Time MRSA Comment:Hx 6yrs ago 11/28/2015 11/27/2015 07/11/2021 5:00 AM C DT COVID: Suspected 12/14/2021 12/14/2021 12/14/2021 7:17 PM SEPARATING MACHINE OPERATOR documented as of this encounter Care Teams Director Community Organization Relationship Specialty Start Date End Date Faviola Pringle MD [address] [place] [address] PCP - General 03/06/17 Darren Alfredo MD [address] [place] [address] Consulting Physician Infectious Diseases 03/23/21 Robin Liu DPM [address] [place] [address] Consulting Physician Foot and Ankle Surg 08/31/22 Rickie Elizondo DPM [address] [address] Consulting Physician Orthopedic Surgery 12/27/22 documented as of this encounter
--- OUTSIDE RECORDS SUMMARY | 2025-10-14 07:42 | XMS_ITS | Encounter Summary ---
Author Organization [facility] Address [address] [place] [address] Phone Care Team Providers Care Asphalt Tile Floor Layer Name Role Phone Faviola Pringle MD Primary Care Provider +- [phone] Darren Alfredo MD Unavailable [phone] Robin Liu. DPM Unavailable [phone] Rickie Elizondo DPM Unavailable [phone] Encounter Details Date Type Department Care Team [...] on file Legal Sex Male 3:12 AM INVESTIGATOR OPERATOR Gender Identity Not on file Sexual [...] on filedocumented in this encounter Care Teams Asphalt Tile Floor Layer Relationship Specialty Start Date End Date Faviola Pringle MD [address] [facility] [address] [place] [address] PCP - General 03/06/17 Darren Alfredo MD [address] [facility] [address] [place] [address] Consulting Physician Infectious Diseases 03/23/21 Robin Liu DPM [address] [place] [address] Consulting Physician Foot and Ankle Surg 08/31/22 Rickie Elizondo DPM [address] [facility] [address] [place] [address] Consulting Physician Orthopedic Surgery 12/27/22 documented as of this encounter
--- OUTSIDE RECORDS SUMMARY | 2025-10-14 07:42 | XMS_ITS | Encounter Summary ---
Author Organization [facility] Facility Care Team Providers Care Drying Frame Operator Name Role Phone Faviola Pringle MD Primary Care Provider + [phone] Darren Alfredo MD Unavailable + [phone] Robin Liu DPM Unavailable [phone] Rickie Elizondo DPM Unavailable [phone] Encounter Details Date Type Department Care Team (Latest Contact Info) Description 07/22/2018 Orders Only [facility] CLINCONV Provider, MD Mary [address] [place] [address] Social History Tobacco Use Types Packs/Day Years Used Date Smoking Tobacco: Former Sex and Gender Information Value Date Recorded Sex Assigned at Not on file Legal Sex Male 3:12 AM TANNERY GUMMER Gender Identity Not on file Sexual Orientation [...] COVID: Suspected 12/14/2021 12/14/2021 12/14/2021 7:17 PM TANNERY GUMMER documented as of this encounter Care Teams Drying Frame Operator Relationship Specialty Start Date End Date Faviola Pringle MD [address] [place] [address] PCP - General 03/06/17 Darren Alfredo MD [address] [place] [address] Consulting Physician Infectious Diseases 03/23/21 Robin Liu DPM [address] [place] [address] Consulting Physician Foot and Ankle Surg 08/31/22 Rickie Elizondo DPM [address] [facility] [address] [place] [address] Consulting Physician Orthopedic Surgery 12/27/22 documented as of this encounter
--- OUTSIDE RECORDS SUMMARY | 2025-10-14 07:43 | XMS_ITS | Clinical Summary ---
Author Organization [facility] Address [address] [place] [address] Care Team Providers Care Information Systems Manager Name Role Phone Faviola Pringle MD Primary Care Provider [phone]- [phone] Darren Alfredo MD Unavailable + [phone] Robin Liu DPM Unavailable [phone] Rickie Elizondo DPM Unavailable [phone] Allergies Active Allergy Reactions Criticality Noted Date Comments Iodinated Contrast Media Anaphylaxis High Reaction: kidneys shut down, had to go on dialysis Iodine Anaphylaxis High 02/18/2022 Just iv dye Pentazocine Unknown Low Talwin Medications aspirin 81 mg tablet daily. Active atorvastatin (LIPITOR) 40 mg tablet TAKE 1 TABLET BY MOUTH EVERY DAY 09/25/20 16 Active carvediloL (COREG) 25 mg tablet 2 times daily. Activ e lancets 28 gauge misc three times a day icd-9 code 250 02/02/20 14 Active blood glucose diagnostic strip by in vitro route. 02/02/20 14 Active clopidogreL (PLAVIX) 75 mg tablet daily. Active isosorbide mononitrate ER (IMDUR) 30 mg 24 hr tablet Take 1 tablet (30 mg total) by mouth daily Active latanoprost (XALATAN) 0.005 % ophthalmic solution Administer 1 drop into both eyes nightly. 2.5 mL 01/18/20 19 Active furosemide (LASIX) 20 mg tablet Take 1 tablet (20 mg total) by mouth daily Active nitroglycerin (NITROSTAT) 0.[address] 1 tablet (0.4 mg total) under the tongue every 5 (five) minutes as needed for chest pain May repeat dose q 5 min, up to 3 doses total 25 tablet 3 10/05/20 Active Additional Information Patient not taking.Reported on 08/15/2025 BD Ultra-Fine Short Pen Needle 31 gauge x 5/16 needle 4 (four) times a day 01/21/20 Active dorzolamide (TRUSOPT) 2 % ophthalmic solution INSTILL 1 DROP INTO BOTH EYES 3 TIMES A DAY DIRECTED 08/24/20 Active lisinopriL (PRINIVIL,ZEST RIL) 10 mg tablet Take 1 tablet (10 mg total) by mouth daily 09/23/20 Active ergocalciferol (VITAMIN D) 50,000 unit capsule Take 1 capsule (50,000 Units total) by mouth once a week 10/10/20 Active omega-3 fatty acids-fish oil 300-1,000 mg capsule Take 2 capsules (2 g total) by mouth daily Active vit C/E/Zn/coppr/l utein/zeaxan (PRESERVISION AREDS-2 ORAL) Take by mouth Ac tive insulin glargine (LANTUS) 100 unit/mL (3 mL) pen for injection Inject 11 Units under the skin daily Active lifitegrast (Xiidra) 5 % dropperette Administer into affected eye(s) Active cyanocobalamin (Vitamin B-12) 1,000 mcg sublingual tablet daily Active Lokelma 5 gram packet 08/15/20 Active glucagon 1 mg injection as directed 10/22/20 23 Active predniSONE (DELTASONE) 50 mg tablet Take 1 tablet by mouth at 6:00 PM and 12:00 AM (midnight) the night before and 6:00 AM the morning of surgery with a sip of water. 3 tablet 09/24/20 Active Additional Information Patient not taking.Reported on 08/15/2025 famotidine (PEPCID) 20 mg tablet Take 1 tablet by mouth at 6:00 PM the night before and 6:00 AM the morning of surgery with a sip of water. 2 tablet 09/24/20 Active Additional Information Patient not taking.Reported on 08/15/2025 diphenhydrAMIN E 25 mg capsule Take 2 capsules at 6:00 AM the morning of surgery with a sip of water. 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 Apply to affected nail once daily for 48 weeks, ensure complete coverage of the nail, the nail folds, the nail bed and surrounding skin, and undersurface of the nail plate 4 mL 1 12/15/19 25 Active levothyroxine (SYNTHROID) 137 mcg tablet Take 1 tablet (137 mcg total) by mouth daily 90 tablet 3 02/15/20 25 026 Active insulin lispro (HumaLOG, ADMELOG) 100 unit/mL pen for injectionIndic ations:Type 2 diabetes mellitus with diabetic neuropathy, with long-term current use of insulin (HCC) Inject 2 units with lunch and 2 units with dinner 15 mL 3 02/24/20 25 Active empagliflozin (Jardiance) 25 mg tabletIndicati ons:type 2 diabetes mellitus Take 1 tablet (25 mg total) by mouth daily 90 tablet 1 07/26/20 25 Active metFORMIN (GLUCOPHAGE) 500 mg tablet Take 2 tablets (1,000 mg total) by mouth daily with breakfast AND 1 tablet (500 mg total) daily with dinner. 270 tablet 3 08/15/20 25 026 Active linaGLIPtin (Tradjenta) 5 mg tablet Take 1 tablet (5 mg total) by mouth daily 90 tablet 3 10/07/20 25 Active linaGLIPtin (Tradjenta) 5 mg tablet TAKE 1 TABLET BY MOUTH DAILY 90 tablet 3 10/14/20 24 025 Discontinued Active Problems Problem Noted Date Diagnosed Date Abnormal cardiovascular stress test 09/24/2024 Stage 3a chronic kidney disease 08/16/2024 Acute osteomyelitis of left ankle or foot 2022 Overview (12/20/2022): Added automatically from request for surgery [id number] Carotid artery stenosis 11/20/2022 Lower extremity edema 10/03/2022 Pure hypercholesterolemia 10/03/2022 Assessment & Plan (12/13/2022 10:37 AM INFORMATION SPECIALIST): Stable. Continue Lipitor 40 mg. Assessment & Plan (10/03/2022 12:53 PM INFORMATION SPECIALIST): Lipitor On chronic clopidogrel therapy 10/03/2022 Cellulitis [...] 12/15/2021 Assessment & Plan (01/03/2022 9:11 AM INFORMATION SPECIALIST): - Currently receiving Vancomycin 1.25 mg every [...] concerns. Assessment & Plan (12/17/2021 1:57 PM INFORMATION SPECIALIST): 81-year-old male with diabetes and multiple medical [...] (12/14/2021): Added automatically from request for surgery [id number] Dysfunction of right eustachian tube 10/01/2021 Retinal [...] 6 Assessment & Plan (12/13/2022 10:36 AM INFORMATION SPECIALIST): Ulceration to the left 3rd toe, discussed at length with the patient and his spouse, given his palpable pulses and normal ABIs I suspect this is all inframalleolar occlusive disease and digit disease. Further management of the ulceration of the toe per his care nurse rn. We will plan for follow-up in 6 [...] 03/24/2016 Assessment & Plan (12/03/2024 2:03 PM INFORMATION SPECIALIST): Stable right lower extremity PVD. Continue ASA statin therapy. Follow up in 1 year with repeat noninvasives testing. Assessment & Plan (11/27/2023 1:36 PM INFORMATION SPECIALIST): Stable PVD, no evidence of life-limiting claudication rest pain or wounds. Continue surveillance with repeat noninvasives in 1 year. Continue ASA Plavix and statin therapy. Assessment & Plan (10/30/2022 3:47 PM INFORMATION SPECIALIST): Patient with a history of a right iliac stent placed by Dr. Gilbert in 2019. Currently has a superficial ulceration seeing Podiatry. Most recent lower extremity arterial Doppler reveals sufficient blood supply for wound healing. No surgical procedure intervention indicated this time. Plan follow-up in the office in 6 months with arterial duplex Assessment & Plan (10/03/2022 12:52 PM INFORMATION SPECIALIST): ABIs from outside hospital with mild occlusive [...] 02/01/2014 Assessment & Plan (12/03/2024 2:04 PM INFORMATION SPECIALIST): Stable continue Coreg Assessment & Plan (11/27/2023 1:36 PM INFORMATION SPECIALIST): Stable continue lisinopril 10 mg. Assessment & Plan (12/13/2022 10:37 AM INFORMATION SPECIALIST): Stable continue Lasix 20 mg. Assessment & Plan (10/30/2022 3:46 PM INFORMATION SPECIALIST): Carvedilol Assessment & Plan (10/03/2022 12:52 PM INFORMATION SPECIALIST): Coreg Mixed hyperlipidemia 02/01/2014 Assessment & Plan (12/03/2024 2:03 PM INFORMATION SPECIALIST): Stable continue Lipitor Assessment & Plan (11/27/2023 1:36 PM INFORMATION SPECIALIST): Stable continue Lipitor 40 mg. 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 02/01/2014 Diabetes mellitus 02/01/2014 Assessment & Plan (01/18/2019 9:13 PM INFORMATION SPECIALIST): Continue same reginen Cardiac disease 02/01/2014 History of myocardial infarction 02/01/2014 Actinic keratosis 11/12/2013 Pyogenic inflammation of bone Encounters Date Type Department Care Team Description 08/26/2025 Documentation [facility] Endocrinology Metabolism and Lipid [address] [facility] [address], [address] [place] [id number] Niharika Lopez RN Hypoglycemia 08/15/2025 1:40 PM CDT Office Visit [facility] Medicine Endocrinology Metabolism and Lipid [address] [facility] 13 [place] [address] [place] [address] Kristin Emery MD Type 2 diabetes mellitus with other specified complication, with long-term current use of insulin (Primary Dx) from Last 3 Months Immunizations Immunization Administration [...] Site/Laterality Comments TONSILLECTOMY/ADENOIDECTOMY Tonsillectomy With Adenoidectomy - 1946 (Added by TW Conv) HAND SURGERY Hand [...] hypoglycemia - (Add ed by TW Conv) [facility] current use of insulin (HCC) Insulin long-term [...] on file Legal Sex Male 3:12 AM INFORMATION SPECIALIST Gender Identity Not on file Sexual Orientation Not on file Occupation Industry Job Start Date Job End Date Retired Not on file Not on file Not on file Last Filed Vital Signs Vital Sign Reading Time Taken Comments Blood Pressure 102/56 08/15/2025 1:45 PM CDT Pulse 74 08/15/2025 1:45 PM CDT Temperature 36.6 C (97.8 F) 12/15/2024 1:57 PM INFORMATION SPECIALIST Respiratory Rate 16 12/15/2024 1:57 PM INFORMATION SPECIALIST Oxygen Saturation 97% 12/15/2024 1:57 PM INFORMATION SPECIALIST Inhaled Oxygen Concentration - - Weight 96.7 [...] Ratio, Urine 11/10/2024 , 01/11/2021 Covid-19 Vaccine ( - 2024-12 6 season) 2025 10/07/2021, 02/14/2021, 01/24/2021 Influenza Vaccine (#1) 2025 , 08/31/2022, 08/27/2022, Additional history exists Fall Risk Assessment 09/30/2025 09/30/2024 Lipid Panel 11/12/2025 11/12/2024, 051 , 09/25/2022, Additional history exists eGFR 11/12/2025 11/12/2024, 05/2024, 11/10/2023, Additional history exists Hemoglobin A1C 02/12/2026 08/15/2025, 01/23, 08/16/2024, Additional history exists DTaP/Tdap/Td Vaccine (5 - Td or Tdap) 12/25/2027 12/25/2017, 10/18/2015, 10/18/2015, Additional history exists Pneumococcal vaccine 65+ Completed 019, 03/05/2019, 12/02/2018, Additional history exists Zoster Vaccine Completed 09/02/2019, 05/25, 06/04/2019, Additional history exists Medical Devices Implanted Type Area Shrimp Picker Device Identifier Shelf Expiration Date Model / Serial / Lot [employer] [id number] [place]os R High Viscosity Cement 40gm Bone Green - [id number] Implanted:Qty: 4 on 12/15/2021 by Rodolfo Nunez MD at [facility] Left: Knee [employer] 09/23/2024 [id number] / / [id number] [email or web address] [id number] Attune Cemented Posterior Stabilize Knee Left 8 Component Femoral - [id number] Implanted:Qty: 1 on 12/15/2021 by Rodolfo Nunez MD at [facility] Left: Knee [employer] [id number] 09/23/2031 [id number] / / [id number] [employer] [id number] Tibial Attune Ps Alpoly Sz 8 5mm - [id number] Implanted:Qty: 1 on 12/15/2021 by Rodolfo Nunez MD at [facility] Left: Knee [employer] [id number] 05/23/2026 [id number] / / [id number] Biocom[employer]ites 620-020 Stimulan Rapid Cure Kit Paste Insurance Account Specialist 20cc 50cc Bone Void - [id number] - [id number] Implanted:Qty: 1 on 12/15/2021 by Rodolfo Nunez MD at [facility] [employer] 07/24/2024 620-02 0 / [id number] / Procedures Procedure Name Priority Date/Time Associated Diagnosis Comments POCT HEMOGLOBIN A1C Routine 08/15/2025 1 :59 PM CDT Type 2 diabetes mellitus with other specified complication, with long-term current use of insulin EGFR Routine 11/12/2024 8:22 AM INFORMATION SPECIALIST LIPID PANEL Routine 11/12/2024 8:22 AM INFORMATION SPECIALIST ALBUMIN CREATININE RATIO, URINE Routine 11/10/2023 2:36 PM INFORMATION SPECIALIST Type 2 diabetes mellitus with diabetic neuropathy, with long-term current use of insulin (HCC) from Last 3 Months or Most Recently Relevant to Health Maintenance Results * (ABNORMAL) POCT hemoglobin A1c (08/15/2025 1:59 PM CDT) Hemoglobin A1C, POC 7.0(A) 4.0 - 5.6 % Blood 08/15/2025 1:59 PM CDT us Kristin Emery MD POINT OF CARE TEST ORDERABLES Final Result * eGFR (11/12/2024 8:22 AM INFORMATION SPECIALIST) eGFR 67 >=60 mL/min/1. 73 m2 Comment: [...] was last reviewed 2021. Testing performed by: [facility], [address] [place] [address]., [address] Blood 11/12/2024 8:22 AM INFORMATION SPECIALIST 11/12/2024 9:27 AM INFORMATION SPECIALIST us Isidra Osborne MD LAB BLOOD ORDERABLES Final R esult [facility] [address] [facility] Department [place] [address] * Lipid panel (11/12/2024 8:22 AM INFORMATION SPECIALIST) Cholesterol 111 30 - 199 mg/dL Comment: [...] last revised on 2018. Testing performed by: [address] [address] Triglycerides 87 <=149 mg/dL [facility]U Comment: Interpretive [...] last revised on 2018. Testing performed by: [address] [address] HDL 41 >=40 mg/dL [facility]U Comment: Interpretive [...] last revised on 2018. Testing performed by: [address] [address] LDL, calculated 53 <=129 mg/dL [facility] Comment: [...] 3. Jose M et al. BROOK Cardiol. 2020 March 24;5(5):540-548. doi: 10.1001/[email or web address].2020.0013 Current Interpretive Data was last revised on 2024. Testing performed by: [address] [address] Non-HDL Cholesterol 70 mg/dL [facility] Comment: Interpretive [...] last revised on 2018. Testing performed by: [address] [address] Chol/HDL ratio 3 [facility] Comment:Testing performed by : [address] [address] Blood 11/12/2024 8:22 AM INFORMATION SPECIALIST 11/12/2024 9:27 AM INFORMATION SPECIALIST us Isidra Osborne MD LAB BLOOD ORDERABLES Final R esult [facility] [address] [facility] Department [place] [address] * Albumin Creatinine Ratio, Urine (11/10/2023 2:36 PM INFORMATION SPECIALIST) Microalb, Ur <7.0 0.0 - 22.9 mg/L [facility] Comment:Repeated and Verifie d Random Urine Creatinine 28.7 mg/dL [facility] Microalb/Creat Ratio <24.4 0.0 - 29.9 mg/g [facility] Urine 11/10/2023 2:36 PM INFORMATION SPECIALIST 11/10/2023 3:17 PM INFORMATION SPECIALIST us Kristin Emery MD LAB URINE ORDERABLES Final Re sult [facility] from Last 3 Months or Most Recently Relevant to Health Maintenance Insurance MEDICARE [email or web address] [facility]IC[facility] [place] [address] MEDICARE RAILROAD Advance Directives For more information, please contact: [phone] Documents on File Type Date Recorded 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 Expl anation ADVANCE DIRECTIVE 03/26/2021 11:15 AM POWER OF [employer]NER [employer] ADVANCE DIRECTIVE 04/03/2013 12:00 AM INEZ R OF [employer]NER [employer] FINANCIAL/MEDICAL * Full Code (Latest Code Status on File) Date Activated Date Inactivated Comments 08/27/2022 6:50 PM 08/31/2022 6:45 PM * Full Code Date Activated Date Inactivated Comments 12/15/2021 12:30 PM 12/19/2021 6:51 PM * Full Code Date Activated Date Inactivated Comments 03/19/2021 5:34 PM 03/23/2021 11:36 PM Care Teams Information Systems Manager Relationship Specialty Start Date End Date Faviola Pringle MD [address] [facility] [address] [place] [address] PCP - General 03/06/17 Darren Alfredo MD [address] [place] [address] Consulting Physician Infectious Diseases 03/23/21 Robin Liu DPM [address] [place] [address] Consulting Physician Foot and Ankle Surg 08/31/22 Rickie Elizondo DPM [address] [address] Consulting Physician Orthopedic Surgery 12/27/22
--- OUTSIDE RECORDS SUMMARY | 2025-10-14 07:43 | XMS_ITS | Clinical Summary ---
Author Organization [facility] Address [address] [place] [address] Phone Care Team Providers Care Instrumentation Instructor Name Role Phone Faviola Pringle MD Primary Care Provider [phone] Allergies Active Allergy Reactions Criticality Noted Date [...] MG capsule Take 1,000 mg by mouth at bed time Active aspirin (ST NOLA) 81 MG EC tablet Take 81 mg by mouth 1 (one) time each day Active Multiple Vitamins-Mineral s (PRESERVISION AREDS 2 PO) Take by mouth [...] mg by mouth in the morning. Active cyanocobalamin (VITAMIN B-12) 100 MCG tablet Take 100 mcg by mouth 1 (one) time each day Active Empagliflozin (Jardiance) 25 MG tablet Take 25 mg by mouth 1 (one) time each day Active Sodium Zirconium Cyclosilicate (Lokelma) 10 g pack Take 10 g by mouth every other day Active Lifitegrast (XIIDRA OP) Administer into affected eye(s) Active levothyroxine sodium (TIROSINT) 137 MCG capsule Take 137 mcg by mouth 1 (one) time each day Active levothyroxine (SYNTHROID) 150 MCG tablet Take 150 mcg by mouth 1 (one) time each day 025 Discontinued Active Problems Problem Noted Date [...] Fluid retention 02/04/2023 07/14/2023 Complex renal cyst 3 Encounters Date Type Department Care Team Description 10/06/2025 4:00 PM CABLE MAINTAINER Office Visit [facility] [address] [place] [address] [address] [place] [id number] Bob Arroyo MD Stage 3a chronic kidney disease (Primary Dx); Essential hypertension; Disorder of kidney due to diabetes mellitus from Last 3 Months Family History Medical History Relation Comments Diabetes [...] Sign Reading Time Taken Comments Blood Pressure 133/66 10/06/2025 4:03 PM CABLE MAINTAINER Pulse 78 10/06/2025 4:03 PM CABLE MAINTAINER Temperature 36.5 C (97.7 F) 02/21/2022 3:44 PM CDT Respiratory Rate - - Oxygen Saturation 95% 07/15/2023 2:21 PM CDT Inhaled Oxygen Concentration - - Weight 97.1 kg (214 lb) 10/06/2025 4:03 PM CABLE MAINTAINER Height 180.3 cm (5' 11) 10/06/2025 4:03 PM CABLE MAINTAINER Body Mass Index 29.85 10/06/2025 4:03 PM CABLE MAINTAINER Plan of Treatment Upcoming Encounters Date Type Department Care Team ([facility] st Contact Info) Description 02/02/2026 12:40 PM CDT Office Visit [facility] [address] [facility] 1 [place] [address] Bob Arroyo MD [address] [id number] Health Maintenance Due Date Last Done Comments Diabetic Foot Exam 1950 Ophthalmology Exam 1950 Pneumococcal PPSV23/PCV13 65 + Years / High and Highest Risk (2 of 4 - PPSV23, PCV20, or PCV21) 07/30/2019 06/04/2019, 03/05/2019 , 12/02/2018, Additional history exists COVID-19 Vaccine (4 - 2024-2 6 season) 2025 10/07/2021, 02/14/2021, 01/24/2021 Influenza Vaccine (#1) 2025 4, 08/31/2023, 10/07/2021, Additional history exists Insurance MEDICARE RAILROAD [facility] MEDICARE [facility] Care Teams Instrumentation Instructor Relationship Specialty Start Date End Date Faviola Pringle MD [address] [facility] [address] [place] [address] PCP - General 01/29/22
--- OUTSIDE RECORDS SUMMARY | 2025-10-14 07:43 | XMS_ITS | Encounter Summary ---
Author Organization [facility] Address [address] [place] [address] Phone Care Team Providers Care Fabricator Assembler Metal Products Name Role Phone Faviola Pringle MD Primary Care Provider [phone] Reason for Visit * Reason Onset Date Comments Med Refill 02/28/2023 Encounter Details Date Type Department Care Team (Late Contact Info) Description 02/28/2023 Refill [facility] [address] [address] Jazzmine Pinon MA Social History Tobacco Use Types Packs/Day Years Used Date Smoking Tobacco: Former Smokeless Tobacco: Never Sex and Gender Information Value Date Recorded Sex Assigned at Not on file Legal Sex Male 8:34 AM [facility] Gender Identity Not on file Sexual Orientation Not on file documented as of this encounter Plan of Treatment Upcoming Encounters Date Type Department Care Team (Late st Contact Info) Description 02/02/2026 12:40 PM CDT Office Visit [facility] [address] [facility] 1 [place] [address] [place] [address] [place] [address] documented as of this encounter Visit Diagnoses Not on filedocumented in this encounter Care Teams Fabricator Assembler Metal Products Relationship Specialty Start Date End Date Faviola Pringle MD [address] [facility] [address] [place] [address] PCP - General 01/29/22 documented as of this encounter
--- OUTSIDE RECORDS SUMMARY | 2025-10-14 07:43 | XMS_ITS | Encounter Summary ---
Author Organization [facility] Address [address] [place] [address] Phone Care Team Providers Care Crane Crew Supervisor Name Role Phone Faviola Pringle MD Primary Care Provider [phone] Darren Alfredo MD Unavailable [phone] Robin Liu DPM Unavailable [phone] Rickie Elizondo DPM Unavailable [phone] Encounter Details Date Type Department Care [...] on file Legal Sex Male 3:12 AM [employer] Gender Identity Not on file Sexual Orientation [...] COVID: Suspected 12/14/2021 12/14/2021 12/14/2021 7:17 PM [employer] documented as of this encounter Care Teams Crane Crew Supervisor Relationship Specialty Start Date End Date Faviola Pringle MD [address] [facility] [address] [place] [address] PCP - General 03/06/17 Darren Alfredo MD [address] [facility] [address] [place] [address] Consulting Physician Infectious Diseases 03/23/21 Robin Liu DPM [address] [place] [address] Consulting Physician Foot and Ankle Surg 08/31/22 Rickie Elizondo DPM [address] [address] Consulting Physician Orthopedic Surgery 12/27/22 documented as of this encounter
--- OUTSIDE RECORDS SUMMARY | 2025-10-14 07:43 | XMS_ITS | Data Portability ---
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 Name Role Phone FAVIOLA ALVES Primary Care Provider [phone] JARETH VAZ Front End Software Developer ELPIDIO BORGES Clinical Interviewer HERMILO FORBES Leather Sorter Assessment Encounter Date Assessment Date Assessment LastModified [...] available Lab CMP, serum or plasma 2024 [facility] (Lab), [address] [place] [address], [place], [address], 09/01/2025 04:05:43 CBC w/ auto diff 2024 025 [facility] (Lab), [address] [place] [address], [place], [address], 09/01/2025 04:05:43 lipid panel w/ direct LDL, serum 2024 [facility] (Lab), [address] [place] [address], [place], [address], 09/01/2025 04:05:42 vitamin D, 25-hydrox y, total, serum 2024 025 [facility] (Lab), [address] [place] [address], [place], [address], 08/25/2025 17:40:53 vitamin B12, serum [address] [place] [address] (Lab), [address] [place] [address], [place], [address], 09/01/2025 04:05:43 PTH (parathyr oid hormone), intact, serum or plasma [address] [place] [address] (Lab), [address] [place] [address], [place], [address], 08/25/2025 18:31:05 phosphoru s, serum or plasma [address] [place] [address] (Lab), [address] [place] [address], [address], 08/25/2025 18:15:45 uric acid, serum or plasma [address] [place] [address] (Lab), [address] [place] [address] [address], [place], [address], 08/25/2025 18:45:38 hemoglobi n A1c, QN, blood 2024 025 [facility] (Lab), [address] [place] [address] [address], [place], [address], 08/18/2025 13:09:30 TSH + free T4, serum 2024 025 [facility] (Lab), [address] [place] [address] [address], [place], [address], 08/18/2025 21:19:57 vitamin B12 + folate, serum or blood 2023 024 [facility] (Lab), [address] [place] [address] [address], [place], [address], 12/08/2024 04:07:08 lipid panel w/ direct LDL, serum 2023 024 [facility] (Lab), [address] [place] [address] [address], [place], [address], 09/16/2024 04:07:14 vitamin D, 25-hydrox y, total, serum 2023 024 [facility] (Lab), [address] [place] [address] [address], [place], [address], 09/09/2024 13:11:54 TSH + free T4, serum 2023 024 [facility] (Lab), [address] [place] [address] [address], [place], [address], 09/16/2024 04:07:14 vitamin B12 + folate, serum or blood 2023 024 [facility] (Lab), [address] [place] [address] [address], [place], [address], 06/13/2024 20:07:53 CMP, serum or plasma 2023 024 [facility] (Lab), [address] [facility] [address], [place], [address], 06/13/2024 20:07:53 CBC w/ auto diff 2023 024 [facility] (Lab), [address] [place] [address] [address], [place], [address], 06/13/2024 20:07:53 microalbu min/creat inine, mass ratio, urine 2023 024 [facility] (Lab), [address] [place] [address] [address], [place], [address], 06/13/2024 20:07:53 Referral vascular surgeon referral 2023 024 SALVATOREBRAN Richardson MD, [address] [place] [address] , [address], [place], [address], 07/07/2024 04:03:47 Procedures None recorded. Surgeries None recorded. Imaging US, duplex, carotid artery 2024 025 [facility], [address] [facility] , [address], [place], [address], 12/16/2024 17:45:27 Medication Orders ergocalci ferol (vitamin D2) 1,250 mcg (50,000 unit) capsule 2024 025 [facility], [address], [place], [place], [id number], 05/26/2025 12:58:35 furosemid e 20 mg tablet 2023 024 [facility] #19252, [address], [place], [place], [id number], 09/09/2024 13:06:04 ergocalci ferol (vitamin D2) 1,250 mcg (50,000 unit) capsule 2023 024 [facility] #61619, [address] [place], [place], [id number], 09/09/2024 13:05:59 levothyro xine 150 mcg tablet 2023 024 [facility]49938, [address], [place], [place], [id number], 02/08/2025 10:50:09 furosemid e 20 mg tablet 2023 024 [facility] #16783, [address], [place], [place], [id number], 06/09/2024 14:51:42 levothyro xine 150 mcg tablet 2023 024 [facility]67457, [address], [place], [place], [id number], 02/08/2025 10:50:09 Patient TargetsNo targets recorded. Patient Instructions Encounter Date Encounter Id Patient Instructions Last Modified By Organization Details Last Modified Time 06/09/2024 [id number] Peripheral Arterial Disease (PAD): Care Instructions [email or web address] Not available 06/09/2024 14:51:34 carotid stenosis : care instructions mshenouda Not available 06/09/2024 14:51:34 09/09/2024 [id number] Peripheral Arterial Disease (PAD): Care Instructions mshenouda [...] disease mshenouda Not available 09/09/2024 13:05:52 12/16/2024 [id number] Peripheral Arterial Disease (PAD): Care Instructions mshenouda [...] disease mshenouda Not available 12/16/2024 12:58:18 05/26/2025 [id number] Peripheral Arterial Disease (PAD): Care Instructions mshenouda [...] disease mshenouda Not available 05/26/2025 12:58:30 08/25/2025 [id number] Peripheral Arterial Disease (PAD): Care Instructions mshenouda [...] s test No observ ation record ed. [facility] [place] [place] Available 2023 12:47:26 12/16/19 25 12/16/2024 [place], ofelia de la cruz carot id arter y No observ ation record ed. [facility], [address], [place], [address], 05/26/2025 12:41:45 02/26/20 25 02/03/2025 [place], yogi pollock id arter y No observ ation record ed. [facility], [address], [place], [address], 05/26/2025 12:41:45 05/19/20 25 05/19/2025 XR, chest No observ ation record ed. [facility] [address], [place], [address], 05/26/2025 12:41:45 Result Notes None recorded. Problems Name Problem SNOMED Code Status Onset Date Resolution Date Notes Provider Name and Address Organization Details Recorded Time Family history of stroke 667455561 Active Not Available [facility] 0 15:26:41 Family history of diabetes mellitus 933580061 Active Not Available [facility] 0 15:26:41 Family history of coronary arterioscl erosis 959208988 Active Not Available [facility] 0 15:26:41 Charcot's arthropath y 980552247 Active Not Available [facility] 0 15:26:41 Coronary arterioscl erosis 83323843 Active Not Available [facility] 0 15:26:41 Diabetic peripheral neuropathy 920324542 Active Not Available [facility] 0 15:26:41 Diabetes mellitus 07038752 Active Not Available [facility] 0 15:26:41 Benign hypertensi on 92092633 Active Not Available [facility] 0 15:26:41 Hyperlipid emia 66796116 Active Not Available [facility] 0 15:26:41 Hypothyroi dism 47818463 Active Not Available [facility] 0 15:26:42 Lymphedema 582718272 Active Not Available [facility] 0 15:26:41 Obesity 589364023 Completed 06/06/2020 Faviola Alves MD [address], [place], [address] , [facility] 0 11:29:38 Rosacea 317911696 Active Not Available [facility] 0 15:26:41 Osteoarthr itis 423134906 Active 2015 Not Available [facility] 0 15:26:41 Peripheral vascular disease 111292723 Active 2015 Not Available [facility] 0 15:26:42 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 717319776 Active 2018 Not Available [facility] 0 15:26:41 Ex-smoker 7736766 Active 2019 Not Available [facility] 0 15:26:41 Chronic renal failure 44857851 Active 2020 Faviola Alves MD [address], [place], [address] , [facility] 1 15:41:27 Complex renal cyst 248462844 Active 2020 Faviola Alves MD [address] [place], [place], [address] , [facility] 1 19:58:16 Chronic osteomyeli tis of foot 757391175 Active 2020 Faviola Alves MD [address] [place], [place], [address] , [facility] 1 15:48:52 Retinal ischemia 05623441 Active 2020 MD Verna Cleveland[address] [place], [place], [address] , [facility] 1 10:03:34 Anemia 525710260 Active 2021 MD Verna Cleveland[address] [place], [place], [address] , [facility] 2 19:18:58 Serum creatinine above reference range 434716342 Active 2021 MD Verna Cleveland[address] [place], [place], [address] , [facility] 2 19:19:04 Knee pyogenic arthritis 031053872 Active 2021 MD Verna Cleveland[address] [place], [place], [address] , [facility] 2 12:06:48 C-reactive protein outside reference range 816918970 Active 2021 MD Verna Cleveland[address] [place], [place], [address] , [facility] 2 23:07:09 Body mass index 25-29 - overweight 348164411 Active 2021 MD Tati Cleveland [address], [place], [address] , [facility] 2 11:16:17 Carotid artery stenosis 31588373 Active 2021 MD Tati Cleveland [address] [place], [place], [address] , [facility] 2 23:40:21 Serum vitamin B12 borderline low 255708817 Active 2022 MD Tati Cleveland [address] [place], [place], [address] , [facility] 3 16:04:53 Serum vitamin B12 below reference range 953926811 Active 2022 MD Tati Cleveland [address] [place], [place], [address] , [facility] 3 15:13:46 Amputated toe 866923892 Active 2023 all of lt foot MD Tati Cleveland [address] [place], [place], [address] , [facility] 4 14:51:21 Vitamin D deficiency 00182579 Active 2023 MD Tati Cleveland [address] [place], [place], [address] , [facility] 4 12:56:02 Generalize d osteoarthr itis 562638487 Active 2024 MD Tati Cleveland [address] [place], [place], [address] , [facility] 5 12:44:45 Problem Notes None recorded. Procedures Surgical History Date Name Laterality Status Provider Name and Address Organization Details Recorded Time 08/25/20 25 Diabetic Foot Exam completed MD Tati Cleveland [address], [place], [address], [facility] 08/25/2025 13:05:47 05/26/20 25 Diabetic Foot Exam completed MD Tati Cleveland [address], [place], [address], [facility] 05/26/2025 12:50:43 12/16/19 25 Diabetic Foot Exam completed MD Tati Cleveland [address], [place], [address], [facility] 12/16/2024 12:58:03 09/09/20 24 Diabetic Foot Exam completed MD Tati Cleveland [address], [place], [address], [facility] 09/09/2024 13:03:05 06/09/20 24 Diabetic Foot Exam completed MD Tati Cleveland [address], [place], [address], [facility] 06/09/2024 14:50:35 03/10/20 24 Diabetic Foot Exam completed MD Tati Cleveland [address], [place], [address], [facility] 03/10/2024 14:40:33 12/10/19 24 Diabetic Foot Exam completed MD Tati Cleveland [address], [place], [address], [facility] 12/10/2023 14:37:44 09/04/20 23 Diabetic Foot Exam completed MD Tati Cleveland [address], [place], [address], [facility] 09/04/2023 14:33:36 06/23/20 23 Diabetic Foot Exam completed MD Tati Cleveland [address], [place], [address], [facility] 06/23/2023 15:20:15 02/11/20 23 Diabetic Foot Exam completed MD Tati Cleveland [address], [place], [address], [facility] 02/10/2023 16:07:37 11/11/20 22 Diabetic Foot Exam completed MD Tati Cleveland [address], [place], [address], [facility] 11/11/2022 15:50:52 10/22/20 22 Colonoscopy completed MD Tati Cleveland [address], [place], [address], [facility] 10/23/2022 22:26:57 08/13/20 22 Diabetic Foot Exam completed MD Tati Cleveland [address], [place], [address], [facility] 08/13/2022 11:48:05 05/09/20 22 Diabetic Foot Exam completed MD Tati Cleveland [address], [place], [address], [facility] 05/09/2022 11:15:30 01/31/20 22 Diabetic Foot Exam completed MD Tati Cleveland [address], [place], [address], [facility] 01/30/2022 12:04:44 06/28/20 21 Diabetic Foot Exam completed MD Tati Cleveland [address], [place], [address], [facility] 06/28/2021 15:36:57 03/23/20 21 [facility] 15:04:07 03/07/20 21 Diabetic Foot Exam completed MD Tati Cleveland [address], [place], [address], [facility] 03/07/2021 15:16:44 12/06/19 21 Diabetic Foot Exam completed MD Tati Cleveland [address], [place], [address], [facility] 12/06/2020 15:33:57 09/05/20 20 Diabetic Foot Exam completed MD Tati Cleveland [address], [place], [address], [facility] 09/05/2020 16:19:17 06/06/20 20 Diabetic Foot Exam completed MD Tati Cleveland [address], [place], [address], [facility] 06/06/2020 11:33:53 12/07/19 20 Diabetic Foot Exam completed MD Tati Cleveland [address], [place], [address], [facility] 12/07/2019 11:48:36 09/06/20 19 Diabetic Foot Exam completed MD Tati Cleveland [address], [place], [address], [facility] 09/06/2019 13:00:30 06/04/20 19 Diabetic Foot Exam completed MD Tati Cleveland [address], [place], [address], [facility] 06/04/2019 12:52:36 03/05/20 19 Diabetic Foot Exam completed MD Tati Cleveland [address], [place], [address], [facility] 03/05/2019 13:23:18 12/02/19 19 Diabetic Foot Exam completed MD Tati Cleveland [address], [place], [address], [facility] 12/02/2018 15:16:05 09/01/20 18 Diabetic Foot Exam completed MD Tati Cleveland [address], [place], [address], [facility] 09/01/2018 14:59:25 11/26/19 17 Colonoscopy completed MD Tati Cleveland [address], [place], [address], [facility] 11/26/2016 13:18:37 09/03/20 11 Colonoscopy completed Cecilia Ramirez [facility] 03/19/2016 22:33:09 Tonsillectomy completed Cecilia Ramirez [facility] 03/19/2016 22:33:19 Orthopedic Surgery completed Cecilia Ramirez [facility] 03/19/2016 22:33:34 Imaging Results None recorded. Procedure Notes None recorded. Medical Equipment None Reported. Allergies Allergen ID Allergen Name Allergen Category Reaction Reaction Severity Criticality Documentation Date Start Date Code Code System Note Provider Name and Address Organization Details Recorded Time 83096 iodine medicatio n anaphylax is Not available high 05/26/20252021 5933 RxNorm Just iv dye Not Available [facility] - External Data Service - prod 5 11:34:41 36749 pentazoci ne Not available Not available Not available low 05/26/2025 8001 RxNorm Talwi n unrec ogniz ed react ion (text : Unkno wn, code: [id number]) (from exter nal sourc e) Not Available salv[facility] - External Data Service - prod 5 11:34:41 570 Talwin medicatio n Not available Not available Not available 03/19/[address] [facility] 6 22:31:10 7985 Iodinated contrast media (substanc e) medicatio n Not available Not available Not available 03/05/2019 51557 2004 SNOMED [address]yn New kwaku [facility] 9 12:54:24 Medications Name Sig Start Date Stop Date Status Note LastModified by Organization Details LastModified Time latanoprost 0.005 % eye drops INSTILL 1 DROP IN BOTH EYES AT BEDTIME active Not Available Not Available No t Available atorvastati n 40 mg tablet TAKE 1 TABLET BY MOUTH EVERY DAY 2024 active Not Available Not Available Not Avai lable metformin 500 mg tablet TAKE 1 TABLET [...] Not Available Not Available Not Avai lable prednisone 50 mg tablet TAKE 1 TABLET [...] Updated DateTime 5 180.34 cm 29.3 kg/m2 07454.4 g 96.7 [degF] 67 /min 18 /min 125/65 mm[Hg] Liat Leny [facility] 5 12:22:06 Date Recorded Body height Body mass index (BMI) Body weight Body temperature Heart rate Respiratory rate Systolic And Diastolic Provider Name and Address Organization Details Last Updated DateTime 5 180.34 cm 29.6 kg/m2 35972.5 8 g 97.7 [degF] 69 /min 18 /min 119/61 mm[Hg] Liat Michele [facility] 5 12:28:03 Date Recorded Body mass index (BMI) Body height Provider Name and Address Organization Details Last Updated DateTime 06/09/2024 29.6 kg/m2 180.34 cm Faviola Alves MD [address] [facility] [address], [place], [address], [facility] 06/09/2024 14:35:48 Date Recorded Heart rate Respiratory rate Body temperature Body weight Systolic And Diastolic Provider Name and Address Organization Details Last Updated DateTime 4 71 /min 18 /min 97.7 [degF] 28340.5 8 g 104/56 mm[Hg] Alvertojames Horacio [facility] 4 14:26:21 Date Recorded Body height Body mass index (BMI) Body weight Body temperature Respiratory rate Heart rate Systolic And Diastolic Provider Name and Address Organization Details Last Updated DateTime 5 180.34 cm 29.7 kg/m2 72608.1 7 g 97.6 [degF] 18 /min 73 /min 124/61 mm[Hg] Liat Wallacealy [facility] 5 12:35:14 Date Recorded Body height Body mass index (BMI) Body weight Body temperature Respiratory rate Heart rate Systolic And Diastolic Provider Name and Address Organization Details Last Updated DateTime 4 180.34 cm 29.7 kg/m2 42270.1 7 g 97.5 [degF] 18 /min 68 /min 117/60 mm[Hg] Liat Michele [facility] 4 12:24:00 Social History Question Answer Notes LastModified by Organizat ion Details LastModified Time Tobacco Smoking Status Former Smoker quit Not Available [facility] 09/08/2020 03:12:14 Do You Have An Advance Directive? Yes [id number] Information not available 09/08/2020 What Is Your Level Of Caffeine Consumption? 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 No [id number] Information not available 09/08/2020 In The 14 Days Before Symptom Onset, Have You Had Close Contact With A Person Who Is Under Investigation For COVID-19 While That Person Was Ill? No [id number] Information not available 09/08/2020 Have You Been To An Area Known To Be High Risk For COVID-19? No [id number] Information not available 09/08/2020 Have You Directly Handled Bats, Rodents, Or Primates From Ebola Endemic Areas? No [id number] Information not available 09/08/2020 Have You Processed Blood Or Body Fluids From An Ebola Virus Disease Patient Without Appropriate PPE? No [id number] Information not available 09/08/2020 Have You Had Household Contact With An Ebola Virus Disease Patient? No [id number] Information not available 09/08/2020 Have You Had Direct Contact With A Body In An Ebola-affected Area Without Appropriate PPE? No [id number] Information not available 09/08/2020 Have You Had Percutaneous (e.g. Needle Stick) Or Mucous Membrane Exposure To Blood Or Body Fluids From An Ebola Virus Disease Patient? No [id number] Information not available 09/08/2020 Have You Had Other Close Contact With An Ebola Virus Disease Patient In Health Care Facilities Or Community Settings? No [id number] Information not available 09/08/2020 Do You Reside In Or Have You Traveled To An Area Where Ebola Virus Transmission Is Active? No [id number] Information not available 09/08/2020 Are There Any Guns Present In Your Home? No [id number] Information not available 09/08/2020 Hard Of Hearing [...] Much Tobacco Do You Smoke? 1 PPD [id number] Information not available 09/08/2020 Do You Use Sunscreen Routinely? No [id number] Information not available 09/08/2020 How Many Years Have You Smoked Tobacco? 10 [id number] Information not available 09/08/2020 Have You Used IV Drugs? No [id number] Information not available 09/08/2020 Sex: Unknown Functional Status Question Answer Note LastModified by Organization D etails LastModified Time What is your level of alcohol consumption? None Information not available 12/06/2020 Are you currently employed? No [id number] Information not available 09/08/2020 Are you able to care for yourself independently? Yes [id number] Information not available 09/08/2020 Mental Status None recorded. Family History Relationship Description Onset Age of this Age Resolved Age Notes LastModified by Organization Details LastModified Time Father Cerebrovascu lar accident 81 [email or web address] Not available 22:32:20 Mother Diabetes mellitus [email or web address] Not available 2015 22:32:32 Brother Coronary arterioscler osis [id number] Not available 2015 22:32:47 Medical History Condition Response Coronary Artery Disease N Other N Gout N Kidney Stones N Blood Diseases N Hyperthyroidism N Blood Transfusion N COPD N Depression N Anxiety Disorder N Muscle, Joint, or Bone Problems N Obesity N Vision or Eye Problems N Arthritis N Infertility N Polyps N Mental Disorder N Cancer N Stroke N Varicosities N Fibromyalgia N Headaches N Kidney Disease N Heart Problems N Ear or Hearing Problems N Hospitalizations N Skin Problems N Eating Disorder N MRSA exposure N Constipation N Tuberculosis N AIDS/HIV N Asthma N Hepatitis N Pulmonary Embolism N Chronic Ear Infections N Chicken Pox N Autism Spectrum Disorder (ASD) N Thrombophilias N Breast Cancer N Hypothyroidism N Lung Disease N Defects or Inherited Disease N Developmental or Behavioral Disorders N Breast Problem N Difficulty Swallowing N Anesthesia Complications N Meniere's disease N Endometriosis N Bladder or Kidney Problems N High Cholesterol N Liver Disease N Allergies/Hayfever N Thyroid Problems N GI Problems N ADD/ADHD N Anemia N Mental Illness N Ovarian Cancer N Diabetes N Bedwetting N Seizures/Epilepsy N Congestive Heart Failure (CHF) N Eczema N Diverticulitis N Abuse/Domestic Violence N Reflux/GERD N Heart Disease N Pre-Eclampsia N Hypertension N Osteoporosis N Immunizations Vaccine Type Date Status Note Provider Nam e and Address Organization Details Recorded Time Td(adult) unspecified formulation 8 completed Not Available [facility] 12/23/2023 16:33:29 Influenza, split virus, quadrivalent, preservative 8 completed Not Available [facility] 12/23/2023 16:33:29 zoster recombinant 9 completed Not Available [facility] 12/23/2023 16:33:29 zoster recombinant 9 completed Not Available [facility] 12/23/2023 16:33:29 Influenza, split virus, quadrivalent, preservative 9 completed Not Available [facility] 12/23/2023 16:33:29 pneumococcal polysaccharide PPV23 8 completed Not Available [facility] 12/23/2023 16:33:29 Pneumococcal conjugate PCV 13 7 completed Not Available [facility] 12/23/20[facility] 16:33:29 Influenza, high-dose, quadrivalent, PF 0 completed Not Available [facility] 12/23/2023 16:33:29 SARS-COV-2 (COVID-19) vaccine, UNSPECIFIED 1 completed Not Available [facility] 12/23/2023 16:33:29 SARS-COV-2 (COVID-19) vaccine, UNSPECIFIED 1 completed Not Available [facility] [facility] 12/23/2023 16:33:29 COVID-19, mRNA, LNP-S, PF, 30 mcg/0.3 mL dose 1 completed Not Available [facility] 12/23/2023 16:33:29 Influenza, split virus, quadrivalent, preservative 1 completed Not Available [facility] 12/23/2023 16:33:29 Influenza, split virus, quadrivalent, preservative 2 completed Not Available [facility] 12/23/2023 16:33:29 COVID-19, mRNA, LNP-S, PF, 30 mcg/0.3 mL dose, rola-sucrose 2 completed Not Available [facility] 12/23/2023 16:33:29 Influenza, split virus, quadrivalent, preservative 5 completed Not Available [facility] 12/23/2023 16:33:29 pneumococcal polysaccharide PPV23 4 completed Not Available [facility] 12/23/2023 16:33:29 zoster live 5 completed Not Available [facility] 12/23/2023 16:33:29 Tdap 8 completed Not Available [facility] 12/23/2023 16:33:29 influenza, unspecified formulation 3 completed Not Available [facility] 12/23/2023 16:33:29 Respiratory syncytial virus (RSV) MAB, unspecified 4 completed Faviola Alves MD [address] [facility] [address], [place], [address], [facility] 09/09/2024 13:00:27 influenza, unspecified formulation 4 completed MD Tati Cleveland [address], [place], [address], [facility] 12/16/2024 12:52:13 Past Encounters Encounter ID Performer Location Encounter Start Date Encounter Closed Date Diagnosis/Indication Diagnosis SNOMED-CT Code Diagnosis ICD10 Code Diagnosis IMO Codes Diagnosis Note [id number] Faviola Alves MD [facility], [facility] [address] [facility] [address] [place] [address] 03/20/2016 12:46:31 03/20/2016 14:07:42 Benign hypertension 26972349 I10 Osteoarthritis 938979488 M19.90 Diabetes mellitus 548722 09 E11.42 Hyperlipidemia 18008620 E78.5 Peripheral vascular disease 747606462 I73.9 abnormal EDWIN //vascular surg eval Diabetic p eripheral neuropathy 559504681 E11.40 [id number] Faviola Alves MD [facility], [facility] [address] [place] [address] 05/13/2016 11:32:50 05/13/2016 12:10:12 Peripheral vascular disease 622416537 I73.9 Osteoarthritis 626636357 M19.90 Hypothyroidism 75444490 E03.9 Diabetic p eripheral neuropathy 251702710 E11.40 Coronary arteriosclerosis 08852134 I25.10 Hyperlipidemia 90726238 E78.5 Diabetes mellitus 632281 09 E11.42 Benign hypertension 1072 5009 I10 Rosacea 379085656 L71.9 Viral screening 15322718 4 Z11.59 [id number] Faviola Alves MD [facility], [place] [address] [place] [address] 08/13/2016 09:05:28 08/13/2016 09:42:36 Benign hypertension 71771387 I10 Hyperlipidemia 01621268 E78.5 Diabetes mellitus 469979 09 E11.42 Peripheral vascular disease 019254687 I73.9 last EDWIN 01/2016 Active or passive immunization 064024477 Z23 Diabetic foot ulcer 3710 90118 E11.40 Hypothyroidism 86448533 E03.9 [id number] Faviola Alves MD [facility], [facility] [address] [place] [address] 11/12/2016 09:10:01 11/12/2016 09:52:59 Diabetes mellitus 34895796 E11.42 Hypothyroidism 71320076 E03.9 Coronary arteriosclerosis 72420420 I25.10 Hyperlipidemia 66493581 E78.5 Benign hypertension 1072 5009 I10 Peripheral vascular disease 813992207 I73.9 last EDWIN 01/2016 Active or passive immunization 653614619 Z23 Rosacea 113972229 L71.9 [id number] Faviola Alves MD [facility], [place] [address] [place] [address] 02/10/2017 10:53:04 02/10/2017 11:52:30 Benign hypertension 94621128 I10 Diabetes mellitus 746836 09 E11.42 Coronary arteriosclerosis 65185908 I25.10 Hypothyroidism 37160584 E03.9 Peripheral vascular disease 389321868 I73.9 last EDWIN 01/2016 Rosacea 975088321 L71.9 Active or passive immunization 008250376 Z23 Charcot's arthropathy 35 7821906 M14.679 sees pod every 3 months [id number] Faviola Alves MD [place] [facility], [place] [address] [place] [address] 05/30/2017 11:57:07 05/30/2017 12:44:53 Preoperative cardiovascular examination 812285590 Z01.810 need to get cardiology clearnce from his cardiology Peripheral vascular disease 515016402 I73.9 mild on the new EDWIN @ [facility] 05/22/17 Bronchitis 49421611 J40 Benign hypertension 1072 5009 I10 Rosacea 999348033 L71.9 Diabetes mellitus 729143 09 E11.42 per pt had A1c @ [facility] DM clinic 04/09/17 and it was 6.5 Hypothyroidism 44605509 E03.9 Hyperlipidemia 47819382 E78.5 [id number] Faviola Alves MD [facility], [place] [address] [facility] [address] [place] [address] 08/29/2017 12:25:01 08/29/2017 13:05:14 Infection of foot 884914073 L08.9 Lt big toe , seen pod , will change to doxy , RTC 1 week if not better Benign hypertension 1072 5009 I10 Diabetes mellitus 989378 09 E11.69 per pt had A1c with endo 07/16/17 and was 6.3 Hypothyroidism 10612137 E03.9 Peripheral vascular disease 475330957 I73.9 mild on the new EDWIN @ [facility] 05/22/17 [id number] Faviola Alves MD [facility], [address] [facility] [address] [place] [address] 12/01/2017 15:46:31 12/01/2017 16:30:34 Diabetes mellitus 36426493 E11.69 per pt had A1c with endo 10/20/17 and was 6.7 Hyperlipidemia 71352601 E78.5 Coronary arteriosclerosis 12299185 I25.10 Diabetic p eripheral neuropathy 761260388 E11.40 Charcot's arthropathy 35 1873604 M14.679 sees pod every 3 months Benign hypertension 1072 5009 I10 Active or passive immunization 140696057 Z23 Poor balance 274288584 R 27.8 2ry to diabetic neuropathy Hypothyroidism 50348889 E03.9 Peripheral vascular disease 643284676 I73.9 mild on the new EDWIN @ [facility] 05/22/17 Decreased hearing 496596 001 H91.93 [id number] Faviola Alves MD [facility], [address] [facility] [address] [place] [address] 03/02/2018 12:19:13 03/02/2018 13:35:33 Adult health examination 929357959 Z00.00 Benign hypertension 1072 5009 I10 good control Hypothyroidism 80248719 E03.9 last TSH 12/10/17 Diabetes mellitus 010284 09 E11.69 per pt had A1c with endo 10/20/17 and was 6.7 Hyperlipidemia 64677996 E78.5 last LDL 12/10/16 Coronary arteriosclerosis 81983954 I25.10 sees cardiology on reg basis Osteoarthritis 076737444 M19.90 Rosacea 785507733 L71.9 good control with doxy Charcot's arthropathy 35 2089863 M14.679 sees pod every 3 months Peripheral vascular disease 938210908 I73.9 mild on the new EDWIN @ [facility] 05/22/17 Diabetic p eripheral neuropathy 523742684 E11.40 will try tylenol Screening for malignant neoplasm of colon 189911478 Z12.11 last C scope 11/26/16 , good till 2021 Active or passive immunization 340465595 Z23 [id number] Faviola Alves MD [employer], [place] [address] [place] [address] 06/01/2018 14:09:06 06/01/2018 14:47:05 Benign hypertension 08053405 I10 good control Peripheral vascular disease 272963383 I73.9 mild on the new EDWIN @ [facility] 05/22/17 Charcot's arthropathy 35 3672037 M14.679 sees pod every 3 months Hypothyroidism 20166710 E03.9 last TSH 12/10/17 Diabetic p eripheral neuropathy 971112877 E11.40 will try tylenol Coronary arteriosclerosis 33418306 I25.10 sees cardiology on reg basis Hyperlipidemia 15128246 E78.5 last LDL 12/10/17 @ goal Diabetes mellitus 284239 09 E11.69 per pt had A1c with endo 03/02/18 was 7.1 Active or passive immunization 020304953 Z23 Rosacea 125009257 L71.9 good control with doxy Osteoarthritis 078126894 M19.90 Screening for malignant neoplasm of colon 538400472 Z12.11 last C scope 11/26/16 , good till 2021 [id number] Faviola Alves MD [employer], [place] [address] [place] [address] 09/01/2018 14:21:20 09/01/2018 15:03:03 Cellulitis of lower limb 539464305 L03.119 last TD 12/2017 Pain in left knee 745190 3242 03678 M25.562 Benign hypertension 1072 5009 I10 good control Diabetes mellitus 483359 09 E11.69 last A1c 06/09/18 Screening for malignant neoplasm of colon 116242822 Z12.11 last C scope 11/26/16 , good till 2021 Active or passive immunization 502610792 Z23 [id number] Faviola Alves MD [facility], [place] [address] [place] [address] 12/02/2018 14:39:39 12/02/2018 15:30:45 Benign hypertension 52671649 I10 good control Hypothyroidism 25971084 E03.9 last TSH 06/09/18 Coronary arteriosclerosis 38321159 I25.10 sees cardiology on reg basis Hyperlipidemia 09519224 E78.5 last LDL 12/10/17 @ goal Diabetes mellitus 757010 09 E11.69 last A1c 06/09/18 Screening for malignant neoplasm of colon 648745010 Z12.11 last C scope 11/26/16 , good till 2021 Active or passive immunization 472646962 Z23 [id number] Faviola Alves MD [facility] [address] [place] [address] ,[address] [place] [address] 03/05/2019 12:40:57 03/05/2019 13:29:31 Adult health examination 264466511 Z00.01 Diabetes mellitus 511067 09 E11.69 last A1c 12/21/18las t eye ex 01/2019 Hyperlipidemia 85607888 E78.5 last LDL 12/21/18 @ goal Hypothyroidism 54904406 E03.9 last TSH 12/21/18 Diabetic p eripheral neuropathy 973115086 E11.40 will try tylenol Coronary arteriosclerosis 49631174 I25.10 sees cardiology on reg basis Osteoarthritis 613189410 M19.90 Rosacea 073208788 L71.9 good control with doxy Charcot's arthropathy 35 3031929 M14.679 sees pod every 3 months Benign hypertension 1072 5009 I10 good control Peripheral vascular disease 057078094 I73.9 mild on the new EDWIN @ [facility] 05/22/17 Body mass index 30+ - obesity 256156886 Z68.36 Screening for malignant neoplasm of colon 678717838 Z12.11 last C scope 11/26/16 , good till 2021 Active or passive immunization 802777130 Z23 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 990950574 E11.3499 seen ophth 02/23/19 [id number] Faviola Alves MD [facility] [address] [place] [address] [address] [place] [address] 06/04/2019 12:29:49 06/04/2019 12:59:17 Benign hypertension 50716606 I10 good control 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 321921067 E11.3499 seen ophth 02/23/19 Hypothyroidism 72127036 E03.9 last TSH 12/21/18 Diabetes mellitus 222663 09 E11.69 last A1c 6.7 @ endo 04/21/19las t eye ex 02/23/2019 Peripheral vascular disease 801766070 I73.9 mild on EDWIN 09/09/18 Benign par oxysmal positional vertigo 698220025 H81.10 Screening for malignant neoplasm of colon 918149931 Z12.11 last C scope 11/26/16 , good till 2021 Active or passive immunization 281921641 Z23 [id number] Faviola Alves MD [facility], [address] [address] [place] [address] 09/06/2019 12:16:45 09/06/2019 13:12:20 Benign hypertension 37220889 I10 good control Peripheral vascular disease 999863639 I73.9 mild on EDWIN 09/09/18 Charcot's arthropathy 35 7097071 M14.679 sees pod every 3 months Hypothyroidism 13191106 E03.9 last TSH 12/21/18 Coronary arteriosclerosis 16168193 I25.10 sees cardiology on reg basis Hyperlipidemia 90316822 E78.5 last LDL 12/21/18 @ goal Diabetes mellitus 435613 09 E11.69 last A1c 6.7 @ endo 04/21/19las t eye ex 02/23/2019 Body mass index 30+ - obesity 926215730 Z68.36 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 038936282 E11.3499 seen ophth 07/02/19 Eruption 471299453 R21 Osteoarthritis 502107953 M19.90 Screening for malignant neoplasm of colon 671631396 Z12.11 last C scope 11/26/16 , good till 2021 Impacted c erumen in left ear 3177180176 784517 H61.22 [id number] Faviola Alves MD [place] [facility], [address] [place] [address] [place] [address] 12/07/2019 10:51:15 12/07/2019 11:59:40 Benign hypertension 94643649 I10 good control Body mass index 30+ - obesity 292609034 Z68.36 Coronary arteriosclerosis 94030002 I25.10 sees cardiology on reg basis Diabetes mellitus 540199 09 E11.69 last A1c 7.1last eye ex 10/29/19 Hyperlipidemia 48577868 E78.5 last LDL 12/21/18 @ goal Hypothyroidism 80938013 E03.9 last TSH 09/24/19 Screening for malignant neoplasm of colon 731313587 Z12.11 last C scope 11/26/16 , good till 2021 Active or passive immunization 480974947 Z23 up to date [id number] Faviola Alves MD [employer], [place] [address] [place] [address] 02/02/2020 15:32:56 02/02/2020 16:08:21 Coronary arteriosclerosis 21046719 I25.10 seen , cardiology , had stent RCArecheck BMPhas plavix , no other meds change Chest pain 31693763 R07. 9 just had stent on RCA Mixed hyperlipidemia 267 839922 E78.2 last LDL 01/24/20 @ goal Benign hypertension 1072 5009 I10 good control Ulcer of toe 524174776 L 97.509 Diabetes mellitus 483639 09 E11.69 last A1c 7.1last eye ex 10/29/19 [id number] Faviola Alves MD [employer], [place] [facility] [place] [address] 03/07/2020 10:50:05 03/07/2020 11:38:19 Benign hypertension 98116994 I10 good control Coronary arteriosclerosis 32270602 I25.10 seen , cardiology , had stent RCArecheck BMPhas plavix , no other meds change Diabetes mellitus 598077 09 E11.69 last A1c 12/20/19las t eye ex 10/29/19 Hyperlipidemia 14305109 E78.5 last LDL 01/24/20 @ goal Hypothyroidism 52513370 E03.9 last TSH 12/20/19 Peripheral vascular disease 848349582 I73.9 mild on EDWIN 09/15/19 , arterial doppler 02/21/20 Screening for malignant neoplasm of colon 837343837 Z12.11 last C scope 11/26/16 , good till 2021 [id number] Faviola Alves MD [employer], [facility] [address] [place] [address] 06/06/2020 10:27:55 06/06/2020 11:48:48 Adult health examination 829665565 Z00.01 Benign hypertension 1072 5009 I10 good control Coronary arteriosclerosis 47996970 I25.10 seen , cardiology , had stent RCArecheck BMPhas plavix , no other meds change Diabetes mellitus 847882 09 E11.69 last A1c 12/20/19las t eye ex 10/29/19 Body mass index 30+ - obesity 663301498 Z68.36 education Charcot's arthropathy 35 8142184 M14.679 sees pod every 3 months Diabetic p eripheral neuropathy 290980882 E11.40 on tylenol Ex-smoker 6062691 Z87.89 1 education Hyperlipidemia 16257775 E78.5 last LDL 01/24/20 @ goal Hypothyroidism 26172126 E03.9 last TSH 12/20/19 Lymphedema 481156861 I89 .0 education Osteoarthritis 127154645 M19.90 Peripheral vascular disease 457860086 I73.9 mild on EDWIN 09/15/19 , arterial doppler 02/21/20 Rosacea 069599071 L71.9 good control with doxy 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 730357463 E11.3499 seen ophth 02/2020 Viral screening 46891760 4 Z11.59 Screening for malignant neoplasm of colon 301231677 Z12.11 last C scope 11/26/16 , good till 2021 Active or passive immunization 250274148 Z23 up to date [id number] Faviola Alves MD [facility], [facility] [address] [place] [address] 09/05/2020 15:30:44 09/05/2020 16:33:11 Benign hypertension 32388381 I10 good control Diabetes mellitus 193810 09 E11.69 last A1c 06/09/20las t eye ex 07/07/20las t MELVIN 06/09/20 Hyperlipidemia 58805489 E78.5 last LDL 01/24/20 @ goal Hypothyroidism 66158284 E03.9 last TSH 06/09/20 Osteoarthritis 826358557 M19.90 Screening for malignant neoplasm of colon 603488803 Z12.11 last C scope 11/26/16 , good till 2021 Active or passive immunization 760995439 Z23 up to date [id number] Faviola Alves MD [place] [facility], [place] [address] [facility] ,[address] [place] [address] 12/06/2020 15:10:16 12/06/2020 15:41:15 Diabetes mellitus 71768730 E11.69 last A1c 06/09/20las t eye ex 07/07/20las t MELVIN 06/09/20 Diabetic p eripheral neuropathy 870142397 E11.40 on tylenol Hyperlipidemia 62148773 E78.5 last LDL 01/24/20 @ goal Hypothyroidism 75488725 E03.9 last TSH 06/09/20 Benign hypertension 1072 5009 I10 good control Cellulitis of foot 99479 6007 L03.119 Rt 5th toe , septra , had NL EDWIN 09/15/19ed ucationpod following Screening for malignant neoplasm of colon 104442998 Z12.11 last C scope 11/26/16 , good till 2021 Active or passive immunization 686340800 Z23 up to date Coronary arteriosclerosis 34721411 I25.10 seen , cardiology , had stent RCArecheck BMPhas plavix , no other meds change [id number] Faviola Alves MD [facility], [place] [address] [facility] ,[address] [place] [address] 03/07/2021 14:42:02 03/07/2021 15:25:14 Benign hypertension 73100712 I10 good control Body mass index 30+ - obesity 458410445 Z68.36 education Coronary arteriosclerosis 81562989 I25.10 seen , cardiology , had stent RCA has plavix , no other meds change Diabetes mellitus 302964 09 E11.69 last A1c 06/09/20las t eye ex 07/07/20las t MELVIN 06/09/20 Diabetic p eripheral neuropathy 322408060 E11.40 on tylenol Hyperlipidemia 26276502 E78.5 last LDL 03/05/21 @ goal Hypothyroidism 04889254 E03.9 last TSH 12/07/20 Osteoarthritis 988930834 M19.90 Peripheral vascular disease 505811796 I73.9 mild on EDWIN 09/15/19 , arterial doppler 02/21/20 Screening for malignant neoplasm of colon 467114753 Z12.11 last C scope 11/26/16 , good till 2021 Active or passive immunization 213606844 Z23 up to date Screening for malignant neoplasm of prostate 009567445 Z12.5 Ulcer of foot 94806086 L 97.929 toe , seen pod , seeing wound clinic [id number] Faviola Alves MD [place] [facility], [facility] [address] [facility] [address] [address] [address] 06/28/2021 14:31:27 06/28/2021 15:52:25 Adult health examination 151245720 Z00.01 Benign hypertension 1072 5009 I10 good controllas t EKG 03/08/21 Body mass index 30+ - obesity 631912117 Z68.36 education Charcot's arthropathy 35 1221463 M14.679 sees pod every 3 months Chronic renal failure 90 001018 N18.9 last US 12/2020 Complex renal cyst 96686 1001 N28.1 last US 12/2020 Coronary arteriosclerosis 54572231 I25.10 seen , cardiology , had stent RCA has plavix , no other meds changelast EKG 03/08/21 Diabetes mellitus 926974 09 E11.69 last A1c 03/09/21las t eye ex 04/13/21las t MELVIN 06/09/20 Diabetic p eripheral neuropathy 278608183 E11.40 on tylenol Ex-smoker 1502746 Z87.89 1 education Hyperlipidemia 33765418 E78.5 last LDL 03/05/21 @ goal Hypothyroidism 99853538 E03.9 last TSH 12/07/20 Osteoarthritis 998528969 M19.90 Peripheral vascular disease 128141828 I73.9 mild on EDWIN 03/08/21 Rosacea 853216567 L71.9 good control with doxy 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 694933557 E11.3499 seen ophth 04/13/21 Acute oste omyelitis of phalanx of toe 693325021 M86.179 Lt 5th toe , S/P amputation , done with Abx Screening for malignant neoplasm of colon 570567493 Z12.11 last C scope 11/26/16 , good till 2021 Active or passive immunization 721584605 Z23 up to date [id number] Faviola Alves MD [facility], [place] [address] [address] [place] [address] 10/01/2021 09:09:45 10/01/2021 10:07:48 Benign hypertension 44583776 I10 good controllas t EKG 03/08/21 Body mass index 30+ - obesity 108701007 Z68.36 educationd own 7 LBs Diabetes mellitus 427302 09 E11.69 last A1c 07/04.las t eye ex 04/13/21las t MELVIN 06/09/20 Coronary arteriosclerosis 97830942 I25.10 seen , cardiology , had stent RCA has plavix , no other meds changelast EKG 03/08/21 Diabetic p eripheral neuropathy 050057492 E11.40 on tylenollas t B12 07/04/21 Hyperlipidemia 36505350 E78.5 last LDL 07/17/21 @ goal Hypothyroidism 49172430 E03.9 last TSH 07/04/21 Peripheral vascular disease 290619339 I73.9 mild on EDWIN 08/06/21 Osteomyeli tis of left foot 4102090038 460851 M86.9 3rd toe , seen vascular , ID and pod Screening for malignant neoplasm of colon 779522902 Z12.11 last C scope 11/26/16 , good till 2021 Active or passive immunization 208498507 Z23 up to date Retinal ischemia 4870449 4 H35.82 per ophth note 04/13/[id number] Faviola Alves MD [place] [employer], [place] [address] [address] [place] [address] 11/28/2021 17:08:34 11/28/2021 18:22:38 Effusion of joint of left knee 5522192901 63914 M25.462 Benign hypertension 1072 5009 I10 good controllas t EKG 03/08/21 Body mass index 30+ - obesity 661409579 Z68.36 educationl ost 6 Lbs on diet Chronic os teomyelitis of foot 508014509 M86.679 gone , stopped Abx Diabetes mellitus 762715 09 E11.69 last A1c 10/09/21la st eye ex 1las t MELVIN 07/04/21he is going to talk to endo for restarting jardiance Coronary arteriosclerosis 35733839 I25.10 seen , cardiology , had stint RCA has plavix , no other meds changelast EKG 03/08/21 Diabetic p eripheral neuropathy 522397429 E11.40 on tylenollas t B12 07/04/21 Hyperlipidemia 55030309 E78.5 last LDL 07/17/21 @ goal Hypothyroidism 45572514 E03.9 last TSH 07/04/21 Peripheral vascular disease 484691498 I73.9 mild on EDWIN 08/06/21 [id number] Faviola Alves MD [employer], [place] [facility] ,[address] [place] [address] 01/01/2022 15:20:45 01/01/2022 16:22:01 Knee pyogenic arthritis 431994694 M00.9 Lt knee , on ABx , had prothesis out and have spacer Diarrhea 29959505 R19.7 Benign hypertension 1072 5009 I10 good controllas t EKG 03/08/21 Diabetes mellitus 800532 09 E11.69 last A1c 10/09/21la st eye ex as t MELVIN 07/04/21400998 Faviola Alves MD [employer], [place] [facility] ,[address] [place] [address] 01/30/2022 11:35:28 01/30/2022 12:18:24 Benign hypertension 72084754 I10 good controllas t EKG 03/08/21 Body mass index 30+ - obesity 553414874 Z68.36 educationl ost 6 Lbs on diet Diabetes mellitus 507053 09 E11.69 last A1c 10/09/21la st eye ex as t MELVIN 07/04/21 Diabetic p eripheral neuropathy 877058399 E11.40 on tylenollas t B12 07/04/21 Knee pyoge tristan arthritis 264413817 M00.9 Lt knee , done ABx , had prosthesis out and have spacer Diarrhea 69309007 R19.7 resolved Mixed hyperlipidemia 267 231052 E78.2 last LDL 07/17/21 @ goal Screening for malignant neoplasm of colon 416391494 Z12.11 last C scope 11/26/16 , good till 2021 Active or passive immunization 161537473 Z23 up to date Coronary arteriosclerosis 27941565 I25.10 seen , cardiology , had stint RCA has plavix , no other meds changelast EKG 03/08/21 Hypothyroidism 97897042 E03.9 last TSH 10/09/21 000134 Faviola Alves MD [facility] [address] [place] [address] 05/09/2022 10:00:36 05/09/2022 11:29:01 Benign hypertension 66877725 I10 good controllas t EKG 03/08/21 Anemia 944153323 D64.9 Type 2 marina betes mellitus without complication 191431314 E11.9 last ophth 01/2022last A1c 01/2022 Diabetic p eripheral neuropathy 766882192 E11.40 on tylenollas t B12 02/05/22 Hypothyroidism 48808165 E03.9 last TSH 02/05/22 Chronic renal failure 90 246435 N18.9 last US 12/2020 Screening for malignant neoplasm of colon 853857309 Z12.11 last C scope 11/26/16 , good till 2021 Active or passive immunization 213756748 Z23 up to date Body mass index 25-29 - overweight 241405897 Z68.28 educationl ost 11 Lbs on diet Effusion o f joint of left knee 0315475895 66315 M25.462 [id number] Faviola Alves MD [facility] [address] [place] [address] 08/13/2022 10:51:39 08/13/2022 12:12:55 Adult health examination 189654235 Z00.01 Benign hypertension 1072 5009 I10 good controllas t EKG 03/08/21 Body mass index 25-29 - overweight 675670904 Z68.28 educationo n diet Diabetes mellitus 948088 09 E11.69 last A1c 05/15/22las t eye ex 05/31/22last MELVIN 8/11/21 Diabetic p eripheral neuropathy 088483154 E11.40 on tylenollas t B12 05/15/22 Hyperlipidemia 68267783 E78.5 last LDL 02/05/22 @ goal Hypothyroidism 02166334 E03.9 last TSH 02/05/22 Knee pyoge tristan arthritis 794540681 M00.9 Lt knee , done ABx , had prosthesis out and have spacer Osteoarthritis 371103816 M19.90 Peripheral vascular disease 621918615 I73.9 mild on EDWIN 02/04/22 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 089111565 E11.3499 seen ophth 05/31/22 Rosacea 802955344 L71.9 good control with doxy Ex-smoker 4021446 Z87.89 1 education Coronary arteriosclerosis 65046613 I25.10 seen , cardiology , had stint RCA has plavix , no other meds changelast EKG 03/08/21 Chronic renal failure 90 056226 N18.9 last US 12/2020 Complex renal cyst 56158 1001 N28.1 last US 02/13/22 Chronic os teomyelitis of foot 529428964 M86.679 gone , stopped Abx Charcot's arthropathy 35 4431774 M14.679 sees pod every 3 months Screening for malignant neoplasm of colon 013627000 Z12.11 last C scope 11/26/16 , good till 2021have one schedules 08/2022 Active or passive immunization 561793659 Z23 up to dateflu and COVID booster Advance di rective discussed with patient 881513213 Z71.89 education Visual disturbance 19265 001 H53.9 difficulty focusing in AM [id number] MD Rupesh [facility], [facility] [address] [facility] [place] ,[address] [address] 09/04/2022 09:29:46 09/04/2022 10:32:17 Acute osteomyelitis of phalanx of toe 553372026 M86.179 Lt 4th toe and distal 3rd toe , S/P amputation , still on Abx Cellulitis of foot 66416 6007 L03.119 Rt 4th toe ,education pod following Peripheral vascular disease 442865704 I73.9 last arterial duplex 08/26/22 Hyperkalemia 97586007 E8 7.5 959509 Faviola Alves MD [facility], [place] [address] [address] [place] [address] [place] [address] 11/11/2022 15:06:43 11/11/2022 16:18:16 Benign hypertension 89103956 I10 good controllas t EKG 08/16/22 Body mass index 25-29 - overweight 167633670 Z68.28 educationo n diet Diabetes mellitus 106317 09 E11.69 last A1c 09/26/22las t eye ex 05/31/22last MELVIN 09/26/22 Hyperlipidemia 51559882 E78.5 last LDL 08/16/22 @ goal Ulcer of toe 669389630 L 97.509 Screening for malignant neoplasm of colon 804721202 Z12.11 last C scope 09/2022 , good for 5 years Active or passive immunization 624932265 Z23 up to dateflu and COVID booster 850990 Faviola Alves MD [facility], [place] [address] [address] [place] [address] [place] [address] 02/10/2023 14:47:12 02/10/2023 16:20:01 Benign hypertension 06790830 I10 good controllas t EKG 08/16/22 Body mass index 25-29 - overweight 693117276 Z68.28 educationo n diet Carotid ar rafal stenosis 51046672 I65.29 10/10/22 Chronic os teomyelitis of foot 423258290 M86.679 S/P ambulation all toes Lt foot Diabetes mellitus 784259 09 E11.69 last A1c 01/31/23las t eye ex 12/20/2022 per ptlast MELVIN 01/31/22 Hypothyroidism 44896826 E03.9 last TSH 01/31/23 Mixed hyperlipidemia 267 669233 E78.2 last LDL 08/16/22 @ goal Screening for malignant neoplasm of colon 871687678 Z12.11 last C scope 09/2022 , good for 5 years Active or passive immunization 267629912 Z23 up to dateflu and COVID booster Serum karo min B12 borderline low 729507201 R79.89 455707 Faviola Alves MD [employer] [facility], [place] [address] [place] [address] [place] [address] 03/21/2023 12:37:51 03/21/2023 13:35:10 Diabetic peripheral neuropathy 062940359 E11.40 on tylenollas t B12 05/15/22had foot deformity Charcot arthropath y , PVD , H/O ulcer ,need diabetic shoes and inserts Peripheral vascular disease 765358688 I73.9 last arterial duplex 08/26/22 Charcot's arthropathy 35 8570452 M14.679 sees pod every 3 months Diabetes mellitus 729190 09 E11.69 last A1c 01/31/23las t eye ex 12/20/2022 per ptlast MELVIN 01/31/23 Screening for malignant neoplasm of colon 991338294 Z12.11 last C scope 09/2022 , good for 5 years Active or passive immunization 275082368 Z23 up to dateflu and COVID booster Hypothyroidism 45099197 E03.9 last TSH 01/31/23 Benign hypertension 1072 5009 I10 good controllas t EKG 08/16/22 [id number] Faviola Alves MD [employer] [place] ,[address] [address] 06/23/2023 14:20:39 06/23/2023 15:39:03 Benign hypertension 06000949 I10 good controllas t EKG 08/16/22 Body mass index 25-29 - overweight 905391495 Z68.28 educationo n diet Carotid ar rafal stenosis 22411588 I65.29 10/10/22 Diabetes mellitus 683242 09 E11.69 last A1c 01/31/23las t eye ex 04/18/2023 per ptlast MELVIN 01/31/23 Hyperlipidemia 90787543 E78.5 last LDL 08/16/22 @ goal Hypothyroidism 21814651 E03.9 last TSH 04/02/23 Peripheral vascular disease 819526850 I73.9 last arterial duplex 05/17/23 Serum karo min B12 below reference range 574409040 R79.89 last level 04/02/23 Screening for malignant neoplasm of colon 785113753 Z12.11 last C scope 09/2022 , good for 5 years Active or passive immunization 781217263 Z23 up to dateflu and COVID booster 969067 Faviola Alves MD [employer] [facility] [place] [address] [place] [address] 09/04/2023 13:42:15 09/04/2023 14:43:41 Adult health examination 548295091 Z00.01 Benign hypertension 1072 5009 I10 good controllas t EKG 08/16/22 Body mass index 25-29 - overweight 860413490 Z68.28 educationo n diet Carotid ar rafal stenosis 17007878 I65.29 10/10/22 Charcot's arthropathy 35 2076917 M14.679 sees pod every 3 months Chronic os teomyelitis of foot 192419167 M86.679 S/P ambulation all toes Lt foot Chronic renal failure 90 221111 N18.9 last US 12/2020 Complex renal cyst 25841 1001 N28.1 last US 02/13/22 Coronary arteriosclerosis 83866547 I25.10 seen , cardiology , had stint RCA has plavix , no other meds changelast EKG 03/08/21 Anemia 943469311 D64.9 last CBC Diabetes mellitus 738950 09 E11.69 last A1c 07/11/23las t eye ex 08/15/2023 per ptlast MELVIN 01/31/23 Diabetic p eripheral neuropathy 202168576 E11.40 on tylenollas t B12 04/02/23had foot deformity Charcot arthropath y , PVD , H/O ulcer ,need diabetic shoes and inserts Ex-smoker 7954009 Z87.89 1 education Hyperlipidemia 43484881 E78.5 last LDL 07/11/23 @ goal Hypothyroidism 96481002 E03.9 last TSH 07/11/23 @ goal Lymphedema 872818294 I89 .0 education Osteoarthritis 248253021 M19.90 Peripheral vascular disease 094428437 I73.9 last arterial duplex 05/17/23 Serum karo min B12 below reference range 596907602 R79.89 last level 04/02/23 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 572088096 E11.3499 seen ophth 05/31/22 Screening for malignant neoplasm of colon 584538616 Z12.11 last C scope 09/2022 , good for 5 years Active or passive immunization 952153790 Z23 up to dateflu , RSV and COVID booster Pain of ri ght shoulder joint 2840565192 6842789 M25.511 495001 Faviola Alves MD [employer] [place] [facility] [place] [address] [place] [address] 12/10/2023 13:40:58 12/10/2023 15:04:23 Benign hypertension 90290776 I10 good controllas t EKG 08/16/22 Body mass index 25-29 - overweight 522600811 Z68.28 educationo n diet Carotid ar rafal stenosis 93882077 I65.29 10/10/22 Chronic renal failure 90 083193 N18.9 last US 12/2020 Diabetes mellitus 745204 09 E11.69 last A1c 11/10/23 with endo was 6.9last eye ex 08/15/2023 per ptlast MELVIN 01/31/23 Diabetic p eripheral neuropathy 492028715 E11.40 on tylenollas t B12 04/02/23had foot deformity Charcot arthropath y , PVD , H/O ulcer ,need diabetic shoes and inserts Hyperlipidemia 74947344 E78.5 last LDL 07/11/23 @ goal Hypothyroidism 41356275 E03.9 last TSH 10/2023 @ goal with endo Peripheral vascular disease 592062788 I73.9 last arterial duplex 05/17/23 , 11/27/23 Serum karo min B12 below reference range 643865440 R79.89 last level 04/02/23 Screening for malignant neoplasm of colon 059209469 Z12.11 last C scope 09/2022 , good for 5 years Active or passive immunization 419155094 Z23 up to dateflu , RSV and COVID booster 063976 Faviola Alves MD [employer], [place] [address] [place] [address] [place] [address] 03/10/2024 14:00:34 03/10/2024 14:49:19 Infection of toe 041994569 L08.9 Rt 2nd toe Benign hypertension 1072 5009 I10 good controllas t EKG 12/10/23 Hypothyroidism 76313232 E03.9 last TSH 10/2023 @ goal with endo Diabetes mellitus 503579 09 E11.69 last A1c 11/10/23 with endo was 6.9last eye ex 12/19/23 per ptlast MELVIN 01/31/23 Carotid ar rafal stenosis 67338177 I65.29 12/25/23 Hyperlipidemia 96539396 E78.5 last LDL 03/03/24 @ goal Peripheral vascular disease 540580023 I73.9 last arterial duplex 05/17/23 , 11/27/23 Screening for malignant neoplasm of colon 310839099 Z12.11 last C scope 09/2022 , good for 5 years Active or passive immunization 990552223 Z23 up to dateRSV 554558 Faviola Alves MD [employer] [facility] [place] [address] [place] [address] 06/09/2024 14:02:44 06/09/2024 14:55:48 Benign hypertension 57996875 I10 good controllas t EKG 12/10/23 Hypothyroidism 88035634 E03.9 last TSH 03/16/24 @ goal with endo Carotid ar rafal stenosis 11165056 I65.29 12/25/23 Coronary arteriosclerosis 79974060 I25.10 seen , cardiology , had stint RCA has plavix , no other meds changelast EKG 04/06/24str ess test 03/2024 Diabetes mellitus 603031 09 E11.69 last A1c 04/14/24 was 6.7last eye ex 12/19/23 per ptlast MELVIN 01/31/23 Diabetic p eripheral neuropathy 751896928 E11.40 on tylenollas t B12 04/02/23had foot deformity Charcot arthropath y , PVD , H/O ulcer ,need diabetic shoes and inserts Screening for malignant neoplasm of colon 769463252 Z12.11 last C scope 09/2022 , good for 5 years Active or passive immunization 281186059 Z23 up to dateRSV Peripheral vascular disease 627838163 I73.9 last arterial duplex 05/17/23 , 11/27/23 249115 Faviola Alves MD [employer] [facility] [place] [address] [place] [address] 09/09/2024 12:10:40 09/09/2024 13:11:06 Adult health examination 953398474 Z00.01 Benign hypertension 1072 5009 I10 good controllas t EKG 12/10/23 Carotid ar rafal stenosis 90540896 I65.29 12/25/23 Chronic renal failure 90 248258 N18.9 last US 12/2020 Coronary arteriosclerosis 46849354 I25.10 seen , cardiology , had stint RCA has plavix , no other meds changelast EKG 04/06/24str ess test 04/06/2024 Diabetes mellitus 264424 09 E11.69 last A1c 08/2024 @ endo was 7.1last eye ex 06/14/24 per ptlast MELVIN 06/14/24 Hypothyroidism 42771800 E03.9 last TSH 03/16/24 @ goal with endo Diabetic p eripheral neuropathy 012643933 E11.40 on tylenollas t B12 04/02/23had foot deformity Charcot arthropath y , PVD , H/O ulcer ,need diabetic shoes and inserts Ex-smoker 6773538 Z87.89 1 education Hyperlipidemia 77024478 E78.5 last LDL 03/03/24 @ goal Osteoarthritis 856504760 M19.90 stable Peripheral vascular disease 933863975 I73.9 last arterial duplex 05/17/23 , 11/27/23 Serum karo min B12 below reference range 356120946 R79.89 last level 04/02/23 Chronic os teomyelitis of foot 709414616 M86.679 S/P ambulation all toes Lt foot Charcot's arthropathy 35 3222451 M14.679 sees pod every 3 months Body mass index 25-29 - overweight 907624367 Z68.28 educationo n diet Anemia 932211898 D64.9 stable Screening for malignant neoplasm of colon 425241783 Z12.11 last C scope 09/2022 , good for 5 years Vitamin D deficiency 347 32810 E55.9 Active or passive immunization 856539099 Z23 up to dateRSV 087921 Faviola Alves MD [employer], [place] [address] [facility] [place] ,[address] [address] 12/16/2024 12:10:28 12/16/2024 13:02:08 Benign hypertension 35644017 I10 good controllas t EKG 04/06/24 Body mass index 25-29 - overweight 834132221 Z68.28 educationo n diet Carotid ar rafal stenosis 46730581 I65.29 12/25/23 Chronic renal failure 90 346612 N18.9 last US 12/2020 Coronary arteriosclerosis 75083485 I25.10 seen , cardiology , had stint RCA has plavix , no other meds changelast EKG 04/06/24str ess test 04/06/2024 Diabetes mellitus 395868 09 E11.69 last A1c 12/15/24 @ endo was 7.3last eye ex 09/17/24 per ptlast MELVIN 06/14/24 Diabetic p eripheral neuropathy 582547552 E11.40 on tylenollas t B12 12/15/24had foot deformity Charcot arthropath y , PVD , H/O ulcer ,need diabetic shoes and inserts Hypothyroidism 16595390 E03.9 last TSH 12/15/24 @ goal with endo Peripheral vascular disease 880482575 I73.9 last arterial duplex 05/17/23 , 11/27/23 , 11/2024sees vascular on reg basis Vitamin D deficiency 347 45357 E55.9 12/15/24 Hyperlipidemia 26069687 E78.5 last LDL 12/15/24 @ goal Screening for malignant neoplasm of colon 014585650 Z12.11 last C scope 09/2022 , good for 5 years Active or passive immunization 857742312 Z23 up to date 714402 Faviola Alves MD [employer], [place] [address] [facility] [place] ,[address] [address] 05/26/2025 11:33:56 05/26/2025 13:01:58 Benign hypertension 03091170 I10 good controllas t EKG 05/20/25 @ [place] Coronary arteriosclerosis 06669637 I25.10 seen , cardiology , had stint RCA has plavix , no other meds changelast EKG 04/06/24str ess test 04/06/2024, -ve ER workup 05/20/25 Carotid ar rafal stenosis 13216248 I65.29 02/03/25 Peripheral vascular disease 866718734 I73.9 last arterial duplex 05/17/23 , 11/27/23 , 11/2024sees vascular on reg basis Hyperlipidemia 92607128 E78.5 last LDL 02/08/25 @ goal Diabetes mellitus 960797 09 E11.69 last A1c 12/15/24 @ endo was 7.3last eye ex 01/21/25 per ptlast MELVIN 06/14/24 Hypothyroidism 32062568 E03.9 last TSH 02/08/25 below goal with endo Body mass index 25-29 - overweight 137511774 Z68.28 educationo n diet Vitamin D deficiency 347 19494 E55.9 02/08/25 Serum karo min B12 below reference range 029572771 R79.89 last level 02/08/25 Chronic renal failure 90 940816 N18.9 last US 12/2020 Generalize d osteoarthritis 794564620 M15.9 1453 tylenol 500 TID Charcot's arthropathy 35 5070046 M14.679 sees pod every 3 months Diabetic p eripheral neuropathy 831361292 E11.40 on tylenollas t B12 02/08/25had foot deformity Charcot arthropath y , PVD , H/O ulcer ,need diabetic shoes and inserts Ex-smoker 7527109 Z87.89 1 education Screening for malignant neoplasm of colon 126588951 Z12.11 958119 last C scope 09/2022 , good for 5 years Immunization due 9209803 08 Z23 3586527 up to date 567172 Faviola Alves MD [employer], [place] [address] [facility] [place] ,[address] [address] 08/25/2025 12:19:41 08/25/2025 13:16:06 Benign hypertension 23268496 I10 good controllas t EKG 05/20/25 @ [place] Coronary arteriosclerosis 90339698 I25.10 seen , cardiology , had stint RCA has plavix , no other meds changelast EKG 04/06/24str ess test 04/06/2024, -ve ER workup 05/20/25 Carotid ar rafal stenosis 70553972 I65.29 02/03/25 Peripheral vascular disease 822676221 I73.9 last arterial duplex 05/17/23 , 11/27/23 , 11/2024sees vascular on reg basis Hyperlipidemia 97888860 E78.5 last LDL 02/08/25 @ goal Diabetes mellitus 324120 09 E11.69 - last A1c 08/17/25 @ endo- last eye ex 06/24/25 per pt- last MELVIN 02/08/25 Hypothyroidism 46265945 E03.9 last TSH 08/17/25 Body mass index 25-29 - overweight 952183043 Z68.28 educationo n diet Serum karo min B12 below reference range 838354572 R79.89 last level 02/08/25 Vitamin D deficiency 347 90557 E55.9 02/08/25 Chronic renal failure 90 251252 N18.9 last US 12/2020 Chronic os teomyelitis of foot 944451305 M86.679 S/P ambulation all toes Lt foot Diabetic p eripheral neuropathy 106143458 E11.40 on tylenollas t B12 02/08/25had foot deformity Charcot arthropath y , PVD , H/O ulcer ,need diabetic shoes and inserts Screening for malignant neoplasm of colon 069806866 Z12.11 185947 last C scope 09/2022 , good for 5 years Immunization due 1041803 08 Z23 1976731 up to date Health Concerns Section Related Observation LastModified by Organization Detai ls LastModified Time None Recorded Concern Status LastModified by Organization Details LastModified Time None Recorded Advance Directives Directive Y: Payers Insurance Date Sequence Insurance Name Policy Number Policy Godfrey Covered Member ID Godfrey Member ID Guarantor Name 08/25/2025 2 [facility] (MEDICARE SUPPLEMENT) [id number] Steve Bradley [id number] Steve Bradley 08/25/2025 1 [employer] - MEDICARE-[address] [employer] (MEDICARE) Reena Bradley [id number] Steve Bradley Notes Date Note Type [...] stress test 03/2024 Faviola Alves MD [address] [facility] [address], [place], [address], [facility] 06/09/2024 14:52:34 09/09/2024 text/html Medicare Annual Wellness [...] with exertion, andno headache. MD Tati Cleveland [facility] [place] [address], [place], [address], [facility] 09/09/2024 13:06:11 12/16/2024 text/html Hypertension F/UReported by PatientHPIFor medications, patient reportstaking medications as directedandno side effects from medication. For lifestyle, patient reportsregular exercise,limiting/kristy iding salt, andcompliant with low salt diet. For associated symptoms, patient reportsno dizziness,no lightheadedness,no chest pain,no shortness of breath,no palpitations,no edema,no calf pain with exertion, andno headache. MD Tati Cleveland [facility] [place] [address], [place], [address], [facility] 12/16/2024 12:58:43 05/26/2025 text/html Hypertension F/UReported by PatientHPIFor medications, patient reportstaking medications as directedandno side effects from medication. For lifestyle, patient reportsregular exercise,limiting/kristy iding salt, andcompliant with low salt diet. For associated symptoms, patient reportsno dizziness,no lightheadedness,no chest pain,no shortness of breath,no palpitations,no edema,no calf pain with exertion, andno headache. MD Tati Cleveland [address], [place], [address], [facility] 05/26/2025 12:58:54 08/25/2025 text/html Hypertension F/UReported by PatientHPIFor medications, patient reportstaking medications as directedandno side effects from medication. For lifestyle, patient reportsregular exercise,limiting/kristy iding salt, andcompliant with low salt diet. For associated symptoms, patient reportsno dizziness,no lightheadedness,no chest pain,no shortness of breath,no palpitations,no edema,no calf pain with exertion, andno headache. Faviola Alves MD [address] [facility] [address], [place], [address], [facility] 08/25/2025 13:10:31
--- OUTSIDE RECORDS SUMMARY | 2025-10-14 07:43 | XMS_ITS | Continuity of Care Document ---
Author Organization [facility] [employer] [employer] Address [address] [place] [address] Care Team Providers Care Lead Front End Developer Name Role Phone FAVIOLA PRINGLE Primary Care Provider JARETH VAZ Manager Language ELPIDIO BORGES Catering Administrative Assistant HERMILO FORBES Electrical Automation Engineer [phone] Assessment Encounter Date Assessment Date Assessment LastModified by Organization Details LastModified Time 08/25/2025 08/25/2025 Patient presented for follow up. Studies ordered as below. Discussed plan with patient/careg iver, who expressed understanding . Follow up as noted below. Not available 08/25/2025 12:30:01 Plan of Treatment Reminders Order Date Submit Date Provider Last Modified By Organization Details Last Modified Time Details Appointments ESTABLISH ED PATIENT 15 2025 11:15A Krupa Pringle MD Not available Not available Not available Lab CMP, serum or plasma [address] [facility] (Lab), [address] [place] [address] [address], [address], 09/01/2025 04:05:43 CBC w/ auto diff [address] [facility] (Lab), [facility] [address], [place], [address], 09/01/2025 04:05:43 lipid panel w/ direct LDL, serum [address] [facility] (Lab), [facility] [address], [place], [address], 09/01/2025 04:05:42 vitamin D, 25-hydrox y, total, serum 2024 [facility] (Lab), [address] [place] [address] [address], [place], [address], 08/25/2025 17:40:53 vitamin B12, serum [address] [facility] (Lab), [address] [place] [address] [address], [place], [address], 09/01/2025 04:05:43 PTH (parathyr oid hormone), intact, serum or plasma 2024 [facility] (Lab), [address] [place] [address] [address], [place], [address], 08/25/2025 18:31:05 phosphoru s, serum or plasma [address] [facility] (Lab), [address] [place] [address] [address], [place], [address], 08/25/2025 18:15:45 uric acid, serum or plasma [address] [facility] (Lab), [address] [place] [address] [address], [address], 08/25/2025 18:45:38 Referral None recorded. Procedures None recorded. Surgeries None recorded. Imaging None recorded. Medication Orders None recorded. Patient TargetsNo targets recorded. Patient Instructions Encounter Date Encounter Id Patient Instructions Last Modified By Organization Details Last Modified Time 08/25/2025 [id number] Peripheral Arterial Disease (PAD): Care Instructions [email or web address] [...] Not available 08/25/2025 13:07:26 Reason for Referral None Reported. Results Created Date Observation Date Name Description Value Unit Range Abnormal Flag Note LastModifiedBy Organization Detail LastModifiedTime 08/15/20 25 08/15/2025 HbA1c (hemo globi n A1c), blood hemoglobin A1C, POC 7 % low: 4%high : 5.6% abnormal Not Available Not Available 08/25/2025 03:40:27 08/15/20 25 08/15/2025 HbA1c (hemo globi n A1c), blood lab interpretati on ABNORM AL Not Available Not Available 03:40:27 Result Notes None recorded. Problems Name Problem SNOMED Code Status Onset Date Resolution Date Notes Provider Name and Address Organization Details Recorded Time Family history of stroke 745603034 Active Not Available [facility] 0 15:26:41 Family history of diabetes mellitus 203014650 Active Not Available [facility] 0 15:26:41 Family history of coronary arterioscl erosis 583872427 Active Not Available [facility] 0 15:26:41 Charcot's arthropath y 578245021 Active Not Available [facility] 0 15:26:41 Coronary arterioscl erosis 62850862 Active Not Available [facility] 0 15:26:41 Diabetic peripheral neuropathy 138209180 Active Not Available [facility] 0 15:26:41 Diabetes mellitus 64701284 Active Not Available [facility] 0 15:26:41 Benign hypertensi on 19845738 Active Not Available [facility] 0 15:26:41 Hyperlipid emia 87927527 Active Not Available [facility] 0 15:26:41 Hypothyroi dism 29570532 Active Not Available [facility] 0 15:26:42 Lymphedema 550644364 Active Not Available [facility] 0 15:26:41 Obesity 598769693 Completed 06/06/2020 MD Tati Cleveland [address], [place], [address] , 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 1 15:41:27 Complex renal cyst 311660409 Active 2020 MD Tati Cleveland [address], [place], [address] , [facility] 1 19:58:16 Chronic osteomyeli tis of foot 878487858 Active 2020 Lt MD Tati Cleveland [address], [place], [address] , [facility] 1 15:48:52 Retinal ischemia 96881773 Active 2020 MD Tati Cleveland [address], [place], [address] , [facility] 1 10:03:34 Anemia 875872240 Active 2021 MD Tati Cleveland [address], [place], [address] , [facility] 2 19:18:58 Serum creatinine above reference range 752517162 Active 2021 MD Tati Cleveland [address], [place], [address] , [facility] 2 19:19:04 Knee pyogenic arthritis 534270651 Active 2021 MD Tati Cleveland [address], [place], [address] , [facility] 2 12:06:48 C-reactive protein outside reference range 166762049 Active 2021 MD Tati Cleveland [address], [place], [address] , [facility] 2 23:07:09 Body mass index 25-29 - overweight 813173305 Active 2021 MD Tati Cleveland [address], [place], [address] , [facility] 2 11:16:17 Carotid artery stenosis 30149037 Active 2021 MD Tati Cleveland [address], [place], [address] , [facility] 2 23:40:21 Serum vitamin B12 borderline low 434154739 Active 2022 MD Tati Cleveland [address], [place], [address] , [facility] 3 16:04:53 Serum vitamin B12 below reference range 164467805 Active 2022 MD Tati Cleveland [address], [place], [address] , [facility] 3 15:13:46 Amputated toe 029625936 Active 2023 all of lt foot MD Tati Cleveland [address], [place], [address] , [facility] 14:51:21 Vitamin D deficiency 46199680 Active 2023 MD Tati Cleveland [address], [place], [address] , [facility] 12:56:02 Generalize d osteoarthr itis 012700747 Active 2024 MD Tati Cleveland [address], [place], [address] , [facility] 12:44:45 Problem Notes None recorded. Procedures Surgical History Date Name Laterality Status Provider Name and Address Organization Details Recorded Time 08/25/20 25 Diabetic Foot Exam completed MD Tati Cleveland [address], [place], [address], [facility] 08/25/2025 13:05:47 05/26/20 25 Diabetic Foot Exam completed MD Tati Cleveland [address], [place], [address], [facility] 05/26/2025 12:50:43 12/16/19 25 Diabetic Foot Exam completed MD Tati Cleveland [address], [place], [address], [facility] 12/16/2024 12:58:03 09/09/20 24 Diabetic Foot Exam completed MD Tati Cleveland [address], [place], [address], [facility] 09/09/2024 13:03:05 06/09/20 24 Diabetic Foot Exam completed MD Tati Cleveland [address], [place], [address], [facility] 06/09/2024 14:50:35 03/10/20 24 Diabetic Foot Exam completed MD Tati Cleveland [address], [place], [address], [facility] 03/10/2024 14:40:33 12/10/19 24 Diabetic Foot Exam completed MD Tati Cleveland [address], [place], [address], [facility] 12/10/2023 14:37:44 09/04/20 23 Diabetic Foot Exam completed MD Tati Cleveland [address], [place], [address], [facility] 09/04/2023 14:33:36 06/23/20 23 Diabetic Foot Exam completed MD Tati Cleveland [address], [place], [address], [facility] 06/23/2023 15:20:15 02/11/20 23 Diabetic Foot Exam completed MD Tati Cleveland [address], [place], [address], [facility] 02/10/2023 16:07:37 11/11/20 22 Diabetic Foot Exam completed MD Tati Cleveland [address], [place], , [facility] 11/11/2022 15:50:52 10/22/20 22 Colonoscopy completed MD Tati Cleveland [address], [place], , [facility] 10/23/2022 22:26:57 08/13/20 22 Diabetic Foot Exam completed MD Tati Cleveland [address], [place], , [facility] 08/13/2022 11:48:05 05/09/20 22 Diabetic Foot Exam completed MD Tati Cleveland [address], [place], [address], [facility] 05/09/2022 11:15:30 01/31/20 22 Diabetic Foot Exam completed MD Tati Cleveland [address], [place], [address], [facility] 01/30/2022 12:04:44 06/28/20 21 Diabetic Foot Exam completed MD Tati Cleveland [address], [place], [address], [facility] 06/28/2021 15:36:57 03/23/20 21 amputation of toe completed Carmen Nica [facility] 06/28/2021 15:04:07 03/07/20 21 Diabetic Foot Exam completed MD Tati Cleveland [address], [place], [address], [facility] 03/07/2021 15:16:44 12/06/19 21 Diabetic Foot Exam completed MD Tati Cleveland [address], [place], [address], [facility] 12/06/2020 15:33:57 09/05/20 20 Diabetic Foot Exam completed MD Tati Cleveland [address], [place], [address], [facility] 09/05/2020 16:19:17 06/06/20 20 Diabetic Foot Exam completed MD Tati Cleveland [address], [place], [address], [facility] 06/06/2020 11:33:53 12/07/19 20 Diabetic Foot Exam completed MD Tati Cleveland [address], [place], [address], [facility] 12/07/2019 11:48:36 09/06/20 19 Diabetic Foot Exam completed MD Tati Cleveland [address], [place], [address], [facility] 09/06/2019 13:00:30 06/04/20 19 Diabetic Foot Exam completed MD Tati Cleveland [address], [place], [address], [facility] 06/04/2019 12:52:36 03/05/20 19 Diabetic Foot Exam completed MD Tati Cleveland [address], [place], [address], [facility] 03/05/2019 13:23:18 12/02/19 19 Diabetic Foot Exam completed MD Tati Cleveland [facility] [address], [place], [address], [facility] 12/02/2018 15:16:05 09/01/20 18 Diabetic Foot Exam completed MD Tati Cleveland [facility] [address], [place], [address], [facility] 09/01/2018 14:59:25 11/26/19 17 Colonoscopy completed MD Tati Cleveland [facility] [address], [place], [address], [facility] 11/26/2016 13:18:37 09/03/20 11 Colonoscopy completed Cecilia Ramirez [facility] 03/19/2016 22:33:09 Tonsillectomy completed Cecilia Ramirez [facility] 03/19/2016 22:33:19 Orthopedic Surgery completed Cecilia Ramirez [facility] 03/19/2016 22:33:34 Imaging Results None recorded. Procedure Notes None recorded. Medical Equipment None Reported. Allergies Allergen ID Allergen Name Allergen Category Reaction Reaction Severity Criticality Documentation Date Start Date Code Code System Note Provider Name and Address Organization Details Recorded Time 40525 iodine medicatio n anaphylax is Not available high 05/26/20252021 5933 RxNorm Just iv dye Not Available [facility] - External Data Service - prod 5 11:34:41 56391 pentazoci ne Not available Not available Not available low 05/26/2025 8001 RxNorm Talwi n unrec ogniz ed react ion (text : Unkno wn, code: [id number]) (from exter nal sourc e) Not Available [facility] - External Data Service - prod 5 11:34:41 570 Talwin medicatio n Not available Not available Not available 03/19/2016 8002 [facility] 22:31:10 7985 Iodinated contrast media (substanc e) medicatio n Not available Not available Not available 03/05/2019 32145 2003 SNOMED Gwendolyn [facility] 9 12:54:24 Medications Name Sig Start Date [...] Updated DateTime 5 180.34 cm 29.7 kg/m2 94455.1 7 g 97.6 [degF] 18 /min 73 /min 124/61 mm[Hg] Lait Michele [facility] 5 12:35:14 Social History Question Answer Notes LastModified by Organizat ion Details LastModified Time Tobacco Smoking Status Former Smoker quit Not Available [facility] 09/08/2020 03:12:14 Do You Have An Advance Directive? Yes [id number] Information not available 09/08/2020 What Is Your Level Of Caffeine Consumption? 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 No [id number] Information not available 09/08/2020 In The 14 Days Before Symptom Onset, Have You Had Close Contact With A Person Who Is Under Investigation For COVID-19 While That Person Was Ill? No [id number] Information not available 09/08/2020 Have You Been To An Area Known To Be High Risk For COVID-19? No [id number] Information not available 09/08/2020 Have You Directly Handled Bats, Rodents, Or Primates From Ebola Endemic Areas? No [id number] Information not available 09/08/2020 Have You Processed Blood Or Body Fluids From An Ebola Virus Disease Patient Without Appropriate PPE? No [id number] Information not available 09/08/2020 Have You Had Household Contact With An Ebola Virus Disease Patient? No [id number] Information not available 09/08/2020 Have You Had Direct Contact With A Body In An Ebola-affected Area Without Appropriate PPE? No [id number] Information not available 09/08/2020 Have You Had Percutaneous (e.g. Needle Stick) Or Mucous Membrane Exposure To Blood Or Body Fluids From An Ebola Virus Disease Patient? No [id number] Information not available 09/08/2020 Have You Had Other Close Contact With An Ebola Virus Disease Patient In Health Care Facilities Or Community Settings? No [id number] Information not available 09/08/2020 Do You Reside In Or Have You Traveled To An Area Where Ebola Virus Transmission Is Active? No [id number] Information not available 09/08/2020 Are There Any Guns Present In Your Home? No [id number] Information not available 09/08/2020 Hard Of Hearing [...] Much Tobacco Do You Smoke? 1 PPD [id number] Information not available 09/08/2020 Do You Use Sunscreen Routinely? No [id number] Information not available 09/08/2020 How Many Years Have You Smoked Tobacco? 10 [id number] Information not available 09/08/2020 Have You Used IV Drugs? No [id number] Information not available 09/08/2020 Sex: Unknown Functional Status Question Answer Note LastModified by Organization D etails LastModified Time What is your level of alcohol consumption? None Information not available 12/06/2020 Are you currently employed? No [id number] Information not available 09/08/2020 Are you able to care for yourself independently? Yes [id number] Information not available 09/08/2020 Mental Status None recorded. Family History Relationship Description Onset Age of this Age Resolved Age Notes LastModified by Organization Details LastModified Time Father Cerebrovascu lar accident 81 [email or web address] Not available 22:32:20 Mother Diabetes mellitus Not available 2015 22:32:32 Brother Coronary arterioscler osis [email or web address] Not available 2015 22:32:47 Medical History Condition [...] Td(adult) unspecified formulation 8 completed Not Available [facility] 12/23/2023 16:33:29 Influenza, split virus, quadrivalent, preservative 8 completed Not Available [facility] 12/23/2023 16:33:29 zoster recombinant 9 completed Not Available [facility] 12/23/2023 16:33:29 zoster recombinant 9 completed Not Available [facility] 12/23/2023 16:33:29 Influenza, split virus, quadrivalent, preservative 9 completed Not Available [facility] 12/23/2023 16:33:29 pneumococcal polysaccharide PPV23 8 completed Not Available [facility] 12/23/2023 16:33:29 Pneumococcal conjugate PCV 13 7 completed Not Available [facility] 12/23/2023 16:33:29 Influenza, high-dose, quadrivalent, PF 0 completed Not Available [facility] 12/23/2023 16:33:29 SARS-COV-2 (COVID-19) vaccine, UNSPECIFIED 1 completed Not Available [facility] 12/23/2023 16:33:29 SARS-COV-2 (COVID-19) vaccine, UNSPECIFIED 1 completed Not Available [facility] 12/23/2023 16:33:29 COVID-19, mRNA, LNP-S, PF, 30 mcg/0.3 mL dose 1 completed Not Available [facility] 12/23/2023 16:33:29 Influenza, split virus, quadrivalent, preservative 1 completed Not Available [facility] 12/23/2023 16:33:29 Influenza, split virus, quadrivalent, preservative 2 completed Not Available [facility] 12/23/2023 16:33:29 COVID-19, mRNA, LNP-S, PF, 30 mcg/0.3 mL dose, rola-sucrose 2 completed Not Available [facility] 12/23/2023 16:33:29 Influenza, split virus, quadrivalent, preservative 5 completed Not Available [facility] 12/23/2023 16:33:29 pneumococcal polysaccharide PPV23 4 completed Not Available [facility] 12/23/2023 16:33:29 zoster live 5 completed Not Available [facility] 12/23/2023 16:33:29 Tdap 8 completed Not Available [facility] 12/23/2023 16:33:29 influenza, unspecified formulation 3 completed Not Available [facility] 12/23/2023 16:33:29 Respiratory syncytial virus (RSV) MAB, unspecified 4 completed Faviola Pringle MD [address] [facility] [address], [place], [address], [facility] 09/09/2024 13:00:27 influenza, unspecified formulation 4 completed MD Tati Cleveland [facility] [address], [place], [address], [facility] 12/16/2024 12:52:13 Past Encounters Encounter ID Performer Location Encounter Start Date Encounter Closed Date Diagnosis/Indication Diagnosis SNOMED-CT Code Diagnosis ICD10 Code Diagnosis IMO Codes Diagnosis Note [id number] Faviola Pringle MD [facility], [place] [address] [facility] [place] [address] 08/25/2025 12:19:41 08/25/2025 13:16:06 Benign hypertension 86981735 I10 good controllas t EKG 05/20/25 @ [facility] Coronary arteriosclerosis 92217124 I25.10 seen , cardiology , had stint RCA has plavix , no other meds changelast EKG 04/06/24str ess test 04/06/2024, -ve ER workup 05/20/25 Carotid ar rafal stenosis 58354565 I65.29 02/03/25 Peripheral vascular disease 148355185 I73.9 last arterial duplex 05/17/23 , 11/27/23 , 11/2024sees vascular on reg basis Hyperlipidemia 12331195 E78.5 last LDL 02/08/25 @ goal Diabetes mellitus 803768 09 E11.69 - last A1c 08/17/25 @ endo- last eye ex 06/24/25 per pt- last MELVIN 02/08/25 Hypothyroidism 17307762 E03.9 last TSH 08/17/25 Body mass index 25-29 - overweight 151608523 Z68.28 educationo n diet Serum karo min B12 below reference range 521515365 R79.89 last level 02/08/25 Vitamin D deficiency 347 78165 E55.9 02/08/25 Chronic renal failure 90 711294 N18.9 last US 12/2020 Chronic os teomyelitis of foot 525996345 M86.679 S/P ambulation all toes Lt foot Diabetic p eripheral neuropathy 433881097 E11.40 on tylenollas t B12 02/08/25had foot deformity Charcot arthropath y , PVD , H/O ulcer ,need diabetic shoes and inserts Screening for malignant neoplasm of colon 917470396 Z12.11 800481 last C scope 09/2022 , good for 5 years Immunization due 9180063 08 Z23 8974143 up to date Health Concerns Section Related Observation LastModified by Organization Detai ls LastModified Time None Recorded Concern Status LastModified by Organization Details LastModified Time None Recorded Payers Encounter Date Sequence Insurance Name Policy Number Policy Godfrey Covered Member ID Godfrey Member ID Guarantor Name 08/25/2025 2 [facility] (MEDICARE SUPPLEMENT) [id number] Steve Bradley [id number] Steve Bradley 08/25/2025 1 [employer] - MEDICARE-[employer] [address] (MEDICARE) Reena Bradley [id number] Steve Bradley Notes Date Note Type Note Provider Name and Address Organization Details Recorded Time 08/25/2025 text/html Hypertension F/UReported by PatientHPIFor medications, patient reportstaking medications as directedandno side effects from medication. For lifestyle, patient reportsregular exercise,limiting/av oiding salt, andcompliant with low salt diet. For associated symptoms, patient reportsno dizziness,no lightheadedness,no chest pain,no shortness of breath,no palpitations,no edema,no calf pain with exertion, andno headache. Faviola Pringle MD [address] [facility] [place], [address], [facility] 08/25/2025 13:10:31
--- OUTSIDE RECORDS SUMMARY | 2025-10-14 07:43 | XMS_ITS | Data Portability ---
Author Organization [facility] Sarah [facility] Address [address] [place] [address] Care Team Providers Care Grocery Store Manager Name Role Phone ELISE ALVES Primary Care Provider Assessment Encounter Date Assessment [...] in the right common iliac artery and DIE DEVELOPER in the left lower extremity by [facility] July of 2021 status [...] resolved Diabetes mellitus - E11.9, Management by [facility] endocrinology Hyperkalemia - E87.5, borderline on [...] lisinopril and Lokelma as managed by his transport engineer, Dr. Arroyo. I asked him to continue [...] end-diastolic pressure of 13 mmHg. Not available 03/23/2024 17:37:41 04/08/2024 04/08/2024 Labs [...] in the right common iliac artery and DIE DEVELOPER in the left lower extremity by [facility] July of 2021 status [...] resolved Diabetes mellitus - E11.9, Management by [facility] endocrinology Hyperkalemia - E87.5, borderline on [...] in the right common iliac artery and DIE DEVELOPER in the left lower extremity by [facility] July of 2021 status [...] resolved Diabetes mellitus - E11.9, Management by [facility] endocrinology Hyperkalemia - E87.5, borderline on [...] of the stent in the midvessel with qzqh-tm-okbgu collateral filling of the right coronary artery, for future catheterization avoid right femoral access as he has a known occluded right common, currently asymptomatic. Peripheral vascular disease with stent placement in the right common iliac artery and DIE DEVELOPER in the left lower extremity by [facility] July of 2021 status [...] resolved Diabetes mellitus - E11.9, Management by [facility] endocrinology Hyperkalemia - E87.5, borderline on [...] in the midvessel vessel is supplied by zvub-mm-pohdo collaterals. The LVEDP was 16 and aortic [...] of 13 mmHg. Not available 10/19/2024 16:16:30 04/25/2025 04/25/2025 Labs completed o n 04/22/25 Sodium 141, Potassium 4.7, Chloride 105, Co2 29, BUN 40, Creatinine 1.18, eGFR 59, Glucose 116, Calcium 9.4, Bilirubin 0.5, AST 37, ALT 27, Protein 7.0, Albumin 4.2, Cholesterol 110, Trig 118, HDL 37, LDL 31, Alkphos 121, WBC 5.3, Hgb 14.2, Platelets 144 Labs completed 09/03/24 Triglycerides 122, Cholesterol 103, [...] Hgb 13.5, Platelets 167 EKG done on 04/25/2025 shows normal sinus rhythm rate of 64 beats per minute, early repolarization which was a normal variant. Unchanged since his EKG done 03/23/2024 in his far back as 10/03/2022. ASSESSMENT CAD (coronary artery disease) - I25.10 [...] diagonal branch has mild stenosis in the ostium, second diagonal branch is small and has an 80% ostial stenosis, left circumflex artery has 50% proximal stenosis otherwise mild luminal irregularities, right coronary artery is occluded at the level of the stent in the mid vessel with wbqn-dm-qclex collateral filling of the right coronary artery, for future catheterization avoid right femoral access as he has a known occluded right common, currently asymptomatic. Peripheral vascular disease with stent placement in the right common iliac artery and DIE DEVELOPER in the left lower extremity by [facility] July of 2021 status [...] resolved Diabetes mellitus - E11.9, Management by [facility] endocrinology Hyperkalemia - E87.5, borderline on [...] healthy diabetic/cardiac diet and lower potassium diet. He is contemplating going to his surgeon to get his spacer removed from his left knee and have a joint placed. In light of his cardiac catheterization showing mild disease in the left coronary system in the major arteries other than small second diagonal branch and he does have an occluded right coronary artery with dctq-tm-jsgzx collaterals he is at slightly increased risk but has no cardiac contraindication of the procedure in his optimize if he needs to have this done. I asked her to try to stay as active as possible and try to exercise regularly. I asked him to continue to lose weight. I asked her to try to keep his hemoglobin A1c under 7 as it is now under 7 currently. I asked him to continue his aspirin 81 mg daily, atorvastatin 40 mg daily, carvedilol 25 mg p.o. b.i.d., Plavix 75 mg daily, furosemide 20 mg daily, Imdur 30 mg daily and lisinopril 10 mg daily. I asked him to avoid all NSAIDs and use acetaminophen as necessary for pain or fever. I will have him return in 6 [...] in the midvessel vessel is supplied by wxau-du-jrhrw collaterals. The LVEDP was 16 and aortic [...] the right common iliac artery. CARDIAC CATHETERIZATION 07/14/2012. High-grade disease in a [...] left ventricle end-diastolic pressure of 13 mmHg. [place] [address] Not available 04/25/2025 14:27:24 Plan of Treatment Reminders Order Date Submit Date Provider Last Modified By Organization Details Last Modified Time Details Appointments ANY 15 2024 01:00P Krupa Osborne MD Not available Not available Not available Lab lipid panel, serum [address], [address], 04/25/2025 14:26:44 CMP, serum or plasma [address], [address], 04/25/2025 14:26:44 CBC w/ auto diff [address], [address], 04/25/2025 14:26:44 lipid panel, serum [address], [address], 04/20/2025 07:40:12 BMP, serum or plasma 2023 024 [facility], [address] [place] [address], [address], 10/19/2024 16:30:40 CBC 2023 025 [facility], [address] [facility] [address] [facility], [place], [address], 04/20/2025 07:40:12 CMP, serum or plasma 2023 025 [facility], [facility] [address], [address], 04/20/2025 07:40:12 lipid panel, serum 2023 [facility], [address] [place] [address], [address], 09/29/2024 07:32:29 CMP, serum or plasma 2023 024 [facility], [address] [place] [address], [address], 10/13/2024 07:40:34 CBC 2023 024 [facility], [address] [place] [address], [address], 10/13/2024 07:40:34 lipid panel, serum 2023 024 [facility], [address] [place] [address], [address], 09/27/2024 16:49:10 CMP, serum or plasma 2023 024 [facility], [address] [place] [address], [address], 09/27/2024 16:49:11 CBC 2023 024 [facility], [address] [place] [address], [address], 09/27/2024 16:49:11 Referral None record ed. Procedures lexisc an cardio lite stress test (PROC) 2023 024 [facility], [address] [place] [address] [place], [address], 04/07/2024 12:24:58 Surgeries cardia c cathet erizat ion (SURG) 2023 024 [facility], [address] [facility] [place], [facility] [address], [place], [address], 09/23/2024 09:46:50 Imaging electr ocardi ogram 2024 025 [email or web address] In-Office Order, Internal Use Only DO Not Attach Compendium DO Not Attach Compendium, Do Not Delete/merge, [id number] 04/25/2025 14:26:44 electr ocardi ogram, routin e ECG, 12 leads min 2023 024 [email or web address] Not available 03/24/2024 12:13:07 Medication Orders nitrog lyceri n 0.4 mg sublin gual tablet 2023 024 [place] [id number], [address], [place], [place], [id number], 10/19/2024 16:16:23 Patient TargetsNo targets recorded. Patient Instructions Encounter Date Encounter Id Patient Instructions Last Modified By Organization Details Last Modified Time 04/25/2025 [id number] A healthy lifestyle: care instructions Not available 04/25/2025 14:26:44 Reason for Referral None Reported. Results Created Date Observation Date Name Description Value Unit Range Abnormal Flag Note LastModifiedBy Organization Detail LastModifiedTime 02/15/2002/14/2025 Hemog lobin A1c/H emogl obin. total in Blood hemoglobin A1C, POC 6.8 % low: 4%high : 5.6% Not Available Not Available 04/25/2025 03:57:30 04/07/20 24 04/06/2024 abbi can cardi olite stres s test (PROC ) No observ ation record ed. [facility] [address] [place] [address] [place], [address], 04/08/2024 08:16:40 04/25/20 25 04/25/2025 elect pablo arreguingr am No observ ation record ed. BARBARA In-Office Order Internal Use Only DO Not Attach Compendium DO Not Attach Compendium, Do Not Delete/merge, [id number] 04/25/2025 14:33:05 04/25/20 elect rocar diogr am No observ ation record ed. [email or web address] Not Available 04/25 14:33:05 Result Notes None recorded. Problems Name Problem SNOMED Code Status Onset Date Resolution Date Notes Provider Name and Address Organization Details Recorded Time Atheroscler osis of coronary artery without angina pectoris 3322028764846 03 Active 2023 Isidra Osborne MD Attn: Courtney melendez,[address] [facility], [place], [address], [facility] 4 17:10:03 Pure hypercholes terolemia 853022885 Active 2023 Isidra Osborne MD Attn: Courtney melendez,[address] [facility], [place], [address], [facility] 4 17:10:05 Tricuspid valve regurgitati on 280063415 Active 2023 Isidra Osborne MD Attn: Courtney melendez,[address] [facility], [place], [address], [facility] 4 17:10:06 Essential hypertensio n 72220806 Active 2023 Isidra Osborne MD Attn: Courtney melendez,[address] [facility], [place], [address], [facility] 4 17:10:07 Long-term current use of anticoagula nt 091164087 Active 2023 Isidra Osborne MD Attn: Courtney melendez,[address] [facility], [place], [address], [facility] 4 17:10:08 Pulmonary hypertensio n 91038706 Active 2023 Isidra Osborne MD Attn: Cirolakisha g,[address] [facility], [place], [address], [place] [facility] 4 17:10:11 Diastolic dysfunction 2900514 Active 2023 Isidra Osborne MD Attn: Courtney g,[address] [facility], [place], [address], [place] [facility] 4 17:10:12 Preoperativ e cardiovascu lar examination Active 2023 Isidra Osborne MD Attn: Courtney g,[address] [facility], [place], [address], [place] [facility] 4 17:10:13 Coronary arterioscle rosis in [place] artery 1322681059267 Active 2023 Isidra Osborne MD Attn: Courtney g,[address] [place], [address], [place] [facility] 4 13:54:47 Peripheral vascular disease 493321612 Active 2023 Isidra Osborne MD Attn: Courtney melendez,[address] [place], [address], [place] [facility] 4 13:54:57 Bilateral lower limb edema 240185370 Active 2023 Isidra Osborne MD Attn: Courtney g,[address] [facility], [place], [address], [place] [facility] 4 13:55:05 Cardiovascu lar stress test abnormal 136179750 Active 2023 Isidra Osborne MD Attn: Courtney g,[address] [place], [address], [place] [facility] 4 16:25:34 Long-term current use of antiplatele t drug 8817967582519 01 Active 2023 Isidra Osborne MD Attn: Courtney melendez [facility] [place], [address], [facility] 4 16:28:58 Problem Notes None recorded. Medical Equipment None Reported. Allergies Allergen ID Allergen Name Allergen Category Reaction Reaction Severity Criticality Documentation Date Start Date Code Code System Note Provider Name and Address Organization Details Recorded Time 638076 Iodinated contrast media (substanc e) medicatio n anaphylax is Not available Not available 03/23/2024 37222 2003 SNOMED Sofy Garcia MA [facility], [place] - [facility] 4 15:51:41 Medications Name Sig [...] Not Available No t Available levothyroxi ne 137 mcg tablet TAKE [...] 30 mg tablet,exte nded release 24 hr Take 1 tablet twice a day by oral route for 90 days. active Not Available Not Available No t Available clopidogrel 75 mg tablet TAKE 1 TABLET BY MOUTH EVERY DAY active Not Available Not Available No t Available famotidine 20 mg tablet TAKE 1 TABLET BY MOUTH AT 6 PM THE NIGHT BEFORE AND AT 6 AM THE MORNING OF SURGERY WITH A SIP OF WATER 04/25 completed Not Available Not Available Not Available diphenhydra mine 25 mg capsule TAKE 2 CAPSULES BY MOUTH AT 6AM THE MORNING OF SURGERY WITH A SIP OF WATER 04/25 completed Not Available Not Available Not Available triamcinolo ne acetonide 0.1 % topical [...] TAKE 1 TABLET BY MOUTH EVERY MORNING 04/25 completed Not Available Not Available Not Available nitroglycer in 0.4 mg sublingual tablet One tablet sublingua lly q.5 minutes x3 p.r.n. chest pain 2023 active Not Available Not Available Not Avai lable mupirocin 2 % topical ointment APPLY TOPICALLY TO THE AFFECTED AREA THREE TIMES DAILY FOR 10 DAYS active Not Available Not Available No t Available furosemide 20 mg tablet TAKE 1 [...] Not Available Not Available No t Available Humalog KwikPen (U-100) Insulin 100 unit/mL [...] (BMI) Body height Heart rate Oxygen saturation Systolic And Diastolic Provider Name and Address Organization Details Last Updated DateTime 4 15219.7 8 g 29.8 kg/m2 177.8 cm 72 /min 94 % 138/72 mm[Hg] Sofy Garcia MA [facility] 4 15:59:14 Date Recorded Body height Body mass index (BMI) Body weight Heart rate Oxygen saturation Systolic And Diastolic Provider Name and Address Organization Details Last Updated DateTime 4 177.8 cm 29.9 kg/m2 87224.6 5 g 74 /min 94 % 130/66 mm[Hg] Sofy Garcia MA [facility] 4 16:06:04 Date Recorded Body height Body mass index (BMI) Body weight Heart rate Oxygen saturation Systolic And Diastolic Provider Name and Address Organization Details Last Updated DateTime 5 177.8 cm 29.9 kg/m2 87130.3 7 g 66 /min 98 % 128/62 mm[Hg] Sofy Garcia MA [facility] 5 13:59:12 Date Recorded Body height Body mass index (BMI) Body weight Heart rate Oxygen saturation Systolic And Diastolic Provider Name and Address Organization Details Last Updated DateTime 4 177.8 cm 30.3 kg/m2 84449.6 3 g 68 /min 97 % 128/64 mm[Hg] Radha Cochran MA [facility] 4 15:52:41 Date Recorded Body mass index (BMI) Body weight Heart rate Oxygen saturation Systolic And Diastolic Provider Name and Address Organization Details Last Updated DateTime 10/19/2024 30.7 kg/m2 46462.84 g 70 /min 98 % 118/64 mm[Hg] Sofy Garcia MA [facility] 4 15:26:11 Date Recorded Body height Provider Name an d Address Organization Details Last Updated DateTime 10/19/2024 177.8 cm Trinity Lopez MA [facility] 2023 15:16:38 Social History Question Answer Notes LastModified by Organizat ion Details LastModified Time Tobacco Smoking Status Never Smoker Sofy Garcia MA null, [place] - [facility] 03/23/2024 15:55:56 What Is Your Level Of Caffeine Consumption? None Information not available 03/23/2024 What Was The Date Of Your Most Recent Tobacco Screening? 04/25/2025 Information not available 04/25/2025 Has Tobacco Cessation Counseling Been Provided? No [...] Reported. Medical History No medical history recorded. Immunizations Vaccine Type Date Status Note Provider Nam e and Address Organization Details Recorded Time zoster live 3 completed Not Available [facility] 04/25/2025 13:44:05 Tdap 5 completed Not Available [facility] 04/25/2025 13:44:05 Influenza, split virus, trivalent, PF 6 completed Not Available [facility] 04/25/2025 13:44:05 Pneumococcal conjugate PCV 13 7 completed Not Available [facility] 04/25/2025 13:44:05 pneumococcal polysaccharide PPV23 8 completed Not Available [facility] 04/25/2025 13:44:05 Influenza, high-dose, trivalent, PF 8 completed Not Available [facility] 04/25/2025 13:44:05 zoster recombinant 9 completed Not Available [facility] 04/25/2025 13:44:05 Influenza, high-dose, quadrivalent, PF 0 completed Not Available [facility] 04/25/2025 13:44:05 COVID-19, mRNA, LNP-S, PF, 30 mcg/0.3 mL dose 1 completed Not Available [facility] 04/25/2025 13:44:05 COVID-19, mRNA, LNP-S, PF, 30 mcg/0.3 mL dose 1 completed Not Available [facility] 04/25/2025 13:44:05 COVID-19, mRNA, LNP-S, PF, 30 mcg/0.3 mL dose 1 completed Not Available [facility] 04/25/2025 13:44:05 Influenza, adjuvanted, quadrivalent, PF 1 completed Not Available [facility] 04/25/2025 13:44:05 COVID-19, mRNA, LNP-S, PF, 30 mcg/0.3 mL dose, rola-sucrose 2 completed Not Available [facility] 04/25/2025 13:44:05 Influenza, high-dose, quadrivalent, PF 2 completed Not Available [facility] 04/25/2025 13:44:05 COVID-19, mRNA, LNP-S, bivalent, PF, 30 mcg/0.3 mL dose 2 completed Not Available [facility] 04/25/2025 13:44:05 Influenza, high-dose, quadrivalent, PF 3 completed Not Available [facility] 04/25/2025 13:44:05 RSV, recombinant, protein subunit RSVpreF, adjuvant reconstituted, 0.5 mL, PF 4 completed Not Available [facility] 04/25/2025 13:44:05 COVID-19, mRNA, LNP-S, PF, rola-sucrose, 30 mcg/0.3 mL 4 completed Not Available [facility] 04/25/2025 13:44:05 Influenza, high-dose, trivalent, PF 4 completed Not Available [facility] 04/25/2025 13:44:05 Past Encounters Encounter ID Performer Location Encounter Start Date Encounter Closed Date Diagnosis/Indication Diagnosis SNOMED-CT Code Diagnosis ICD10 Code Diagnosis IMO Codes Diagnosis Note [id number] Isidra Osborne MD [facility] [place] [facility] [address] [facility] [address] [place] [address] 03/23/2024 15:31:02 03/24/2024 12:13:07 Atherosclerosis of coronary artery without angina pectoris 7907372556 19329 I25.10 Pure hypercholesterolemia 817037380 E78.00 Tricuspid valve regurgitation 879284114 I07.1 Essential hypertension 32267528 I10 Diastolic dysfunction 35 03638 I51.9 Pulmonary hypertension 95146768 I27.20 Preoperati ve cardiovascular examination 506448289 Z01.810 Long-term current use of antiplatelet drug 9673040194 83676 Z79.02 [id number] Isidra Osborne MD [facility] [place] [facility] [address] [place] [address] 04/08/2024 15:52:06 04/09/2024 12:12:52 [id number] Isidra Osborne MD [facility] [place] [facility] [address] [place] [address] 09/22/2024 15:21:51 09/23/2024 08:53:35 Coronary arteriosclerosis in [place] artery 5712354173 107 I25.10 Atheroscle rosis of coronary artery without angina pectoris 4403030437 11513 I25.10 Peripheral vascular disease 515497869 I73.9 Essential hypertension 62647370 I10 Diastolic dysfunction 35 74240 I51.9 Pure hypercholesterolemia 376950354 E78.00 Tricuspid valve regurgitation 823168972 I07.1 Pulmonary hypertension 94635277 I27.20 Bilateral lower limb edema 936004635 R60.0 Cardiovasc ular stress test abnormal 366014312 R94.39 Long-term current use of antiplatelet drug 9684657681 85083 Z79.02 [id number] Isidra Osborne MD [facility] [place] [facility] [address] [place] [address] 10/19/2024 15:11:54 10/22/2024 10:22:46 Atherosclerosis of coronary artery without angina pectoris 3287528647 10203 I25.10 Cardiovasc ular stress test abnormal 310874722 R94.39 Diastolic dysfunction 35 54275 I51.9 Essential hypertension 28904013 I10 Long-term current use of antiplatelet drug 6036307560 64373 Z79.02 Long-term current use of anticoagulant 179394342 Z79.01 Tricuspid valve regurgitation 760715502 I07.1 Pure hypercholesterolemia 265802727 E78.00 [id number] Isidra Osborne MD [facility] [place] [facility] [address] [place] [address] 04/25/2025 13:38:52 04/26/2025 16:27:51 Obese class I 1641605957 90239 E66.811 2167864187 Tricuspid valve regurgitation 019048527 I07.1 Pure hypercholesterolemia 495120749 E78.00 Diastolic dysfunction 35 64485 I51.9 Long-term current use of antiplatelet drug 6434732726 10573 Z79.02 Essential hypertension 42729082 I10 Peripheral vascular disease 803924721 I73.9 Health Concerns Section Related Observation LastModified by Organization Detai ls LastModified Time None Recorded Concern Status LastModified by Organization Details LastModified Time None Recorded Advance Directives Directive None Recorded Payers Insurance Date Sequence Insurance Name Policy Number Policy Godfrey Covered Member ID Godfrey Member ID Guarantor Name 04/28/2025 [place] - [facility] Reena Bradley [id number] Steve [facility] 04/28/2025 1 [place] [employer] - MEDICARE-[address] [employer] (MEDICARE) C Daryl Bradley [id number] Steve [facility] 04/28/2025 2 [facility] [id number] Steve Daryl Bradley [id number] Steve [facility] 04/26/2025 [place] C W Kirk [id number] Steve [facility] Notes Date Note Type Note Provider Name [...] had any falls. He follows with an staff auditor for his diabetes mellitus in his last [...] palpitation. Isidra Osborne MD Attn: Accounting[address] [place], [address], [facility] 03/23/2024 17:38:10 04/08/2024 text/html Steve is a [...] palpitation. Isidra Osborne MD Attn: [address] [place], [address], [facility] 04/08/2024 16:33:28 09/22/2024 text/html Steve is a [...] palpitation. Isidra Osborne MD Attn: Accounting[address] [place], [address], [facility] 09/22/2024 16:31:46 10/19/2024 text/html Steve is a [...] in the midvessel vessel is supplied by hxqu-au-udzii collaterals. The LVEDP was 16 and aortic [...] palpitation. Isidra Osborne MD Attn: Accounting[address] [place], [address], [facility] 10/19/2024 16:16:53 04/25/2025 text/html Steve is a 84-year-old male here who returns for follow-up visit. He is not doing formal exercise but he does go up and down 11 steps twice a day in his able to do so without any chest pain or shortness of breath. He admits he has not been compliant with his diabetic diet. His last hemoglobin A1c was 6.8 on 02/14/2025. His weight is down 6 lb since he was last here about 6 months ago and remains down 46 lb over the past 48 months. He denies any significant bleeding from Plavix and aspirin but does bruise fairly easily. He still has some mild swelling in his lower extremities which is unchanged in pattern. He is compliant with medications. He denies any side effects from his medications. He denies any chest pain or pressure, dyspnea, paroxysmal nocturnal dyspnea, orthopnea, presyncope, syncope, or palpitation. Isidra Osborne MD Attn: [address]ing[address] [place], [address], [facility] 04/25/2025 14:27:34
[2025-10-14 08:51] LABS: Alanine Aminotransferase 24 U/L (6-50); Aspartate Amino Transferase 40 U/L (17-59)
== END 2025-10-14 07:37 | disposition home or self-care (01) ==
PROVIDERS: PCP Internal Medicine
DX: B35.1 Tinea unguium (principal)
CPT/HCPCS: 36415; 84450; 84460

== ENCOUNTER 2025-11-22 07:41 | Outpatient (CLI) | payer MEDICARE, OTHER, SELFPAY ==
--- OUTSIDE RECORDS SUMMARY | 2025-11-22 07:46 | XMS_ITS | Clinical Summary ---
Author Organization [facility] Address [address] [place] [address] Care Team Providers Care Nurse Specialist Name Role Phone Faviola Pringle MD Primary Care Provider [phone] Josephine Pierre MD Unavailable Social History Tobacco Use Types Packs/Day Years [...] to complete this topic Insurance [employer] MEDICARE [facility] Care Teams Nurse Specialist Relationship Specialty Start Date End Date Faviola Pringle MD PCP - General 08/02/13 Josephine Pierre MD 1 [facility] [place] [address] WOUND CARE 09/13/21
--- OUTSIDE RECORDS SUMMARY | 2025-11-22 07:46 | XMS_ITS | Encounter Summary ---
Author Organization [facility] Address [address] [facility] [address] [place] [address] Care Team Providers Care Waiter/Waitress Counter Name Role Phone Faviola Pringle MD Primary Care Provider + [phone] Darren Alfredo MD Unavailable + [phone] Robin Liu DPM Unavailable [phone] Rickie Elizondo DPM Unavailable [phone] Encounter Details Date Type Department Care Team (Late st Contact Info) Description 07/14/2012 Orders Only [facility] [address] [place] [address] Scanning, Provider Social History Tobacco Use Types Packs/Day Years Used Date Smoking Tobacco: Never Assessed Sex and Gender Information Value Date Recorded Sex Assigned at Not on file Legal Sex Male 3:12 AM CORPORATE SPECIALIST Gender Identity Not on file Sexual [...] COVID: Suspected 12/14/2021 12/14/2021 12/14/2021 7:17 PM CORPORATE SPECIALIST documented as of this encounter Care Teams Waiter/Waitress Counter Relationship Specialty Start Date End Date Faviola Pringle MD [address] [facility] 100 [place] [address] PCP - General 03/06/17 Darren Alfredo MD [address] [facility] 100 [place] [address] Consulting Physician Infectious Diseases 03/23/21 Robin iLu DPM [address] [place] [address] Consulting Physician Foot and Ankle Surg 08/31/22 Rickie Elizondo DPM [address] [address] Consulting Physician Orthopedic Surgery 12/27/22 documented as of this encounter
--- OUTSIDE RECORDS SUMMARY | 2025-11-22 07:46 | XMS_ITS | Encounter Summary ---
Author Organization [facility] Facility Care Team Providers Care Clay Hoister Name Role Phone Faviola Pringle MD Primary Care Provider + [phone] Darren Alfredo MD Unavailable + [phone] Robin Liu DPM Unavailable [phone] Rickie Elizondo DPM Unavailable [phone] Encounter Details Date Type Department Care Team (Latest Contact Info) Description 01/26/2017 Orders Only [facility] Provider, MD Mary [address] [place] [address] Social History Tobacco Use Types Packs/Day Years Used Date Smoking Tobacco: Former Sex and Gender Information Value Date Recorded Sex Assigned at Not on file 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 Gender Identity Not on file Sexual Orientation [...] COVID: Suspected 12/14/2021 12/14/2021 12/14/2021 7:17 PM ELEMENTARY SCHOOL TEACHER documented as of this encounter Care Teams Clay Hoister Relationship Specialty Start Date End Date Faviola Pringle MD [address] [place] [address] PCP - General 03/06/17 Darren Alfredo MD [address] [place] [address] Consulting Physician Infectious Diseases 03/23/21 Robin Liu DPM [address] [place] [address] Consulting Physician Foot and Ankle Surg 08/31/22 Rickie Elizondo DPM [address] [address] Consulting Physician Orthopedic Surgery 12/27/22 documented as of this encounter
--- OUTSIDE RECORDS SUMMARY | 2025-11-22 07:46 | XMS_ITS | Encounter Summary ---
Author Organization [facility] Facility Care Team Providers Care Stockroom Clerk Name Role Phone Faviola Pringle MD Primary Care Provider + [phone] Darren Alfredo MD Unavailable + [phone] Robin Liu DPM Unavailable [phone] Rickie Elizondo DPM Unavailable [phone] Encounter Details Date Type Department Care Team (Latest Contact Info) Description 07/22/2018 Orders Only [facility] Provider, MD Mary [address] [place] [address] Social History Tobacco Use Types Packs/Day Years Used Date Smoking Tobacco: Former Sex and Gender Information Value Date Recorded Sex Assigned at Not on file 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 Gender Identity Not on file Sexual Orientation [...] COVID: Suspected 12/14/2021 12/14/2021 12/14/2021 7:17 PM SEISMOGRAPH HELPER documented as of this encounter Care Teams Stockroom Clerk Relationship Specialty Start Date End Date Faviola Pringle MD [address] [place] [address] PCP - General 03/06/17 Darren Alfredo MD [address] [place] [address] Consulting Physician Infectious Diseases 03/23/21 Robin Liu DPM 350[address] [place] [address] Consulting Physician Foot and Ankle Surg 08/31/22 Rickie Elizondo DPM [address] [facility] [address] [place] [address] Consulting Physician Orthopedic Surgery 12/27/22 documented as of this encounter
--- OUTSIDE RECORDS SUMMARY | 2025-11-22 07:46 | XMS_ITS | Clinical Summary ---
Author Organization [facility] Address [address] [place] [address] Phone Care Team Providers Care Licensed Insurance Sales Agent Name Role Phone Faviola Pringle MD Primary Care Provider [phone] Allergies Active Allergy Reactions Criticality Noted Date [...] mouth 1 (one) time each day Active Active Problems Problem Noted Date Diagnosed [...] Department Care Team Description 10/06/2025 4:00 PM FISH AND WILDLIFE BIOLOGIST Office Visit [facility] [address] [place] [address] Bob Arroyo MD Stage 3a chronic kidney [...] on file Legal Sex Male 8:34 AM [facility] Gender Identity Not on file Sexual Orientation Not on file Last Filed Vital Signs Vital Sign Reading Time Taken Comments Blood Pressure 133/66 10/06/2025 4:03 PM FISH AND WILDLIFE BIOLOGIST Pulse 78 10/06/2025 4:03 PM FISH AND WILDLIFE BIOLOGIST Temperature 36.5 C (97.7 F) 02/21/2022 3:44 PM CDT Respiratory Rate - - Oxygen Saturation 95% 07/15/2023 2:21 PM CDT Inhaled Oxygen Concentration - - Weight 97.1 kg (214 lb) 10/06/2025 4:03 PM FISH AND WILDLIFE BIOLOGIST Height 180.3 cm (5' 11) 10/06/2025 4:03 PM FISH AND WILDLIFE BIOLOGIST Body Mass Index 29.85 10/06/2025 4:03 PM FISH AND WILDLIFE BIOLOGIST Plan of Treatment Upcoming Encounters Date Type Department Care Team (Late st Contact Info) Description 02/02/2026 12:40 PM CDT Office Visit [facility] [address] [facility] 1 [place] [address] Bob Arroyo MD [address] [facility] 1 [place], [place] [id number] Health Maintenance Due Date Last Done Comments Diabetic Foot Exam 1950 Ophthalmology Exam 1950 Pneumococcal PPSV23/PCV13 65 + Years / High and Highest Risk (2 of 4 - PPSV23, PCV20, or PCV21) 07/30/2019 06/04/2019, 03/05/2019 , 12/02/2018, Additional history exists COVID-19 Vaccine (4 - 2024-2 6 season) 2025 10/07/2021, 02/14/2021, 01/24/2021 Influenza Vaccine (#1) 2025 , 08/31/2023, 10/07/2021, Additional history exists Insurance MEDICARE RAILROAD [facility] MEDICARE Care Teams Licensed Insurance Sales Agent Relationship Specialty Start Date End Date Faviola Pringle MD [address] [facility] 100 [place] [address] PCP - General 01/29/22
--- OUTSIDE RECORDS SUMMARY | 2025-11-22 07:46 | XMS_ITS | Encounter Summary ---
Author Organization [facility] Address [address] [facility] [place] [address] Care Team Providers Care Well Reactivator Operator Name Role Phone Unavailable Primary Care Provider Unavailabl e Encounter Details Date Type Department Care Team (Late st Contact Info) Description 02/25/2019 Lab Requisition [facility] Care DermPath Lab [address] [place] [address] Isac Ramires MD [address] [place] [address] Social History Tobacco Use Types Packs/Day Years Used Date Smoking Tobacco: Never Assessed Sex and Gender Information Value Date Recorded Sex Assigned at Not on file 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 Gender Identity Not on file Sexual Orientation Not on file documented as of this encounter Plan of Treatment Not on file documented as of this encounter Procedures Procedure Name Priority Date/Time Associated Diagnosis Comments DERMATOPATHOLOGY Routine 02/24/2019 12:0 0 AM CDT documented in this encounter Results * DERMATOPATHOLOGY (02/24/2019 12:00 AM CDT) Case Report Dermatopathology Report Case: [id number] Authorizing Provider: Isac Ramires MD Collected: 02/24/2019 12:00 AM Pathologist: Danna Irby MD Received: 02/25/2019 11:50 AM Specimen: Skin, right adventist 9 2:43 PM CDT DERMATOPATHOLOGY LABORATORY Final Diagnosis Specimen A. SKIN, right adventist: DERMAL SCAR; PRESENT AT MARGIN (L90.5) RESIDUAL SQUAMOUS CELL CARCINOMA NOT IDENTIFIED ACTINIC KERATOSIS; PRESENT AT MARGIN (L57.0) VERRUCA VULGARIS; PRESENT AT MARGIN (B07.8) 2:43 PM CDT DERMATOPATHOLOGY LABORATORY at 1443 CDT Clinical History R/O bx proven SCCIS, verrucous hypertrophic type. Previous Bx: [id number]. 2:43 PM CDT DERMATOPATHOLOGY LABORATORY Gross Description Specimen A: Received is one formalin filled container labeled with the patient's name and designated right adventist. The specimen consists of a curettage and desiccation biopsy (2 pieces) measuring [id number] & [id number]. Jar 0. 2:43 PM CDT DERMATOPATHOLOGY LABORATORY Microscopic Description Specimen A. SKIN, right adventist: There are fibroblasts and collagen bundles oriented [...] characteristic determined by the Dermatopathology Laboratory at [facility], directed by Dr. Mo Santiago. These tests need not be, and therefore are not, approved by the [place] Food and Drug Administration. The tests are used for clinical purposes. Billing Codes Specimen Charges Stain Charges 64619 1 2:43 PM CDT DERMATOPATHOLOGY LABORATORY Embedded Images 2:43 PM CDT DERMATOPATHOLOGY LABORATORY Pathology/Cytolog y TISSUE SPECIMEN FROM SKIN / Unknown 02/24/2019 02/25/2019 11:50 AM CDT Isac Ramires MD LAB - PATHOLOGY/CYTOLOGY ORD ERABLES Final Result DERMATOPATHOLOGY LABORATORY [facility] - Department of Dermatology [address] [place] [address] 5th Floor Lab [address] [phone] documented in this encounter Visit Diagnoses Not on filedocumented in this encounter
--- OUTSIDE RECORDS SUMMARY | 2025-11-22 07:46 | XMS_ITS | Encounter Summary ---
Author Organization [facility] Address [address] [place] [address] Phone Care Team Providers Care Net Making Supervisor Name Role Phone Faviola Pringle MD Primary Care Provider [phone] Darren Alfredo MD Unavailable [phone] Robin Liu. 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 Gender Identity Not on file Sexual [...] on filedocumented in this encounter Care Teams Net Making Supervisor Relationship Specialty Start Date End Date Faviola Pringle MD [address] [facility] 100 [place] [address] PCP - General 03/06/17 Darren Alfredo MD [address] [facility] 100 [place] [address] Consulting Physician Infectious Diseases 03/23/21 Robin Liu DPM 350[address] [place] [address] Consulting Physician Foot and Ankle Surg 08/31/22 Rickie Elizondo DPM [address] [facility] 102 [place] [address] Consulting Physician Orthopedic Surgery 12/27/22 documented as of this encounter
--- OUTSIDE RECORDS SUMMARY | 2025-11-22 07:46 | XMS_ITS | Encounter Summary ---
Author Organization [facility] Address [address] [place] [address] Phone Care Team Providers Care Payment Analyst Name Role Phone Faviola Pringle MD Primary Care Provider +- [phone] Darren Alfredo MD Unavailable [phone] Robin Liu DPM Unavailable [phone] Rickie Elizondo DPM Unavailable [phone] Encounter Details Date Type Department Care Team (Latest Contact Info) Description 12/22/2018 Orders Only [facility] Scanning, Provider Social History Tobacco Use Types Packs/Day Years Used Date Smoking Tobacco: Former Sex and Gender Information Value Date Recorded Sex Assigned at Not on file 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 Gender Identity Not on file Sexual Orientation [...] DT COVID: Suspected 12/14/2021 12/14/202112/1412/14/2021 7:17 PM WASTE MACHINE TENDER documented as of this encounter Care Teams Payment Analyst Relationship Specialty Start Date End Date Faviola Pringle MD [address] [place] [address] PCP - General 03/06/17 Darren Alfredo MD [address] [place] [address] Consulting Physician Infectious Diseases 03/23/21 Robin Liu DPM 350[address] [place] [address] Consulting Physician Foot and Ankle Surg 08/31/22 Rickie Elizondo DPM [address] [address] Consulting Physician Orthopedic Surgery 12/27/22 documented as of this encounter
--- OUTSIDE RECORDS SUMMARY | 2025-11-22 07:46 | XMS_ITS | Clinical Summary ---
Author Organization [facility] Address [address] [facility] [place] [address] Care Team Providers Care Hair Boiler Operator Name Role Phone Unavailable Primary Care Provider Unavailabl e Source Comments [facility],non-owned Affiliates and Associated Physician Practices is amultiple site organization consisting of ambulatory clinics and hospital sitesin [place], [place], [place] and [place]. This disclosure is being madepursuant to the Care Everywhere program and may not contain all information available regarding this patient. 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
--- OUTSIDE RECORDS SUMMARY | 2025-11-22 07:46 | XMS_ITS | Encounter Summary ---
Author Organization [facility] Medical [facility] Address [address] [facility] [address] [place] [address] Care Team Providers Care Chemical Engineer Name Role Phone Faviola Pringle MD Primary Care Provider + [phone] Darren Alfredo MD Unavailable + [phone] Robin Liu DPM Unavailable [phone] Rickie Elizondo DPM Unavailable [phone] Encounter Details Date Type Department Care Team (Late st Contact Info) Description 07/27/2013 Orders Only [facility] [address] [place] [address] Scanning, Provider Social History Tobacco Use Types Packs/Day Years Used Date Smoking Tobacco: Never Assessed Sex and Gender Information Value Date Recorded Sex Assigned at Not on file Legal Sex Male 3:12 AM TRIBAL COUNCIL MEMBER Gender Identity Not on file Sexual Orientation [...] COVID: Suspected 12/14/2021 12/14/2021 12/14/2021 7:17 PM TRIBAL COUNCIL MEMBER documented as of this encounter Care Teams Chemical Engineer Relationship Specialty Start Date End Date Faviola Pringle MD [address] [facility] 100 [place] [address] PCP - General 03/06/17 Darren Alfredo MD [address] [facility] 100 [place] [address] Consulting Physician Infectious Diseases 03/23/21 Robin Liu DPM [address] [place] [address] Consulting Physician Foot and Ankle Surg 08/31/22 Rickie Elizondo DPM [address] [address] Consulting Physician Orthopedic Surgery 12/27/22 documented as of this encounter
--- OUTSIDE RECORDS SUMMARY | 2025-11-22 07:46 | XMS_ITS | Encounter Summary ---
Author Organization [facility] Address [address] [facility] [place] [address] Care Team Providers Care Hand Assembler Name Role Phone Unavailable Primary Care Provider Unavailabl e Encounter Details Date Type Department Care Team (Late st Contact Info) Description 02/15/2019 Lab Requisition [facility] Care DermPath Lab [address] [place] [address] [place] [address] Social History Tobacco Use Types Packs/Day Years Used Date Smoking Tobacco: Never Assessed Sex and Gender Information Value Date Recorded Sex Assigned at Not on file 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 Gender Identity Not on file Sexual Orientation Not on file documented as of this encounter Plan of Treatment Not on file documented as of this encounter Procedures Procedure Name Priority Date/Time Associated Diagnosis Comments DERMATOPATHOLOGY Routine 02/12/2019 12:0 0 AM CDT documented in this encounter Results * DERMATOPATHOLOGY (02/12/2019 12:00 AM CDT) Case Report Dermatopathology Report Case: [id number] Authorizing Provider: Isac Ramires MD Collected: 02/12/2019 12:00 AM Pathologist: Danna Irby MD Received: 02/15/2019 01:00 PM Specimen: Skin, right scientology 9 2:06 PM CDT DERMATOPATHOLOGY LABORATORY Final Diagnosis Specimen A. SKIN, right scientology: SQUAMOUS CELL CARCINOMA IN SITU, VERRUCOUS-HYPERTROP HIC TYPE (D04.39) 2:06 PM CDT DERMATOPATHOLOGY LABORATORY at 1406 CDT Clinical History R/O SCC, HAK. 2:06 PM CDT DERMATOPATHOLOGY LABORATORY Gross Description Specimen A: Received is one formalin filled container labeled with the patient's name and designated right scientology. The specimen consists of a shave biopsy measuring [id number]. Jar 0. 2:06 PM CDT DERMATOPATHOLOGY LABORATORY Microscopic Description Specimen A. SKIN, right scientology: The epidermis is acanthotic and shows full [...] characteristic determined by the Dermatopathology Laboratory at [facility], directed by Dr. Mo Santiago. These tests need not be, and therefore are not, approved by the [place] Food and Drug Administration. The tests are used for clinical purposes. Billing Codes Specimen Charges Stain Charges 24204 1 2:06 PM CDT DERMATOPATHOLOGY LABORATORY Embedded Images 2:06 PM CDT DERMATOPATHOLOGY LABORATORY Pathology/Cytolog y TISSUE SPECIMEN FROM SKIN / Unknown 02/12/2019 02/15/2019 1:00 PM CDT us Isac Ramires MD LAB - PATHOLOGY/CYTOLOGY ORD ERABLES Final Result DERMATOPATHOLOGY LABORATORY [facility] - Department of Dermatology [address] [facility], 5th [place] [address], [facility] [phone] documented in this encounter Visit Diagnoses Not on filedocumented in this encounter
--- OUTSIDE RECORDS SUMMARY | 2025-11-22 07:46 | XMS_ITS | Encounter Summary ---
Author Organization [facility] Facility Care Team Providers Care Public Utilities Sales Representative Name Role Phone Faviola Pringle MD Primary Care Provider + [phone] Darren Alfredo MD Unavailable + [phone] Robin Liu DPM Unavailable [phone] Rickie Elizondo DPM Unavailable [phone] Encounter Details Date Type Department Care Team (Latest Contact Info) Description 11/27/2015 Orders Only [facility] Provider, MD Mary [address] [place], [place] [address] Social History Tobacco Use Types Packs/Day Years Used Date Smoking Tobacco: Former Sex and Gender Information Value Date Recorded Sex Assigned at Not on file 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 Gender Identity Not on file Sexual Orientation Not on file documented as of this encounter Plan of Treatment Not on file documented as of this encounter Procedures Procedure Name Priority Date/Time Associated Diagnosis Comments PROCEDURE - RESULT 11/29/2015 12 :00 AM PAYROLL ACCOUNTING SPECIALIST SCAN - LABS 11/28/2015 12:00 AM PAYROLL ACCOUNTING SPECIALIST SCAN - LABS 11/28/2015 12:00 AM PAYROLL ACCOUNTING SPECIALIST SCAN - LABS 11/28/2015 12:00 AM PAYROLL ACCOUNTING SPECIALIST documented in this encounter Results * PROCEDURE - RESULT (11/29/2015 12:00 AM PAYROLL ACCOUNTING SPECIALIST) Narrative 11/29/2015 12:00 AM PAYROLL ACCOUNTING SPECIALIST Ordered by an unspecified provider. Historical Provider MD Final Res ult * SCAN - LABS (11/28/2015 12:00 AM PAYROLL ACCOUNTING SPECIALIST) Narrative 11/28/2015 12:00 AM PAYROLL ACCOUNTING SPECIALIST Ordered by an unspecified provider. [facility] Provider MD Final Res ult * SCAN - LABS (11/28/2015 12:00 AM PAYROLL ACCOUNTING SPECIALIST) Narrative 11/28/2015 12:00 AM PAYROLL ACCOUNTING SPECIALIST Ordered by an unspecified provider. [facility] Provider MD Final Res ult * SCAN - LABS (11/28/2015 12:00 AM PAYROLL ACCOUNTING SPECIALIST) Narrative 11/28/2015 12:00 AM PAYROLL ACCOUNTING SPECIALIST Ordered by an unspecified provider. [facility] Provider Final Res ult documented in this encounter Visit Diagnoses Not on filedocumented in this encounter Additional Health Concerns Infection Onset Date Last Indicated Resolved Time MRSA Comment:Hx 6yrs ago 11/28/2015 11/27/2015 07/11/2021 5:00 AM C DT COVID: Suspected 12/14/2021 12/14/2021 12/14/2021 7:17 PM PAYROLL ACCOUNTING SPECIALIST documented as of this encounter Care Teams Public Utilities Sales Representative Relationship Specialty Start Date End Date Faviola Pringle MD [address] [place] [address] PCP - General 03/06/17 Darren Alfredo MD [address] [place] [address] Consulting Physician Infectious Diseases 03/23/21 Robin Liu DPM [address] [place] [address] Consulting Physician Foot and Ankle Surg 08/31/22 Rickie Elizondo DPM [address] [address] Consulting Physician Orthopedic Surgery 12/27/22 documented as of this encounter
--- OUTSIDE RECORDS SUMMARY | 2025-11-22 07:46 | XMS_ITS | Encounter Summary ---
Author Organization [facility] Facility Care Team Providers Care Appraiser Name Role Phone Faviola Pringle MD Primary Care Provider + [phone] Darren Alfredo MD Unavailable + [phone] Robin Liu DPM Unavailable [phone] Rickie Elizondo DPM Unavailable [phone] Encounter Details Date Type Department Care Team (Latest Contact Info) Description 10/11/2016 Orders Only [facility]IN[facility] Provider, MD Mary [address] [place] [address] Social History Tobacco Use Types Packs/Day Years Used Date Smoking Tobacco: Former Sex and Gender Information Value Date Recorded Sex Assigned at Not on file Legal Sex Male 3:12 AM FENCE INSTALLER HELPER Gender Identity Not on file Sexual Orientation Not on file documented as of this encounter Plan of Treatment Not on file documented as of this encounter Procedures Procedure Name Priority Date/Time Associated Diagnosis Comments CARDIOLOGY REPORT 10/14/2016 12: 00 AM FENCE INSTALLER HELPER documented in this encounter Results * CARDIOLOGY REPORT (10/14/2016 12:00 AM FENCE INSTALLER HELPER) Anatomical Region Laterality Modality Other Narrative 10/14/2016 12:00 AM FENCE INSTALLER HELPER Ordered by an unspecified provider. us Historical Provider [facility] Final Result documented in this encounter Visit Diagnoses Not on filedocumented in this encounter Additional Health Concerns Infection Onset Date Last Indicated Resolved Time MRSA Comment:Hx 6yrs ago 11/28/2015 11/27/2015 07/11/2021 5:00 AM C DT COVID: Suspected 12/14/2021 12/14/2021 12/14/2021 7:17 PM FENCE INSTALLER HELPER documented as of this encounter Care Teams Appraiser Relationship Specialty Start Date End Date Faviola Pringle MD [address] [place] [address] PCP - General 03/06/17 Darren Alfredo MD [address] [place] [address] Consulting Physician Infectious Diseases 03/23/21 Robin Liu DPM [address] [place] [address] Consulting Physician Foot and Ankle Surg 08/31/22 Rickie Elizondo DPM [address] [address] Consulting Physician Orthopedic Surgery 12/27/22 documented as of this encounter
--- OUTSIDE RECORDS SUMMARY | 2025-11-22 07:46 | XMS_ITS | Clinical Summary ---
Author Organization [facility] Care Team Providers Care Cattle Sorter Name Role Phone Unavailable Primary Care Provider [...]
--- OUTSIDE RECORDS SUMMARY | 2025-11-22 07:46 | XMS_ITS | Encounter Summary ---
Author Organization [facility] utitao Address [address] [place] [id number] Phone Care Team Providers Care Wall Taper Name Role Phone Faviola Pringle MD Primary Care Provider [phone] Reason for Visit * Reason Onset Date Comments Med Refill 02/28/2023 Encounter Details Date Type Department Care Team (Late Contact Info) Description 02/28/2023 Refill [facility] [address] [address] Jazzmine Pinon MA Social History Tobacco Use Types Packs/Day Years Used Date Smoking Tobacco: Former Smokeless Tobacco: Never Sex and Gender Information Value Date Recorded Sex Assigned at Not on file Legal Sex Male 8:34 AM [facility] Gender Identity Not on file Sexual Orientation Not on file documented as of this encounter Plan of Treatment Upcoming Encounters Date Type Department Care Team (Late st Contact Info) Description 02/02/2026 12:40 PM CDT Office Visit [facility] [address] [facility] 1 [place] [address] [place] [address] [place] [address] documented as of this encounter Visit Diagnoses Not on filedocumented in this encounter Care Teams Wall Taper Relationship Specialty Start Date End Date Faviola Pringle MD [address] [facility] 100 [place] [id number] PCP - General 01/29/22 documented as of this encounter
--- OUTSIDE RECORDS SUMMARY | 2025-11-22 07:46 | XMS_ITS | Encounter Summary ---
Author Organization [facility] Address [address] [place] [address] Phone Care Team Providers Care Print Production Manager Name Role Phone Faviola Pringle MD Primary Care Provider [phone] Darren Alfredo MD Unavailable [phone] Robin Liu. DPM Unavailable [phone] Rickie Elizondo DPM Unavailable [phone] Encounter Details Date Type Department Care Team [...] on file Legal Sex Male 3:12 AM WARE CARRIER Gender Identity Not on file Sexual Orientation [...] on filedocumented in this encounter Care Teams Print Production Manager Relationship Specialty Start Date End Date Faviola Pringle MD [address] [facility] [address] [place] [address] PCP - General 03/06/17 Darren Alfredo MD [address] [facility] 100 [place] [address] Consulting Physician Infectious Diseases 03/23/21 Robin Liu DPM [address] [place] [address] Consulting Physician Foot and Ankle Surg 08/31/22 Rickie Elizondo DPM [address] [facility] 102 [place] [address] Consulting Physician Orthopedic Surgery 12/27/22 documented as of this encounter
--- OUTSIDE RECORDS SUMMARY | 2025-11-22 07:46 | XMS_ITS | Encounter Summary ---
Author Organization [facility] Care Team Providers Care Investigation Lieutenant Name Role Phone Faviola Pringle MD Primary Care Provider + [phone] Darren Alfredo MD Unavailable + [phone] Robin Liu DPM Unavailable [phone] Rickie Elizondo DPM Unavailable [phone] Encounter Details Date Type Department Care Team (Latest Contact Info) Description 11/29/2015 Orders Only [facility] Provider, MD Mary [address] [place], [place] [id number] Social History Tobacco Use Types Packs/Day Years Used Date Smoking Tobacco: Former Sex and Gender Information Value Date Recorded Sex Assigned at Not on file 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
--- OUTSIDE RECORDS SUMMARY | 2025-11-22 07:47 | XMS_ITS | Encounter Summary ---
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 Gender Identity Not on file Sexual Orientation [...] COVID: Suspected 12/14/2021 12/14/2021 12/14/2021 7:17 PM NETWORK CONTRACTOR documented as of this encounter Care Teams Access Clinician Relationship Specialty Start Date End Date Faviola Pringle MD [address] [facility] 100 [place] [address] PCP - General 03/06/17 Darren Alfredo MD [address] [facility] [address] [place] [address] Consulting Physician Infectious Diseases 03/23/21 Robin Liu DPM [address] [place] [address] Consulting Physician Foot and Ankle Surg 08/31/22 Rickie Elizondo DPM [address] [address] Consulting Physician Orthopedic Surgery 12/27/22 documented as of this encounter
--- OUTSIDE RECORDS SUMMARY | 2025-11-22 07:47 | XMS_ITS | Data Portability ---
Author Organization [facility] [employer] Address [address] [address] Care Team Providers Care Hvac Journeyman Name Role Phone FAVIOLA ALVES Primary Care Provider [phone] JARETH VAZ Mirror Inspector ELPIDIO BORGES Weather Algorithm Scientist HERMILO FORBES Functional Support Analyst [phone] Assessment Encounter Date Assessment Date Assessment LastModified [...] available Lab CMP, serum or plasma 2024 [facility] (Lab), [address] [place] [address], [place], [address], 09/01/2025 04:05:43 CBC w/ auto diff 2024 025 [facility] (Lab), [address] [place] [address], [place], [address], 09/01/2025 04:05:43 lipid panel w/ direct LDL, serum 2024 [facility] (Lab), [address] [place] [address], [place], [address], 09/01/2025 04:05:42 vitamin D, 25-hydrox y, total, serum 2024 025 [facility] (Lab), [address] [place] [address], [place], [address], 08/25/2025 17:40:53 vitamin B12, serum [address] [place] [address] (Lab), [address] [place] [address], [place], [address], 09/01/2025 04:05:43 PTH (parathyr oid hormone), intact, serum or plasma [address] [place] [address] (Lab), [address] [place] [address], [place], [address], 08/25/2025 18:31:05 phosphoru s, serum or plasma [address] [place] [address] (Lab), [address] [place] [address], [address], 08/25/2025 18:15:45 uric acid, serum or plasma [address] [place] [address] (Lab), [address] [place] [address] [address], [place], [address], 08/25/2025 18:45:38 hemoglobi n A1c, QN, blood 2024 025 [facility] (Lab), [address] [place] [address] [address], [place], [address], 08/18/2025 13:09:30 TSH + free T4, serum 2024 025 [facility] (Lab), [address] [place] [address] [address], [place], [address], 08/18/2025 21:19:57 vitamin B12 + folate, serum or blood 2023 024 [facility] (Lab), [address] [place] [address] [address], [place], [address], 12/08/2024 04:07:08 lipid panel w/ direct LDL, serum 2023 024 [facility] (Lab), [address] [place] [address] [address], [place], [address], 09/16/2024 04:07:14 vitamin D, 25-hydrox y, total, serum 2023 024 [facility] (Lab), [address] [place] [address] [address], [place], [address], 09/09/2024 13:11:54 TSH + free T4, serum 2023 024 [facility] (Lab), [address] [place] [address] [address], [place], [address], 09/16/2024 04:07:14 vitamin B12 + folate, serum or blood 2023 024 [facility] (Lab), [address] [place] [address] [address], [place], [address], 06/13/2024 20:07:53 CMP, serum or plasma 2023 024 [facility] (Lab), [address] [facility] [address], [place], [address], 06/13/2024 20:07:53 CBC w/ auto diff 2023 024 [facility] (Lab), [address] [place] [address] [address], [place], [address], 06/13/2024 20:07:53 microalbu min/creat inine, mass ratio, urine 2023 024 [facility] (Lab), [address] [place] [address] [address], [place], [address], 06/13/2024 20:07:53 Referral vascular surgeon referral 2023 024 BARBARABRAN Richardson MD, [address] [place] [address] , [address], [place], [address], 07/07/2024 04:03:47 Procedures None recorded. Surgeries None recorded. Imaging US, duplex, carotid artery 2024 025 [facility], [address] , [address], [place], [address], 12/16/2024 17:45:27 Medication Orders ergocalci ferol (vitamin D2) 1,250 mcg (50,000 unit) capsule 2024 025 [id number], [address], [place], [place], [id number], 05/26/2025 12:58:35 furosemid e 20 mg tablet 2023 024 [facility] #[id number], [address], [place], [place], [id number], 09/09/2024 13:06:04 ergocalci ferol (vitamin D2) 1,250 mcg (50,000 unit) capsule 2023 024 [facility] #[id number], [address] [place], [place], [id number], 09/09/2024 13:05:59 levothyro xine 150 mcg tablet 2023 024 [facility] #87053, [address], [place], [place], [id number], 02/08/2025 10:50:09 furosemid e 20 mg tablet 2023 024 [facility] #20631, [address], [place], [place], [id number], 06/09/2024 14:51:42 levothyro xine 150 mcg tablet 2023 024 [facility] [employer] [facility] #[id number], [address], [place], [place], [id number], 02/08/2025 10:50:09 Patient TargetsNo targets recorded. Patient Instructions Encounter Date Encounter Id Patient Instructions Last Modified By Organization Details Last Modified Time 06/09/2024 [id number] Peripheral Arterial Disease (PAD): Care Instructions mshenouda Not available 06/09/2024 14:51:34 carotid stenosis : care instructions mshenouda Not available 06/09/2024 14:51:34 09/09/2024 [id number] Peripheral Arterial Disease (PAD): Care Instructions mshenouda [...] disease mshenouda Not available 09/09/2024 13:05:52 12/16/2024 [id number] Peripheral Arterial Disease (PAD): Care Instructions mshenouda [...] disease mshenouda Not available 12/16/2024 12:58:18 05/26/2025 [id number] Peripheral Arterial Disease (PAD): Care Instructions mshenouda [...] disease mshenouda Not available 05/26/2025 12:58:30 08/25/2025 [id number] Peripheral Arterial Disease (PAD): Care Instructions mshenouda [...] ABNORM AL Not Available Not Available 03:40:27 11/14/20 25 11/14/2025 HbA1c (hemo globi n A1c), blood hemoglobin A1C, POC 7 % low: 4%high : 5.6% abnormal Not Available Not Available 11/14/2025 15:20:28 11/14/20 25 11/14/2025 HbA1c (hemo globi n A1c), blood lab interpretati on Abnorm al Not Available Not Available 15:20:28 06/14/20 24 04/06/2024 cardi ac stres s test No observ ation record ed. [facility] Not Available 2023 12:47:26 12/16/19 25 12/16/2024 US, ofelia de la cruz, yogi id arter y No observ ation record ed. [email or web address], [address], [place], [address], 05/26/2025 12:41:45 02/26/20 25 02/03/2025 US, duple x, carot id arter y No observ ation record ed. [facility], [facility] [address], [place], [address], 05/26/2025 12:41:45 05/19/20 25 05/19/2025 XR, chest No observ ation record ed. [facility] [address], [place], [address], 05/26/2025 12:41:45 Result Notes None recorded. Problems Name Problem SNOMED Code Status Onset Date Resolution Date Notes Provider Name and Address Organization Details Recorded Time Family history of stroke 044620462 Active Not Available [facility] 0 15:26:41 Family history of diabetes mellitus 415819271 Active Not Available [facility] 0 15:26:41 Family history of coronary arterioscl erosis 556414518 Active Not Available [facility] 0 15:26:41 Charcot's arthropath y 885132701 Active Not Available [facility] 0 15:26:41 Coronary arterioscl erosis 28274008 Active Not Available [facility] 0 15:26:41 Diabetic peripheral neuropathy 248265530 Active Not Available [facility] 0 15:26:41 Diabetes mellitus 10400325 Active Not Available [facility] 0 15:26:41 Benign hypertensi on 83539282 Active Not Available [facility] 0 15:26:41 Hyperlipid emia 24518310 Active Not Available [facility] 0 15:26:41 Hypothyroi dism 94329463 Active Not Available [facility] 0 15:26:42 Lymphedema 923927347 Active Not Available [facility] 0 15:26:41 Obesity 326139655 Completed 06/06/2020 Faviola Alves MD [address], [place], [address] , [facility] 0 11:29:38 Rosacea 176625974 Active Not Available [facility] 0 15:26:41 Osteoarthr itis 188579336 Active 2015 Not Available [facility] 0 15:26:41 Peripheral vascular disease 511782766 Active 2015 Not Available [facility] 0 15:26:42 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 189606783 Active 2018 Not Available [facility] 0 15:26:41 Ex-smoker 0125491 Active 2019 Not Available [facility] 0 15:26:41 Chronic renal failure 54198777 Active 2020 MD Tati Cleveland [address], [place], [address] , [facility] 1 15:41:27 Complex renal cyst 975900571 Active 2020 MD Tati Cleveland [address], [place], [address] , [facility] 1 19:58:16 Chronic osteomyeli tis of foot 034278077 Active 2020 Lt MD Tati Cleveland [address], [place], [address] , [facility] 1 15:48:52 Retinal ischemia 43236574 Active 2020 MD Tati Cleveland [address], [place], [address] , [facility] 1 10:03:34 Anemia 838354162 Active 2021 MD Tati Cleveland [address], [place], [address] , [facility] 2 19:18:58 Serum creatinine above reference range 491829813 Active 2021 MD Tati Cleveland [address], [place], [address] , [facility] 2 19:19:04 Knee pyogenic arthritis 709033632 Active 2021 MD Tati Cleveland [address], [place], [address] , [facility] 2 12:06:48 C-reactive protein outside reference range 611281631 Active 2021 MD Tati Cleveland [address], [place], [address] , [facility] 2 23:07:09 Body mass index 25-29 - overweight 209743544 Active 2021 MD Tati Cleveland [address], [place], [address] , [facility] 2 11:16:17 Carotid artery stenosis 21043761 Active 2021 MD Tati Cleveland [address], [place], [address] , [facility] 2 23:40:21 Serum vitamin B12 borderline low 986497329 Active 2022 MD Tati Cleveland [address], [place], [address] , [facility] 3 16:04:53 Serum vitamin B12 below reference range 898922006 Active 2022 MD Tati Cleveland [address], [place], [address] , [facility] 3 15:13:46 Amputated toe 565472910 Active 2023 all of lt foot MD Tati Cleveland [address], [place], [address] , [facility] 4 14:51:21 Vitamin D deficiency 22199926 Active 2023 MD Tati Cleveland [address], [place], [address] , [facility] 12:56:02 Generalize d osteoarthr itis 100347716 Active 2024 MD Tati Cleveland [address], [place], [address] , [facility] 12:44:45 Problem Notes None recorded. Procedures Surgical History Date Name Laterality Status Provider Name and Address Organization Details Recorded Time 08/25/20 25 Diabetic Foot Exam completed MD Tati Cleveland [address], [place], [address], [facility] 08/25/2025 13:05:47 05/26/20 25 Diabetic Foot Exam completed MD Tati Cleveland [address], [place], [address], [facility] 05/26/2025 12:50:43 12/16/19 25 Diabetic Foot Exam completed MD Tati Cleveland [address], [place], [address], [facility] 12/16/2024 12:58:03 09/09/20 24 Diabetic Foot Exam completed MD Tati Cleveland [address], [place], [address], [facility] 09/09/2024 13:03:05 06/09/20 24 Diabetic Foot Exam completed MD Tati Cleveland [address], [place], [address], [facility] 06/09/2024 14:50:35 03/10/20 24 Diabetic Foot Exam completed MD Tati Cleveland [address], [place], [address], [facility] 03/10/2024 14:40:33 12/10/19 24 Diabetic Foot Exam completed MD Tati Cleveland [address], [place], [address], [facility] 12/10/2023 14:37:44 09/04/20 23 Diabetic Foot Exam completed MD Tati Cleveland [address], [place], [address], [facility] 09/04/2023 14:33:36 06/23/20 23 Diabetic Foot Exam completed MD Tati Cleveland [address], [place], [address], [facility] 06/23/2023 15:20:15 02/11/20 23 Diabetic Foot Exam completed MD Tati Cleveland [address], [place], [address], [facility] 02/10/2023 16:07:37 11/11/20 22 Diabetic Foot Exam completed MD Tati Cleveland [address], [place], [address], [facility] 11/11/2022 15:50:52 10/22/20 22 Colonoscopy completed MD Tati Cleveland [address], [place], [address], [facility] 10/23/2022 22:26:57 08/13/20 22 Diabetic Foot Exam completed MD Tati Cleveland [address], [place], [address], [facility] 08/13/2022 11:48:05 05/09/20 22 Diabetic Foot Exam completed MD Tati Cleveland [address], [place], [address], [facility] 05/09/2022 11:15:30 01/31/20 22 Diabetic Foot Exam completed MD Tati Cleveland [address], [place], [address], [facility] 01/30/2022 12:04:44 06/28/20 21 Diabetic Foot Exam completed MD Tati Cleveland [address], [place], [address], [facility] 06/28/2021 15:36:57 03/23/20 21 amputation of toe completed February [facility] 06/28/2021 15:04:07 03/07/20 21 Diabetic Foot Exam completed MD Tati Cleveland [address], [place], [address], [facility] 03/07/2021 15:16:44 12/06/19 21 Diabetic Foot Exam completed MD Tati Cleveland [address], [place], [address], [facility] 12/06/2020 15:33:57 09/05/20 20 Diabetic Foot Exam completed MD Tati Cleveland [address], [place], [address], [facility] 09/05/2020 16:19:17 06/06/20 20 Diabetic Foot Exam completed MD Tati Cleveland [address], [place], [address], [facility] 06/06/2020 11:33:53 12/07/19 20 Diabetic Foot Exam completed MD Tati Cleveland [address], [place], [address], [facility] 12/07/2019 11:48:36 09/06/20 19 Diabetic Foot Exam completed MD Tati Cleveland [address], [place], [address], [facility] 09/06/2019 13:00:30 06/04/20 19 Diabetic Foot Exam completed MD Tati Cleveland [address], [place], [address], [facility] 06/04/2019 12:52:36 03/05/20 19 Diabetic Foot Exam completed MD Tati Cleveland [address], [place], [address], [facility] 03/05/2019 13:23:18 12/02/19 19 Diabetic Foot Exam completed MD Tati Cleveland [address], [place], [address], [facility] 12/02/2018 15:16:05 09/01/20 18 Diabetic Foot Exam completed Faviola Alves MD [address], [place], [address], [facility] 09/01/2018 14:59:25 11/26/19 17 Colonoscopy completed Faviola Alves MD [address], [place], [address], [facility] 11/26/2016 13:18:37 09/03/20 11 Colonoscopy completed Cecilia Ramirez [facility] 03/19/2016 22:33:09 Tonsillectomy completed Cecilia Ramirez [facility] 03/19/2016 22:33:19 Orthopedic Surgery completed Cecilia Ramirez [facility] 03/19/2016 22:33:34 Imaging Results None recorded. Procedure Notes None recorded. Medical Equipment None Reported. Allergies Allergen ID Allergen Name Allergen Category Reaction Reaction Severity Criticality Documentation Date Start Date Code Code System Note Provider Name and Address Organization Details Recorded Time 00806 iodine medicatio n anaphylax is Not available high 05/26/20252021 5933 RxNorm Just iv dye Not Available [employer] - prod 5 11:34:41 91378 pentazoci ne Not available Not available Not available low 05/26/2025 8001 RxNorm Talwi n unrec ogniz ed react ion (text : Unkno wn, code: [id number]) (from exter nal sourc e) Not Available [employer] - prod 5 11:34:41 570 Talwin medicatio n Not available Not available Not available 03/19/2016 8002 RxNorm Cecilia ames [facility] 6 22:31:10 7985 Iodinated contrast media (substanc e) medicatio n Not available Not available Not available 03/05/2019 60770 2004 SNOMED Gwendolyn New ames [facility] 9 12:54:24 Medications Name Sig Start Date [...] TAKE 1 TABLET BY MOUTH TWICE DAILY 2024 active Not Available Not Available Not Avai lable doxycycline hyclate 100 mg capsule TAKE 1 [...] Not Available Not Available Not Avai lable doxycycline hyclate 50 mg capsule Take 1 [...] Not Available Not Available Not Avai lable ciprofloxac in 500 mg tablet TAKE 1 [...] UNDER THE SKIN EVERY NIGHT AT BEDTIME 2024 active Not Available Not Available Not Avai lable levocetiriz ine 5 mg tablet 09/10 completed [...] Available Lokelma 5 gram oral powder packet qd 2024 active Not Available Not Available Not Avai lable Flucelvax Quad (PF) 60 mcg (15 mcg [...] Updated DateTime 5 180.34 cm 29.3 kg/m2 20030.4 g 96.7 [degF] 67 /min 18 /min 125/65 mm[Hg] [facility] 5 12:22:06 Date Recorded Body height Body mass index (BMI) Body weight Body temperature Heart rate Respiratory rate Systolic And Diastolic Provider Name and Address Organization Details Last Updated DateTime 5 180.34 cm 29.6 kg/m2 04545.5 8 g 97.7 [degF] 69 /min 18 /min 119/61 mm[Hg] Liat Michele [facility] 5 12:28:03 Date Recorded Body mass index (BMI) Body height Provider Name and Address Organization Details Last Updated DateTime 06/09/2024 29.6 kg/m2 180.34 cm Faviola Alves MD [address], [place], [address], [facility] 06/09/2024 14:35:48 Date Recorded Heart rate Respiratory rate Body temperature Body weight Systolic And Diastolic Provider Name and Address Organization Details Last Updated DateTime 4 71 /min 18 /min 97.7 [degF] 45220.5 8 g 104/56 mm[Hg] Karla Leonard [facility] 4 14:26:21 Date Recorded Body height Body mass index (BMI) Body weight Body temperature Respiratory rate Heart rate Systolic And Diastolic Provider Name and Address Organization Details Last Updated DateTime 5 180.34 cm 29.7 kg/m2 05939.1 7 g 97.6 [degF] 18 /min 73 /min 124/61 mm[Hg] Liat Michele [facility] 5 12:35:14 Date Recorded Body height Body mass index (BMI) Body weight Body temperature Respiratory rate Heart rate Systolic And Diastolic Provider Name and Address Organization Details Last Updated DateTime 4 180.34 cm 29.7 kg/m2 66429.1 7 g 97.5 [degF] 18 /min 68 /min 117/60 mm[Hg] [facility] 4 12:24:00 Social History Question Answer Notes LastModified by Organizat ion Details LastModified Time Tobacco Smoking Status Former Smoker quit Not Available [facility] 09/08/2020 03:12:14 Do You Have An Advance Directive? Yes [id number] Information not available 09/08/2020 What Is Your Level Of Caffeine Consumption? 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 No [id number] Information not available 09/08/2020 In The 14 Days Before Symptom Onset, Have You Had Close Contact With A Person Who Is Under Investigation For COVID-19 While That Person Was Ill? No [id number] Information not available 09/08/2020 Have You Been To An Area Known To Be High Risk For COVID-19? No [id number] Information not available 09/08/2020 Have You Directly Handled Bats, Rodents, Or Primates From Ebola Endemic Areas? No [id number] Information not available 09/08/2020 Have You Processed Blood Or Body Fluids From An Ebola Virus Disease Patient Without Appropriate PPE? No [id number] Information not available 09/08/2020 Have You Had Household Contact With An Ebola Virus Disease Patient? No [id number] Information not available 09/08/2020 Have You Had Direct Contact With A Body In An Ebola-affected Area Without Appropriate PPE? No [id number] Information not available 09/08/2020 Have You Had Percutaneous (e.g. Needle Stick) Or Mucous Membrane Exposure To Blood Or Body Fluids From An Ebola Virus Disease Patient? No [id number] Information not available 09/08/2020 Have You Had Other Close Contact With An Ebola Virus Disease Patient In Health Care Facilities Or Community Settings? No [id number] Information not available 09/08/2020 Do You Reside In Or Have You Traveled To An Area Where Ebola Virus Transmission Is Active? No [id number] Information not available 09/08/2020 Are There Any Guns Present In Your Home? No [id number] Information not available 09/08/2020 Hard Of Hearing [...] Much Tobacco Do You Smoke? 1 PPD [id number] Information not available 09/08/2020 Do You Use Sunscreen Routinely? No [id number] Information not available 09/08/2020 How Many Years Have You Smoked Tobacco? 10 [id number] Information not available 09/08/2020 Have You Used IV Drugs? No [id number] Information not available 09/08/2020 Sex: Unknown Functional Status Question Answer Note LastModified by Organization D etails LastModified Time What is your level of alcohol consumption? None Information not available 12/06/2020 Are you currently employed? No [id number] Information not available 09/08/2020 Are you able to care for yourself independently? Yes [id number] Information not available 09/08/2020 Mental Status None recorded. Family History Relationship Description Onset Age of this Age Resolved Age Notes LastModified by Organization Details LastModified Time Father Cerebrovascu lar accident 81 [email or web address] Not available 22:32:20 Mother Diabetes mellitus [email or web address] Not available 2015 22:32:32 Brother Coronary arterioscler osis [email or web address] Not available 2015 22:32:47 Medical History Condition [...] Td(adult) unspecified formulation 8 completed Not Available [facility] 12/23/2023 16:33:29 Influenza, split virus, quadrivalent, preservative 8 completed Not Available [facility] 12/23/2023 16:33:29 zoster recombinant 9 completed Not Available [facility] 12/23/2023 16:33:29 zoster recombinant 9 completed Not Available [facility] 12/23/2023 16:33:29 Influenza, split virus, quadrivalent, preservative 9 completed Not Available [facility] 12/23/2023 16:33:29 pneumococcal polysaccharide PPV23 8 completed Not Available [facility] 12/23/2023 16:33:29 Pneumococcal conjugate PCV 13 7 completed Not Available [facility] 12/23/2023 16:33:29 Influenza, high-dose, quadrivalent, PF 0 completed Not Available [facility] 12/23/2023 16:33:29 SARS-COV-2 (COVID-19) vaccine, UNSPECIFIED 1 completed Not Available [facility] 12/23/2023 16:33:29 SARS-COV-2 (COVID-19) vaccine, UNSPECIFIED 1 completed Not Available [facility] 12/23/2023 16:33:29 COVID-19, mRNA, LNP-S, PF, 30 mcg/0.3 mL dose 1 completed Not Available [facility] 12/23/2023 16:33:29 Influenza, split virus, quadrivalent, preservative 1 completed Not Available [facility] 12/23/2023 16:33:29 Influenza, split virus, quadrivalent, preservative 2 completed Not Available [facility] 12/23/2023 16:33:29 COVID-19, mRNA, LNP-S, PF, 30 mcg/0.3 mL dose, rola-sucrose 2 completed Not Available [facility] 12/23/2023 16:33:29 Influenza, split virus, quadrivalent, preservative 5 completed Not Available [facility] 12/23/2023 16:33:29 pneumococcal polysaccharide PPV23 4 completed Not Available [facility] 12/23/2023 16:33:29 zoster live 5 completed Not Available [facility] 12/23/2023 16:33:29 Tdap 8 completed Not Available [facility] 12/23/2023 16:33:29 influenza, unspecified formulation 3 completed Not Available [facility] 12/23/2023 16:33:29 Respiratory syncytial virus (RSV) MAB, unspecified 4 completed MD [facility] [address], [place], [address], [facility] 09/09/2024 13:00:27 influenza, unspecified formulation 4 completed MD [facility] [address], [place], [address], [facility] 12/16/2024 12:52:13 Past Encounters Encounter ID Performer Location Encounter Start Date Encounter Closed Date Diagnosis/Indication Diagnosis SNOMED-CT Code Diagnosis ICD10 Code Diagnosis IMO Codes Diagnosis Note [id number] Faviola Alves MD [facility], [address] [place] [address] 03/20/2016 12:46:31 03/20/2016 14:07:42 Benign hypertension 05287629 I10 Osteoarthritis 580205438 M19.90 Diabetes mellitus 044299 09 E11.42 Hyperlipidemia 24908264 E78.5 Peripheral vascular disease 207267773 I73.9 abnormal EDWIN //vascular surg eval Diabetic p eripheral neuropathy 866724120 E11.40 [id number] Faviola Alves MD [facility], [address] [place] [address] 05/13/2016 11:32:50 05/13/2016 12:10:12 Peripheral vascular disease 164689271 I73.9 Osteoarthritis 525511421 M19.90 Hypothyroidism 58315535 E03.9 Diabetic p eripheral neuropathy 822229253 E11.40 Coronary arteriosclerosis 54516193 I25.10 Hyperlipidemia 88988979 E78.5 Diabetes mellitus 742140 09 E11.42 Benign hypertension 1072 5009 I10 Rosacea 977580398 L71.9 Viral screening 93826957 4 Z11.59 [id number] Faviola Alves MD [facility] [place] [address] 08/13/2016 09:05:28 08/13/2016 09:42:36 Benign hypertension 80528997 I10 Hyperlipidemia 42279137 E78.5 Diabetes mellitus 883415 09 E11.42 Peripheral vascular disease 624652820 I73.9 last EDWIN 01/2016 Active or passive immunization 678084156 Z23 Diabetic foot ulcer 3710 55415 E11.40 Hypothyroidism 05420377 E03.9 [id number] Faviola Alves MD [facility], [address] [place] [address] 11/12/2016 09:10:01 11/12/2016 09:52:59 Diabetes mellitus 96639228 E11.42 Hypothyroidism 33585016 E03.9 Coronary arteriosclerosis 21423408 I25.10 Hyperlipidemia 92861987 E78.5 Benign hypertension 1072 5009 I10 Peripheral vascular disease 392709903 I73.9 last EDWIN 01/2016 Active or passive immunization 136220249 Z23 Rosacea 096250497 L71.9 [id number] Faviola Alves MD [facility], [place] [address] [place] [address] 02/10/2017 10:53:04 02/10/2017 11:52:30 Benign hypertension 91806809 I10 Diabetes mellitus 729058 09 E11.42 Coronary arteriosclerosis 46784031 I25.10 Hypothyroidism 58347728 E03.9 Peripheral vascular disease 320542554 I73.9 last EDWIN 01/2016 Rosacea 861254638 L71.9 Active or passive immunization 408671446 Z23 Charcot's arthropathy 35 9338116 M14.679 sees pod every 3 months [id number] Faviola Alves MD [facility], [address] [place] [address] 05/30/2017 11:57:07 05/30/2017 12:44:53 Preoperative cardiovascular examination 203030956 Z01.810 need to get cardiology clearnce from his cardiology Peripheral vascular disease 295708911 I73.9 mild on the new EDWIN @ [facility] 05/22/17 Bronchitis 30583013 J40 Benign hypertension 1072 5009 I10 Rosacea 319811717 L71.9 Diabetes mellitus 289030 09 E11.42 per pt had A1c @ [facility] DM clinic 04/09/17 and it was 6.5 Hypothyroidism 51030123 E03.9 Hyperlipidemia 32054561 E78.5 [id number] Faviola Alves MD [facility], [place] [address] [address] [place] [address] 08/29/2017 12:25:01 08/29/2017 13:05:14 Infection of foot 261373732 L08.9 Lt big toe , seen pod , will change to doxy , RTC 1 week if not better Benign hypertension 1072 5009 I10 Diabetes mellitus 868766 09 E11.69 per pt had A1c with endo 07/16/17 and was 6.3 Hypothyroidism 57810230 E03.9 Peripheral vascular disease 607675621 I73.9 mild on the new EDWIN @ [facility] 05/22/17 [id number] Faviola Alves MD [facility], [place] [address] [address] [place] [address] 12/01/2017 15:46:31 12/01/2017 16:30:34 Diabetes mellitus 07993604 E11.69 per pt had A1c with endo 10/20/17 and was 6.7 Hyperlipidemia 57398428 E78.5 Coronary arteriosclerosis 64140434 I25.10 Diabetic p eripheral neuropathy 862056481 E11.40 Charcot's arthropathy 35 6220190 M14.679 sees pod every 3 months Benign hypertension 1072 5009 I10 Active or passive immunization 929497988 Z23 Poor balance 165259118 R 27.8 2ry to diabetic neuropathy Hypothyroidism 15180655 E03.9 Peripheral vascular disease 371248296 I73.9 mild on the new EDWIN @ [facility] 05/22/17 Decreased hearing 807045 001 H91.93 [id number] Faviola Alevs MD [facility], [place] [address] [address] [place] [address] 03/02/2018 12:19:13 03/02/2018 13:35:33 Adult health examination 810777192 Z00.00 Benign hypertension 1072 5009 I10 good control Hypothyroidism 93336937 E03.9 last TSH 1/17/18 Diabetes mellitus 120699 09 E11.69 per pt had A1c with endo 10/20/17 and was 6.7 Hyperlipidemia 20540455 E78.5 last LDL 12/10/16 Coronary arteriosclerosis 14185193 I25.10 sees cardiology on reg basis Osteoarthritis 631273896 M19.90 Rosacea 291990434 L71.9 good control with doxy Charcot's arthropathy 35 3692753 M14.679 sees pod every 3 months Peripheral vascular disease 832736828 I73.9 mild on the new EDWIN @ [facility] 05/22/17 Diabetic p eripheral neuropathy 736248410 E11.40 will try tylenol Screening for malignant neoplasm of colon 405069328 Z12.11 last C scope 11/26/16 , good till 2021 Active or passive immunization 775624122 Z23 [id number] Faviola Alves MD [employer] [place] [address] [address] [place] ,[address] [address] 06/01/2018 14:09:06 06/01/2018 14:47:05 Benign hypertension 59323127 I10 good control Peripheral vascular disease 144584093 I73.9 mild on the new EDWIN @ [facility] 05/22/17 Charcot's arthropathy 35 2498919 M14.679 sees pod every 3 months Hypothyroidism 56478547 E03.9 last TSH 12/10/17 Diabetic p eripheral neuropathy 955872361 E11.40 will try tylenol Coronary arteriosclerosis 17239112 I25.10 sees cardiology on reg basis Hyperlipidemia 49921269 E78.5 last LDL 12/10/17 @ goal Diabetes mellitus 886251 09 E11.69 per pt had A1c with endo 03/02/18 was 7.1 Active or passive immunization 279532347 Z23 Rosacea 407612182 L71.9 good control with doxy Osteoarthritis 100923579 M19.90 Screening for malignant neoplasm of colon 488752009 Z12.11 last C scope 11/26/16 , good till 2021 [id number] Faviola Alves MD [employer], [place] [address] [address] [place] [address] 09/01/2018 14:21:20 09/01/2018 15:03:03 Cellulitis of lower limb 002225011 L03.119 last TD 12/2017 Pain in left knee 519447 4048 59965 M25.562 Benign hypertension 1072 5009 I10 good control Diabetes mellitus 923098 09 E11.69 last A1c 18 Screening for malignant neoplasm of colon 569417258 Z12.11 last C scope 11/26/16 , good till 2021 Active or passive immunization 179685978 Z23 [id number] Faviola Alves MD [employer], [address] [place] [address] [place] [address] 12/02/2018 14:39:39 12/02/2018 15:30:45 Benign hypertension 79359360 I10 good control Hypothyroidism 11719248 E03.9 last TSH 06/09/18 Coronary arteriosclerosis 88659677 I25.10 sees cardiology on reg basis Hyperlipidemia 47884227 E78.5 last LDL 12/10/17 @ goal Diabetes mellitus 003279 09 E11.69 last A1c 06/09/18 Screening for malignant neoplasm of colon 924753924 Z12.11 last C scope 11/26/16 , good till 2021 Active or passive immunization 380000688 Z23 [id number] Faviola Alves MD [employer], [address] [place] [address] [place] [address] 03/05/2019 12:40:57 03/05/2019 13:29:31 Adult health examination 079450813 Z00.01 Diabetes mellitus 633749 09 E11.69 last A1c 12/21/18las t eye ex 01/2019 Hyperlipidemia 07350190 E78.5 last LDL 12/21/18 @ goal Hypothyroidism 36479359 E03.9 last TSH 12/21/18 Diabetic p eripheral neuropathy 311393053 E11.40 will try tylenol Coronary arteriosclerosis 07457061 I25.10 sees cardiology on reg basis Osteoarthritis 843248948 M19.90 Rosacea 763608341 L71.9 good control with doxy Charcot's arthropathy 35 7108306 M14.679 sees pod every 3 months Benign hypertension 1072 5009 I10 good control Peripheral vascular disease 584716477 I73.9 mild on the new EDWIN @ [facility] 05/22/17 Body mass index 30+ - obesity 257005403 Z68.36 Screening for malignant neoplasm of colon 854950783 Z12.11 last C scope 11/26/16 , good till 2021 Active or passive immunization 010858259 Z23 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 786936164 E11.3499 seen ophth 02/23/19 [id number] Faviola Alves MD [facility], [place] [address] [address] [place] [address] 06/04/2019 12:29:49 06/04/2019 12:59:17 Benign hypertension 67448526 I10 good control 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 643526678 E11.3499 seen ophth 02/23/19 Hypothyroidism 76056158 E03.9 last TSH 12/21/18 Diabetes mellitus 946328 09 E11.69 last A1c 6.7 @ endo 04/21/19las t eye ex 02/23/2019 Peripheral vascular disease 776356338 I73.9 mild on EDWIN 09/09/18 Benign par oxysmal positional vertigo 413145224 H81.10 Screening for malignant neoplasm of colon 770444375 Z12.11 last C scope 11/26/16 , good till 2021 Active or passive immunization 344530587 Z23 [id number] Faviola Alves MD [facility], [address] [place] [address] 09/06/2019 12:16:45 09/06/2019 13:12:20 Benign hypertension 43764903 I10 good control Peripheral vascular disease 235531140 I73.9 mild on EDWIN 09/09/18 Charcot's arthropathy 35 5330785 M14.679 sees pod every 3 months Hypothyroidism 48628466 E03.9 last TSH 12/21/18 Coronary arteriosclerosis 96856552 I25.10 sees cardiology on reg basis Hyperlipidemia 48142415 E78.5 last LDL 12/21/18 @ goal Diabetes mellitus 077182 09 E11.69 last A1c 6.7 @ endo 04/21/19las t eye ex 02/23/2019 Body mass index 30+ - obesity 046701062 Z68.36 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 440179910 E11.3499 seen ophth 07/02/19 Eruption 090892428 R21 Osteoarthritis 932401498 M19.90 Screening for malignant neoplasm of colon 796843162 Z12.11 last C scope 11/26/16 , good till 2021 Impacted c erumen in left ear 2169551518 234687 H61.22 [id number] Faviola Alves MD [employer], [place] [address] [address] ,[address] [place] [address] 12/07/2019 10:51:15 12/07/2019 11:59:40 Benign hypertension 13790554 I10 good control Body mass index 30+ - obesity 402327063 Z68.36 Coronary arteriosclerosis 75311737 I25.10 sees cardiology on reg basis Diabetes mellitus 923510 09 E11.69 last A1c 7.1last eye ex 10/29/19 Hyperlipidemia 22750128 E78.5 last LDL 12/21/18 @ goal Hypothyroidism 05767960 E03.9 last TSH 09/24/19 Screening for malignant neoplasm of colon 638782529 Z12.11 last C scope 11/26/16 , good till 2021 Active or passive immunization 022909910 Z23 up to date [id number] Faviola Alves MD [employer], [place] [address] [address] ,[address] [place] [address] 02/02/2020 15:32:56 02/02/2020 16:08:21 Coronary arteriosclerosis 25666033 I25.10 seen , cardiology , had stent RCArecheck BMPhas plavix , no other meds change Chest pain 69714621 R07. 9 just had stent on RCA Mixed hyperlipidemia 267 654005 E78.2 last LDL 01/24/20 @ goal Benign hypertension 1072 5009 I10 good control Ulcer of toe 591462223 L 97.509 Diabetes mellitus 836378 09 E11.69 last A1c 7.1last eye ex 10/29/19 [id number] Faviola Alves MD [employer], [place] [address] [address] [place] ,[address] [place] [address] 03/07/2020 10:50:05 03/07/2020 11:38:19 Benign hypertension 47402348 I10 good control Coronary arteriosclerosis 43179198 I25.10 seen , cardiology , had stent RCArecheck BMPhas plavix , no other meds change Diabetes mellitus 126919 09 E11.69 last A1c 12/20/19las t eye ex 10/29/19 Hyperlipidemia 68445284 E78.5 last LDL 01/24/20 @ goal Hypothyroidism 92772098 E03.9 last TSH 12/20/19 Peripheral vascular disease 512892721 I73.9 mild on EDWIN 09/15/19 , arterial doppler 02/21/20 Screening for malignant neoplasm of colon 565389893 Z12.11 last C scope 11/26/16 , good till 2021 [id number] Faviola Alves MD [employer], [facility] ,[address] [address] 06/06/2020 10:27:55 06/06/2020 11:48:48 Adult health examination 133193028 Z00.01 Benign hypertension 1072 5009 I10 good control Coronary arteriosclerosis 48840073 I25.10 seen , cardiology , had stent RCArecheck BMPhas plavix , no other meds change Diabetes mellitus 019365 09 E11.69 last A1c 12/20/19las t eye ex 10/29/19 Body mass index 30+ - obesity 603480470 Z68.36 education Charcot's arthropathy 35 8020958 M14.679 sees pod every 3 months Diabetic p eripheral neuropathy 528451943 E11.40 on tylenol Ex-smoker 9200529 Z87.89 1 education Hyperlipidemia 26973751 E78.5 last LDL 01/24/20 @ goal Hypothyroidism 11479864 E03.9 last TSH 12/20/19 Lymphedema 300798031 I89 .0 education Osteoarthritis 665083315 M19.90 Peripheral vascular disease 183162038 I73.9 mild on EDWIN 09/15/19 , arterial doppler 02/21/20 Rosacea 894336151 L71.9 good control with doxy 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 766894712 E11.3499 seen ophth 02/2020 Viral screening 55348633 4 Z11.59 Screening for malignant neoplasm of colon 648288945 Z12.11 last C scope 11/26/16 , good till 2021 Active or passive immunization 750935221 Z23 up to date [id number] Faviola Alves MD [employer], [address] [place] [address] 09/05/2020 15:30:44 09/05/2020 16:33:11 Benign hypertension 44786308 I10 good control Diabetes mellitus 426274 09 E11.69 last A1c 06/09/20las t eye ex 07/07/20las t MELVIN 06/09/20 Hyperlipidemia 72017339 E78.5 last LDL 01/24/20 @ goal Hypothyroidism 23790508 E03.9 last TSH 06/09/20 Osteoarthritis 102906980 M19.90 Screening for malignant neoplasm of colon 697226000 Z12.11 last C scope 11/26/16 , good till 2021 Active or passive immunization 541091407 Z23 up to date [id number] Faviola Alves MD [employer], [address] [place] [address] 12/06/2020 15:10:16 12/06/2020 15:41:15 Diabetes mellitus 29601845 E11.69 last A1c 06/09/20las t eye ex 07/07/20las t MELVIN 06/09/20 Diabetic p eripheral neuropathy 201015962 E11.40 on tylenol Hyperlipidemia 40454147 E78.5 last LDL 01/24/20 @ goal Hypothyroidism 57018097 E03.9 last TSH 06/09/20 Benign hypertension 1072 5009 I10 good control Cellulitis of foot 41723 6007 L03.119 Rt 5th toe , septra , had NL EDWIN 09/15/19ed ucationpod following Screening for malignant neoplasm of colon 786889948 Z12.11 last C scope 11/26/16 , good till 2021 Active or passive immunization 207781753 Z23 up to date Coronary arteriosclerosis 55033066 I25.10 seen , cardiology , had stent RCArecheck BMPhas plavix , no other meds change [id number] Faviola Alves MD [employer], [address] [place] [address] 03/07/2021 14:42:02 03/07/2021 15:25:14 Benign hypertension 33512058 I10 good control Body mass index 30+ - obesity 538654315 Z68.36 education Coronary arteriosclerosis 60869091 I25.10 seen , cardiology , had stent RCA has plavix , no other meds change Diabetes mellitus 232031 09 E11.69 last A1c 06/09/20las t eye ex 07/07/20las t MELVIN 06/09/20 Diabetic p eripheral neuropathy 876807067 E11.40 on tylenol Hyperlipidemia 83658796 E78.5 last LDL 03/05/21 @ goal Hypothyroidism 21360185 E03.9 last TSH 12/07/20 Osteoarthritis 046106779 M19.90 Peripheral vascular disease 232904342 I73.9 mild on EDWIN 09/15/19 , arterial doppler 02/21/20 Screening for malignant neoplasm of colon 014189324 Z12.11 last C scope 11/26/16 , good till 2021 Active or passive immunization 717322001 Z23 up to date Screening for malignant neoplasm of prostate 655925440 Z12.5 Ulcer of foot 25012928 L 97.929 toe , seen pod , seeing wound clinic [id number] Faviola Alves MD [employer], [place] [address] [facility] [address] [address] 06/28/2021 14:31:27 06/28/2021 15:52:25 Adult health examination 951336190 Z00.01 Benign hypertension 1072 5009 I10 good controllas t EKG 03/08/21 Body mass index 30+ - obesity 967552607 Z68.36 education Charcot's arthropathy 35 1892697 M14.679 sees pod every 3 months Chronic renal failure 90 071085 N18.9 last US 12/2020 Complex renal cyst 07716 1001 N28.1 last US 12/2020 Coronary arteriosclerosis 73006543 I25.10 seen , cardiology , had stent RCA has plavix , no other meds [facility] EKG 03/08/21 Diabetes mellitus 728471 09 E11.69 last A1c 03/09/21las t eye ex 04/13/21las t MELVIN 06/09/20 Diabetic p eripheral neuropathy 885520100 E11.40 on tylenol Ex-smoker 1976520 Z87.89 1 education Hyperlipidemia 90373651 E78.5 last LDL 03/05/21 @ goal Hypothyroidism 60366159 E03.9 last TSH 12/07/20 Osteoarthritis 210737407 M19.90 Peripheral vascular disease 568861123 I73.9 mild on EDWIN 03/08/21 Rosacea 262470943 L71.9 good control with doxy 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 104625605 E11.3499 seen ophth 04/13/21 Acute oste omyelitis of phalanx of toe 228850903 M86.179 Lt 5th toe , S/P amputation , done with Abx Screening for malignant neoplasm of colon 896316514 Z12.11 last C scope 11/26/16 , good till 2021 Active or passive immunization 914393454 Z23 up to date [id number] Faviola Alves MD [employer], [place] [address] [facility] [place] ,[address] [address] 10/01/2021 09:09:45 10/01/2021 10:07:48 Benign hypertension 93473852 I10 good controllas t EKG 03/08/21 Body mass index 30+ - obesity 995953041 Z68.36 educationd own 7 LBs Diabetes mellitus 581922 09 E11.69 last A1c las t eye ex 04/13/21las t MELVIN 06/09/20 Coronary arteriosclerosis 42358424 I25.10 seen , cardiology , had stent RCA has plavix , no other meds [facility] EKG 03/08/21 Diabetic p eripheral neuropathy 689230052 E11.40 on tylenollas t B12 07/04/21 Hyperlipidemia 63497764 E78.5 last LDL 07/17/21 @ goal Hypothyroidism 43432330 E03.9 last TSH 07/04/21 Peripheral vascular disease 788084625 I73.9 mild on EDWIN 08/06/21 Osteomyeli tis of left foot 6784508688 739015 M86.9 3rd toe , seen vascular , ID and pod Screening for malignant neoplasm of colon 326826031 Z12.11 last C scope 11/26/16 , good till 2021 Active or passive immunization 064141450 Z23 up to date Retinal ischemia 0918225 4 H35.82 per ophth note 04/13/[id number] Faviola Alves MD [facility], [place] [address] [address] [place] [address] [place] [address] 11/28/2021 17:08:34 11/28/2021 18:22:38 Effusion of joint of left knee 1251807839 92620 M25.462 Benign hypertension 1072 5009 I10 good controllas t EKG 03/08/21 Body mass index 30+ - obesity 581434104 Z68.36 educationl ost 6 Lbs on diet Chronic os teomyelitis of foot 919528578 M86.679 gone , stopped Abx Diabetes mellitus 685191 09 E11.69 last A1c 10/09/21la st eye ex 1las t MELVIN 07/04/21he is going to talk to endo for restarting jardiance Coronary arteriosclerosis 05000116 I25.10 seen , cardiology , had stint RCA has plavix , no other meds [facility] EKG 03/08/21 Diabetic p eripheral neuropathy 720748989 E11.40 on tylenollas t B12 07/04/21 Hyperlipidemia 87464447 E78.5 last LDL 07/17/21 @ goal Hypothyroidism 01867463 E03.9 last TSH 07/04/21 Peripheral vascular disease 402300749 I73.9 mild on EDWIN 08/06/[id number] Faviola Alves MD [facility], [place] [address] [address] [place] ,[address] [place] [address] 01/01/2022 15:20:45 01/01/2022 16:22:01 Knee pyogenic arthritis 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.9 Lt knee , on ABx , had prothesis out and have spacer Diarrhea 50704130 R19.7 Benign hypertension 1072 5009 I10 good controllas t EKG 03/08/21 Diabetes mellitus 175527 09 E11.69 last A1c 10/09/21la st eye ex 1las t MELVIN 07/04/[id number] Faviola Alves MD [facility], [place] [address] [address] [place] ,[address] [place] [address] 01/30/2022 11:35:28 01/30/2022 12:18:24 Benign hypertension 73240841 I10 good controllas t EKG 03/08/21 Body mass index 30+ - obesity 070906279 Z68.36 educationl ost 6 Lbs on diet Diabetes mellitus 199158 09 E11.69 last A1c 10/09/21la st eye ex 1las t MELVIN 07/04/21 Diabetic p eripheral neuropathy 452150954 E11.40 on tylenollas t B12 07/04/21 Knee pyoge tristan arthritis 278400204 M00.9 Lt knee , done ABx , had prosthesis out and have spacer Diarrhea 09069823 R19.7 resolved Mixed hyperlipidemia 267 354904 E78.2 last LDL 07/17/21 @ goal Screening for malignant neoplasm of colon 452586086 Z12.11 last C scope 11/26/16 , good till 2021 Active or passive immunization 747479875 Z23 up to date Coronary arteriosclerosis 35760047 I25.10 seen , cardiology , had stint RCA has plavix , no other meds [facility] EKG 03/08/21 Hypothyroidism 45939288 E03.9 last TSH 10/09/21 [id number] Faviola Alves MD [employer] [address] [facility] [address] [address] 05/09/2022 10:00:36 05/09/2022 11:29:01 Benign hypertension 79900184 I10 good controllas t EKG 03/08/21 Anemia 493975901 D64.9 Type 2 marina betes mellitus without complication 783307203 E11.9 last ophth 01/2022last A1c 01/2022 Diabetic p eripheral neuropathy 175048709 E11.40 on tylenollas t B12 02/05/22 Hypothyroidism 27061434 E03.9 last TSH 02/05/22 Chronic renal failure 90 707067 N18.9 last US 12/2020 Screening for malignant neoplasm of colon 452088884 Z12.11 last C scope 11/26/16 , good till 2021 Active or passive immunization 256909835 Z23 up to date Body mass index 25-29 - overweight 586947408 Z68.28 educationl ost 11 Lbs on diet Effusion o f joint of left knee 0809882146 11438 M25.462 [id number] Faviola Alves MD [employer] [address] [facility] [address] [place] [address] 08/13/2022 10:51:39 08/13/2022 12:12:55 Adult health examination 051301148 Z00.01 Benign hypertension 1072 5009 I10 good controllas t EKG 03/08/21 Body mass index 25-29 - overweight 170777146 Z68.28 educationo n diet Diabetes mellitus 008709 09 E11.69 last A1c 05/15/22las t eye ex 05/31/22last MELVIN 07/04/21 Diabetic p eripheral neuropathy 923458866 E11.40 on tylenollas t B12 05/15/22 Hyperlipidemia 27362501 E78.5 last LDL 02/05/22 @ goal Hypothyroidism 27668822 E03.9 last TSH 02/05/22 Knee pyoge tristan arthritis 054173453 M00.9 Lt knee , done ABx , had prosthesis out and have spacer Osteoarthritis 041898711 M19.90 Peripheral vascular disease 970197457 I73.9 mild on EDWIN 02/04/22 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 468512292 E11.3499 seen ophth 05/31/22 Rosacea 634210159 L71.9 good control with doxy Ex-smoker 7032467 Z87.89 1 education Coronary arteriosclerosis 49542478 I25.10 seen , cardiology , had stint RCA has plavix , no other meds [facility] EKG 03/08/21 Chronic renal failure 90 652289 N18.9 last US 12/2020 Complex renal cyst 65980 1001 N28.1 last US 02/13/22 Chronic os teomyelitis of foot 311278584 M86.679 gone , stopped Abx Charcot's arthropathy 35 4834298 M14.679 sees pod every 3 months Screening for malignant neoplasm of colon 244466486 Z12.11 last C scope 11/26/16 , good till 2021have one schedules 08/2022 Active or passive immunization 225746347 Z23 up to dateflu and COVID booster Advance di rective discussed with patient 309715683 Z71.89 education Visual disturbance 87975 001 H53.9 difficulty focusing in AM [id number] Faviola Alves MD [facility], [place] [address] [address] [place] [address] 09/04/2022 09:29:46 09/04/2022 10:32:17 Acute osteomyelitis of phalanx of toe 011482236 M86.179 Lt 4th toe and distal 3rd toe , S/P amputation , still on Abx Cellulitis of foot 13982 6007 L03.119 Rt 4th toe ,education pod following Peripheral vascular disease 536489481 I73.9 last arterial duplex 08/26/22 Hyperkalemia 27376764 E8 7.5 [id number] Faviola Alves MD [facility], [place] [address] [address] [place] [address] 11/11/2022 15:06:43 11/11/2022 16:18:16 Benign hypertension 49599393 I10 good controllas t EKG 08/16/22 Body mass index 25-29 - overweight 292580952 Z68.28 educationo n diet Diabetes mellitus 377662 09 E11.69 last A1c 09/26/22las t eye ex 05/31/22last MELVIN 09/26/22 Hyperlipidemia 65387418 E78.5 last LDL 08/16/22 @ goal Ulcer of toe 808156090 L 97.509 Screening for malignant neoplasm of colon 291170881 Z12.11 last C scope 09/2022 , good for 5 years Active or passive immunization 867773201 Z23 up to dateflu and COVID booster [id number] Faviola Alves MD [facility], [place] [address] [address] [place] [address] 02/10/2023 14:47:12 02/10/2023 16:20:01 Benign hypertension 13693735 I10 good controllas t EKG 08/16/22 Body mass index 25-29 - overweight 275115821 Z68.28 educationo n diet Carotid ar rafal stenosis 57486179 I65.29 10/10/22 Chronic os teomyelitis of foot 872193316 M86.679 S/P ambulation all toes Lt foot Diabetes mellitus 145810 09 E11.69 last A1c 01/31/23las t eye ex 12/20/2022 per ptlast MELVIN 01/31/22 Hypothyroidism 15171789 E03.9 last TSH 01/31/23 Mixed hyperlipidemia 267 639169 E78.2 last LDL 08/16/22 @ goal Screening for malignant neoplasm of colon 387976689 Z12.11 last C scope 09/2022 , good for 5 years Active or passive immunization 536669057 Z23 up to dateflu and COVID booster Serum karo min B12 borderline low 673422755 R79.89 [id number] Faviola Alves MD [facility], [place] [address] [place] [address] 03/21/2023 12:37:51 03/21/2023 13:35:10 Diabetic peripheral neuropathy 990983289 E11.40 on tylenollas t B12 05/15/22had foot deformity Charcot arthropath y , PVD , H/O ulcer ,need diabetic shoes and inserts Peripheral vascular disease 782290949 I73.9 last arterial duplex 08/26/22 Charcot's arthropathy 35 9345356 M14.679 sees pod every 3 months Diabetes mellitus 989453 09 E11.69 last A1c 01/31/23las t eye ex 12/20/2022 per ptlast MELVIN 01/31/23 Screening for malignant neoplasm of colon 748139824 Z12.11 last C scope 09/2022 , good for 5 years Active or passive immunization 319863693 Z23 up to dateflu and COVID booster Hypothyroidism 77107736 E03.9 last TSH 01/31/23 Benign hypertension 1072 5009 I10 good controllas t EKG 08/16/22 [id number] Faviola Alves MD [facility], [facility] [address] [place] [address] 06/23/2023 14:20:39 06/23/2023 15:39:03 Benign hypertension 73636583 I10 good controllas t EKG 08/16/22 Body mass index 25-29 - overweight 967792298 Z68.28 educationo n diet Carotid ar rafal stenosis 16650985 I65.29 10/10/22 Diabetes mellitus 875615 09 E11.69 last A1c 01/31/23las t eye ex 04/18/2023 per ptlast MELVIN 01/31/23 Hyperlipidemia 57334327 E78.5 last LDL 08/16/22 @ goal Hypothyroidism 92808422 E03.9 last TSH 04/02/23 Peripheral vascular disease 245898750 I73.9 last arterial duplex 05/17/23 Serum karo min B12 below reference range 424851025 R79.89 last level 04/02/23 Screening for malignant neoplasm of colon 748817066 Z12.11 last C scope 09/2022 , good for 5 years Active or passive immunization 566831132 Z23 up to dateflu and COVID booster [id number] Faviola Alves MD [facility] [address] [facility] [address] [address] 09/04/2023 13:42:15 09/04/2023 14:43:41 Adult health examination 411042665 Z00.01 Benign hypertension 1072 5009 I10 good controllas t EKG 08/16/22 Body mass index 25-29 - overweight 570510494 Z68.28 educationo n diet Carotid ar rafal stenosis 58900171 I65.29 10/10/22 Charcot's arthropathy 35 1024169 M14.679 sees pod every 3 months Chronic os teomyelitis of foot 126582749 M86.679 S/P ambulation all toes Lt foot Chronic renal failure 90 132955 N18.9 last US 12/2020 Complex renal cyst 16886 1001 N28.1 last US 02/13/22 Coronary arteriosclerosis 24772186 I25.10 seen , cardiology , had stint RCA has plavix , no other meds [facility] EKG 03/08/21 Anemia 496381348 D64.9 last CBC Diabetes mellitus 167252 09 E11.69 last A1c 07/11/23las t eye ex 08/15/2023 per ptlast MELVIN 01/31/23 Diabetic p eripheral neuropathy 278517379 E11.40 on tylenollas t B12 04/02/23had foot deformity Charcot arthropath y , PVD , H/O ulcer ,need diabetic shoes and inserts Ex-smoker 7253930 Z87.89 1 education Hyperlipidemia 27868925 E78.5 last LDL 07/11/23 @ goal Hypothyroidism 83917714 E03.9 last TSH 07/11/23 @ goal Lymphedema 168233820 I89 .0 education Osteoarthritis 589632213 M19.90 Peripheral vascular disease 253202347 I73.9 last arterial duplex 05/17/23 Serum karo min B12 below reference range 408397751 R79.89 last level 04/02/23 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 534562641 E11.3499 seen ophth 05/31/22 Screening for malignant neoplasm of colon 508113392 Z12.11 last C scope 09/2022 , good for 5 years Active or passive immunization 677531135 Z23 up to dateflu , RSV and COVID booster Pain of ri ght shoulder joint 8629452683 2360350 M25.511 [id number] Faviola Alves MD [facility] [address] [facility] [address] [address] 12/10/2023 13:40:58 12/10/2023 15:04:23 Benign hypertension 05210844 I10 good controllas t EKG 08/16/22 Body mass index 25-29 - overweight 237396434 Z68.28 educationo n diet Carotid ar rafal stenosis 30033518 I65.29 10/10/22 Chronic renal failure 90 735553 N18.9 last US 12/2020 Diabetes mellitus 258494 09 E11.69 last A1c 11/10/23 with endo was 6.9last eye ex 08/15/2023 per ptlast MELVIN 01/31/23 Diabetic p eripheral neuropathy 590019121 E11.40 on tylenollas t B12 04/02/23had foot deformity Charcot arthropath y , PVD , H/O ulcer ,need diabetic shoes and inserts Hyperlipidemia 89532627 E78.5 last LDL 07/11/23 @ goal Hypothyroidism 20093927 E03.9 last TSH 10/2023 @ goal with endo Peripheral vascular disease 330489800 I73.9 last arterial duplex 05/17/23 , 11/27/23 Serum karo min B12 below reference range 327972383 R79.89 last level 04/02/23 Screening for malignant neoplasm of colon 096396378 Z12.11 last C scope 09/2022 , good for 5 years Active or passive immunization 571726282 Z23 up to dateflu , RSV and COVID booster [id number] Faviola Alves MD [facility] [address] [facility] [address] [place] [address] 03/10/2024 14:00:34 03/10/2024 14:49:19 Infection of toe 056596714 L08.9 Rt 2nd toe Benign hypertension 1072 5009 I10 good controllas t EKG 12/10/23 Hypothyroidism 19715161 E03.9 last TSH 10/2023 @ goal with endo Diabetes mellitus 582657 09 E11.69 last A1c 11/10/23 with endo was 6.9last eye ex 12/19/23 per ptlast MELVIN 01/31/23 Carotid ar rafal stenosis 52713795 I65.29 12/25/23 Hyperlipidemia 15879547 E78.5 last LDL 03/03/24 @ goal Peripheral vascular disease 242656815 I73.9 last arterial duplex 05/17/23 , 11/27/23 Screening for malignant neoplasm of colon 538542931 Z12.11 last C scope 09/2022 , good for 5 years Active or passive immunization 843337616 Z23 up to dateRSV 097481 Faviola Alves MD [facility] [address] [facility] [address] [place] [address] 06/09/2024 14:02:44 06/09/2024 14:55:48 Benign hypertension 12660369 I10 good controllas t EKG 12/10/23 Hypothyroidism 26033407 E03.9 last TSH 03/16/24 @ goal with endo Carotid ar rafal stenosis 63586728 I65.29 12/25/23 Coronary arteriosclerosis 34877943 I25.10 seen , cardiology , had stint RCA has plavix , no other meds [facility] EKG 04/06/24str ess test 03/2024 Diabetes mellitus 229880 09 E11.69 last A1c 04/14/24 was 6.7last eye ex 12/19/23 per ptlast MELVIN 01/31/23 Diabetic p eripheral neuropathy 683224568 E11.40 on tylenollas t B12 04/02/23had foot deformity Charcot arthropath y , PVD , H/O ulcer ,need diabetic shoes and inserts Screening for malignant neoplasm of colon 482414718 Z12.11 last C scope 09/2022 , good for 5 years Active or passive immunization 327493594 Z23 up to dateRSV Peripheral vascular disease 543118146 I73.9 last arterial duplex 05/17/23 , 11/27/23 [id number] Faviola Alves MD [facility], [place] [address] [facility] [address] [place] [address] 09/09/2024 12:10:40 09/09/2024 13:11:06 Adult health examination 217113877 Z00.01 Benign hypertension 1072 5009 I10 good controllas t EKG 12/10/23 Carotid ar rafal stenosis 85743146 I65.29 12/25/23 Chronic renal failure 90 777774 N18.9 last US 12/2020 Coronary arteriosclerosis 91327075 I25.10 seen , cardiology , had stint RCA has plavix , no other meds [facility] EKG 04/06/24str ess test 04/06/2024 Diabetes mellitus 636639 09 E11.69 last A1c 08/2024 @ endo was 7.1last eye ex 06/14/24 per ptlast MELVIN 06/14/24 Hypothyroidism 49452482 E03.9 last TSH 03/16/24 @ goal with endo Diabetic p eripheral neuropathy 363773730 E11.40 on tylenollas t B12 04/02/23had foot deformity Charcot arthropath y , PVD , H/O ulcer ,need diabetic shoes and inserts Ex-smoker 9514108 Z87.89 1 education Hyperlipidemia 61555792 E78.5 last LDL 03/03/24 @ goal Osteoarthritis 573609247 M19.90 stable Peripheral vascular disease 769387669 I73.9 last arterial duplex 05/17/23 , 11/27/23 Serum karo min B12 below reference range 971303859 R79.89 last level 04/02/23 Chronic os teomyelitis of foot 373931368 M86.679 S/P ambulation all toes Lt foot Charcot's arthropathy 35 5067086 M14.679 sees pod every 3 months Body mass index 25-29 - overweight 940094299 Z68.28 educationo n diet Anemia 485802321 D64.9 stable Screening for malignant neoplasm of colon 330807055 Z12.11 last C scope 09/2022 , good for 5 years Vitamin D deficiency 347 28828 E55.9 Active or passive immunization 405993201 Z23 up to dateRSV [id number] Faviola Alves MD [facility], [place] [address] [place] [address] 12/16/2024 12:10:28 12/16/2024 13:02:08 Benign hypertension 19428340 I10 good controllas t EKG 04/06/24 Body mass index 25-29 - overweight 334291441 Z68.28 educationo n diet Carotid ar rafal stenosis 55855902 I65.29 12/25/23 Chronic renal failure 90 078863 N18.9 last US 12/2020 Coronary arteriosclerosis 26845042 I25.10 seen , cardiology , had stint RCA has plavix , no other meds [facility] EKG 04/06/24str ess test 04/06/2024 Diabetes mellitus 479668 09 E11.69 last A1c 12/15/24 @ endo was 7.3last eye ex 09/17/24 per ptlast MELVIN 06/14/24 Diabetic p eripheral neuropathy 888267863 E11.40 on tylenollas t B12 12/15/24had foot deformity Charcot arthropath y , PVD , H/O ulcer ,need diabetic shoes and inserts Hypothyroidism 24467886 E03.9 last TSH 12/15/24 @ goal with endo Peripheral vascular disease 304769672 I73.9 last arterial duplex 05/17/23 , 11/27/23 , 11/2024sees vascular on reg basis Vitamin D deficiency 347 94881 E55.9 12/15/24 Hyperlipidemia 35000946 E78.5 last LDL 12/15/24 @ goal Screening for malignant neoplasm of colon 689622938 Z12.11 last C scope 09/2022 , good for 5 years Active or passive immunization 286410915 Z23 up to date [id number] Faviola Alves MD [facility], [place] [address] [place] [address] 05/26/2025 11:33:56 05/26/2025 13:01:58 Benign hypertension 56240057 I10 good controllas t EKG 05/20/25 @ Yasmany Coronary arteriosclerosis 63480974 I25.10 seen , cardiology , had stint RCA has plavix , no other meds [facility] EKG 04/06/24str ess test 04/06/2024, -ve ER workup 05/20/25 Carotid ar rafal stenosis 19667374 I65.29 02/03/25 Peripheral vascular disease 126167398 I73.9 last arterial duplex 05/17/23 , 11/27/23 , 11/2024sees vascular on reg basis Hyperlipidemia 98558127 E78.5 last LDL 02/08/25 @ goal Diabetes mellitus 464438 09 E11.69 last A1c 12/15/24 @ endo was 7.3last eye ex 01/21/25 per ptlast MELVIN 06/14/24 Hypothyroidism 15573880 E03.9 last TSH 02/08/25 below goal with endo Body mass index 25-29 - overweight 478116622 Z68.28 educationo n diet Vitamin D deficiency 347 90386 E55.9 02/08/25 Serum karo min B12 below reference range 764259826 R79.89 last level 02/08/25 Chronic renal failure 90 482181 N18.9 last US 12/2020 Generalize d osteoarthritis 591260467 M15.9 1453 tylenol 500 TID Charcot's arthropathy 35 2465433 M14.679 sees pod every 3 months Diabetic p eripheral neuropathy 988471280 E11.40 on tylenollas t B12 02/08/25had foot deformity Charcot arthropath y , PVD , H/O ulcer ,need diabetic shoes and inserts Ex-smoker 0934025 Z87.89 1 education Screening for malignant neoplasm of colon 816040222 Z12.11 165293 last C scope 09/2022 , good for 5 years Immunization due 9300398 08 Z23 3980479 up to date [id number] Faviola Alves MD [facility], [facility] [address] [facility] [address] ,[address] [address] 08/25/2025 12:19:41 08/25/2025 13:16:06 Benign hypertension 78759579 I10 good controllas t EKG 05/20/25 @ Yasmany Coronary arteriosclerosis 02617967 I25.10 seen , cardiology , had stint RCA has plavix , no other meds [facility] EKG 04/06/24str ess test 04/06/2024, -ve ER workup 05/20/25 Carotid ar rafal stenosis 29051375 I65.29 02/03/25 Peripheral vascular disease 796395449 I73.9 last arterial duplex 05/17/23 , 11/27/23 , 11/2024sees vascular on reg basis Hyperlipidemia 40041218 E78.5 last LDL 02/08/25 @ goal Diabetes mellitus 243235 09 E11.69 - last A1c 08/17/25 @ endo- last eye ex 06/24/25 per pt- last MELVIN 02/08/25 Hypothyroidism 65676285 E03.9 last TSH 08/17/25 Body mass index 25-29 - overweight 543730201 Z68.28 educationo n diet Serum karo min B12 below reference range 581197971 R79.89 last level 02/08/25 Vitamin D deficiency 347 38712 E55.9 02/08/25 Chronic renal failure 90 681317 N18.9 last US 12/2020 Chronic os teomyelitis of foot 784843001 M86.679 S/P ambulation all toes Lt foot Diabetic p eripheral neuropathy 928102133 E11.40 on tylenollas t B12 02/08/25had foot deformity Charcot arthropath y , PVD , H/O ulcer ,need diabetic shoes and inserts Screening for malignant neoplasm of colon 574490594 Z12.11 110780 last C scope 09/2022 , good for 5 years Immunization due 0380434 08 Z23 6151582 up to date Health Concerns Section Related Observation LastModified by Organization Detai ls LastModified Time None Recorded Concern Status LastModified by Organization Details LastModified Time None Recorded Advance Directives Directive Y: Payers Insurance Date Sequence Insurance Name Policy Number Policy Godfrey Covered Member ID Godfrey Member ID Guarantor Name 08/25/2025 2 [facility] (MEDICARE SUPPLEMENT) [id number] Steve Bradley [id number] Steve Bradley 10/25/2025 1 RYLEE GARCIA - MEDICARE-[address] [facility] (MEDICARE) Reena Bradley [id number] Steve Brito Kirk Notes Date Note Type Note Provider Name [...] ,ahd stress test 03/2024 Faviola Alves MD [address] [place], [address], [facility] 06/09/2024 14:52:34 09/09/2024 text/html Medicare [...] calf pain with exertion, andno headache. MD Verna Cleveland[address] [facility] [address], [place], [address], [facility] 09/09/2024 13:06:11 12/16/2024 text/html Hypertension F/UReported by PatientHPIFor medications, patient reportstaking medications as directedandno side effects from medication. For lifestyle, patient reportsregular exercise,limiting/krsity iding salt, andcompliant with low salt diet. For associated symptoms, patient reportsno dizziness,no lightheadedness,no chest pain,no shortness of breath,no palpitations,no edema,no calf pain with exertion, andno headache. MD Tati Cleveland [facility] [address], [place], [address], [facility] 12/16/2024 12:58:43 05/26/2025 text/html Hypertension F/UReported by PatientHPIFor medications, patient reportstaking medications as directedandno side effects from medication. For lifestyle, patient reportsregular exercise,limiting/kristy iding salt, andcompliant with low salt diet. For associated symptoms, patient reportsno dizziness,no lightheadedness,no chest pain,no shortness of breath,no palpitations,no edema,no calf pain with exertion, andno headache. Faviola Alves MD [address], [place], [address], [facility] 05/26/2025 12:58:54 08/25/2025 text/html Hypertension F/UReported by PatientHPIFor medications, patient reportstaking medications as directedandno side effects from medication. For lifestyle, patient reportsregular exercise,limiting/kristy iding salt, andcompliant with low salt diet. For associated symptoms, patient reportsno dizziness,no lightheadedness,no chest pain,no shortness of breath,no palpitations,no edema,no calf pain with exertion, andno headache. Faviola Alves MD [address], [place], [address], [facility] 08/25/2025 13:10:31
--- OUTSIDE RECORDS SUMMARY | 2025-11-22 07:47 | XMS_ITS | Clinical Summary ---
Author Organization [facility] Address [address] [place] [address] Care Team Providers Care Fan Mail Clerk Name Role Phone Faviola Pringle MD Primary Care Provider [phone]- [phone] Darren Alfredo MD Unavailable + [phone] Robin Liu DPM Unavailable [phone] Rickie Elizondo DPM Unavailable [phone] Allergies Active Allergy Reactions Criticality Noted Date [...] Active Additional Information Patient not taking.Reported on 11/14/2025 BD Ultra-Fine Short Pen Needle 31 gauge x 5/16 needle 4 (four) times a day 01/21/20 Active dorzolamide (TRUSOPT) 2 % ophthalmic solution INSTILL 1 DROP INTO BOTH EYES 3 TIMES A DAY DIRECTED 08/24/20 Active lisinopriL (PRINIVIL,ZEST RIL) 10 mg tablet Take 1 tablet (10 mg total) by mouth daily 09/23/20 Active omega-3 fatty acids-fish oil 300-1,000 mg capsule Take 2 capsules (2 g total) by mouth daily Active vit C/E/Zn/coppr/l utein/zeaxan (PRESERVISION AREDS-2 ORAL) Take by mouth Ac tive lifitegrast (Xiidra) 5 % dropperette Administer into affected eye(s) Active cyanocobalamin (Vitamin B-12) 1,000 mcg sublingual tablet daily Active Lokelma 5 gram packet 08/15/20 Active glucagon 1 mg injection as directed 10/22/20 Active predniSONE (DELTASONE) 50 mg tablet Take 1 tablet by mouth at 6:00 PM and 12:00 AM (midnight) the night before and 6:00 AM the morning of surgery with a sip of water. 3 tablet 09/24/20 Active Additional Information Patient not taking.Reported on 11/14/2025 famotidine (PEPCID) 20 mg tablet Take 1 tablet by mouth at 6:00 PM the night before and 6:00 AM the morning of surgery with a sip of water. 2 tablet 09/24/20 Active Additional Information Patient not taking.Reported on 11/14/2025 diphenhydrAMIN E 25 mg capsule Take 2 capsules at 6:00 AM the morning of surgery with a sip of water. 2 capsule 09/24/20 Active Additional Information Patient not taking.Reported on 11/14/2025 efinaconazole 10 % solution with applicatorIndi cations:Onycho [...] mouth daily 90 tablet 3 02/15/20 25 2025 Active insulin lispro (HumaLOG, ADMELOG) 100 unit/mL [...] with dinner. 270 tablet 3 08/15/20 25 2025 Active linaGLIPtin (Tradjenta) 5 mg tablet Take 1 tablet (5 mg total) by mouth daily 90 tablet 3 10/07/20 25 Active blood-glucose, contracting specialist,cont ([employer]ex[employer] G7 [employer]) misc sample 1 each 11/14/20 Active insulin glargine (LANTUS) 100 unit/mL (3 mL) pen for injectionIndic ations:Type 2 diabetes mellitus with other specified complication, with long-term current use of insulin Inject 9 Units under the skin daily 9 mL 3 11/14/20 25 2025 Active ergocalciferol (VITAMIN D) 50,000 unit capsule Take 1 capsule (50,000 Units total) by mouth once a week 12 capsule 3 11/14/20 25 2025 Active ergocalciferol (VITAMIN D) 50,000 unit capsule Take 1 capsule (50,000 Units total) by mouth once a week 10/10/20 22 2024 Discontinued(R eorder) insulin glargine (LANTUS) 100 unit/mL (3 mL) pen for injection Inject 11 Units under the skin daily 2024 Discontinued(R eorder) insulin glargine (LANTUS) 100 unit/mL (3 mL) pen for injectionIndic ations:Type 2 diabetes mellitus with other specified complication, with long-term current use of insulin Inject 11 Units under the skin daily 15 mL 3 11/11/20 25 2024 Discontinued Active Problems Problem Noted Date Diagnosed Date Abnormal cardiovascular stress test 09/24/2024 Stage 3a chronic kidney disease 08/16/2024 Acute osteomyelitis of left ankle or foot 2022 Overview (12/20/2022): Added automatically from request for surgery [id number] Carotid artery stenosis 11/20/2022 Lower extremity edema 10/03/2022 Pure hypercholesterolemia 10/03/2022 Assessment & Plan (12/13/2022 10:37 AM STABILIZER OPERATOR): Stable. Continue Lipitor 40 mg. Assessment & Plan (10/03/2022 12:53 PM STABILIZER OPERATOR): Lipitor On chronic clopidogrel therapy 10/03/2022 [...] 12/15/2021 Assessment & Plan (01/03/2022 9:11 AM STABILIZER OPERATOR): - Currently receiving Vancomycin 1.25 mg [...] concerns. Assessment & Plan (12/17/2021 1:57 PM STABILIZER OPERATOR): 81-year-old male with diabetes and multiple [...] (12/14/2021): Added automatically from request for surgery [id number] Dysfunction of right eustachian tube 10/01/2021 Retinal [...] 6 Assessment & Plan (12/13/2022 10:36 AM STABILIZER OPERATOR): Ulceration to the left 3rd toe, discussed at length with the patient and his spouse, given his palpable pulses and normal ABIs I suspect this is all inframalleolar occlusive disease and digit disease. 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 We will plan for follow-up in 6 [...] 03/24/2016 Assessment & Plan (12/03/2024 2:03 PM STABILIZER OPERATOR): Stable right lower extremity PVD. Continue ASA statin therapy. Follow up in 1 year with repeat noninvasives testing. Assessment & Plan (11/27/2023 1:36 PM STABILIZER OPERATOR): Stable PVD, no evidence of life-limiting claudication rest pain or wounds. Continue surveillance with repeat noninvasives in 1 year. Continue ASA Plavix and statin therapy. Assessment & Plan (10/30/2022 3:47 PM STABILIZER OPERATOR): Patient with a history of a right iliac stent placed by Dr. Gilbert in 2019. Currently has a superficial ulceration seeing Podiatry. Most recent lower extremity arterial Doppler reveals sufficient blood supply for wound healing. No surgical procedure intervention indicated this time. Plan follow-up in the office in 6 months with arterial duplex Assessment & Plan (10/03/2022 12:52 PM STABILIZER OPERATOR): ABIs from outside hospital with mild [...] 02/01/2014 Assessment & Plan (12/03/2024 2:04 PM STABILIZER OPERATOR): Stable continue Coreg Assessment & Plan (11/27/2023 1:36 PM STABILIZER OPERATOR): Stable continue lisinopril 10 mg. Assessment & Plan (12/13/2022 10:37 AM STABILIZER OPERATOR): Stable continue Lasix 20 mg. Assessment & Plan (10/30/2022 3:46 PM STABILIZER OPERATOR): Carvedilol Assessment & Plan (10/03/2022 12:52 PM STABILIZER OPERATOR): Coreg Mixed hyperlipidemia 02/01/2014 Assessment & Plan (12/03/2024 2:03 PM STABILIZER OPERATOR): Stable continue Lipitor Assessment & Plan (11/27/2023 1:36 PM STABILIZER OPERATOR): Stable continue Lipitor 40 mg. 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 13 [place] [address] [place] [address] Kristin Emery MD Type 2 diabetes mellitus with other specified complication, with long-term current use of insulin (Primary Dx); Type 2 diabetes mellitus with diabetic neuropathy, with long-term current use of insulin (HCC); Hypothyroidism, unspecified type; Vitamin D deficiency 08/26/2025 Documentation [facility] [address] [facility] [address] [place] [id number] Niharika Lopez RN Hypoglycemia from Last 3 Months Immunizations Immunization Administration Dates Next Due DTaP 10/18/2015 Influenza, Quadrivalent, Laureen l Culture-based MDCK, Preservative Free, Antibiotic Free, Intramuscular 09/02/2019 Influenza, Quadrivalent, Hig h Dose, Preservative Free, Intrr 08/31/2022,09/06/2020 Influenza, Quadrivalent, Spl it, Intramuscular 08/27/2022,10/07/2021,09/02/2019,10/24,08/22/2015 Influenza, Trivalent, High D ose, Split, Preservative Free, Intramuscular 09/29/2018,09/28/2018,09/01/2018,12/01 Influenza, Trivalent, Preser vative Free, Intramuscular 11/12/2016,09/25/2016 Influenza, Unspecified 10/07/2021 [employer] SARS-CoV-2 Monovalent Vaccination (12+ Yrs) PURPLE 10/07/2021,02/14/2021,01/24/2021 [...] hypoglycemia - (Add ed by TW Conv) 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 Never 11/14/2025 Q2: How many drinks containi ng alcohol do you have on a typical day when you are drinking? Patient does not drink Q3: How often do you have si x or more drinks on one occasion? Never 11/14/2025 Personal Safety Answer Date Recorded Have you ever been in or are you currently in a harmful physical or emotional relationship or is someone making you feel afraid or unsafe? Denies 09/30/2024 Sex and Gender Information Value Date Recorded Sex Assigned at Not on file Legal Sex Male 3:12 AM STABILIZER OPERATOR Gender Identity Not on file Sexual Orientation Not on file Occupation Industry Job Start Date Job End Date Retired Not on file Not on file Not on file Last Filed Vital Signs Vital Sign Reading Time Taken Comments Blood Pressure 133/75 11/14/2025 1:28 PM STABILIZER OPERATOR Pulse 74 11/14/2025 1:28 PM STABILIZER OPERATOR Temperature 36.6 C (97.8 F) 12/15/2024 1:57 PM STABILIZER OPERATOR Respiratory Rate 16 12/15/2024 1:57 PM STABILIZER OPERATOR Oxygen Saturation 97% 12/15/2024 1:57 PM STABILIZER OPERATOR Inhaled Oxygen Concentration - - Weight 96 kg (211 lb 9.6 oz) 11/14/2025 1:28 PM STABILIZER OPERATOR Height 177.8 cm (5' 10) 11/14/2025 1:28 PM STABILIZER OPERATOR Body Mass Index 30.36 11/14/2025 1:28 PM STABILIZER OPERATOR Plan of Treatment Health Maintenance Due Date Last Done Comments Dilated Eye Exam 1941 Foot Exam 1941 Hepatitis B Screening 1959 Well Visit 65+ 2006 Depression Screening 03/19/2022 03/19/2021 Albumin Creatinine Ratio, Urine 11/10/2024 3, 01/11/2021 Covid-19 Vaccine (2024-12 6 season) 2025 10/07/2021, 02/14/2021, 01/24/2021 Fall Risk Assessment 09/30/2025 09/30/2024 Lipid Panel 11/12/2025 11/12/2024, 05/, 09/25/2022, Additional history exists eGFR 11/12/2025 11/12/2024, 05/2024, 11/10/2023, Additional history exists Hemoglobin A1C 05/15/2026 11/14/2025, 07/26, 02/14/2025, Additional history exists DTaP/Tdap/Td Vaccine (5 - Td or Tdap) 12/25/2027 12/25/2017, 10/18/2015, 10/18/2015, Additional history exists Pneumococcal vaccine 65+ Completed 019, 03/05/2019, 12/02/2018, Additional history exists Zoster Vaccine Completed 09/02/2019, 05/25, 06/04/2019, Additional history exists Influenza Vaccine Completed 09/06/2025, , 08/31/2023, Additional history exists Medical Devices Implanted Type Area Curb Setter Helper Device Identifier Shelf Expiration Date Model / Serial / Lot [employer] [id number] [place]os R High Viscosity Cement 40gm Bone Green - [id number] Implanted:Qty: 4 on 12/15/2021 by Rodolfo Nunez MD at [facility] Left: Knee [employer] 09/23/2024 [id number] / / [id number] [employer] [id number] Attune Cemented Posterior Stabilize Knee Left 8 Component Femoral - [id number] Implanted:Qty: 1 on 12/15/2021 by Rodolfo Nunez MD at [facility] Left: Knee [employer] [id number] 09/23/2031 [id number] / / [id number] [employer] [id number] Tibial Attune Ps Alpoly Sz 8 5mm - [id number] Implanted:Qty: 1 on 12/15/2021 by Rodolfo Nunez MD at [facility] Left: Knee [employer] [id number] 05/23/2026 [id number] / / [id number] [employer]ocom[employer] 620-020 Stimulan Rapid Cure Kit Paste Cost Manager 20cc 50cc Bone Void - [id number] - [id number] Implanted:Qty: 1 on 12/15/2021 by Rodolfo Nunez MD at [facility] [employer] 07/24/2024 620-02 0 / [id number] / Procedures Procedure Name Priority Date/Time Associated Diagnosis Comments POCT HEMOGLOBIN A1C Routine 11/14/2025 1 :38 PM STABILIZER OPERATOR Type 2 diabetes mellitus with other specified complication, with long-term current use of insulin Type 2 diabetes mellitus with diabetic neuropathy, with long-term current use of insulin (HCC) EGFR Routine 11/12/2024 8:22 AM STABILIZER OPERATOR LIPID PANEL Routine 11/12/2024 8:22 AM STABILIZER OPERATOR ALBUMIN CREATININE RATIO, URINE Routine 11/10/2023 2:36 PM STABILIZER OPERATOR Type 2 diabetes mellitus with diabetic neuropathy, with long-term current use of insulin (HCC) from Last 3 Months or Most Recently Relevant to Health Maintenance Results * (ABNORMAL) POCT hemoglobin A1c (11/14/2025 1:38 PM STABILIZER OPERATOR) Hemoglobin A1C, POC 7.0(A) 4.0 - 5.6 % Blood 11/14/2025 1:38 PM STABILIZER OPERATOR us Kristin Emery MD POINT OF CARE TEST ORDERABLES Final Result * eGFR (11/12/2024 8:22 AM STABILIZER OPERATOR) eGFR 67 >=60 mL/min/1. 73 m2 [...] was last reviewed 2021. Testing performed by: [facility], [address] [place] [address], [place]., [address] Blood 11/12/2024 8:22 AM STABILIZER OPERATOR 11/12/2024 9:27 AM STABILIZER OPERATOR us Isidra Osborne MD LAB BLOOD ORDERABLES Final R esult [facility] [address] [facility] Department [place] [address] * Lipid panel (11/12/2024 8:22 AM STABILIZER OPERATOR) Cholesterol 111 30 - 199 mg/dL [...] last revised on 2018. Testing performed by: [address] [address] Triglycerides 87 <=149 mg/dL [facility] Comment: Interpretive [...] last revised on 2018. Testing performed by: [address] [address] HDL 41 >=40 mg/dL [facility] Comment: Interpretive [...] last revised on 2018. Testing performed by: [address] [address] LDL, calculated 53 <=129 mg/dL [facility] Comment: Interpretive Data Ages < or = 19 years Acceptable: <110 mg/dL Borderline high: 110-129 mg/dL High: >or= 130 mg/dL Ages > or = 20 years Optimal: <100 mg/dL Near optimal: 100-129 mg/dL Borderline high: 130-159 mg/dL High: >160 mg/dL Calculated using the Joes LDL-C estimating equation. This equation was implemented [...] last revised on 2024. Testing performed by: [address] [address] Non-HDL Cholesterol 70 mg/dL [facility] Comment: Interpretive [...] last revised on 2018. Testing performed by: [address] [address] Chol/HDL ratio 3 [facility] Comment:Testing performed by : [facility], [address] [place] [address], [place]., [address] Blood 11/12/2024 8:22 AM STABILIZER OPERATOR 11/12/2024 9:27 AM STABILIZER OPERATOR us Isidra Osborne MD LAB BLOOD ORDERABLES Final R esult [facility] [address] [facility] Department [place] [address] * Albumin Creatinine Ratio, Urine (11/10/2023 2:36 PM STABILIZER OPERATOR) Microalb, Ur <7.0 0.0 - 22.9 mg/L [facility] Comment:Repeated and Verifie d Random Urine Creatinine 28.7 mg/dL [facility] Microalb/Creat Ratio <24.4 0.0 - 29.9 mg/g [facility] Urine 11/10/2023 2:36 PM STABILIZER OPERATOR 11/10/2023 3:17 PM STABILIZER OPERATOR us Kristin Emery MD LAB URINE ORDERABLES Final Re sult Performing Organization Address City/State/[facility] Co de Phone Number CONDON IM [facility] from Last 3 Months or Most Recently Relevant to Health Maintenance Insurance MEDICARE [employer] [facility] [employer] [facility] Advance Directives For more information, please contact: [phone] Documents on File Type Date Recorded Patient Public Works Inspector Expl anation ADVANCE DIRECTIVE 03/26/2021 11:15 AM POWER OF STATION [employer] ADVANCE DIRECTIVE 04/03/2013 12:00 AM INEZ R OF [employer]ATION [employer] FINANCIAL/MEDICAL * Full Code (Latest Code Status on File) Date Activated Date Inactivated Comments 08/27/2022 6:50 PM 08/31/2022 6:45 PM * Full Code Date Activated Date Inactivated Comments 12/15/2021 12:30 PM 12/19/2021 6:51 PM * Full Code Date Activated Date Inactivated Comments 03/19/2021 5:34 PM 03/23/2021 11:36 PM Care Teams Fan Mail Clerk Relationship Specialty Start Date End Date Faviola Pringle MD [address] [facility] [address] [place] [address] PCP - General 03/06/17 Darren Alfredo MD [address] [facility] [address] [place] [address] Consulting Physician Infectious Diseases 03/23/21 Robin Liu DPM [address] [place] [address] Consulting Physician Foot and Ankle Surg 08/31/22 Rickie Elizondo DPM [address] [address] Consulting Physician Orthopedic Surgery 12/27/22
--- OUTSIDE RECORDS SUMMARY | 2025-11-22 07:47 | XMS_ITS | Continuity of Care Document ---
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 Name Role Phone FAVIOLA PRINGLE Primary Care Provider JARETH VAZ [employer] Team Member ELPIDIO BORGES It Application Administrator HERMILO FORBES Bin Packer Assessment Encounter Date Assessment Date Assessment LastModified [...] available Lab CMP, serum or plasma 2024 [facility] (Lab), [address] [place] [address] [address], [place], [address], 09/01/2025 04:05:43 CBC w/ auto diff 2024 025 [facility] (Lab), [facility] [address], [place], [address], 09/01/2025 04:05:43 lipid panel w/ direct LDL, serum 2024 025 [facility] (Lab), [facility] [address], [place], [address], 09/01/2025 04:05:42 vitamin D, 25-hydrox y, total, serum 2024 [facility] (Lab), [address] [place] [address] [address], [place], [address], 08/25/2025 17:40:53 vitamin B12, serum 2024 [facility] (Lab), [address] [place] [address] [address], [place], [address], 09/01/2025 04:05:43 PTH (parathyr oid hormone), intact, serum or plasma 2024 [facility] (Lab), [address] [place] [address] [address], [place], [address], 08/25/2025 18:31:05 phosphoru s, serum or plasma 2024 025 [facility] (Lab), [address] [place] [address] [address], [place], [address], 08/25/2025 18:15:45 uric acid, serum or plasma 2024 025 [facility] (Lab), [address] [place] [address] [address], [address], 08/25/2025 18:45:38 Referral None recorded. Procedures None recorded. Surgeries None recorded. Imaging None recorded. Medication Orders None recorded. Patient TargetsNo targets recorded. Patient Instructions Encounter Date Encounter Id Patient Instructions Last Modified By Organization Details Last Modified Time 08/25/2025 [id number] Peripheral Arterial Disease (PAD): Care Instructions [email or web address] [...] Details Recorded Time Family history of stroke 476523496 Active Not Available [facility] 0 15:26:41 Family history of diabetes mellitus 206073524 Active Not Available [facility] 0 15:26:41 Family history of coronary arterioscl erosis 477731952 Active Not Available [facility] 0 15:26:41 Charcot's arthropath y 147239105 Active Not Available [facility] 0 15:26:41 Coronary arterioscl erosis 60768967 Active Not Available [facility] 0 15:26:41 Diabetic peripheral neuropathy 880522152 Active Not Available [facility] 0 15:26:41 Diabetes mellitus 86291113 Active Not Available [facility] 0 15:26:41 Benign hypertensi on 28273999 Active Not Available [facility] 0 15:26:41 Hyperlipid emia 84015753 Active Not Available [facility] 0 15:26:41 Hypothyroi dism 77089794 Active Not Available [facility] 0 15:26:42 Lymphedema 546082481 Active Not Available [facility] 0 15:26:41 Obesity 233773941 Completed 06/06/2020 MD Tati Cleveland [address], [place], [address] , [facility] 0 11:29:38 Rosacea 234554169 Active Not Available [facility] 0 15:26:41 Osteoarthr itis 103181261 Active 2015 Not Available [facility] 0 15:26:41 Peripheral vascular disease 857128939 Active 2015 Not Available [facility] 0 15:26:42 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 192701025 Active 2018 Not Available [facility] 0 15:26:41 Ex-smoker 4885738 Active 2019 Not Available [facility] 0 15:26:41 Chronic renal failure 05135532 Active 2020 MD Tati Cleveland [address], [place], [address] , [facility] 1 15:41:27 Complex renal cyst 252472695 Active 2020 MD Tati Cleveland [address], [place], [address] , [facility] 1 19:58:16 Chronic osteomyeli tis of foot 764754492 Active 2020 Lt MD Tati Cleveland [address], [place], [address] , [facility] 1 15:48:52 Retinal ischemia 88294800 Active 2020 MD Tati Cleveland [address], [place], [address] , [facility] 1 10:03:34 Anemia 787241386 Active 2021 MD Tati Cleveland [address], [place], [address] , [facility] 2 19:18:58 Serum creatinine above reference range 990510039 Active 2021 MD Tati Cleveland [address], [place], [address] , [facility] 2 19:19:04 Knee pyogenic arthritis 260286083 Active 2021 MD Tati Cleveland [address], [place], [address] , [facility] 2 12:06:48 C-reactive protein outside reference range 056877303 Active 2021 MD Tati Cleveland [address], [place], [address] , [facility] 2 23:07:09 Body mass index 25-29 - overweight 263318049 Active 2021 MD Tati Cleveland [address], [place], [address] , [facility] 2 11:16:17 Carotid artery stenosis 60321343 Active 2021 MD Tati Cleveland [address], [place], [address] , [facility] 2 23:40:21 Serum vitamin B12 borderline low 269872739 Active 2022 MD Tati Cleveland [address], [place], [address] , [facility] 3 16:04:53 Serum vitamin B12 below reference range 355625742 Active 2022 MD Tati Cleveland [address], [place], [address] , [facility] 3 15:13:46 Amputated toe 063039432 Active 2023 all of lt foot MD Tati Cleveland [address], [place], [address] , [facility] 14:51:21 Vitamin D deficiency 29648133 Active 2023 MD Tati Cleveland [address], [place], [address] , [facility] 12:56:02 Generalize d osteoarthr itis 058577568 Active 2024 MD Tati Cleveland [address], [place], [address] , [facility] 12:44:45 Problem Notes None recorded. Procedures Surgical History Date Name Laterality Status Provider Name and Address Organization Details Recorded Time 08/25/20 25 Diabetic Foot Exam completed MD Tati Cleveland [address], [place], [address], [facility] 08/25/2025 13:05:47 05/26/20 25 Diabetic Foot Exam completed MD Tati Cleveland [address], [place], [address], [facility] 05/26/2025 12:50:43 12/16/19 25 Diabetic Foot Exam completed MD Tati Cleveland [address], [place], [address], [facility] 12/16/2024 12:58:03 09/09/20 24 Diabetic Foot Exam completed MD Tati Cleveland [address], [place], [address], [facility] 09/09/2024 13:03:05 06/09/20 24 Diabetic Foot Exam completed MD Tati Cleveland [address], [place], [address], [facility] 06/09/2024 14:50:35 03/10/20 24 Diabetic Foot Exam completed MD Tati Cleveland [address], [place], [address], [facility] 03/10/2024 14:40:33 12/10/19 24 Diabetic Foot Exam completed MD Tati Cleveland [address], [place], [address], [facility] 12/10/2023 14:37:44 09/04/20 23 Diabetic Foot Exam completed MD Tati Cleveland [address], [place], [address], [facility] 09/04/2023 14:33:36 06/23/20 23 Diabetic Foot Exam completed MD Tati Cleveland [address], [place], [address], [facility] 06/23/2023 15:20:15 02/11/20 23 Diabetic Foot Exam completed MD Tati Cleveland [address], [place], [address], [facility] 02/10/2023 16:07:37 11/11/20 22 Diabetic Foot Exam completed MD Tati Cleveland [address], [place], [place], , [facility] 11/11/2022 15:50:52 10/22/20 22 Colonoscopy completed MD Tati Cleveland [address], [place], , [facility] 10/23/2022 22:26:57 08/13/20 22 Diabetic Foot Exam completed MD Tati Cleveland [address], [place], [place], , [facility] 08/13/2022 11:48:05 05/09/20 22 Diabetic Foot Exam completed MD Tati Cleveland [address], [place], [address], [facility] 05/09/2022 11:15:30 01/31/20 22 Diabetic Foot Exam completed MD Tati Cleveland [address], [place], [address], [facility] 01/30/2022 12:04:44 06/28/20 21 Diabetic Foot Exam completed MD Tati Cleveland [address], [place], [address], [facility] 06/28/2021 15:36:57 03/23/20 21 amputation of toe completed Carmen Nica [facility] 06/28/2021 15:04:07 03/07/20 21 Diabetic Foot Exam completed MD Tati Cleveland [address], [place], [address], [facility] 03/07/2021 15:16:44 12/06/19 21 Diabetic Foot Exam completed MD Tati Cleveland [address], [place], [address], [facility] 12/06/2020 15:33:57 09/05/20 20 Diabetic Foot Exam completed MD Tati Cleveland [address], [place], [address], [facility] 09/05/2020 16:19:17 06/06/20 20 Diabetic Foot Exam completed MD Tati Cleveland [address], [place], [address], [facility] 06/06/2020 11:33:53 12/07/19 20 Diabetic Foot Exam completed MD Tati Cleveland [address], [place], [address], [facility] 12/07/2019 11:48:36 09/06/20 19 Diabetic Foot Exam completed MD Tati Cleveland [address], [place], [address], [facility] 09/06/2019 13:00:30 06/04/20 19 Diabetic Foot Exam completed MD Tati Cleveland [address], [place], [address], [facility] 06/04/2019 12:52:36 03/05/20 19 Diabetic Foot Exam completed MD Tati Cleveland [address], [place], [address], [facility] 03/05/2019 13:23:18 12/02/19 19 Diabetic Foot Exam completed MD Tati Cleveland [address] [address], [place], [address], [facility] 12/02/2018 15:16:05 09/01/20 18 Diabetic Foot Exam completed MD Tati Cleveland [facility] [address], [place], [address], [facility] 09/01/2018 14:59:25 11/26/19 17 Colonoscopy completed MD Tati Cleveland [facility] [address], [place], [address], [facility] 11/26/2016 13:18:37 09/03/20 11 Colonoscopy completed Cecilia Ramirez [facility] 03/19/2016 22:33:09 Tonsillectomy completed Cecilia Ramirez [facility] 03/19/2016 22:33:19 Orthopedic Surgery completed Cecilia Ramirez [facility] 03/19/2016 22:33:34 Imaging Results None recorded. Procedure Notes None recorded. Medical Equipment None Reported. Allergies Allergen ID Allergen Name Allergen Category Reaction Reaction Severity Criticality Documentation Date Start Date Code Code System Note Provider Name and Address Organization Details Recorded Time 46173 iodine medicatio n anaphylax is Not available high 05/26/20252021 5933 RxNorm Just iv dye Not Available [facility] - External Data Service - prod 5 11:34:41 44185 pentazoci ne Not available Not available Not available low 05/26/2025 8001 RxNorm Talwi n unrec ogniz ed react ion (text : Unkno wn, code: [id number]) (from exter nal sourc e) Not Available [facility] - External Data Service - prod 5 11:34:41 570 Talwin medicatio n Not available Not available Not available 03/19/2016 8002 [facility] 22:31:10 7985 Iodinated contrast media (substanc e) medicatio n Not available Not available Not available 03/05/2019 06314 2004 SNOMED Gwendolyn [facility] 9 12:54:24 Medications Name Sig Start [...] Updated DateTime 5 180.34 cm 29.7 kg/m2 63695.1 7 g 97.6 [degF] 18 /min 73 /min 124/61 mm[Hg] Liat Michele [facility] 5 12:35:14 Social History Question Answer Notes LastModified by Organizat ion Details LastModified Time Tobacco Smoking Status Former Smoker quit Not Available [facility] 09/08/2020 03:12:14 Do You Have An Advance Directive? Yes [id number] Information not available 09/08/2020 What Is Your Level Of Caffeine Consumption? 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 No [id number] Information not available 09/08/2020 In The 14 Days Before Symptom Onset, Have You Had Close Contact With A Person Who Is Under Investigation For COVID-19 While That Person Was Ill? No [id number] Information not available 09/08/2020 Have You Been To An Area Known To Be High Risk For COVID-19? No [id number] Information not available 09/08/2020 Have You Directly Handled Bats, Rodents, Or Primates From Ebola Endemic Areas? No [id number] Information not available 09/08/2020 Have You Processed Blood Or Body Fluids From An Ebola Virus Disease Patient Without Appropriate PPE? No [id number] Information not available 09/08/2020 Have You Had Household Contact With An Ebola Virus Disease Patient? No [id number] Information not available 09/08/2020 Have You Had Direct Contact With A Body In An Ebola-affected Area Without Appropriate PPE? No [id number] Information not available 09/08/2020 Have You Had Percutaneous (e.g. Needle Stick) Or Mucous Membrane Exposure To Blood Or Body Fluids From An Ebola Virus Disease Patient? No [id number] Information not available 09/08/2020 Have You Had Other Close Contact With An Ebola Virus Disease Patient In Health Care Facilities Or Community Settings? No [id number] Information not available 09/08/2020 Do You Reside In Or Have You Traveled To An Area Where Ebola Virus Transmission Is Active? No [id number] Information not available 09/08/2020 Are There Any Guns Present In Your Home? No [id number] Information not available 09/08/2020 Hard Of Hearing [...] Much Tobacco Do You Smoke? 1 PPD [id number] Information not available 09/08/2020 Do You Use Sunscreen Routinely? No [id number] Information not available 09/08/2020 How Many Years Have You Smoked Tobacco? 10 [id number] Information not available 09/08/2020 Have You Used IV Drugs? No [id number] Information not available 09/08/2020 Sex: Unknown Functional Status Question Answer Note LastModified by Organization D etails LastModified Time What is your level of alcohol consumption? None Information not available 12/06/2020 Are you currently employed? No [id number] Information not available 09/08/2020 Are you able to care for yourself independently? Yes [id number] Information not available 09/08/2020 Mental Status None recorded. Family History Relationship Description Onset Age of this Age Resolved Age Notes LastModified by Organization Details LastModified Time Father Cerebrovascu lar accident 81 [email or web address] Not available 22:32:20 Mother Diabetes mellitus [email or web address] Not available 2015 22:32:32 Brother Coronary arterioscler osis [email or web address] Not available 2015 22:32:47 Medical History Condition Response Coronary Artery Disease N Gout N Other N Blood Diseases N Kidney Stones N Hyperthyroidism N Breast Cancer N Blood Transfusion N Depression N Lung Disease N Hypothyroidism N COPD N Developmental or Behavioral Disorders N Defects or Inherited Disease N Breast Problem N Difficulty Swallowing N Anesthesia Complications N Meniere's disease N Anxiety Disorder N Muscle, Joint, or Bone Problems N Obesity N Vision or Eye Problems N Arthritis N Polyps N Infertility N Mental Disorder N Cancer N Varicosities N Stroke N Endometriosis N Bladder or Kidney Problems N High Cholesterol N Liver Disease N Fibromyalgia N Headaches N Kidney Disease N Allergies/Hayfever N Heart [...] N Heart Disease N Pulmonary Embolism N Pre-Eclampsia N Hypertension N Chronic Ear Infections N Osteoporosis N Chicken Pox N Autism Spectrum Disorder (ASD) N Thrombophilias N Immunizations Vaccine Type Date Status Note Provider Nam e and Address Organization Details Recorded Time Td(adult) unspecified formulation 8 completed Not Available [facility] 12/23/2023 16:33:29 Influenza, split virus, quadrivalent, preservative 8 completed Not Available [facility] 12/23/2023 16:33:29 zoster recombinant 9 completed Not Available [facility] 12/23/2023 16:33:29 zoster recombinant 9 completed Not Available [facility] 12/23/2023 16:33:29 Influenza, split virus, quadrivalent, preservative 9 completed Not Available [facility] 12/23/2023 16:33:29 pneumococcal polysaccharide PPV23 8 completed Not Available [facility] 12/23/2023 16:33:29 Pneumococcal conjugate PCV 13 7 completed Not Available [facility] 12/23/2023 16:33:29 Influenza, high-dose, quadrivalent, PF 0 completed Not Available [facility] 12/23/2023 16:33:29 SARS-COV-2 (COVID-19) vaccine, UNSPECIFIED 1 completed Not Available [facility] 12/23/2023 16:33:29 SARS-COV-2 (COVID-19) vaccine, UNSPECIFIED 1 completed Not Available [facility] 12/23/2023 16:33:29 COVID-19, mRNA, LNP-S, PF, 30 mcg/0.3 mL dose 1 completed Not Available [facility] 12/23/2023 16:33:29 Influenza, split virus, quadrivalent, preservative 1 completed Not Available [facility] 12/23/2023 16:33:29 Influenza, split virus, quadrivalent, preservative 2 completed Not Available [facility] 12/23/2023 16:33:29 COVID-19, mRNA, LNP-S, PF, 30 mcg/0.3 mL dose, rola-sucrose 2 completed Not Available [facility] 12/23/2023 16:33:29 Influenza, split virus, quadrivalent, preservative 5 completed Not Available [facility] 12/23/2023 16:33:29 pneumococcal polysaccharide PPV23 4 completed Not Available [facility] 12/23/2023 16:33:29 zoster live 5 completed Not Available [facility] 12/23/2023 16:33:29 Tdap 8 completed Not Available [facility] 12/23/2023 16:33:29 influenza, unspecified formulation 3 completed Not Available [facility] 12/23/2023 16:33:29 Respiratory syncytial virus (RSV) MAB, unspecified 4 completed Faviola Pringle MD [address], [place], [address], [facility] 09/09/2024 13:00:27 influenza, unspecified formulation 4 completed MD Tati Cleveland [facility] [address], [place], [address], [facility] 12/16/2024 12:52:13 Past Encounters Encounter ID Performer Location Encounter Start Date Encounter Closed Date Diagnosis/Indication Diagnosis SNOMED-CT Code Diagnosis ICD10 Code Diagnosis IMO Codes Diagnosis Note [id number] Faviola Pringle MD [facility], [address] [place] [address] 08/25/2025 12:19:41 08/25/2025 13:16:06 Benign hypertension 88719963 I10 good controllas t EKG 05/20/25 @ [facility] Coronary arteriosclerosis 34037811 I25.10 seen , cardiology , had stint RCA has plavix , no other meds changelast EKG 04/06/24str ess test 04/06/2024, -ve ER workup 05/20/25 Carotid ar rafal stenosis 04283495 I65.29 02/03/25 Peripheral vascular disease 071839149 I73.9 last arterial duplex 05/17/23 , 11/27/23 , 11/2024sees vascular on reg basis Hyperlipidemia 70462468 E78.5 last LDL 02/08/25 @ goal Diabetes mellitus 676187 09 E11.69 - last A1c 08/17/25 @ endo- last eye ex 06/24/25 per pt- last MELVIN 02/08/25 Hypothyroidism 77557595 E03.9 last TSH 08/17/25 Body mass index 25-29 - overweight 897750119 Z68.28 educationo n diet Serum karo min B12 below reference range 622439230 R79.89 last level 02/08/25 Vitamin D deficiency 347 46507 E55.9 02/08/25 Chronic renal failure 90 077181 N18.9 last US 12/2020 Chronic os teomyelitis of foot 359848168 M86.679 S/P ambulation all toes Lt foot Diabetic p eripheral neuropathy 939461358 E11.40 on tylenollas t B12 02/08/25had foot deformity Charcot arthropath y , PVD , H/O ulcer ,need diabetic shoes and inserts Screening for malignant neoplasm of colon 920183889 Z12.11 121215 last C scope 09/2022 , good for 5 years Immunization due 6723881 08 Z23 7140138 up to date Health Concerns Section Related Observation LastModified by Organization Detai ls LastModified Time None Recorded Concern Status LastModified by Organization Details LastModified Time None Recorded Payers Encounter Date Sequence Insurance Name Policy Number Policy Godfrey Covered Member ID Godfrey Member ID Guarantor Name 08/25/2025 2 [facility] (MEDICARE SUPPLEMENT) [id number] Steve Bradley [id number] Steve Bradley 08/25/2025 1 R[facility]E [facility] (MEDICARE) Reena Bradley [id number] Steve Bradley Notes Date Note Type [...] with exertion, andno headache. Faviola Pringle MD [address], [place], [address], [facility] 08/25/2025 13:10:31
[2025-11-22 08:09] LABS: Hematocrit 46.2 % (42.0-52.0); Hemoglobin 14.9 g/dL (14.0-18.0); Immature Granulocyte Percent A 0.4 % (0-0.5); Lymphocytes Absolute Auto 1.58 K/mm3 (0.9-3.2); Mean Corpuscular HGB Conc 32.3 g/dl (32-36); Mean Corpuscular Hemoglobin 31.6 pg (26-34); Mean Corpuscular Volume 97.9 fl (80-100); Nucleated Red Blood Cells Absolute Auto 0.000 K/mm3 (0.0-0.012); Nucleated Red Blood Cells Perc 0.0 % (0.0-0.2); Platelet Count Result 155 k/mm3 (150-375); Red Blood Count 4.72 M/mm3 (4.6-6.20); White Blood Count 5.6 K/mm3 (4.5-10.0)
[2025-11-22 08:30] LABS: Alanine Aminotransferase 32 U/L (6-50); Albumin Level 4.2 g/dL (3.5-5.1); Alkaline Phosphatase 121 U/L (38-126); Anion Gap 8 mmol/L (4-12); Aspartate Amino Transferase 37 U/L (17-59); Bilirubin,Total 0.8 mg/dL (0.2-1.3); Blood Urea Nitrogen 27 mg/dL (9-20); Calcium 9.4 mg/dL (8.4-10.2); Carbon Dioxide 28 mmol/L (22-30); Chloride 105 mmol/L (98-107); Cholesterol 111 mg/dL (0-200); Estimated Glomerular Filt Rate > 60; Glucose 124 mg/dL (65-110); HDL Direct 38 mg/dL; Potassium 4.7 mmol/L (3.4-5.0); Sodium 141 mmol/L (137-145); Total Protein 7.4 g/dL (6.3-8.2); Triglycerides 133 mg/dL (<150); Uric Acid 6.2 mg/dL (3.5-8.5)
[2025-11-22 09:18] LABS: Parathyroid Intact 47.2 pg/mL (14.5-75.2)
[2025-11-22 09:24] LABS: Vitamin B12 641.0 pg/mL (239-931)
== END 2025-11-22 07:42 | disposition home or self-care (01) ==
PROVIDERS: PCP Internal Medicine; Visit Provider Internal Medicine
DX: I12.9 Hypertensive chronic kidney disease with stage 1 through stage 4 chronic kidney disease, or unspecified chronic kidney disease (principal); N18.9 Chronic kidney disease, unspecified; E78.5 Hyperlipidemia, unspecified; R79.89 Other specified abnormal findings of blood chemistry; E55.9 Vitamin D deficiency, unspecified
CPT/HCPCS: 36415; 80053; 80061; 82306; 82607; 83970; 84100; 84550; 85025